=== PATIENT | male | born 1940 | race Caucasian/White ===

== ENCOUNTER 2017-05-18 23:17 | Emergency (ER) | payer MEDICARE ==
--- NOTE | 2017-05-19 02:05 | ED Physician Documentation ---
History of Present Illness - Stated complaint Stated Complaint: MALE - Chief complaint Chief Complaint: General - History obtained from History obtained from: Patient, Family - History of Present Illness Timing: Other (several months) Improved by: no ameliorating factors Worsened by: worse with BM - Additonal information Additional information: c/o months of gradually worsening painful hemorrhoids. He has been seen by PMD and surgery for this, was told he has internal hemorrhoids but not external ones. He is scheduled for colonoscopy next week as part of ongoing w/u for this problem. His chief complaint is rectal pain that started with BM this morning () and has continued throughout the day and evening. It has finally improved while awaiting ED evaluation. Review of Systems Constitutional: denies: Fever, Chills, Sweats Cardiac: reports: Reviewed and negative Respiratory: reports: Reviewed and negative GI: reports: Constipation, Other (rectal pain). denies: Abdominal Pain, Nausea , Vomiting, Diarrhea : denies: Dysuria, Frequency Skin: denies: Rash Musculoskeletal: denies: Back pain PD PAST MEDICAL HISTORY - Past Medical History Cardiovascular: Hypertension GI: Hemorrhoids, Diverticulitis, Other : Incontinence, Other Musculoskeletal: Osteoarthritis, Rheumatoid arthritis Other Past Medical History: Prostate CA, perferated colon - Past Surgical History Past Surgical History: Yes General: Bowel surgery - Present Medications Home Medications: Ambulatory Orders Medication Instructions Recorded Confirmed Amitriptyline [Elavil] 10 mg PO QPM 05/18/17 05/18/17 Aspirin 81 mg PO DAILY 05/18/17 05/18/17 Hydrochlorothiazide 25 mg PO DAILY 05/18/17 05/18/17 Lisinopril 20 mg PO DAILY 05/18/17 05/18/17 Hydrocodone/Acetaminophen 1 - 2 each PO Q6HR PRN #14 tablet 05/19/17 [Hydrocodon-Acetaminophen 5-325] Tolterodine [Detrol LA] 2 mg PO DAILY 05/19/17 05/19/17 - Allergies Allergies/Adverse Reactions: Allergies Allergy/AdvReac Type Severity Reaction Status Date / Time No Known Drug Allergies Allergy Verified 05/18/17 23:22 - Social History Does the pt smoke?: Yes Smoking Status: Former smoker Does the pt drink ETOH?: No Does the pt have substance abuse?: No - Immunizations Immunizations are current?: Yes PD ED PE NORMAL - Vitals Vital signs reviewed: Yes - General General: Alert and oriented X 3, No acute distress, Well developed/nourished - Abdomen Abdomen: Soft, Non tender, Non distended - Back Back: No CVA TTP - Derm Derm: Normal color, Warm and dry PD ED PE EXPANDED - Rectal Rectal: Other (no external abnormalities (no fissure or external hemorrhoid is visualized); unfortunately, I was unable to perform a digital rectal exam ( tried twice) because of extreme tenderness/pain with attempts). No: Hemorrhoid (no external hemorrhoid), Fissure Results - Vitals Vitals: Oxygen O2 Source Room air - Labs Labs: Laboratory Tests 05/19/17 05/19/17 03:20 03:20 WBC 8.3 RBC 3.78 L Hgb 12.2 L Hct 36.0 L MCV 95.4 H MCH 32.4 H MCHC 34.0 RDW 13.6 Plt Count 257 MPV 8.4 Neut # 5.2 Lymph # 1.9 [place]ilton # 0.9 Eos # 0.2 Baso # 0.1 Absolute Nucleated RBC 0.00 Nucleated RBCs 0.0 Sodium 138 Potassium 3.5 Chloride 103 Carbon Dioxide 27 Anion Gap 8.0 BUN 22 H Creatinine 1.4 H Estimated GFR (MDRD) 49 L Glucose 116 H Calcium 9.1 Total Bilirubin 0.5 AST 26 ALT 22 Alkaline Phosphatase 117 Total Protein 7.7 Albumin 4.3 Globulin 3.4 Albumin/Globulin Ratio 1.3 Lipase 78 H - Rads (name of study) CT A/P with IV contrast Radiology: Prelim report reviewed, See rad report PD MEDICAL DECISION MAKING - ED course Complexity details: reviewed old records, reviewed results, re-evaluated patient , considered differential, d/w patient, d/w family Departure - Departure Disposition: 01 Home, Self Care Clinical Impression: Rectal pain Condition: Good Instructions: ED Acute Pain [facility] Follow-Up: EYAD GARCIA MD [Provider Admit Priv/Credential] - Prescriptions: Hydrocodone/Acetaminophen [Hydrocodon-Acetaminophen 5-325] 1 - 2 each PO Q6HR PRN #14 tablet PRN Reason: Pain Discharge Date/Time: 05/19/17 05:51
[2017-05-19 03:52] LABS: BASOPHILS # (AUTO) 0.1 10^3/uL (0.0-0.1); EOSINOPHILS # (AUTO) 0.2 10^3/uL (0.0-0.7); EOSINOPHILS % (AUTO) 1.9 %; HGB - HEMOGLOBIN 12.2 g/dL (14.0-18.0); LYMPHOCYTES # (AUTO) 1.9 10^3/uL (1.5-3.5); MEAN CORPUSCULAR HEMOGLOBIN 32.4 pg (27.0-31.0); MEAN CORPUSCULAR VOLUME 95.4 fL (80.0-94.0); MEAN PLATELET VOLUME 8.4 fL (7.4-11.4); MONOCYTES # (AUTO) 0.9 10^3/uL (0.0-1.0); MONOCYTES % (AUTO) 11.2 %; NEUTROPHILS # (AUTO) 5.2 10^3/uL (1.5-6.6); NEUTROPHILS % (AUTO) 62.9 %; RED BLOOD COUNT 3.78 10^6/uL (4.70-6.10); RED CELL DISTRIBUTION WIDTH 13.6 % (12.0-15.0); UNCORRECTED WHITE BLOOD COUNT 8.3 x10^3/uL; WHITE BLOOD COUNT 8.3 x10^3/uL (4.8-10.8)
[2017-05-19 04:03] LABS: ALBUMIN/GLOBULIN RATIO 1.3 (1.0-2.2); BILIRUBIN,TOTAL 0.5 mg/dL (0.2-1.0); CALCIUM 9.1 mg/dL (8.5-10.3); CREATININE 1.4 mg/dL (0.6-1.2); POTASSIUM 3.5 mmol/L (3.5-5.0); TOTAL PROTEIN 7.7 g/dL (6.7-8.2)
[2017-05-19] MEDS ORDERED: IOPAMIDOL-300 100 ML VIAL IVP ONE (04:43)
--- NOTE | 2017-05-19 04:55 | CT Preliminary Report ---
Exam: CT Abdomen/Pelvis W/ IMPRESSION: 1. No acute inflammatory or obstructive process seen in the abdomen or pelvis. 2. Cholelithiasis. 3. Multiple lower abdominal/pelvic omkar-incisional hernias without apparent complication. 4. 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 5. Post-prostatectomy and partial colectomy. [facility] SITE ID: [id number]
--- NOTE | 2017-05-19 05:04 | CT Report ---
EXAM: CT ABDOMEN AND PELVIS EXAM DATE: 05/19/2017 04:43 AM. CLINICAL HISTORY: Rectal pain. COMPARISONS: None. TECHNIQUE: Routine helical CT imaging was performed through the abdomen and pelvis. IV contrast: 100 mL Isovue-300. Enteric contrast: No . Reconstructions: Coronal and sagittal. In accordance with CT protocol optimization, one or more of the following dose reduction techniques w ere utilized for this exam: automated exposure control, adjustment of mA and/or KV based on patient s ize, or use of iterative reconstructive technique. FINDINGS: Lung Bases: Unremarkable. Liver: Scattered probable tiny cysts. No suspicious masses. Gallbladder/Bile Ducts: Multiple gallstones without definite cholecystitis. Spleen: Unremarkable. Pancreas: Unremarkable. Adrenal Glands: Unremarkable. Kidneys: Unremarkable. No suspicious masses or hydronephrosis. Peritoneal Cavity/Bowel: Post partial colectomy. Colonic diverticulosis without definitive acute dive rticulitis. No bowel obstruction or inflammatory process seen. No free air or fluid. There are multiple lower abdominal/pelvic omkar-incisional hernia defects. Largest is left paramedian and contains a segment of nonobstructed large bowel without obstruction. Hernia defect measures 6 x 5 cm with a larger 13 cm hernia sac. Additional smaller right paramedian anterior abdominal wall herni a contains a knuckle of nonobstructed large bowel as well. Pelvic Organs: Bladder appears unremarkable. Post-prostatectomy. Vasculature: Moderate atherosclerotic disease of the aorta and branches. No aneurysm seen. Bones: No significant abnormality. Other: None. IMPRESSION: 1. No acute inflammatory or obstructive process seen in the abdomen or pelvis. 2. Cholelithiasis. 3. Multiple lower abdominal/pelvic omkar-incisional hernias without apparent complication. 4. 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 5. Post-prostatectomy and partial colectomy. [facility] Referring Provider Line: [phone] SITE ID: [id number]
[2017-05-19] MEDS ORDERED: HYDROcod/ACETAM 5/325 MG TABLET PO STA (05:38)
[2017-05-19] MEDS ORDERED: HYDROcod/ACETAM 5/325 MG TABLET ONE (05:39)
[2017-05-19 05:46] VITALS: BP 137/78
== END 2017-05-19 05:51 | disposition home or self-care (01) ==
LOC: ED 23:17
DX: K62.89 Other specified diseases of anus and rectum (principal); I10 Essential (primary) hypertension; Z87.891 Personal history of nicotine dependence
CPT/HCPCS: 36415; 74177; 80053; 83690; 85025; 99283; A9270; Q9967

== ENCOUNTER 2017-05-24 07:44 | Day surgery (SDC) | payer MEDICARE ==
[~2017-05-24 07:44] MED LIST: ceFAZolin 2 GM/50 ML 50 ML IV ONE
[2017-05-24] MEDS ORDERED: LACTATED RINGERS 1,000 ML IV ONE ×3 (08:41→10:50)
[2017-05-24] MEDS ORDERED: MIDAZOLAM 2 MG/2 ML VIAL IVP ONE (10:00)
[2017-05-24] MEDS ORDERED: PROPOFOL 200 MG/20 ML VIAL IVP ONE (10:00)
[2017-05-24] MEDS ORDERED: ONDANSETRON 4 MG/2 ML VIAL IVP ONE (10:00)
[2017-05-24] MEDS ORDERED: KETAMINE 500 MG/10 ML VIAL IVP ONE (10:00)
[2017-05-24] MEDS ORDERED: LIDOCAINE-MPF 2% 5 ML VIAL IM ONE (10:00)
[2017-05-24] MEDS ORDERED: PHENYLEPHRINE 50 MG/5 ML VIAL IV ONE (10:00)
[2017-05-24] MEDS ORDERED: fentaNYL 100 MCG/2 ML VIAL IVP ONE (10:00)
[2017-05-24] MEDS ORDERED: BUPIVACAINE 0.25%-EPI 1:200000 PF 30 ML VIAL SUBQ ONE ×3 (10:30→10:54)
[2017-05-24] MEDS ORDERED: LIDOCAINE 1% 50 ML MDV SUBQ ONE ×3 (10:30→10:54)
[2017-05-24] MEDS ORDERED: THROMBIN (BOVINE) 5,000 UNIT VIAL TOP ONE (10:47)
[2017-05-24 12:21] VITALS: BP 122/62
--- NOTE | 2017-05-25 05:28 | OPERATIVE REPORT ---
DATE OF SURGERY: 05/24/2017 00:00:00 SURGEON: Carlee Elmore MD. PREOPERATIVE DIAGNOSIS: External painful hemorrhoids. POSTOPERATIVE DIAGNOSIS: External painful hemorrhoids. INDICATION FOR PROCEDURE: This is a 76-year-old male who presented to my office multiple times with severe anal pain. In evaluation in the office, I was unable to fully examine him secondary to body habitus and pain. He was subsequently scheduled for colonoscopy, exam under anesthesia, and possible hemorrhoidectomy. FINDINGS: After obtaining informed consent from the patient, he was brought into the operating room and positioned on the operating table in the left lateral position. A colonoscopy was performed, which was dictated separately. He was then positioned in the prone position, taking note of pressure points. He received 2 grams of Ancef. He was prepped and draped in the usual sterile fashion. A timeout was taken according to protocol. Anoscopy was performed, which demonstrated large external hemorrhoids, one of which was indurated and located in the left lateral position. This is where he was appearing to have pain upon palpation in the office. Local anesthetic 20 mL was infiltrated and hemorrhoidectomy was then performed by clamping the base of the hemorrhoid, excising the skin with a knife, and then the hemorroidal base with electrocautery. The incision was closed with 3-0 Chromic, ensuring hemostasis. Further inspection of the anal canal demonstrated 2 additional hemorrhoids located in the 5 o'clock and 7 o'clock positions. These were also clamped and excised in a similar manner. They were both closed with 3-0 Chromic. Hemostasis was noted to be achieved. The anal canal was copiously irrigated, and 60 mL of local anesthetic in total was infiltrated. Thrombin and Gelfoam were then packed in the anal canal. The patient was then taken to recovery in stable condition. ESTIMATED BLOOD LOSS: Minimal. COMPLICATIONS: None. SPECIMENS: External hemorrhoid. JOB #: [id number] EXT JOB #:[id number]
== END 2017-05-24 07:45 | disposition home or self-care (01) ==
LOC: SDS 07:44
PROVIDERS: ATTEND Surgery
PROC: 06BY0ZC Excision of Hemorrhoidal Plexus, Open Approach (ICD-10-PCS; principal; 2017-05-24 09:00)
PROC: 0DBN8ZX Excision of Sigmoid Colon, Via Natural or Artificial Opening Endoscopic, Diagnostic (ICD-10-PCS; 2017-05-24 09:00)
DX: K64.4 Residual hemorrhoidal skin tags (principal); D12.5 Benign neoplasm of sigmoid colon; K57.30 Diverticulosis of large intestine without perforation or abscess without bleeding; K64.8 Other hemorrhoids; Z87.891 Personal history of nicotine dependence; I10 Essential (primary) hypertension; E78.5 Hyperlipidemia, unspecified
CPT/HCPCS: 45385; 46999; J0690; J7120; 88304; 88305

== ENCOUNTER 2017-10-26 08:00 | Outpatient (CLI) | payer MEDICARE | END 2017-10-26 08:01 | disposition home or self-care (01) | LOC: LAB.R 08:00 | PROVIDERS: ATTEND Surgery | DX: K61.1 Rectal abscess (principal) | CPT/HCPCS: 87070; 87205 ==

== ENCOUNTER 2021-03-31 08:00 | Outpatient (CLI) | payer MEDICARE ==
[2021-03-31 17:33] LABS: BASOPHILS # (AUTO) 0.1 10^3/uL (0.0-0.1); BASOPHILS % (AUTO) 0.6 %; EOSINOPHILS # (AUTO) 0.1 10^3/uL (0.0-0.7); EOSINOPHILS % (AUTO) 1.4 %; HCT - HEMATOCRIT 36.9 % (42.0-52.0); HGB - HEMOGLOBIN 11.7 g/dL (14.0-18.0); LYMPHOCYTES # (AUTO) 1.7 10^3/uL (1.5-3.5); LYMPHOCYTES % (AUTO) 19.6 %; MEAN CORPUSCULAR HEMOGLOBIN 31.5 pg (27.0-31.0); MEAN CORPUSCULAR HGB CONC 31.7 g/dL (32.0-36.0); MEAN CORPUSCULAR VOLUME 99.2 fL (80.0-94.0); MONOCYTES % (AUTO) 11.3 %; NEUTROPHILS # (AUTO) 5.7 10^3/uL (1.5-6.6); NEUTROPHILS % (AUTO) 66.6 %; PLT - PLATELET COUNT 272 10^3/uL (130-450); RED BLOOD COUNT 3.72 10^6/uL (4.70-6.10); RED CELL DISTRIBUTION WIDTH 13.4 % (12.0-15.0); WHITE BLOOD COUNT 8.6 x10^3/uL (4.8-10.8)
[2021-03-31 18:17] LABS: CALCIUM 9.3 mg/dL (8.5-10.3); CREATININE 1.6 mg/dL (0.6-1.2); POTASSIUM 4.3 mmol/L (3.5-5.0); URIC ACID 8.4 mg/dL (2.6-7.2)
== END 2021-03-31 23:59 | disposition home or self-care (01) ==
LOC: LAB.N 08:00
PROVIDERS: ATTEND Family Medicine
DX: L03.115 Cellulitis of right lower limb (principal)
CPT/HCPCS: 36415; 80048; 84550; 85025

== ENCOUNTER 2021-03-31 16:28 | Outpatient (CLI) | payer MEDICARE ==
--- NOTE | 2021-03-31 17:19 | XRAY Report ---
PROCEDURE: Foot 3 View RT INDICATIONS: CELLULITIS, R FOOT TECHNIQUE: 3 views of the foot were acquired. COMPARISON: None available. FINDINGS: Bones: No fractures or dislocations. No suspicious bony lesions. Mild first MTP and diffuse interp halangeal joint space narrowing with periarticular osteophyte formation. Prominent plantar and retroc alcaneal bone spurs. Soft tissues: No tibiotalar joint effusion. Achilles tendon appears normal. Mild dorsal soft tissu e swelling with mottled appearance of the soft tissues. IMPRESSION: First MTP and diffuse interphalangeal joint degeneration. Calcaneal enthesopathy. Diffuse soft tissue swelling with mottled appearance which may be related to edema; however sialitis cannot be excluded and direct visualization is recommended. Reviewed by: VALENTINO Waller on 03/31/2021 5:17 PM PDT Approved by: Mahin Gomes MD on 03/31/2021 5:17 PM PDT Station ID: [id number]
== END 2021-03-31 23:59 | disposition home or self-care (01) ==
LOC: DI.N 16:28
PROVIDERS: ATTEND Family Medicine
DX: M19.071 Primary osteoarthritis, right ankle and foot (principal); M77.31 Calcaneal spur, right foot; M77.51 Other enthesopathy of right foot and ankle; M79.89 Other specified soft tissue disorders

== ENCOUNTER 2021-07-20 13:17 | Outpatient (CLI) | payer MEDICARE ==
[2021-07-20 18:41] LABS: HCT - HEMATOCRIT 36.9 % (42.0-52.0); HGB - HEMOGLOBIN 11.8 g/dL (14.0-18.0); MEAN CORPUSCULAR HEMOGLOBIN 31.6 pg (27.0-31.0); MEAN CORPUSCULAR VOLUME 98.9 fL (80.0-94.0); MEAN PLATELET VOLUME 11.3 fL (7.4-11.4); RED BLOOD COUNT 3.73 10^6/uL (4.70-6.10); RED CELL DISTRIBUTION WIDTH 14.1 % (12.0-15.0); WHITE BLOOD COUNT 9.4 x10^3/uL (4.8-10.8)
[2021-07-20 18:45] LABS: ALBUMIN 3.9 g/dL (3.2-5.5); ALBUMIN/GLOBULIN RATIO 1.1 (1.0-2.2); ALKALINE PHOSPHATASE 97 IU/L (42-121); ALT ALANINE AMINOTRANSFERASE 18 IU/L (10-60); AST ASPARTATE AMINOTRANSFERASE 21 IU/L (10-42); BILIRUBIN,TOTAL 0.7 mg/dL (0.2-1.0); BUN - BLOOD UREA NITROGEN 19 mg/dL (6-20); CALCIUM 9.1 mg/dL (8.5-10.3); CARBON DIOXIDE - CO2 27 mmol/L (21-32); CHLORIDE 100 mmol/L (101-111); CHOL/HDL RATIO 4.6 (<5.0); CHOLESTEROL 217 mg/dL; CREATININE 1.3 mg/dL (0.6-1.2); GFR - MDRD 53 (>89); GLUCOSE 117 mg/dL (70-100); HDL CHOLESTEROL 47 mg/dL; LDL CHOLESTEROL,CALCULATED 140 mg/dL; POTASSIUM 4.1 mmol/L (3.5-5.0); SODIUM 138 mmol/L (135-145); TOTAL PROTEIN 7.3 g/dL (6.7-8.2); TRIGLYCERIDES 150 mg/dL; URIC ACID 7.4 mg/dL (2.6-7.2); VLDL CHOLESTEROL 30 mg/dL
== END 2021-07-20 13:18 | disposition home or self-care (01) ==
LOC: LAB.N 13:17
PROVIDERS: ATTEND Family Medicine
DX: N18.30 Chronic kidney disease, stage 3 unspecified (principal); R74.8 Abnormal levels of other serum enzymes; R97.20 Elevated prostate specific antigen [PSA]; E78.5 Hyperlipidemia, unspecified; M10.9 Gout, unspecified
CPT/HCPCS: 36415; 80053; 80061; 83721; 84550; 85027

== ENCOUNTER 2021-07-20 15:49 | Outpatient (CLI) | payer MEDICARE ==
--- NOTE | 2021-07-21 09:08 | XRAY Report ---
PROCEDURE: Lumbar Spine 2 View INDICATIONS: ELEVATED PSA TECHNIQUE: 2 views of the lumbar spine were acquired. COMPARISON: None. FINDINGS: Bones: 5 [id number]-[id number] vertebrae are present. There is normal bony alignment. No vertebral body compression fractures. No suspicious bony lesions. Scattered osteophytes are present with bridging osteophyte at T12-L1. Multilevel moderate disc space narrowing. In addition, moderate to severe jayda inal narrowing is present L4-5, L5-S1. Soft tissues: Overlying bowel gas pattern is normal. No suspicious soft tissue calcifications. IMPRESSION: Multilevel degenerative changes without suspicious osseous lesions. Reviewed by: Kenya Wilkins MD on 07/21/2021 9:06 AM PDT Approved by: Kenya Wilkins MD on 07/21/2021 9:06 AM PDT Station ID: [id number]
--- NOTE | 2021-07-21 09:32 | XRAY Report ---
PROCEDURE: Pelvis 1 View INDICATIONS: ELEVATED PSA TECHNIQUE: Single AP view of the pelvis was obtained. COMPARISON: None. FINDINGS: Degenerative changes are noted within the lower lumbar spine. Bones are well-mineralized. No suspicio us osseous lesions. No fractures or dislocations. Minimal to mild bilateral degenerative narrowing is present within the hips. IMPRESSION: No suspicious osseous lesions. Reviewed by: Kenya Wilkins MD on 07/21/2021 9:31 AM PDT Approved by: Kenya Wilkins MD on 07/21/2021 9:31 AM PDT Station ID: [id number]
== END 2021-07-20 15:50 | disposition home or self-care (01) ==
LOC: DI.N 15:49
PROVIDERS: ATTEND Family Medicine
DX: R97.20 Elevated prostate specific antigen [PSA] (principal); R74.8 Abnormal levels of other serum enzymes; M25.78 Osteophyte, vertebrae; M51.36 Other intervertebral disc degeneration, lumbar region; M48.061 Spinal stenosis, lumbar region without neurogenic claudication; N18.30 Chronic kidney disease, stage 3 unspecified; E78.5 Hyperlipidemia, unspecified; M10.9 Gout, unspecified
CPT/HCPCS: 36415; 80053; 80061; 83721; 84550; 85027

== ENCOUNTER 2023-03-02 12:26 | Outpatient (CLI) | payer MEDICARE | END 2023-03-02 12:27 | disposition home or self-care (01) | LOC: DI 12:26 | PROVIDERS: ATTEND Physician Assistant | DX: R06.09 Other forms of dyspnea (principal); I51.7 Cardiomegaly | CPT/HCPCS: 93306 ==

== ENCOUNTER 2023-05-16 13:14 | Outpatient (CLI) | payer MEDICARE | END 2023-05-16 13:15 | disposition home or self-care (01) | LOC: MAC.MOP 13:14 | PROVIDERS: ATTEND Family Medicine | DX: I51.7 Cardiomegaly (principal); R06.09 Other forms of dyspnea | CPT/HCPCS: 93242 ==

== ENCOUNTER 2023-05-30 10:30 | Outpatient (CLI) | payer MEDICARE | END 2023-05-30 10:31 | disposition home or self-care (01) | LOC: MAC.INF 10:30 | PROVIDERS: ATTEND Physician Assistant | DX: I44.1 Atrioventricular block, second degree (principal); I45.89 Other specified conduction disorders; I49.3 Ventricular premature depolarization | CPT/HCPCS: 93244 ==

== ENCOUNTER 2024-05-07 08:00 | Outpatient (CLI) | payer MEDICARE ==
[2024-05-07 18:06] LABS: CALCIUM 9.9 mg/dL (8.5-10.3); CREATININE 1.2 mg/dL (0.6-1.3); POTASSIUM 4.1 mmol/L (3.5-4.5); URIC ACID 7.2 mg/dL (4.4-7.6)
== END 2024-05-07 23:59 | disposition home or self-care (01) ==
LOC: LAB.N 08:00
PROVIDERS: ATTEND Family Medicine
DX: M25.561 Pain in right knee (principal); M25.562 Pain in left knee
CPT/HCPCS: 36415; 80048; 84550

== ENCOUNTER 2024-05-07 11:30 | Outpatient (CLI) | payer MEDICARE ==
--- NOTE | 2024-05-08 00:36 | XRAY Report ---
PROCEDURE: Knee 1-2V BL INDICATIONS: KNEE PAIN, BILATERAL TECHNIQUE: 2 views of the knee(s) were acquired. COMPARISON: None. FINDINGS: Bones: No fractures or dislocations. Bilateral tricompartmental osteophytosis. Mild joint space narr owing. No suspicious bony lesions. Soft tissues: No significant knee joint effusion. No suspicious soft tissue calcifications or masses . IMPRESSION: Moderate bilateral knee DJD. Reviewed by: Wei Bhardwaj MD on 05/08/2024 12:35 AM PDT Approved by: Wei Bhardwaj MD on 05/08/2024 12:35 AM PDT Station ID: [id number]
== END 2024-05-07 12:00 | disposition home or self-care (01) ==
LOC: DI.N 11:30
PROVIDERS: ATTEND Family Medicine
DX: M17.0 Bilateral primary osteoarthritis of knee (principal)
CPT/HCPCS: 36415; 80048; 84550

== ENCOUNTER 2024-06-23 07:05 | Outpatient (CLI) | payer MEDICARE | END 2024-06-23 23:59 | disposition EMS.NT | LOC: EMS 07:05 | DX: R53.1 Weakness (principal); Z91.81 History of falling ==

== ENCOUNTER 2024-06-23 13:40 | Outpatient (CLI) | payer MEDICARE | END 2024-06-23 23:59 | disposition critical access hospital (66) | LOC: EMS 13:40 | DX: M25.561 Pain in right knee (principal); M25.562 Pain in left knee; Z91.81 History of falling | CPT/HCPCS: A0425; A0429 ==

== ENCOUNTER 2024-06-23 14:12 | Emergency (ER) | payer MEDICARE ==
--- NOTE | 2024-06-23 14:41 | ED Physician Documentation ---
History of Present Illness - Stated complaint Stated Complaint: BILAT KNEE PX - Chief complaint Chief Complaint: Trauma Ext - History obtained from History obtained from: Patient, EMS - History of Present Illness Timing: Today Pain level max: 8 Pain level now: 7 - Additonal information Additional information: Patient is an 83-year-old male who complains of bilateral knee pain for at least the past year. He states that he has been seen at the walk-in clinic several times, has been referred to orthopedist but does not have an appointment until next month. He states he has also been referred to physical therapy and is supposed to start it in about 10 days. He states that he was put on duloxetine but that is not helping his pain. He states that today he was walking back to his chair with his walker when he tried to turn and fell. He states he could not get up off the ground, the fire department came and put him up in his chair. He states that he did not want to come to the hospital but after sitting in his chair for about an hour he decided that he should come and be evaluated. He has not tried to get up again since the initial fall. He states he occasionally takes ibuprofen and Tylenol for pain. Review of Systems Constitutional: denies: Fever, Chills Respiratory: denies: Cough GI: denies: Vomiting, Diarrhea Skin: denies: Rash PD PAST MEDICAL HISTORY - Past Medical History Past Medical History: Yes Cardiovascular: Hypertension GI: Hemorrhoids, Diverticulitis, Other : Incontinence, Other Musculoskeletal: Osteoarthritis, Rheumatoid arthritis - Past Surgical History Past Surgical History: Yes General: Bowel surgery - Present Medications Home Medications: Ambulatory Orders Medication Instructions Recorded Confirmed Amitriptyline [Elavil] 25 mg PO QPM 05/18/17 06/23/24 Aspirin 81 mg PO DAILY 05/18/17 06/23/24 hydroCHLOROthiazide 25 mg PO DAILY 05/18/17 06/23/24 [Hydrochlorothiazide] Capsaicin 1 applic TOP PRN PRN 06/23/24 06/23/24 DULoxetine [Cymbalta] 30 mg PO DAILY 06/23/24 06/23/24 Losartan [Cozaar] 1 cap PO BID 06/23/24 06/23/24 amLODIPine [Norvasc] 1 tab PO DAILY 06/23/24 06/23/24 oxyCODONE [Roxicodone] 5 - 10 mg PO Q6H PRN #14 tablet 06/23/24 MDD 6 - Allergies Allergies/Adverse Reactions: Allergies Allergy/AdvReac Type Severity Reaction Status Date / Time No Known Drug Allergies Allergy Verified 06/23/24 14:35 - Social History Does the pt smoke?: Yes Smoking Status: Current every day smoker Does the pt drink ETOH?: No Does the pt have substance abuse?: No - Immunizations Immunizations are current?: Yes - POLST Patient has POLST: No PD ED PE NORMAL - Vitals Vital signs reviewed: Yes - General General: Alert and oriented X 3, No acute distress - HEENT HEENT: Moist mucous membranes - Neck Neck: Supple, no meningeal sign - Cardiac Cardiac: RRR, Strong equal pulses - Respiratory Respiratory: No respiratory distress, Clear bilaterally - Abdomen Abdomen: Soft, Non tender, Non distended - Derm Derm: Warm and dry - Extremities Extremities: Other (Swelling to the bilateral lower extremities, neurovascularly intact. Mild tenderness to palpation over the bilateral knees, no significant effusion. Limited range of motion of both knees secondary to pain. ACL, MCL, PCL, LCL are intact bilaterally. NVI) - Neuro Neuro: Alert and oriented X 3 - Psych Psych: Normal mood, Normal affect Results - Vitals Vitals: Vital Signs - 24 hr 06/23/24 06/23/24 06/23/24 14:20 16:28 18:00 Temperature 37 C Heart Rate 80 78 88 Respiratory 18 18 18 Rate Blood Pressure 124/67 133/65 H 135/78 H O2 Saturation 96 94 96 Oxygen O2 Source Room air - Rads (name of study) Bilateral knee x-ray Relevant Findings:: Final report received, See rad report PD Medical Decision Making - ED course Complexity details: reviewed results, re-evaluated patient, considered differential, d/w patient, d/w family ED course: Patient with arthritis of the bilateral knees on x-ray. No acute fractures. Given oxycodone and Dilaudid. Pain improved. Has a walker at home. Recommend he use this. Will prescribe oxycodone for home. He is able to walk in the emergency department with a walker. He has an appointment with physical therapy and orthopedics in the next few weeks. Recommend he recontact his doctor tomorrow to discuss pain control medication and options for treating his pain. No indication for admission at this time. Patient counseled regarding signs and symptoms for which I believe and urgent re-evaluation would be necessary. Patient with good understanding of and agreement to plan and is comfortable going home at this time This document was made in part using voice recognition software. While efforts are made to proofread this document, sound alike and grammatical errors may occur. Departure - Departure Disposition: 01 Home, Self Care Clinical Impression: Arthritis of both knees Condition: Good Instructions: ED Degenerative Joint Disease Follow-Up: your,doctor within 1 week [Other] Prescriptions: oxyCODONE [Roxicodone] 5 - 10 mg PO Q6H PRN #14 tablet MDD 6 PRN Reason: pain Comments: Your prescription was sent to in [facility]. Please use the medication as needed for breakthrough pain. It is important to follow-up with your doctor for further care. You need to use your walker at all times at home. You may need to get a wheelchair to help you at home as well. I am prescribing a short course of narcotic pain medication for you. These are potentially dangerous and addictive medications that should be used carefully. These medications may constipate you. Take an rvro-kyj-vyngppt stool softener (docusate) twice daily with plenty of water while taking these medications. If you go 24 hours without a bowel movement, take isvj-hjv-ipwtrio miralax, per package instructions. Do not drink or drive while taking these medications. If you received narcotic or sedating medications while in the emergency department, do not drive for 24 hours. Store this medication in a safe, secure place and out of reach of children. It is a violation of federal law to give or sell this medication to another person or to use in a manner other than prescribed. The ED will not refill narcotic prescriptions, including prescriptions lost or stolen. To dispose of unwanted medications: 1. [facility] at [address] in [place] has a medication drop box. They accept prescription medications (in pill form) Monday through Monday 9:00 a.m. to 5:00 p.m. 2. [facility] [employer] accepts prescription medications (in pill form only) for disposal year round. Call for more information. 3. Contact the [facility] for the next [facility] sponsored prescription drug collection event. , [phone], or [phone]; Forms: PCP List
[2024-06-23] MEDS: oxyCODONE 5 MG TABLET PO STA (14:47)
--- NOTE | 2024-06-23 16:08 | XRAY Report ---
PROCEDURE: Knee 4+V BL INDICATIONS: B knee pain, fall TECHNIQUE: 2 views of the knee(s) were acquired. COMPARISON: None. FINDINGS: Bones: No fractures or dislocations. No suspicious bony lesions. Tricompartmental joint space lise rowing with associated osteophytosis. Soft tissues: Small knee joint effusion. No suspicious soft tissue calcifications or masses. IMPRESSION: No acute bony abnormality. Small knee joint effusions. Mild to moderate tricompartmental osteoarthritis. Kellgren-Gabino scale of osteoarthritis: 2. Reviewed by: Shiva Burgos MD on 06/23/2024 4:07 PM PDT Approved by: hSiva Burgos MD on 06/23/2024 4:07 PM PDT Station ID: [id number]
[2024-06-23] MEDS: HYDROmorphone 1 MG/ML CARPUJECT IM STA ×2 (17:17→18:31)
[2024-06-23 19:36] VITALS: BP 135/84; O2SAT 100
== END 2024-06-23 19:26 | disposition home or self-care (01) ==
LOC: EDUNIT# → ED 14:12
DX: M17.0 Bilateral primary osteoarthritis of knee (principal); F17.200 Nicotine dependence, unspecified, uncomplicated
CPT/HCPCS: 73564; 96372; 99284; A9270; J1170

== ENCOUNTER 2024-06-23 20:55 | Outpatient (CLI) | payer MEDICARE | END 2024-06-23 20:56 | disposition EMS.NT | LOC: EMS 20:55 | DX: M25.561 Pain in right knee (principal); M25.562 Pain in left knee ==

== ENCOUNTER 2024-07-01 00:51 | Outpatient (CLI) | payer MEDICARE | END 2024-07-01 23:59 | disposition critical access hospital (66) | LOC: EMS 00:51 | DX: R29.6 Repeated falls (principal); R60.0 Localized edema; R53.1 Weakness | CPT/HCPCS: A0425; A0429 ==

== ENCOUNTER 2024-07-01 01:21 | Emergency (ER) | payer MEDICARE ==
[2024-07-01] MEDS ORDERED: ONDANSETRON 4 MG/2 ML VIAL IVP PRN (01:35)
--- NOTE | 2024-07-01 01:39 | ED Physician Documentation ---
History of Present Illness - Stated complaint Stated Complaint: FALL - Chief complaint Chief Complaint: Trauma Ext - History obtained from History obtained from: Patient - Additonal information Additional information: 83-year-old man presents to the emergency department status post mechanical fall while using his walker to go to the bathroom and becoming weak, sliding to the floor. His called 911 because he has had multiple falls recently and she is unable to care for him at home. Patient denies any injuries aside from bilateral second toe abrasions. He does not think his tetanus is up-to-date. PD PAST MEDICAL HISTORY - Past Medical History Past Medical History: Yes Cardiovascular: Hypertension GI: Hemorrhoids, Diverticulitis, Other : Incontinence, Other Musculoskeletal: Osteoarthritis, Rheumatoid arthritis, Gout - Past Surgical History Past Surgical History: Yes General: Bowel surgery - Present Medications Home Medications: Ambulatory Orders Medication Instructions Recorded Confirmed Amitriptyline [Elavil] 25 mg PO QPM 05/18/17 07/01/24 Aspirin 81 mg PO DAILY 05/18/17 07/01/24 hydroCHLOROthiazide 25 mg PO DAILY 05/18/17 07/01/24 [Hydrochlorothiazide] Capsaicin 1 applic TOP PRN PRN 06/23/24 07/01/24 DULoxetine [Cymbalta] 30 mg PO DAILY 06/23/24 07/01/24 Losartan [Cozaar] 1 cap PO BID 06/23/24 07/01/24 amLODIPine [Norvasc] 1 tab PO DAILY 06/23/24 07/01/24 oxyCODONE [Roxicodone] 5 - 10 mg PO Q6H PRN #14 tablet 06/23/24 07/01/24 MDD 6 - Allergies Allergies/Adverse Reactions: Allergies Allergy/AdvReac Type Severity Reaction Status Date / Time [id number] Reductase AdvReac Cramps Verified 07/01/24 01:38 Inhibitor - Social History Does the pt smoke?: Yes Smoking Status: Current every day smoker Does the pt drink ETOH?: No Does the pt have substance abuse?: No - Immunizations Immunizations are current?: Yes - POLST Patient has POLST: No PD ED PE NORMAL - Vitals Vital signs reviewed: Yes - General General: Alert and oriented X 3, No acute distress, Well developed/nourished - HEENT HEENT: Atraumatic, PERRL, EOMI - Neck Neck: No bony TTP, C-Spine cleared by NEXUS criteria - Cardiac Cardiac: RRR - Respiratory Respiratory: No respiratory distress, Clear bilaterally - Abdomen Abdomen: Non tender, Non distended - Back Back: No spinal TTP - Derm Derm: Normal color, Warm and dry, Other (Abrasions to bilateral anterior aspect of second toes) - Extremities Extremities: No deformity, No tenderness to palpate, Normal ROM s pain - Neuro Neuro: Alert and oriented X 3 Eye Opening: Spontaneous Motor: Obeys Commands Verbal: Oriented GCS Score: 15 - Psych Psych: Normal mood, Normal affect Results - Vitals Vitals: Vital Signs - 24 hr 07/01/24 07/01/24 07/01/24 01:20 02:37 04:18 Temperature 36.6 C 36.5 C Heart Rate 88 83 81 Respiratory 18 18 18 Rate Blood Pressure 138/53 H 129/75 105/64 O2 Saturation 96 95 100 If not protocol 2 : Oxygen Flow, liters/minute 07/01/24 05:09 Temperature Heart Rate 72 Respiratory 18 Rate Blood Pressure 133/64 H O2 Saturation 99 If not protocol 2 : Oxygen Flow, liters/minute Oxygen O2 Source Nasal cannula Oxygen Flow Rate 2 - Labs Labs: Laboratory Tests 07/01/24 07/01/24 07/01/24 01:45 01:45 01:45 WBC 10.7 RBC 3.18 L Hgb 10.2 L Hct 31.1 L MCV 97.8 H MCH 32.1 H MCHC 32.8 RDW 14.3 Plt Count 261 MPV 10.3 Neut # (Auto) 8.7 H Lymph # (Auto) 0.8 L Rapides # (Auto) 1.1 H Eos # (Auto) 0.1 Baso # (Auto) 0.0 Absolute Nucleated RBC 0.00 Nucleated RBC % 0.0 PT 13.6 H INR 1.2 Sodium 137 Potassium 3.4 L Chloride 96 L Carbon Dioxide 34 H Anion Gap 7.0 BUN 27 H Creatinine 1.4 H Estimated GFR (MDRD) 48 L Glucose 117 H Calcium 9.4 Total Bilirubin 0.5 AST 21 ALT 14 Alkaline Phosphatase 101 Total Protein 6.5 Albumin 3.4 Globulin 3.1 Albumin/Globulin Ratio 1.1 Lipase 30 Urine Color Urine Clarity Urine pH Ur Specific [place] Urine Protein Urine Glucose (UA) Urine Ketones Urine Occult Blood Urine Nitrite Urine Bilirubin Urine Urobilinogen Ur Leukocyte Esterase Ur Microscopic Review Urine Culture Comments Urine Opiates Screen Ur Buprenorphine Scrn Ur Oxycodone Screen Urine Methadone Screen Ur Barbiturates Screen Ur Tricyclics Screen Ur Phencyclidine Scrn Ur Amphetamine Screen U Methamphetamines Scrn U Benzodiazepines Scrn Urine Cocaine Screen U Cannabinoids Screen Ur Drug Screen Comment Ethyl Alcohol < 10.0 07/01/24 03:58 WBC RBC Hgb Hct MCV MCH MCHC RDW Plt Count MPV Neut # (Auto) Lymph # (Auto) Rapides # (Auto) Eos # (Auto) Baso # (Auto) Absolute Nucleated RBC Nucleated RBC % PT INR Sodium Potassium Chloride Carbon Dioxide Anion Gap BUN Creatinine Estimated GFR (MDRD) Glucose Calcium Total Bilirubin AST ALT Alkaline Phosphatase Total Protein Albumin Globulin Albumin/Globulin Ratio Lipase Urine Color YELLOW Urine Clarity CLEAR Urine pH 5.5 Ur Specific [place] 1.020 Urine Protein NEGATIVE Urine Glucose (UA) NEGATIVE Urine Ketones NEGATIVE Urine Occult Blood NEGATIVE Urine Nitrite NEGATIVE Urine Bilirubin NEGATIVE Urine Urobilinogen 0.2 (NORMAL) Ur Leukocyte Esterase NEGATIVE Ur Microscopic Review NOT INDICATED Urine Culture Comments NOT INDICATED Urine Opiates Screen NEGATIVE Ur Buprenorphine Scrn NEGATIVE Ur Oxycodone Screen POSITIVE H Urine Methadone Screen NEGATIVE Ur Barbiturates Screen NEGATIVE Ur Tricyclics Screen POSITIVE H Ur Phencyclidine Scrn NEGATIVE Ur Amphetamine Screen NEGATIVE U Methamphetamines Scrn NEGATIVE U Benzodiazepines Scrn NEGATIVE Urine Cocaine Screen NEGATIVE U Cannabinoids Screen NEGATIVE Ur Drug Screen Comment CUTOFF CONC BELOW: Ethyl Alcohol PD Medical Decision Making - ED course ED course: 83-year-old man presents status post mechanical fall while using his walker going to the bathroom. Patient did not hit his head or injure anything except for abrasions to bilateral second toes. These were cleaned, bacitracin was applied and dressing was placed. Tetanus was updated. He just was seen here recently for fall and reportedly per EMS he is unable to be cared for at home any longer by his . Plan to obtain basic screening labs, monitor overnight and have social work see him in the morning. Note: at 5:30 AM I had an extensive conversation with the patient and his . He has an orthopedics appointment for July [address] Rausch and is supposed to get weightbearing bilateral 4 view knee x-rays today in anticipation of that appointment. The requested that I order these images. Patient is adamant that he cannot go home although she is willing to take him home. He is aware that if he does not go home that he will miss his orthopedics appointment to address the cause of his instability issues which have been chronic and ongoing for several months to years. However he states he is too unstable to go home and refuses to do so. Plan to have social work see him and coordinate possible nursing facility placement. Patient endorsed to incoming daytime ED MD at 7am shift change. Departure - Departure Forms: PCP List
[2024-07-01] MEDS: ACETAMINOPHEN 500 MG TABLET PO PRN (01:45)
[2024-07-01] MEDS: TETANUS/DIPHTHERIA/PERTUSSIS 0.5 ML SYRINGE IM ONE (01:47)
[2024-07-01 01:48] LABS: BASOPHILS % (AUTO) 0.3 %; EOSINOPHILS # (AUTO) 0.1 10^3/uL (0.0-0.7); HCT - HEMATOCRIT 31.1 % (42.0-52.0); HGB - HEMOGLOBIN 10.2 g/dL (14.0-18.0); LYMPHOCYTES # (AUTO) 0.8 10^3/uL (1.5-3.5); LYMPHOCYTES % (AUTO) 7.3 %; MEAN CORPUSCULAR HEMOGLOBIN 32.1 pg (27.0-31.0); MEAN CORPUSCULAR HGB CONC 32.8 g/dL (32.0-36.0); MEAN CORPUSCULAR VOLUME 97.8 fL (80.0-94.0); MEAN PLATELET VOLUME 10.3 fL (7.4-11.4); MONOCYTES # (AUTO) 1.1 10^3/uL (0.0-1.0); MONOCYTES % (AUTO) 10.3 %; NEUTROPHILS # (AUTO) 8.7 10^3/uL (1.5-6.6); NEUTROPHILS % (AUTO) 80.8 %; PLT - PLATELET COUNT 261 10^3/uL (130-450); RED BLOOD COUNT 3.18 10^6/uL (4.70-6.10); RED CELL DISTRIBUTION WIDTH 14.3 % (12.0-15.0); WHITE BLOOD COUNT 10.7 x10^3/uL (4.8-10.8)
[2024-07-01] MEDS: BACITRACIN ZINC OINT 1 PACKET TOP STA (01:51)
[2024-07-01 02:01] LABS: ALBUMIN 3.4 g/dL (3.2-5.5); ALBUMIN/GLOBULIN RATIO 1.1 (1.0-2.2); ALKALINE PHOSPHATASE 101 IU/L (42-121); ALT ALANINE AMINOTRANSFERASE 14 IU/L (10-60); AST ASPARTATE AMINOTRANSFERASE 21 IU/L (10-42); BILIRUBIN,TOTAL 0.5 mg/dL (0.2-1.0); BUN - BLOOD UREA NITROGEN 27 mg/dL (6-20); CALCIUM 9.4 mg/dL (8.5-10.3); CARBON DIOXIDE - CO2 34 mmol/L (21-32); CHLORIDE 96 mmol/L (101-111); CREATININE 1.4 mg/dL (0.6-1.3); ETOH - ETHANOL < 10.0 mg/dL; GFR - MDRD 48 (>89); GLUCOSE 117 mg/dL (74-104); INR 1.2 (0.8-1.2); LIPASE 30 U/L (11-82); POTASSIUM 3.4 mmol/L (3.5-4.5); PT - PROTHROMBIN TIME 13.6 secs (9.9-12.6); SODIUM 137 mmol/L (135-145); TOTAL PROTEIN 6.5 g/dL (6.4-8.9)
[2024-07-01 04:06] LABS: BILIRUBIN,URINE NEGATIVE (NEGATIVE); GLUCOSE, URINE (UA) NEGATIVE (NEGATIVE); KETONES,URINE (UA) NEGATIVE (NEGATIVE); LEUKOCYTE ESTERASE, URINE NEGATIVE (NEGATIVE); NITRITE,URINE NEGATIVE (NEGATIVE); OCCULT BLOOD,URINE NEGATIVE (NEGATIVE); PH,URINE 5.5 PH (5.0-7.5); PROTEIN,URINE NEGATIVE (NEGATIVE); UROBILINOGEN,URINE 0.2 (NORMAL) E.U./dL (NORMAL)
[2024-07-01 04:10] LABS: CLARITY,URINE CLEAR (CLEAR)
[2024-07-01 04:14] LABS: AMPHETAMINE SCREEN,URINE NEGATIVE (NEGATIVE); BENZODIAZEPINES SCREEN, URINE NEGATIVE (NEGATIVE); COCAINE SCREEN URINE NEGATIVE (NEGATIVE); METHADONE SCREEN, URINE NEGATIVE (NEGATIVE); METHAMPHETAMINES SCREEN, URINE NEGATIVE (NEGATIVE); OPIATE SCREEN, URINE NEGATIVE (NEGATIVE); THC CANNABINOID SCREEN, URINE NEGATIVE (NEGATIVE); TRICYCLIC ANTIDEPRESSANT,URINE POSITIVE (NEGATIVE)
[2024-07-01 04:15] LABS: BARBITURATE SCREEN,UR NEGATIVE (NEGATIVE); BUPRENORPHINE SCREEN, URINE NEGATIVE (NEGATIVE); OXYCODONE SCREEN, URINE POSITIVE (NEGATIVE)
[2024-07-01 06:22] LABS: BASOPHILS % (AUTO) 0.3 %; EOSINOPHILS # (AUTO) 0.1 10^3/uL (0.0-0.7); EOSINOPHILS % (AUTO) 0.8 %; HCT - HEMATOCRIT 29.2 % (42.0-52.0); HGB - HEMOGLOBIN 9.2 g/dL (14.0-18.0); LYMPHOCYTES # (AUTO) 1.1 10^3/uL (1.5-3.5); LYMPHOCYTES % (AUTO) 11.1 %; MEAN CORPUSCULAR HEMOGLOBIN 30.9 pg (27.0-31.0); MEAN CORPUSCULAR HGB CONC 31.5 g/dL (32.0-36.0); MONOCYTES # (AUTO) 1.3 10^3/uL (0.0-1.0); MONOCYTES % (AUTO) 12.8 %; NEUTROPHILS # (AUTO) 7.5 10^3/uL (1.5-6.6); NEUTROPHILS % (AUTO) 74.7 %; PLT - PLATELET COUNT 247 10^3/uL (130-450); RED BLOOD COUNT 2.98 10^6/uL (4.70-6.10); RED CELL DISTRIBUTION WIDTH 14.3 % (12.0-15.0)
[2024-07-01 06:38] LABS: CALCIUM 9.1 mg/dL (8.5-10.3); CREATININE 1.3 mg/dL (0.6-1.3); POTASSIUM 3.2 mmol/L (3.5-4.5)
[2024-07-01] MEDS: PANTOPRAZOLE 40 MG TABLET PO SCH (06:51)
--- NOTE | 2024-07-01 09:30 | ED Physician Documentation ---
ED Addendum - Addendum Addendum: 07/01/24 09:30 Social work will be meeting with the patient. He has orthopedic appointment tomorrow for evaluation of the knees and was to get x-rays before. They were ordered here. X-ray tech is on single coverage with multiple imaging ordered and asked if we could defer the knee x-rays still later. I felt that was reasonable.
[2024-07-01] MEDS: ACETAMINOPHEN 325 MG TABLET PO SCH (15:56)
[2024-07-02] MEDS: MIN OIL/DIMETHICON/COCONUT OIL 92 GM TUBE TOP PRN (09:25)
[2024-07-02] MEDS: MIN OIL/DIMETHICON/COCONUT OIL 92 GM TUBE TOP STA (09:38)
--- NOTE | 2024-07-02 09:54 | XRAY Report ---
PROCEDURE: Knee 3V BL INDICATIONS: fall/pain TECHNIQUE: 3 views of the bilateral knee(s) were acquired. COMPARISON: 06/23/2024. FINDINGS: Bones: No fractures or dislocations. Bilateral degenerative arthritis. Findings are greater on the l eft than the right. On the left, there is lateral compartment joint space loss and severe patellofemo ral joint space loss. No suspicious bony lesions. Soft tissues: Mild to moderate left knee joint effusion. No right knee joint effusion.. No suspiciou s soft tissue calcifications or masses. IMPRESSION: Bilateral degenerative arthritis, left greater than right. No acute bony abnormality. If clinically s uspect occult fracture, consider CT. Reviewed by: Arley Moreno MD on 07/02/2024 9:53 AM PDT Approved by: Arley Moreno MD on 07/02/2024 9:53 AM PDT Station ID: [id number]
--- NOTE | 2024-07-02 09:55 | XRAY Report ---
PROCEDURE: Pelvis 1-2V INDICATIONS: fall/bilat hip pain TECHNIQUE: 2 view(s) of the pelvis acquired. COMPARISON: 07/20/2021 FINDINGS: Bones: No fractures or dislocations. Bony structures are somewhat difficult to visualize secondary to patient body habitus and osteopenia. No suspicious bony lesions. Soft tissues: Visualized bowel gas pattern is normal. No suspicious soft tissue calcifications. IMPRESSION: Suboptimal films. No acute bony abnormality noted. If clinically suspect occult fracture, consider CT . Reviewed by: Arley Moreno MD on 07/02/2024 9:54 AM PDT Approved by: Arley Moreno MD on 07/02/2024 9:54 AM PDT Station ID: [id number]
[2024-07-02] MEDS: lidocaine 1% 20 ML MDV SUBQ ONE ×2 (13:15→13:16)
[2024-07-02] MEDS: TRIAMCINOLONE 40 MG/ML VIAL IM STA (13:15)
[2024-07-02] MEDS: BUPIVACAINE 0.25% PF 10 ML VIAL SUBQ STA (13:16)
[2024-07-02] MEDS: AMITRIPTYLINE 25 MG TABLET PO SCH (20:49)
--- NOTE | 2024-07-03 07:29 | CONSULTATION NOTE ---
Surgery Consult - Admit Date Hospital Admission Date: 07/01/24 - Consult Date Consult Date: 07/02/24 - Chief Complaint Chief Complaint: Bilateral Knee Pain - Home Meds/Allergies Home Medications: Patient History Medication Instructions Recorded Confirmed Amitriptyline [Elavil] 25 mg PO QPM 05/18/17 07/01/24 Aspirin 81 mg PO DAILY 05/18/17 07/01/24 hydroCHLOROthiazide 25 mg PO DAILY 05/18/17 07/01/24 [Hydrochlorothiazide] Capsaicin 1 applic TOP PRN PRN 06/23/24 07/01/24 DULoxetine [Cymbalta] 30 mg PO DAILY 06/23/24 07/01/24 Losartan [Cozaar] 1 cap PO BID 06/23/24 07/01/24 amLODIPine [Norvasc] 2.5 mg PO DAILY 06/23/24 07/01/24 Tolterodine Tartrate [Tolterodine 4 mg PO DAILY 07/01/24 07/01/24 Tartrate ER] allopurinoL [Zyloprim] 100 mg PO DAILY 07/01/24 07/01/24 Docusate Sodium 100Mg Capsule 100 mg PO DAILY 07/02/24 07/02/24 [Colace 100Mg Capsule] polyethylene glycoL 3350 [Miralax] 17 gm PO DAILY PRN 07/02/24 07/02/24 Allergies/Adverse Reactions: Allergies Allergy/AdvReac Type Severity Reaction Status Date / Time [id number] Reductase AdvReac Cramps Verified 07/01/24 01:38 Inhibitor - Vital Signs Vital Signs: Last Vital Signs Temp 36.4 C L 07/02/24 07:54 Pulse 59 L 07/03/24 06:00 Resp 18 07/03/24 06:00 BP 135/60 H 07/03/24 06:00 Pulse Ox 96 07/03/24 06:00 O2 Flow Rate 2 07/03/24 06:00 Intake & Output: Intake & Output 06/30/24 07/01/24 07/02/24 07/03/24 23:59 23:59 23:59 23:59 Output Total 100 Balance -100 - Lab Results Result Diagrams: 07/01/24 06:16 07/01/24 06:16 - Consultation Note Consultation Note: CC: Bilateral knee pain (L>R) HPI: 83yo M with a history of gout Presents to the emergency department after 2 recent ground-level falls for bilateral knee pain. He reports that his left knee is much worse than his right knee. It has been progressively getting worse over the last couple years. The majority of his pain is on the lateral aspect of his left knee. The pain is aggravated with weightbearing activities. when he describes his 2 recent falls they are related to general weakness and deconditioning. He just reports that as he attempts to stand his knees give out and he slowly falls to the ground. There was no significant increase in pain following his 2 falls. Treatments have been activity modification. He has not taken any long-term anti-inflammatories, participated in physical therapy or had any injections. PHYSICAL EXAM: GEN: The patient is a well-nourished, well-developed individual in no acute distress. Alert and oriented x 3; pleasant, interactive and professional. NEURO: Cranial nerves two through 12 grossly intact. HEENT: Benign. PULM: Respiratory rate and depth within normal range. Heart: RRR CV: Palpable extremity pulses with peripheral edema. LEFT Knee: Well appearing, No acute distress. Resting in hospital bed with pillows under his knees and flexed Inspection: No erythema, swelling, bruising, atrophy Palpation: TTP about lateral joint line, NTTP Medial joint line, - PF joint. NTTP LCL/MCL, tibial tubercle. Patella: Neg grind, 1/2 + translation w endpoint ROM: 20-90 , Firm endpoint to varus/valgus Special tests: Neg Chente, Neg Pivot shift, Neg Posterior drawer, - Miracle, Neg Dial Neurovascular exam: 5/5 q/h/ta/gc/ehl; SILT s/s/sp/dp/t, 2+ dp IMAGING: LEFT knee: Tricompartmental OA changes. RIGHT knee: Tricompartmental OA changes. ASSESSMENT: 83yo M with history, physical exam and imaging findings consistent with bilateral knee tricompartmental osteoarthritis. Given his history I was somewhat concerned for a gout flare so I decided to perform a joint tap and corticosteroid injection. During the procedure I had a dry tap so it is unlikely that he is having a gouty flare. No synovial fluid was sent to the lab. I also had a long conversation with the patient with regards to his loss of extension. I explained the importance of his ambulation and need for full extension of the knee. I am hoping that after the injection he has good pain r elief and reduction in his effusion and that he can work aggressively on range of motion. Whether he is discharged home or to a rehab facility he needs to be working with physical therapy. LEFT KNEE STEROID INJECTION PROCEDURE NOTE: Informed consent for a cortisone injection in the LEFT knee was obtained. We discussed the expectations of the injection as well as the risks, benefits and alternatives of steroid injection including, but not limited to, pain, bleeding, infection, skin discoloration, steroid flare reaction, chondral damage, vascular or ligamentous injury, swelling, alteration of glucose metabolism in diabetics, bruising, lightheadedness, dizziness and nausea. Prospective benefits include alleviation of pain and inflammation, as well as increased motion. The patient remained seated with the left knee flexed. An anterolateral injection portal was palpated and marked. The skin was prepped with alcohol and chloroprep. A solution of 4 mL of 1% plain lidocaine, 4 mL of 0.5% plain Marcaine and 2 mL of Kenalog-40 was then injected into the anterolateral portal. After the needle was withdrawn, the site was cleaned with alcohol and a sterile swab. A Band-Aid was applied. The patient tolerated the procedure well and there were no complications. EBL 0 ml Pain 2/10 following injection The patient was not sedated and fully conscious for the injection. Prior to the injection, verification followed the [place] Protocol in the following manner: [X] A "Time Out" was performed prior to the procedure to confirm patient identification, injection site, and preparation of equipment. [X] The patient was identified using two patient identifiers. [X] Patient allergies were reviewed and verified. [X] The consent was completed and verified for the planned procedure, site, and laterality. [X] The site was marked or the physician was continuously with the patient following discussion and consent. PLAN: Weightbearing as tolerated range of motion as tolerated left knee intra-articular corticosteroid injection given today work with physical therapy follow-up with orthopedics as needed the patient had the treatment plan explained, questions answered and seemed satisfied with the plan. There were no apparent barriers to communication. The documentation in this note may have been entered with the assistance of computer voice recognition and dictation software. Therefore, it may contain unintended errors in text, spelling, punctuation, or grammar. Tristian Rausch MD Orthopedic Surgeon
[2024-07-03] MEDS: DULoxetine 30 MG CAPSULE PO SCH (10:15)
[2024-07-03] MEDS: ASPIRIN 325 MG TABLET PO SCH (10:15)
[2024-07-03] MEDS: DOCUSATE SODIUM 100 MG CAPSULE PO SCH (10:15)
[2024-07-03] MEDS: LOSARTAN 50 MG TABLET PO SCH (10:15)
[2024-07-03] MEDS: hydroCHLOROthiazide 25 MG TABLET PO SCH (10:16)
[2024-07-03] MEDS: amLODIPine 5 MG TABLET PO SCH (10:16)
[2024-07-03] MEDS: allopurinoL 100 MG TABLET PO SCH (10:16)
--- NOTE | 2024-07-03 23:18 | ED Physician Documentation ---
ED Addendum - Addendum Addendum: 07/03/24 23:17 No changes during my shift. Patient signed out to the oncoming emergency department physician.
[2024-07-04 06:53] VITALS: BP 137/62; O2SAT 95
--- NOTE | 2024-07-04 09:52 | ED Physician Documentation ---
ED Addendum - Addendum Addendum: 07/04/24 09:47 Seun Vaughn is a 3-year-old male with a history of osteoarthritis of his knees who has collapsed in his home unable to support himself. He was evaluated in the emergency department he was not injured from the fall specifically the orthopedist was consulted and the case came to the emergency department evaluated the patient gave the patient an injection into the left knee of steroid. The patient is scheduled to leave today to go to senior care facility. I evaluated the patient today at the bedside he indicates to me he has not been up to try to walk as yet after this injection and he believes his medication list is up-to-date. Departure - Departure Disposition: DC/Xfer Clinical Impression: Anemia, Weakness, Knee instability Condition: Fair Instructions: ED Degenerative Joint Disease Follow-Up: Tristian Rausch MD [Provider Admit Priv/Credential] - Prescriptions: Losartan [Cozaar] 50 mg PO BID #40 tablet DULoxetine [Cymbalta] 30 mg PO DAILY #20 cap Amitriptyline [Elavil] 25 mg PO HS #20 tablet hydroCHLOROthiazide [Hydrodiuril] 25 mg PO DAILY #20 tablet amLODIPine [Norvasc] 2.5 mg PO DAILY #20 tablet oxyCODONE [Roxicodone] 5 - 10 mg PO Q6H PRN #30 tab PRN Reason: pain >6 Tolterodine Tartrate [Tolterodine Tartrate ER] 4 mg PO DAILY #20 cap allopurinoL [Zyloprim] 100 mg PO DAILY #20 tablet Comments: Geovany, today it looks like your arthritis in your knees is bad enough that you are not able to walk adequately and some additional physical therapy will be required. A follow-up with orthopedics is indicated. Forms: PCP List Discharge Date/Time: 07/04/24 11:24
== END 2024-07-04 11:24 ==
LOC: EDUNIT# → ED 01:21
DX: M17.0 Bilateral primary osteoarthritis of knee (principal); S90.415A Abrasion, left lesser toe(s), initial encounter; S90.414A Abrasion, right lesser toe(s), initial encounter; M25.362 Other instability, left knee; M25.361 Other instability, right knee; D64.9 Anemia, unspecified; R53.1 Weakness; M10.9 Gout, unspecified; I10 Essential (primary) hypertension; M06.9 Rheumatoid arthritis, unspecified; F17.200 Nicotine dependence, unspecified, uncomplicated; Z79.899 Other long term (current) drug therapy; E66.9 Obesity, unspecified; Z75.1 Person awaiting admission to adequate facility elsewhere; Z79.82 Long term (current) use of aspirin; W18.30XA Fall on same level, unspecified, initial encounter; Z91.81 History of falling; Y92.009 Unspecified place in unspecified non-institutional (private) residence as the place of occurrence of the external cause
CPT/HCPCS: 20552; 36415; 72170; 73562; 80048; 80053; 80306; 81003; 83690; 85025; 85610; 90471; 90715; 97162; 97166; 97530; 99284; 99285; A6250; A9270; G0480; 81001; 82077; 82945; 83615; 83986; 84157; 87086

== ENCOUNTER 2024-08-08 12:20 | Inpatient (IN) ==
[2024-08-08 13:06] LABS: BASOPHILS % (AUTO) 0.2 %; EOSINOPHILS % (AUTO) 0.1 %; HGB - HEMOGLOBIN 11.7 g/dL (14.0-18.0); LYMPHOCYTES # (AUTO) 1.2 10^3/uL (1.5-3.5); LYMPHOCYTES % (AUTO) 7.6 %; MEAN CORPUSCULAR HGB CONC 31.6 g/dL (32.0-36.0); MEAN CORPUSCULAR VOLUME 97.9 fL (80.0-94.0); MEAN PLATELET VOLUME 10.2 fL (7.4-11.4); MONOCYTES # (AUTO) 1.4 10^3/uL (0.0-1.0); MONOCYTES % (AUTO) 8.8 %; NEUTROPHILS # (AUTO) 13.5 10^3/uL (1.5-6.6); NEUTROPHILS % (AUTO) 82.9 %; PLT - PLATELET COUNT 411 10^3/uL (130-450); RED BLOOD COUNT 3.78 10^6/uL (4.70-6.10); RED CELL DISTRIBUTION WIDTH 14.9 % (12.0-15.0); WHITE BLOOD COUNT 16.3 x10^3/uL (4.8-10.8)
[2024-08-08 13:24] LABS: ALBUMIN 3.6 g/dL (3.2-5.5); ALBUMIN/GLOBULIN RATIO 1.3 (1.0-2.2); BILIRUBIN,TOTAL 0.4 mg/dL (0.2-1.0); CALCIUM 9.8 mg/dL (8.5-10.3); CREATININE 1.7 mg/dL (0.6-1.3); POTASSIUM 3.8 mmol/L (3.5-4.5); TOTAL PROTEIN 6.4 g/dL (6.4-8.9)
--- NOTE | 2024-08-08 16:56 | ED Physician Documentation ---
History of Present Illness Stated complaint Stated Complaint: CONSTIPATION/ABD PX Chief complaint Chief Complaint: Abd Pain Additonal information Additional information: 83-year-old male with history of perforated sigmoid colon status post surgery presents with minimal bowel movement for 6 to 7 days. History clarified from triage notes. Patient is on 3 times a week MiraLAX one half cap, daily Metamucil and docusate for chronic constipation. He denies taking Benadryl or opiate medications at home. In the last week, he had a small bowel movement roughly 5 days ago, but otherwise no bowel movements since. He is still intermittently passing gas. No urinary symptoms. No fevers or chills. He has had nausea without vomiting clarification, though almost vomiting yesterday. He has had mild generalized lower abdominal discomfort, not severe, not current. He has a left-sided hernia in the setting of a prior surgery for perforated sigmoid colon; the hernia is not painful, though seems slightly bigger. He is less mobile lately. He may not drink enough fluids. Spouse at bedside corroborates. No other new concerns. Review of Systems ROS Constitutional: no fever, no chills Eyes: no visual disturbance, no discharge Ears, Nose, Mouth, Throat: no rhinorrhea, no sore throat Cardiovascular: no chest pain, no palpitations Respiratory: no cough, no shortness of breath Gastrointestinal: +abdominal pain, no vomiting, no diarrhea Genitourinary: no dysuria, no hematuria Musculoskeletal: no back pain, no neck stiffness Skin: no rash, no wound Neurological: no focal weakness, no focal numbness Meds/Allgy Home Medications Ambulatory Orders Medication Instructions Recorded Confirmed amitriptyline 10 mg tablet 25 mg PO QPM 05/18/17 08/08/24 aspirin 81 mg chewable tablet 81 mg PO DAILY 05/18/17 08/08/24 hydrochlorothiazide 25 mg tablet 12.5 mg PO DAILY 05/18/17 08/08/24 amlodipine 5 mg tablet 2.5 mg PO DAILY 06/23/24 08/08/24 capsaicin 0.1 % topical cream 1 applic topical PRN PRN Analgesia 06/23/24 08/08/24 duloxetine 30 mg capsule,delayed 30 mg PO DAILY 06/23/24 08/08/24 release losartan 50 mg tablet 25 mg PO BID 06/23/24 08/08/24 allopurinol 100 mg tablet 100 mg PO DAILY 07/01/24 08/08/24 tolterodine 4 mg capsule,extended 4 mg PO DAILY 07/01/24 08/08/24 release 24 hr docusate sodium 100 mg capsule 100 mg PO DAILY 07/02/24 08/08/24 (Stool Softener) polyethylene glycol 3350 17 gram 17 g PO DAILY PRN Constipation 07/02/24 08/08/24 oral powder packet allopurinol 100 mg tablet 100 mg PO DAILY #20 tabs 07/04/24 08/08/24 amitriptyline 25 mg tablet 25 mg PO HS #20 tabs 07/04/24 08/08/24 amlodipine 5 mg tablet 2.5 mg (1/2 x 5 mg) PO DAILY #20 07/04/24 tabs duloxetine 30 mg capsule,delayed 30 mg PO DAILY #20 caps 07/04/24 08/08/24 release hydrochlorothiazide 25 mg tablet 25 mg PO DAILY #20 tabs 07/04/24 08/08/24 losartan 50 mg tablet 50 mg PO BID #40 tabs 07/04/24 08/08/24 tolterodine 4 mg capsule,extended 4 mg PO DAILY #20 caps 07/04/24 08/08/24 release 24 hr Allergies Allergies Allergy/AdvReac Type Severity Reaction Status Date / Time [id number]-DVE-[id number] Reductase AdvReac Cramps Verified 08/08/24 12:48 Inhibitor [facility] Medical History Medical History (Updated 08/08/24 @ 12:46 by Bell Calixto RN, BSN) Arthritis of knee Perforated sigmoid colon Surgical History Surgical History (Updated 08/08/24 @ 12:46 by Bell Calixto, PAULINO, BSN) History of intestinal surgery Social History Social History (Updated 08/08/24 @ 12:46 by Bell Calixto, PAULINO, BSN) Smoking Status: Former smoker If you are a former smoker, when did you quit? (Date/Year): 1996 Do you dip or chew tobacco?: No Relationship: Home Mobility Equipment: Walker Do you feel safe in your home environment?: Yes Suffered physical, verbal, emotional, or financial abuse?: No History of Abuse: No POLST Patient has POLST: No Exam Exam Const: no acute distress, non toxic appearing; calm, conversant, pleasant Eyes: PERRLA, EOMI ENT: mucous membranes moist Neck: supple, non-tender Resp: no respiratory distress, clear to auscultation bilaterally Card: regular rate and rhythm, no murmurs Abd: prior midline surgical scar; distended abdomen that is diffusely nontender, negative Elena sign; large though reducible left-sided hernia without overlying skin changes; no rigidity or rebound or guarding Back: no T or L spine tenderness, no CVA tenderness bilaterally Extrem: no deformities, no swelling bilateral lower extremities, 2+ distal pulses all extremities Neuro: ANOx4, debt counselor grossly intact, grossly intact sensation and strength all extremities Skin: no rash, warm and dry Results Vitals Vitals: Vital Signs - 24 hr 08/08/24 12:40 08/08/24 17:12 08/08/24 19:00 Temperature 36.3 C L Pulse Rate 82 86 83 Respiratory Rate 15 18 19 Blood Pressure 94/56 L 109/72 130/73 O2 Saturation 95 97 95 O2 Source Room air Room air Room air Pain Intensity 5 5 0 Oxygen O2 Source Room air Labs Labs: Laboratory Tests 08/08/24 08/08/24 13:00 19:07 WBC 16.3 H RBC 3.78 L Hgb 11.7 L Hct 37.0 L MCV 97.9 H MCH 31.0 MCHC 31.6 L RDW 14.9 Plt Count 411 MPV 10.2 Neut # (Auto) 13.5 H Lymph # (Auto) 1.2 L Newton # (Auto) 1.4 H Eos # (Auto) 0.0 Baso # (Auto) 0.0 Absolute Nucleated RBC 0.00 Nucleated RBC % 0.0 Sodium 136 Potassium 3.8 Chloride 95 L Carbon Dioxide 34 H Anion Gap 7.0 BUN 34 H Creatinine 1.7 H Estimated GFR (MDRD) 39 L Glucose 130 H Lactic Acid 1.0 Calcium 9.8 Total Bilirubin 0.4 AST 14 ALT 9 L Alkaline Phosphatase 95 Total Protein 6.4 Albumin 3.6 Globulin 2.8 Albumin/Globulin Ratio 1.3 Lipase 25 PD Medical Decision Making ED course ED course: This patients presentation is most suggestive of chronic constipation, ileus, though bowel obstruction possible, with diverticulitis, appendicitis, malignancy less likely and a broad differential I considered including not limited to these and volvulus, intussusception, strangulated or incarcerated hernia. Exam is not consistent with strangulated or incarcerated hernia. We are obtaining CBC, CMP, lipase, urinalysis, CT abdomen pelvis with contrast and will closely reassess. Labs: CBC shows neutrophilic leukocytosis, anemia improved from prior, no thrombocytopenia. CMP shows elevated bicarb similar to prior, no anion gap elevation, creatinine elevated to 1.7 with possible NILSON, BUN elevated to 34, suggestive of potential intravascular volume depletion, no LFT elevation. Lipase reassuring. Fluids ordered. CT: radiology read below "FINDINGS: Image quality: Diagnostic. Lower chest: Stable dense pleural nodularity in the lung bases. Partially visualized cardiac leads. Liver: Subcentimeter hypoattenuating liver lesions, too small to characterize by CT. Gallbladder: Cholelithiasis without wall thickening. Biliary tree: No intrahepatic or extrahepatic dilation, accounting for age. Spleen: No splenomegaly. Pancreas: No pancreatic ductal dilation. Adrenals: No adrenal nodule. Kidneys and ureters: No hydronephrosis. No renal cystic lesion which requires follow up. No solid mass. Stomach, bowel and peritoneum: Small bowel obstruction, with transition point as the colon passes through a left lower quadrant ventral hernia (series 2, image 113). Small volume ascites is present within the hernia. Normal enhancement of the bowel. No pneumatosis. Mild mesenteric edema. Prior partial colectomy. Lymph nodes: No central or retroperitoneal adenopathy. Vessels: No infrarenal aortic aneurysm. Patent portal vein. PELVIS Reproductive organs: Unremarkable. Bladder: No abnormal wall thickening, accounting for underdistention. Pelvic lymph nodes: No pelvic adenopathy by size criteria. Bones: No aggressive osseous abnormality. Other: Widemouth left lower quadrant hernia, described above. The neck measures 5.6 cm and the sac measures 6.9 x 14 cm. Additional ventral hernias containing nonobstructed small bowel and large bowel are seen. IMPRESSION: Small bowel obstruction caused by a left lower quadrant ventral hernia. No evidence of bowel ischemia, although mesenteric edema and small volume ascites may indicate early ischemia. Correlate with lactate. No pneumatosis. Reviewed by: Shiva Burgos MD on 08/08/2024 6:27 PM PDT" UA pending at this time. I am adding bcx x2, lactate, Zosyn. I spoke with Dr. France at 1901, reviewing case. We are holding NGT given no vomiting and our discussion. On my reassessment of hernia, it is not as reducible as I initially suspected. This is potentially incarcerated, though with no pain, with patient well appearing, I think strangulation unlikely. Patient has history of prostate cancer, HTN, pacemaker, no anticoagulation. I spoke with Dr. France again who will assess patient in person. I am giving dilaudid and ice in anticipation of this. I am also consulting hospitalist, sending request to telemedicine at 191. Lactate reassuring. Signing out to Dr. Garcia at 1920 to follow up above consults, anticipating admit. Hospitalist call back and in person surgery assessment pending at this time, along with UA. Patient stable, comfortable. Discharge Plan Discharge Prescriptions: No Action amitriptyline 10 MG tablet 25 mg PO QPM aspirin 81 MG tablet,chewable 81 mg PO DAILY hydrochlorothiazide 25 MG tablet 12.5 mg PO DAILY losartan 50 MG tablet 25 mg PO BID amlodipine 5 MG tablet 2.5 mg PO DAILY duloxetine 30 MG capsule,delayed release(DR/EC) 30 mg PO DAILY capsaicin 42.5 GM cream 1 applic topical PRN PRN (Reason: Analgesia) tolterodine 4 MG capsule,extended release 24hr 4 mg PO DAILY allopurinol 100 MG tablet 100 mg PO DAILY Patient Comments: Take 1 tablet (100 mg) by mouth daily for gout prevention polyethylene glycol 3350 17 GM powder in packet 17 g PO DAILY PRN (Reason: Constipation) docusate sodium [Stool Softener] 100 MG capsule 100 mg PO DAILY allopurinol 100 MG tablet 100 mg PO DAILY Qty: 20 0RF tolterodine 4 MG capsule,extended release 24hr 4 mg PO DAILY Qty: 20 0RF amlodipine 5 MG tablet 2.5 mg PO DAILY Qty: 20 0RF amitriptyline 25 MG tablet 25 mg PO HS Qty: 20 0RF hydrochlorothiazide 25 MG tablet 25 mg PO DAILY Qty: 20 0RF losartan 50 MG tablet 50 mg PO BID Qty: 40 0RF duloxetine 30 MG capsule,delayed release(DR/EC) 30 mg PO DAILY Qty: 20 0RF Print Language: Sierra Leonean Stand Alone Forms: PCP List
[2024-08-08] MEDS: SODIUM CHLORIDE 0.9% 1,000 ML IV STA (17:50)
[2024-08-08] MEDS ORDERED: iohexoL-300 100 ML VIAL ONE (17:51)
[2024-08-08] MEDS: iohexoL-300 100 ML VIAL IVP ONE (18:19)
--- NOTE | 2024-08-08 18:28 | CT Report ---
PROCEDURE: CT Abdomen/Pelvis W INDICATIONS: constipation, assess for bowel obstruction CONTRAST: 100 TECHNIQUE: After the administration of intravenous contrast, a CT scan of the abdomen and pelvis was performed. Images were recorded and evaluated at appropriate window settings. Reformats: coronal and sagittal. F or radiation dose reduction, the following was used: automated exposure control, adjustment of mA and /or kV according to patient size. COMPARISON: 05/19/2017 FINDINGS: Image quality: Diagnostic. Lower chest: Stable dense pleural nodularity in the lung bases. Partially visualized cardiac leads. Liver: Subcentimeter hypoattenuating liver lesions, too small to characterize by CT. Gallbladder: Cholelithiasis without wall thickening. Biliary tree: No intrahepatic or extrahepatic dilation, accounting for age. Spleen: No splenomegaly. Pancreas: No pancreatic ductal dilation. Adrenals: No adrenal nodule. Kidneys and ureters: No hydronephrosis. No renal cystic lesion which requires follow up. No solid mas s. Stomach, bowel and peritoneum: Small bowel obstruction, with transition point as the colon passes thr ough a left lower quadrant ventral hernia (series 2, image 113). Small volume ascites is present with in the hernia. Normal enhancement of the bowel. No pneumatosis. Mild mesenteric edema. Prior partial colectomy. Lymph nodes: No central or retroperitoneal adenopathy. Vessels: No infrarenal aortic aneurysm. Patent portal vein. PELVIS Reproductive organs: Unremarkable. Bladder: No abnormal wall thickening, accounting for underdistention. Pelvic lymph nodes: No pelvic adenopathy by size criteria. Bones: No aggressive osseous abnormality. Other: Widemouth left lower quadrant hernia, described above. The neck measures 5.6 cm and the sac me asures 6.9 x 14 cm. Additional ventral hernias containing nonobstructed small bowel and large bowel a re seen. IMPRESSION: Small bowel obstruction caused by a left lower quadrant ventral hernia. No evidence of bowel ischemia , although mesenteric edema and small volume ascites may indicate early ischemia. Correlate with lact ate. No pneumatosis. Reviewed by: Shiva Burgos MD on 08/08/2024 6:27 PM PDT Approved by: Shiva Burgos MD on 08/08/2024 6:27 PM PDT Station ID: [id number]
[2024-08-08] MEDS: HYDROmorphone 1 MG/ML CARPUJECT IVP STA (19:54)
[2024-08-08] MEDS: PIPERACILLIN/TAZOBACTAM 4.5 GM in SODIUM CHLORIDE 0.9% MINIBAG 100 ML IV STA (19:54)
--- NOTE | 2024-08-08 19:58 | CONSULTATION NOTE ---
Referring Provider Name of Referring Provider:: ED (Maricel) Consult Date: 08/08/24 Chief Complaint Chief Complaint Chief Complaint: abdominal pain, nausea History of Present Illness Admitted From Admitted From:: ED History Obtained From Records Reviewed: yes History obtained from: patient, , ED provider Exam Limitations: patient is very hard of hearing History of Present Illness HPI Comment/Other: Patient states he began having abdominal pain yesterday morning and has had nausea without vomiting since yesterday evening. His last BM was 5 days ago and he struggles with chronic constipation. He had a sigmoid colon resection in the past and has a hernia at his prior colostomy site. The hernia is always there, per the patient and is sometimes softer than others. It is not painful to him now and he states it feels "about medium" as far as how hard or soft it is at this time. He denies fevers or chills. On further discussion with the patient and his , they report he was recently discharged from rehab where he was staying for strengthening after having trouble ambulating due to arthritis in his knee. He had some loose stools for several days about 10 days ago and got a total of three doses of immodium over a couple of days. He has been constipated since that time. He also reports prior workup for possible hernia repair at . [facility] Medical History Medical History (Updated 08/08/24 @ 20:10 by Ada Garcia MD) History of open sigmoidectomy Adenomatous colon polyp (07/09/08) Perirectal abscess (10/26/17) Incontinence (04/14/17) Hemorrhoids (04/14/17) Elevated PSA (07/20/21) Elevated liver enzymes (11/19/15) Abscess, perianal (10/26/17) Arthritis of knee Perforated sigmoid colon Surgical History Surgical History (Updated 08/08/24 @ 20:10 by Markus France MD) H/O radical prostatectomy S/P colostomy takedown 1997 History of intestinal surgery open sigmoidectomy for ruptured diverticulitis in 1996 Family History Family History Mother CVA (cerebral vascular accident) Brother Colon cancer Social History Social History (Updated 08/08/24 @ 12:46 by Bell Calixto, RN, BSN) Smoking Status: Former smoker If you are a former smoker, when did you quit? (Date/Year): 1996 Do you dip or chew tobacco?: No Relationship: Home Mobility Equipment: Walker Do you feel safe in your home environment?: Yes Suffered physical, verbal, emotional, or financial abuse?: No History of Abuse: No POLST Patient has POLST: No Meds/Allgy Home Medications Ambulatory Orders Medication Instructions Recorded Confirmed amitriptyline 10 mg tablet 25 mg PO QPM 05/18/17 08/08/24 aspirin 81 mg chewable tablet 81 mg PO DAILY 05/18/17 08/08/24 hydrochlorothiazide 25 mg tablet 12.5 mg PO DAILY 05/18/17 08/08/24 amlodipine 5 mg tablet 2.5 mg PO DAILY 06/23/24 08/08/24 capsaicin 0.1 % topical cream 1 applic topical PRN PRN Analgesia 06/23/24 08/08/24 duloxetine 30 mg capsule,delayed 30 mg PO DAILY 06/23/24 08/08/24 release losartan 50 mg tablet 25 mg PO BID 06/23/24 08/08/24 allopurinol 100 mg tablet 100 mg PO DAILY 07/01/24 08/08/24 tolterodine 4 mg capsule,extended 4 mg PO DAILY 07/01/24 08/08/24 release 24 hr docusate sodium 100 mg capsule 100 mg PO DAILY 07/02/24 08/08/24 (Stool Softener) polyethylene glycol 3350 17 gram 17 g PO DAILY PRN Constipation 07/02/24 08/08/24 oral powder packet allopurinol 100 mg tablet 100 mg PO DAILY #20 tabs 07/04/24 08/08/24 amitriptyline 25 mg tablet 25 mg PO HS #20 tabs 07/04/24 08/08/24 amlodipine 5 mg tablet 2.5 mg (1/2 x 5 mg) PO DAILY #20 07/04/24 tabs duloxetine 30 mg capsule,delayed 30 mg PO DAILY #20 caps 07/04/24 08/08/24 release hydrochlorothiazide 25 mg tablet 25 mg PO DAILY #20 tabs 07/04/24 08/08/24 losartan 50 mg tablet 50 mg PO BID #40 tabs 07/04/24 08/08/24 tolterodine 4 mg capsule,extended 4 mg PO DAILY #20 caps 07/04/24 08/08/24 release 24 hr Allergies Allergies Allergy/AdvReac Type Severity Reaction Status Date / Time Ilafkgl-HLJ-WoJ Reductase AdvReac Cramps Verified 08/08/24 12:48 Inhibitor Results Lab Results Lab results reviewed: Yes 08/08/24 13:00 08/08/24 13:00 Other Lab Results: Lab Results x24hrs 08/08/24 08/08/24 Range/Units 19:07 13:00 WBC 16.3 H (4.8-10.8) x10^3/uL RBC 3.78 L (4.70-6.10) 10^6/uL Hgb 11.7 L (14.0-18.0) g/dL Hct 37.0 L (42.0-52.0) % MCV 97.9 H (80.0-94.0) fL MCH 31.0 (27.0-31.0) pg MCHC 31.6 L (32.0-36.0) g/dL RDW 14.9 (12.0-15.0) % Plt Count 411 (130-450) 10^3/uL MPV 10.2 (7.4-11.4) fL Neut # (Auto) 13.5 H (1.5-6.6) 10^3/uL Lymph # (Auto) 1.2 L (1.5-3.5) 10^3/uL Barber # (Auto) 1.4 H (0.0-1.0) 10^3/uL Eos # (Auto) 0.0 (0.0-0.7) 10^3/uL Baso # (Auto) 0.0 (0.0-0.1) 10^3/uL Absolute Nucleated RBC 0.00 x10^3/uL Nucleated RBC % 0.0 /100WBC Sodium 136 (135-145) mmol/L Potassium 3.8 (3.5-4.5) mmol/L Chloride 95 L (101-111) mmol/L Carbon Dioxide 34 H (21-32) mmol/L Anion Gap 7.0 (6-13) BUN 34 H (6-20) mg/dL Creatinine 1.7 H (0.6-1.3) mg/dL Estimated GFR (MDRD) 39 L (>89) Glucose 130 H (74-104) mg/dL Lactic Acid 1.0 (0.5-2.2) mmol/L Calcium 9.8 (8.5-10.3) mg/dL Total Bilirubin 0.4 (0.2-1.0) mg/dL AST 14 (10-42) IU/L ALT 9 L (10-60) IU/L Alkaline Phosphatase 95 (42-121) IU/L Total Protein 6.4 (6.4-8.9) g/dL Albumin 3.6 (3.2-5.5) g/dL Globulin 2.8 (2.1-4.2) g/dL Albumin/Globulin Ratio 1.3 (1.0-2.2) Lipase 25 (11-82) U/L Diagnostic Imaging Results Diagnostic Imaging Results: positive Final report reviewed and Read independently Diagnostic Imaging Results Comments: CT demonstrates two hernias about the lower abdomen, one near the umbilicus, and a second in the LLQ which contains some small bowel and ascites. No free air, minimal intraabdominal ascites Conclusion and Plan Consultation Note Consultation Note: 83 y/o M with: 1. small bowel obstruction - this appears to be from incarceration of the LLQ hernia. Patient reports he was worked up for possible hernia repair at and ultimately did not have the repair though he and his cannot tell me why exactly. - I attempted to reduce the hernia in the ED which the patient tolerated well but I was not successful - plan for NG placement, pain meds and muscle relaxer in ED - I will attempt to reduce the hernia again. If successful, NG can be clamped and clears started with plan for aggressive bowel regimen and abdominal binder - If unsuccessful, given the patient is not in extremis and his lactate is wnl, I will plan for NG decompression overnight and attempted reduction again in the morning. If this is the case, he will need to remain NPO. - ultimately, an elective repair of his hernia is more likely to succeed group home and would be less risky for the patient. - given his multiple medical comorbidities, if his hernia remains incarcerate, we will get an anesthesia consult prior to any definitive plan for surgery. 2. 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 2200 addendum On recheck the patient has had 900mL out from his NG. I am still unable to reduce the hernia. Given his reassuring labs and vitals, I will allow him to decompress with the NG overnight and plan to reassess in the AM. Repeat lactate level ordered for AM. Review of Systems Status of ROS: 10 or more systems reviewed and unremarkable except as noted in history and below Exam Exam GEN: No acute distress, appears stated age, alert and oriented HEENT: NCAT, mucous membranes dry, EOMI, very hard of hearing NEURO: CN II-XII grossly intact, no obvious focal deficits CV: RRR PULM: non laboread, on RA ABD: soft, obese, with reducible umbilical hernia and incarcerated LLQ hernia which is non tender, no rebound or guarding SKIN: no lesions appreciated LYMPH: no obvious lymphadenopathy MSK: 4/4 strength in all extremities PSYCH: Affect is appropriate
--- NOTE | 2024-08-08 20:12 | ED Physician Documentation ---
ED Addendum Addendum Addendum: Patient endorsed to me by Dr. Farrell awaiting admission to medicine service. Dr. France, our surgeon will be consulting in. We will attempt ng tube placement. ativan ordered for anxiolysis and ease of reduction of inguinal hernia. Disposition admit Impression 1. SBO 2. inguinal hernia condition stable Discharge Plan Discharge Patient Disposition: [facility] DC/Xfer Condition: Fair Clinical Impression: SBO (small bowel obstruction), Hernia Prescriptions: No Action amitriptyline 10 MG tablet 25 mg PO QPM aspirin 81 MG tablet,chewable 81 mg PO DAILY hydrochlorothiazide 25 MG tablet 12.5 mg PO DAILY losartan 50 MG tablet 25 mg PO BID amlodipine 5 MG tablet 2.5 mg PO DAILY duloxetine 30 MG capsule,delayed release(DR/EC) 30 mg PO DAILY capsaicin 42.5 GM cream 1 applic topical PRN PRN (Reason: Analgesia) tolterodine 4 MG capsule,extended release 24hr 4 mg PO DAILY allopurinol 100 MG tablet 100 mg PO DAILY Patient Comments: Take 1 tablet (100 mg) by mouth daily for gout prevention polyethylene glycol 3350 17 GM powder in packet 17 g PO DAILY PRN (Reason: Constipation) docusate sodium [Stool Softener] 100 MG capsule 100 mg PO DAILY allopurinol 100 MG tablet 100 mg PO DAILY Qty: 20 0RF tolterodine 4 MG capsule,extended release 24hr 4 mg PO DAILY Qty: 20 0RF amlodipine 5 MG tablet 2.5 mg PO DAILY Qty: 20 0RF amitriptyline 25 MG tablet 25 mg PO HS Qty: 20 0RF hydrochlorothiazide 25 MG tablet 25 mg PO DAILY Qty: 20 0RF losartan 50 MG tablet 50 mg PO BID Qty: 40 0RF duloxetine 30 MG capsule,delayed release(DR/EC) 30 mg PO DAILY Qty: 20 0RF Print Language: Yoruba
--- NOTE | 2024-08-08 20:25 | HISTORY & PHYSICAL EXAMINATION ---
Chief Complaint Chief Complaint Chief Complaint: abd pain, nausea, vomiting History of Present Illness History of Present Illness HPI Comment/Other: pt with h/o constipation presents with nausea and vomiting along with decreased PO intake over the past week or so. states he has been having trouble over the last month with bm with last bm about a week ago, which was just liquid. denies h/o sbo but notes having a hernia which he feels may be contributing to this. no fevers, chills, chest pain, sob. no abd trauma. no falls. no dysuria or hematuria. 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) Perirectal abscess (10/26/17) Incontinence (04/14/17) Hemorrhoids (04/14/17) Elevated PSA (07/20/21) Elevated liver enzymes (11/19/15) Abscess, perianal (10/26/17) Arthritis of knee Perforated sigmoid colon Surgical History Surgical History (Updated 08/08/24 @ 20:10 by Markus France MD) H/O radical prostatectomy S/P colostomy takedown 1997 History of intestinal surgery open sigmoidectomy for ruptured diverticulitis in 1996 Family History Family History Mother CVA (cerebral vascular accident) Brother Colon cancer Social History Social History (Updated 08/08/24 @ 12:46 by Bell Calixto, RN, BSN) Smoking Status: Former smoker If you are a former smoker, when did you quit? (Date/Year): 1996 Do you dip or chew tobacco?: No Relationship: Home Mobility Equipment: Walker Do you feel safe in your home environment?: Yes Suffered physical, verbal, emotional, or financial abuse?: No History of Abuse: No POLST Patient has POLST: No Meds/Allgy Home Medications Ambulatory Orders Medication Instructions Recorded Confirmed amitriptyline 10 mg tablet 25 mg PO QPM 05/18/17 08/08/24 aspirin 81 mg chewable tablet 81 mg PO DAILY 05/18/17 08/08/24 hydrochlorothiazide 25 mg tablet 12.5 mg PO DAILY 05/18/17 08/08/24 amlodipine 5 mg tablet 2.5 mg PO DAILY 06/23/24 08/08/24 capsaicin 0.1 % topical cream 1 applic topical PRN PRN Analgesia 06/23/24 08/08/24 duloxetine 30 mg capsule,delayed 30 mg PO DAILY 06/23/24 08/08/24 release losartan 50 mg tablet 25 mg PO BID 06/23/24 08/08/24 allopurinol 100 mg tablet 100 mg PO DAILY 07/01/24 08/08/24 tolterodine 4 mg capsule,extended 4 mg PO DAILY 07/01/24 08/08/24 release 24 hr docusate sodium 100 mg capsule 100 mg PO DAILY 07/02/24 08/08/24 (Stool Softener) polyethylene glycol 3350 17 gram 17 g PO DAILY PRN Constipation 07/02/24 08/08/24 oral powder packet allopurinol 100 mg tablet 100 mg PO DAILY #20 tabs 07/04/24 08/08/24 amitriptyline 25 mg tablet 25 mg PO HS #20 tabs 07/04/24 08/08/24 amlodipine 5 mg tablet 2.5 mg (1/2 x 5 mg) PO DAILY #20 07/04/24 tabs duloxetine 30 mg capsule,delayed 30 mg PO DAILY #20 caps 07/04/24 08/08/24 release hydrochlorothiazide 25 mg tablet 25 mg PO DAILY #20 tabs 07/04/24 08/08/24 losartan 50 mg tablet 50 mg PO BID #40 tabs 07/04/24 08/08/24 tolterodine 4 mg capsule,extended 4 mg PO DAILY #20 caps 07/04/24 08/08/24 release 24 hr Allergies Allergies Allergy/AdvReac Type Severity Reaction Status Date / Time [id number] Reductase AdvReac Cramps Verified 08/08/24 12:48 Inhibitor Exam Exam gen - aaox3, nad, cooperative with questions heent - eomi, nc/at heart - per ed charting lungs- per ed charting abd - rotund, surgical scar, hernia (non reducible) noted, significant pannus msk - no acute abnl or trauma noted Conclusion/Plan Problem List (1) SBO (small bowel obstruction): (2) Hernia: Plan pt with - - sbo abd pain + nausea and constipation for nearly a month h/o hernia, likely contributory gen surg on case, NGT placement ordered for decompressive relief - hernia unable to be reduced in the ER no ischemia noted on imaging, lactic acid wnl likely contributory to above - nereyda exacerbated d/t above --> decreased po intake, pre-renal azotemia ivf started, check renal sono f/u labs, cultures, replete electrolytes further orders per clinical course and surgical recommendations Lab Results 08/08/24 13:00 08/08/24 13:00
[2024-08-08] MEDS: LIDOCAINE VISCOUS 2% 15 ML UDC MM STA (20:32)
[2024-08-08] MEDS: LORazepam 2 MG/ML VIAL IVP STA (20:32)
[2024-08-08] MEDS ORDERED: BENZONATATE 100 MG CAPSULE PO PRN (21:10)
[2024-08-08] MEDS ORDERED: ACETAMINOPHEN 325 MG TABLET PO PRN (21:11)
[2024-08-08] MEDS: LOSARTAN 50 MG TABLET PO SCH (21:18)
[2024-08-08] MEDS ORDERED: oxyCODONE 5 MG TABLET PO PRN (21:22)
[2024-08-08] MEDS ORDERED: HYDROmorphone 0.5 MG/0.5 ML SYRINGE IVP PRN (21:22)
[2024-08-08 21:51] LABS: CHOLESTEROL 180 mg/dL; HDL CHOLESTEROL 61 mg/dL; LDL CHOLESTEROL,CALCULATED 95 mg/dL; LDL/HDL RATIO 1.6 (<3.6); TRIGLYCERIDES 121 mg/dL; VLDL CHOLESTEROL 24 mg/dL
[2024-08-08] MEDS: LACTATED RINGERS 1,000 ML IV SCH (21:52)
[2024-08-08 23:09] LABS: ESTIMATED AVERAGE GLUCOSE 128 mg/dL (70-100); HEMOGLOBIN A1c% 6.1 % (4.27-6.07); THYROID STIMULATING HORMONE 2.26 uIU/mL (0.34-5.60)
[2024-08-08] MEDS: SODIUM CHLORIDE FLUSH 0.9% 10 ML SYRINGE IVP SCH (23:45)
--- NOTE | 2024-08-09 00:51 | Ultrasound Report ---
PROCEDURE: US Renal (Retroperitoneal) INDICATIONS: nereyda TECHNIQUE: Real-time scanning was performed of the retroperitoneal organs, with image documentation. COMPARISON: Same day CT abdomen and pelvis. FINDINGS: Kidneys: Kidneys are normal in size. Kidneys are mildly echogenic. Right kidney measures 12.3 cm davie g; left kidney measures 11.2 cm long. Right renal cortical thickness is 1.4 cm; left renal cortical thickness is 1.3 cm. No solid masses, hydronephrosis, or nephrolithiasis. Right renal cyst measured 1.3 cm, likely simple appearance but evaluation is limited secondary to body habitus. Bladder: Not well seen. Miscellaneous: No free abdominal fluid. IMPRESSION: 1.Kidneys are mildly echogenic, consistent with medical renal disease. No hydronephrosis. 2.Urinary bladder is not well seen. Reviewed by: Rodolfo Agustin MD on 08/09/2024 12:50 AM PDT Approved by: Rodolfo gAustin MD on 08/09/2024 12:50 AM PDT Station ID: [id number]
[2024-08-09] MEDS: PIPERACILLIN/TAZOBACTAM 3.375 GM in SODIUM CHLORIDE 0.9% MINIBAG 100 ML IV SCH (03:24)
[2024-08-09] MEDS: SODIUM CHLORIDE FLUSH 0.9% 10 ML SYRINGE IVP PRN (03:25)
[2024-08-09 06:13] LABS: BASOPHILS % (AUTO) 0.3 %; EOSINOPHILS # (AUTO) 0.1 10^3/uL (0.0-0.7); EOSINOPHILS % (AUTO) 0.4 %; HCT - HEMATOCRIT 31.5 % (42.0-52.0); HGB - HEMOGLOBIN 10.3 g/dL (14.0-18.0); LYMPHOCYTES # (AUTO) 1.4 10^3/uL (1.5-3.5); LYMPHOCYTES % (AUTO) 10.3 %; MEAN CORPUSCULAR HGB CONC 32.7 g/dL (32.0-36.0); MEAN CORPUSCULAR VOLUME 97.8 fL (80.0-94.0); MEAN PLATELET VOLUME 10.1 fL (7.4-11.4); MONOCYTES # (AUTO) 1.4 10^3/uL (0.0-1.0); MONOCYTES % (AUTO) 9.9 %; NEUTROPHILS # (AUTO) 10.8 10^3/uL (1.5-6.6); NEUTROPHILS % (AUTO) 78.7 %; PLT - PLATELET COUNT 325 10^3/uL (130-450); RED BLOOD COUNT 3.22 10^6/uL (4.70-6.10); RED CELL DISTRIBUTION WIDTH 14.8 % (12.0-15.0); WHITE BLOOD COUNT 13.7 x10^3/uL (4.8-10.8)
[2024-08-09 06:25] LABS: ALBUMIN 3.2 g/dL (3.2-5.5); ALBUMIN/GLOBULIN RATIO 1.2 (1.0-2.2); BILIRUBIN,TOTAL 0.4 mg/dL (0.2-1.0); CALCIUM 9.1 mg/dL (8.5-10.3); CREATININE 1.8 mg/dL (0.6-1.3); MAGNESIUM 2.1 mg/dL (1.7-2.3); POTASSIUM 3.7 mmol/L (3.5-4.5); TOTAL PROTEIN 5.9 g/dL (6.4-8.9)
[2024-08-09] MEDS: PANTOPRAZOLE 40 MG VIAL IVP SCH (08:30)
[2024-08-09] MEDS: amLODIPine 5 MG TABLET PO SCH (08:34)
[2024-08-09] MEDS: DOCUSATE SODIUM 100 MG CAPSULE PO SCH (08:34)
[2024-08-09] MEDS: LACTOBACILLUS RHAMNOSUS GG CAPSULE PO SCH (08:34)
[2024-08-09] MEDS: hydroCHLOROthiazide 25 MG TABLET PO SCH (08:35)
[2024-08-09 10:44] LABS: BILIRUBIN,URINE NEGATIVE (NEGATIVE); GLUCOSE, URINE (UA) NEGATIVE (NEGATIVE); KETONES,URINE (UA) NEGATIVE (NEGATIVE); LEUKOCYTE ESTERASE, URINE NEGATIVE (NEGATIVE); NITRITE,URINE NEGATIVE (NEGATIVE); OCCULT BLOOD,URINE NEGATIVE (NEGATIVE); PH,URINE 5.5 PH (5.0-7.5); PROTEIN,URINE TRACE mg/dL (NEGATIVE); UROBILINOGEN,URINE 0.2 (NORMAL) E.U./dL (NORMAL)
[2024-08-09 10:45] LABS: CLARITY,URINE CLEAR (CLEAR)
[2024-08-09] MEDS: TOLTERODINE LA 2 MG CAPSULE PO SCH (10:45)
--- NOTE | 2024-08-09 11:13 | PROVIDER PROGRESS NOTE ---
Subjective Prog Note Date Prog Note Date: 08/09/24 Prog Note Time: 11:10 Subjective Pt reports feeling: Improved Current Medications Current Medications Current Medications: Current Medications Generic Name Dose Route Start Last Admin Trade Name Freq PRN Reason Stop Dose Admin Acetaminophen 650 mg 08/08/24 21:11 Acetaminophen 325 Mg Tablet PO Q6H PRN Pain 1 to 4, or Fever Amlodipine Besylate 2.5 mg 08/09/24 09:00 08/09/24 08:34 Amlodipine 5 Mg Tablet PO 2.5 mg DAILY INDU Administration Benzonatate 100 mg 08/08/24 21:10 Benzonatate 100 Mg Capsule PO TID PRN Cough Docusate Sodium 100 mg 08/09/24 09:00 08/09/24 08:34 Docusate Sodium 100 Mg Capsule PO 100 mg DAILY INDU Administration Hydrochlorothiazide 12.5 mg 08/09/24 09:00 08/09/24 08:35 Hydrochlorothiazide 25 Mg Tablet PO 12.5 mg DAILY INDU Administration Hydromorphone HCl 0.5 mg 08/08/24 21:22 Hydromorphone 0.5 Mg/0.5 Ml Syringe IVP Q4H PRN Pain 8 to 10 Lactated Ringer's 1,000 mls @ 125 mls/hr 08/08/24 22:00 08/09/24 08:32 Lr IV 125 mls/hr .Q8H INDU Administration Piperacillin Sod/Tazobactam 100 mls @ 200 mls/hr 08/09/24 03:00 08/09/24 03:54 Sod 3.375 gm/ Sodium Chloride IV Infused Q8H INDU Infusion Lactobacillus Rhamnosus 1 cap 08/09/24 09:00 08/09/24 08:34 Lactobacillus Rhamnosus Gg Capsule PO 1 cap DAILY INDU Administration Losartan Potassium 25 mg 08/08/24 21:00 08/09/24 08:34 Losartan 50 Mg Tablet PO 25 mg BID INDU Administration Oxycodone HCl 5 mg 08/08/24 21:22 Oxycodone 5 Mg Tablet PO Q4HR PRN Pain 5 to 7 Pantoprazole Sodium 40 mg 08/09/24 09:00 08/09/24 08:30 Pantoprazole 40 Mg Vial IVP 40 mg DAILY INDU Administration Polyethylene Glycol 17 gm 08/08/24 20:11 Polyethylene Glycol 3350 17 Gm Packet PO DAILY PRN Constipation Sodium Chloride 10 ml 08/08/24 21:11 08/09/24 03:25 Sodium Chloride Flush 0.9% 10 Ml Syringe IVP 10 ml PRN PRN Administration NEEDED PER PROVIDER ORDERS Sodium Chloride 10 ml 08/09/24 01:00 08/09/24 08:35 Sodium Chloride Flush 0.9% 10 Ml Syringe IVP 10 ml 0100,0900,1700 INDU Administration Objective Vital Signs/Intake & Output Reviewed Vital Signs: Yes Vital Signs: Vital Signs x48h Temp Pulse Resp BP Pulse Ox 08/09/24 07:26 36.6 C 73 18 127/57 L 92 08/09/24 05:00 36.7 C 71 20 108/53 L 92 Intake & Output: Intake & Output 08/07/24 08/08/24 08/09/24 08/10/24 05:59 05:59 05:59 05:59 Intake Total 792 / 792 1408 / 1408 Output Total 1000 / 1000 1050 / 1050 Balance -208 / -208 358 / 358 Weight (kg) 135 kg Objective General Appearance: positive No acute distress and Alert Eyes Bilateral: positive No lid inflammation, Conjunctivae nml and No scleral icterus ENT: positive Dry mucous membranes Neck: positive Trachea midline Respiratory: positive Chest non-tender, No respiratory distress and Breath sounds nml Cardiovascular: positive Regular rate & rhythm and No murmur Abdomen: positive Non-tender and Other (Numerous hernias but his entire abdomen is soft without peritoneal findings. There is no evidence of an incarcerated incisional hernia. Multiple incisions on his abdomen. No overlying erythema. No pain despite rather aggressive examination.Upon completion of the examination the patient stated th) Rectal: positive Non-tender Skin: positive Color nml and Dry Neurologic/Psychiatric: positive Oriented x3, Motor nml, Sensation nml and Mood/affect nml Lab Results 08/09/24 06:04 08/09/24 06:04 Other Labs: Lab Results x24hrs 08/09/24 08/09/24 08/08/24 Range/Units 10:30 06:04 19:07 WBC 13.7 H (4.8-10.8) x10^3/uL RBC 3.22 L (4.70-6.10) 10^6/uL Hgb 10.3 L (14.0-18.0) g/dL Hct 31.5 L (42.0-52.0) % MCV 97.8 H (80.0-94.0) fL MCH 32.0 H (27.0-31.0) pg MCHC 32.7 (32.0-36.0) g/dL RDW 14.8 (12.0-15.0) % Plt Count 325 (130-450) 10^3/uL MPV 10.1 (7.4-11.4) fL Neut # (Auto) 10.8 H (1.5-6.6) 10^3/uL Lymph # (Auto) 1.4 L (1.5-3.5) 10^3/uL [place] # (Auto) 1.4 H (0.0-1.0) 10^3/uL Eos # (Auto) 0.1 (0.0-0.7) 10^3/uL Baso # (Auto) 0.0 (0.0-0.1) 10^3/uL Absolute Nucleated RBC 0.00 x10^3/uL Nucleated RBC % 0.0 /100WBC Sodium 139 (135-145) mmol/L Potassium 3.7 (3.5-4.5) mmol/L Chloride 96 L (101-111) mmol/L Carbon Dioxide 36 H (21-32) mmol/L Anion Gap 7.0 (6-13) BUN 39 H (6-20) mg/dL Creatinine 1.8 H (0.6-1.3) mg/dL Estimated GFR (MDRD) 36 L (>89) Glucose 108 H (74-104) mg/dL Estimat Average Glucose (70-100) mg/dL Hemoglobin A1c % (4.27-6.07) % Lactic Acid 0.7 1.0 (0.5-2.2) mmol/L Calcium 9.1 (8.5-10.3) mg/dL Magnesium 2.1 (1.7-2.3) mg/dL Total Bilirubin 0.4 (0.2-1.0) mg/dL AST 12 (10-42) IU/L ALT 8 L (10-60) IU/L Alkaline Phosphatase 86 (42-121) IU/L Total Protein 5.9 L (6.4-8.9) g/dL Albumin 3.2 (3.2-5.5) g/dL Globulin 2.7 (2.1-4.2) g/dL Albumin/Globulin Ratio 1.2 (1.0-2.2) Triglycerides mg/dL Cholesterol ( - 200) mg/dL LDL Cholesterol, Calc ( - 129) mg/dL VLDL Cholesterol mg/dL HDL Cholesterol (60 - ) mg/dL LDL/HDL Ratio (<3.6) Cholesterol/HDL Ratio (<5.0) Lipase (11-82) U/L TSH (0.34-5.60) uIU/mL Urine Color DARK YELLOW Urine Clarity CLEAR (CLEAR) Urine pH 5.5 (5.0-7.5) PH Ur Specific [place] 1.025 (1.002-1.030) Urine Protein TRACE (NEGATIVE) mg/dL Urine Glucose (UA) NEGATIVE (NEGATIVE) mg/dL Urine Ketones NEGATIVE (NEGATIVE) mg/dL Urine Occult Blood NEGATIVE (NEGATIVE) Urine Nitrite NEGATIVE (NEGATIVE) Urine Bilirubin NEGATIVE (NEGATIVE) Urine Urobilinogen 0.2 (NORMAL) (NORMAL) E.U./dL Ur Leukocyte Esterase NEGATIVE (NEGATIVE) Ur Microscopic Review NOT INDICATED Urine Culture Comments NOT INDICATED 08/08/24 08/08/24 Range/Units 13:03 13:00 WBC 16.3 H (4.8-10.8) x10^3/uL RBC 3.78 L (4.70-6.10) 10^6/uL Hgb 11.7 L (14.0-18.0) g/dL Hct 37.0 L (42.0-52.0) % MCV 97.9 H (80.0-94.0) fL MCH 31.0 (27.0-31.0) pg MCHC 31.6 L (32.0-36.0) g/dL RDW 14.9 (12.0-15.0) % Plt Count 411 (130-450) 10^3/uL MPV 10.2 (7.4-11.4) fL Neut # (Auto) 13.5 H (1.5-6.6) 10^3/uL Lymph # (Auto) 1.2 L (1.5-3.5) 10^3/uL [place] # (Auto) 1.4 H (0.0-1.0) 10^3/uL Eos # (Auto) 0.0 (0.0-0.7) 10^3/uL Baso # (Auto) 0.0 (0.0-0.1) 10^3/uL Absolute Nucleated RBC 0.00 x10^3/uL Nucleated RBC % 0.0 /100WBC Sodium 136 (135-145) mmol/L Potassium 3.8 (3.5-4.5) mmol/L Chloride 95 L (101-111) mmol/L Carbon Dioxide 34 H (21-32) mmol/L Anion Gap 7.0 (6-13) BUN 34 H (6-20) mg/dL Creatinine 1.7 H (0.6-1.3) mg/dL Estimated GFR (MDRD) 39 L (>89) Glucose 130 H (74-104) mg/dL Estimat Average Glucose 128 H (70-100) mg/dL Hemoglobin A1c % 6.1 H (4.27-6.07) % Lactic Acid (0.5-2.2) mmol/L Calcium 9.8 (8.5-10.3) mg/dL Magnesium (1.7-2.3) mg/dL Total Bilirubin 0.4 (0.2-1.0) mg/dL AST 14 (10-42) IU/L ALT 9 L (10-60) IU/L Alkaline Phosphatase 95 (42-121) IU/L Total Protein 6.4 (6.4-8.9) g/dL Albumin 3.6 (3.2-5.5) g/dL Globulin 2.8 (2.1-4.2) g/dL Albumin/Globulin Ratio 1.3 (1.0-2.2) Triglycerides 121 mg/dL Cholesterol 180 ( - 200) mg/dL LDL Cholesterol, Calc 95 ( - 129) mg/dL VLDL Cholesterol 24 mg/dL HDL Cholesterol 61 (60 - ) mg/dL LDL/HDL Ratio 1.6 (<3.6) Cholesterol/HDL Ratio 3.0 (<5.0) Lipase 25 (11-82) U/L TSH 2.26 (0.34-5.60) uIU/mL Urine Color Urine Clarity (CLEAR) Urine pH (5.0-7.5) PH Ur Specific [place] (1.002-1.030) Urine Protein (NEGATIVE) mg/dL Urine Glucose (UA) (NEGATIVE) mg/dL Urine Ketones (NEGATIVE) mg/dL Urine Occult Blood (NEGATIVE) Urine Nitrite (NEGATIVE) Urine Bilirubin (NEGATIVE) Urine Urobilinogen (NORMAL) E.U./dL Ur Leukocyte Esterase (NEGATIVE) Ur Microscopic Review Urine Culture Comments Diagnostic Imaging Diagnostic Imaging Results: positive Final report reviewed Assessment/Plan Problem List (1) SBO (small bowel obstruction): Impression: The small bowel obstruction does not appear to be clinically present. I will confirm this via a CT scan with oral contrast through the nasogastric tube. This has already been ordered. (2) Hernia: Impression: Clearly present but does not appear to be incarcerated or contributing to a small bowel obstruction at this point in time. I will reevaluate this with a CT scan with oral contrast. This has been ordered.
[2024-08-09] MEDS ORDERED: DIATRIZOATE MEGLU/DIATRIZO SOD 30 ML BOTTLE PO ONE (11:23)
--- NOTE | 2024-08-09 13:10 | PROVIDER PROGRESS NOTE ---
Subjective Prog Note Date Prog Note Date: 08/09/24 Prog Note Time: 07:30 Subjective Pt reports feeling: Improved Subjective: He is having intermittent feelings like maybe he needs to move his bowels. Last BM was small and was 6 days ago. he was just in [facility] for about a month due to problems with his left knee. During the time that he was at [facility], he struggled with his bowels. he seems to have good and bad days with his knee. he is able to walk 70 feet through his house with a walker. He had a sigmoid resection many years ago with colostomy for diverticulitis with perforation, then subsequently had colostomy takedown. developed a hernia at the site of colostomy. He has not had an obstruction previously. He came into the ED yesterday with complaints of nausea and not vomitng, and lack of a BM Current Medications Current Medications Current Medications: Current Medications Generic Name Dose Route Start Last Admin Trade Name Freq PRN Reason Stop Dose Admin Acetaminophen 650 mg 08/08/24 21:11 Acetaminophen 325 Mg Tablet PO Q6H PRN Pain 1 to 4, or Fever Amlodipine Besylate 2.5 mg 08/09/24 09:00 08/09/24 08:34 Amlodipine 5 Mg Tablet PO 2.5 mg DAILY INDU Administration Benzonatate 100 mg 08/08/24 21:10 Benzonatate 100 Mg Capsule PO TID PRN Cough Docusate Sodium 100 mg 08/09/24 09:00 08/09/24 08:34 Docusate Sodium 100 Mg Capsule PO 100 mg DAILY INDU Administration Hydrochlorothiazide 12.5 mg 08/09/24 09:00 08/09/24 08:35 Hydrochlorothiazide 25 Mg Tablet PO 12.5 mg DAILY INDU Administration Hydromorphone HCl 0.5 mg 08/08/24 21:22 Hydromorphone 0.5 Mg/0.5 Ml Syringe IVP Q4H PRN Pain 8 to 10 Lactated Ringer's 1,000 mls @ 125 mls/hr 08/08/24 22:00 08/09/24 11:47 Lr IV 0 mls/hr .Q8H INDU Infusion Piperacillin Sod/Tazobactam 100 mls @ 200 mls/hr 08/09/24 03:00 08/09/24 12:35 Sod 3.375 gm/ Sodium Chloride IV Infused Q8H INDU Infusion Lactobacillus Rhamnosus 1 cap 08/09/24 09:00 08/09/24 08:34 Lactobacillus Rhamnosus Gg Capsule PO 1 cap DAILY INDU Administration Losartan Potassium 25 mg 08/08/24 21:00 08/09/24 08:34 Losartan 50 Mg Tablet PO 25 mg BID INDU Administration Oxycodone HCl 5 mg 08/08/24 21:22 Oxycodone 5 Mg Tablet PO Q4HR PRN Pain 5 to 7 Pantoprazole Sodium 40 mg 08/09/24 09:00 08/09/24 08:30 Pantoprazole 40 Mg Vial IVP 40 mg DAILY INDU Administration Polyethylene Glycol 17 gm 08/08/24 20:11 Polyethylene Glycol 3350 17 Gm Packet PO DAILY PRN Constipation Sodium Chloride 10 ml 08/08/24 21:11 08/09/24 03:25 Sodium Chloride Flush 0.9% 10 Ml Syringe IVP 10 ml PRN PRN Administration NEEDED PER PROVIDER ORDERS Sodium Chloride 10 ml 08/09/24 01:00 08/09/24 08:35 Sodium Chloride Flush 0.9% 10 Ml Syringe IVP 10 ml 0100,0900,1700 INDU Administration Objective Vital Signs/Intake & Output Vital Signs: Vital Signs x48h Temp Pulse Resp BP Pulse Ox 08/09/24 07:26 36.6 C 73 18 127/57 L 92 Intake & Output: Intake & Output 08/07/24 08/08/24 08/09/24 08/10/24 05:59 05:59 05:59 05:59 Intake Total 792 / 792 1914 / 1914 Output Total 1000 / 1000 1050 / 1050 Balance -208 / -208 864 / 864 Weight (kg) 135 kg Objective General Appearance: positive No acute distress and Alert Eyes Bilateral: positive Normal inspection ENT: positive ENT inspection nml Neck: positive Nml inspection (fully bearded) Respiratory: positive Chest non-tender, No respiratory distress and Breath sounds nml Cardiovascular: positive Systolic murmur (Gr 2. Patient is not aware that he has hx of murmur. ) Skin: positive Color nml Extremities: positive Pedal edema (1+. mild stasis skin changes) Neurologic/Psychiatric: positive Oriented x3 Lab Results 08/09/24 06:04 08/09/24 06:04 Other Labs: Lab Results x24hrs 08/09/24 08/09/24 08/08/24 Range/Units 10:30 06:04 19:07 WBC 13.7 H (4.8-10.8) x10^3/uL RBC 3.22 L (4.70-6.10) 10^6/uL Hgb 10.3 L (14.0-18.0) g/dL Hct 31.5 L (42.0-52.0) % MCV 97.8 H (80.0-94.0) fL MCH 32.0 H (27.0-31.0) pg MCHC 32.7 (32.0-36.0) g/dL RDW 14.8 (12.0-15.0) % Plt Count 325 (130-450) 10^3/uL MPV 10.1 (7.4-11.4) fL Neut # (Auto) 10.8 H (1.5-6.6) 10^3/uL Lymph # (Auto) 1.4 L (1.5-3.5) 10^3/uL [place] # (Auto) 1.4 H (0.0-1.0) 10^3/uL Eos # (Auto) 0.1 (0.0-0.7) 10^3/uL Baso # (Auto) 0.0 (0.0-0.1) 10^3/uL Absolute Nucleated RBC 0.00 x10^3/uL Nucleated RBC % 0.0 /100WBC Sodium 139 (135-145) mmol/L Potassium 3.7 (3.5-4.5) mmol/L Chloride 96 L (101-111) mmol/L Carbon Dioxide 36 H (21-32) mmol/L Anion Gap 7.0 (6-13) BUN 39 H (6-20) mg/dL Creatinine 1.8 H (0.6-1.3) mg/dL Estimated GFR (MDRD) 36 L (>89) Glucose 108 H (74-104) mg/dL Estimat Average Glucose (70-100) mg/dL Hemoglobin A1c % (4.27-6.07) % Lactic Acid 0.7 1.0 (0.5-2.2) mmol/L Calcium 9.1 (8.5-10.3) mg/dL Magnesium 2.1 (1.7-2.3) mg/dL Total Bilirubin 0.4 (0.2-1.0) mg/dL AST 12 (10-42) IU/L ALT 8 L (10-60) IU/L Alkaline Phosphatase 86 (42-121) IU/L Total Protein 5.9 L (6.4-8.9) g/dL Albumin 3.2 (3.2-5.5) g/dL Globulin 2.7 (2.1-4.2) g/dL Albumin/Globulin Ratio 1.2 (1.0-2.2) Triglycerides mg/dL Cholesterol ( - 200) mg/dL LDL Cholesterol, Calc ( - 129) mg/dL VLDL Cholesterol mg/dL HDL Cholesterol (60 - ) mg/dL LDL/HDL Ratio (<3.6) Cholesterol/HDL Ratio (<5.0) Lipase (11-82) U/L TSH (0.34-5.60) uIU/mL Urine Color DARK YELLOW Urine Clarity CLEAR (CLEAR) Urine pH 5.5 (5.0-7.5) PH Ur Specific [place] 1.025 (1.002-1.030) Urine Protein TRACE (NEGATIVE) mg/dL Urine Glucose (UA) NEGATIVE (NEGATIVE) mg/dL Urine Ketones NEGATIVE (NEGATIVE) mg/dL Urine Occult Blood NEGATIVE (NEGATIVE) Urine Nitrite NEGATIVE (NEGATIVE) Urine Bilirubin NEGATIVE (NEGATIVE) Urine Urobilinogen 0.2 (NORMAL) (NORMAL) E.U./dL Ur Leukocyte Esterase NEGATIVE (NEGATIVE) Ur Microscopic Review NOT INDICATED Urine Culture Comments NOT INDICATED 08/08/24 08/08/24 Range/Units 13:03 13:00 WBC 16.3 H (4.8-10.8) x10^3/uL RBC 3.78 L (4.70-6.10) 10^6/uL Hgb 11.7 L (14.0-18.0) g/dL Hct 37.0 L (42.0-52.0) % MCV 97.9 H (80.0-94.0) fL MCH 31.0 (27.0-31.0) pg MCHC 31.6 L (32.0-36.0) g/dL RDW 14.9 (12.0-15.0) % Plt Count 411 (130-450) 10^3/uL MPV 10.2 (7.4-11.4) fL Neut # (Auto) 13.5 H (1.5-6.6) 10^3/uL Lymph # (Auto) 1.2 L (1.5-3.5) 10^3/uL [place] # (Auto) 1.4 H (0.0-1.0) 10^3/uL Eos # (Auto) 0.0 (0.0-0.7) 10^3/uL Baso # (Auto) 0.0 (0.0-0.1) 10^3/uL Absolute Nucleated RBC 0.00 x10^3/uL Nucleated RBC % 0.0 /100WBC Sodium 136 (135-145) mmol/L Potassium 3.8 (3.5-4.5) mmol/L Chloride 95 L (101-111) mmol/L Carbon Dioxide 34 H (21-32) mmol/L Anion Gap 7.0 (6-13) BUN 34 H (6-20) mg/dL Creatinine 1.7 H (0.6-1.3) mg/dL Estimated GFR (MDRD) 39 L (>89) Glucose 130 H (74-104) mg/dL Estimat Average Glucose 128 H (70-100) mg/dL Hemoglobin A1c % 6.1 H (4.27-6.07) % Lactic Acid (0.5-2.2) mmol/L Calcium 9.8 (8.5-10.3) mg/dL Magnesium (1.7-2.3) mg/dL Total Bilirubin 0.4 (0.2-1.0) mg/dL AST 14 (10-42) IU/L ALT 9 L (10-60) IU/L Alkaline Phosphatase 95 (42-121) IU/L Total Protein 6.4 (6.4-8.9) g/dL Albumin 3.6 (3.2-5.5) g/dL Globulin 2.8 (2.1-4.2) g/dL Albumin/Globulin Ratio 1.3 (1.0-2.2) Triglycerides 121 mg/dL Cholesterol 180 ( - 200) mg/dL LDL Cholesterol, Calc 95 ( - 129) mg/dL VLDL Cholesterol 24 mg/dL HDL Cholesterol 61 (60 - ) mg/dL LDL/HDL Ratio 1.6 (<3.6) Cholesterol/HDL Ratio 3.0 (<5.0) Lipase 25 (11-82) U/L TSH 2.26 (0.34-5.60) uIU/mL Urine Color Urine Clarity (CLEAR) Urine pH (5.0-7.5) PH Ur Specific [place] (1.002-1.030) Urine Protein (NEGATIVE) mg/dL Urine Glucose (UA) (NEGATIVE) mg/dL Urine Ketones (NEGATIVE) mg/dL Urine Occult Blood (NEGATIVE) Urine Nitrite (NEGATIVE) Urine Bilirubin (NEGATIVE) Urine Urobilinogen (NORMAL) E.U./dL Ur Leukocyte Esterase (NEGATIVE) Ur Microscopic Review Urine Culture Comments Assessment/Plan Problem List (1) SBO (small bowel obstruction): Impression: This AM he passed a very small amount of stool. He has not had any BMs after oral contrast was given through the NG this afternoon. Awaiting CT read. I do not see contrast in the bowel within the hernia sac. I will await radiology opinion of the CT. I will leave the NG tube in place, as he has had relatively high output from that, of bilious fluid. I have discussed this patient with General surgery ,and I will continue with NG and NPO diet (2) Hernia: Impression: as stated above. I have discussed this patient with Dr Fofana this AM. This hernia is likely not contributory to the SBO- the hernia is not reducible on exam, but it is also non tender. he has an easily reducible bowel containing umbilical hernia on exam. his abdominal exam does not reveal any peritonitis. (3) Acute kidney injury: Impression: 2 Laboratory Tests 08/08/24 08/09/24 13:00 06:04 Creatinine 1.7 H 1.8 H Baseline Cr 1.3. I have ordered LR at 125cc per hour. I will continue to monitor with BMP in the AM. His NG is high output. I am hopeful that he can begin to take oral fluids in the near future, and his NILSON will resolve. I am avoiding nephrotoxic medications currently. (4) Leukocytosis: Impression: he is afebrile. He is not hypotensive. he is not tachycardic. His abdominal exam is benign. His leukocytosis is decreasing. He has had 2 lactates since admission neither of these have been positive I have ordered repeat CBC for the AM. Laboratory Tests 08/08/24 08/08/24 08/09/24 13:00 19:07 06:04 WBC 16.3 H 13.7 H Lactic Acid 1.0 0.7 (5) Cardiac pacemaker: Impression: This has been in place for about one year. he sees Dr Osborne. no problems with this. (6) Osteoarthritis of left knee: Impression: exacerbating and remitting, but very lifestyle limiting. Qualifiers: Osteoarthritis type: primary Qualified Code(s): M17.12 - Unilateral primary osteoarthritis, left knee (7) Hyperglycemia: Impression: Of little clinical significance in this 83-year-old male. There is no indication to treat his hyperglycemia at this time.Laboratory Tests 08/08/24 08/08/24 08/09/24 13:00 13:03 06:04 Glucose 130 H 108 H Hemoglobin A1c % 6.1 H
[2024-08-09] MEDS ORDERED: PIPERACILLIN/TAZOBACTAM 3.375 GM in SODIUM CHLORIDE 0.9% MINIBAG 100 ML IV SCH (15:00)
--- NOTE | 2024-08-09 15:02 | PHARMACY PROGRESS NOTE ---
Best Possible Medication History Admit Date and Time: 08/08/24 [id number] Processed by: Pharmacy (Medication Reconciliation completed by Specialist ManagersLucia) Medications reviewed in ED?: No Medication History completed: Yes Patient Interview: Completed Secondary Source(s): Written medication list and Insurance records [facility] Statement: As the person ultimately responsible for medication therapy, providers are able to order a medication from an existing home medication list in [facility] via the "Reconcile Routine" prior to Confirmation of that medication by donor support technician. Such practice is discouraged except when the physician, in their clinical judgment, deems that a medical need exists for a medication without regard to previous use.
[2024-08-09] MEDS: BENZOCAINE/MENTHOL LOZENGE MM PRN (18:20)
--- NOTE | 2024-08-10 02:35 | CT Report ---
PROCEDURE: CT Abdomen/Pelvis WO INDICATIONS: Evaluate bowel obstruction - the desired study is TECHNIQUE: A CT scan of the abdomen and pelvis was performed without the use of intravenous contrast. Images we re recorded and evaluated at appropriate window settings. Reformats: coronal and sagittal. For radiat ion dose reduction, the following was used: automated exposure control, adjustment of mA and/or kV ac cording to patient size. COMPARISON: CT abdomen pelvis 08/08/2024. FINDINGS: Image quality: Diagnostic. Lower chest: Unremarkable. Liver: Subcentimeter hypoattenuating liver lesions, too small to characterize by CT. Gallbladder: Cholelithiasis without wall thickening. Biliary tree: No intrahepatic or extrahepatic dilation, accounting for age. Spleen: No splenomegaly. Pancreas: No pancreatic ductal dilation. Adrenals: No adrenal nodule. Kidneys and ureters: No hydronephrosis. No contour-deforming mass. Stomach, bowel and peritoneum: Partially visualized enteric tube terminates in the gastric body. Ther e is redemonstration of small bowel obstruction with transition point at the left lower quadrant vent ral hernia (). Degree of small bowel dilation is not significantly changed since prior CT 024. Small volume ascites within the hernia. No pneumoperitoneum. Status post partial colectomy. Lymph nodes: No central or retroperitoneal adenopathy. Vessels: No infrarenal aortic aneurysm. Reproductive organs: Unremarkable. Bladder: Bladder wall thickness is normal, accounting for underdistention. No calcified bladder stone s. Pelvic lymph nodes: No adenopathy by size criteria. Bones: No aggressive osseous abnormality. Other: Wide neck left lower quadrant ventral hernia. Additional smaller ventral hernias containing fa t and nonobstructed bowel. IMPRESSION: Compared to prior CT 08/08/2024, no significant change in small bowel obstruction caused by left lowe r quadrant ventral hernia. No pneumatosis or zackery evidence of ischemia. Small volume ascites and mes enteric edema persists. Reviewed by: Mana Le MD, PhD on 08/10/2024 2:34 AM PDT Approved by: Mana Le MD, PhD on 08/10/2024 2:34 AM PDT Station ID: [id number]
[2024-08-10 06:44] LABS: BASOPHILS % (AUTO) 0.2 %; EOSINOPHILS # (AUTO) 0.2 10^3/uL (0.0-0.7); EOSINOPHILS % (AUTO) 1.3 %; HCT - HEMATOCRIT 31.9 % (42.0-52.0); LYMPHOCYTES # (AUTO) 1.7 10^3/uL (1.5-3.5); LYMPHOCYTES % (AUTO) 14.5 %; MEAN CORPUSCULAR HEMOGLOBIN 31.1 pg (27.0-31.0); MEAN CORPUSCULAR HGB CONC 31.3 g/dL (32.0-36.0); MEAN CORPUSCULAR VOLUME 99.1 fL (80.0-94.0); MEAN PLATELET VOLUME 10.4 fL (7.4-11.4); MONOCYTES # (AUTO) 1.2 10^3/uL (0.0-1.0); NEUTROPHILS # (AUTO) 8.6 10^3/uL (1.5-6.6); NEUTROPHILS % (AUTO) 73.7 %; PLT - PLATELET COUNT 324 10^3/uL (130-450); RED BLOOD COUNT 3.22 10^6/uL (4.70-6.10); RED CELL DISTRIBUTION WIDTH 14.6 % (12.0-15.0); WHITE BLOOD COUNT 11.6 x10^3/uL (4.8-10.8)
[2024-08-10 07:02] LABS: CREATININE 1.4 mg/dL (0.6-1.3); POTASSIUM 3.4 mmol/L (3.5-4.5)
[2024-08-10] MEDS: polyethylene glycoL 3350 17 GM PACKET PO PRN (08:45)
[2024-08-10] MEDS: DIATR MEGLU/DIATRIZOATE SODIUM 120 ML BOTTLE PO ONE (10:47)
--- NOTE | 2024-08-10 12:11 | PROVIDER PROGRESS NOTE ---
Subjective Prog Note Date Prog Note Date: 08/10/24 Prog Note Time: 12:00 Subjective Pt reports feeling: No change Current Medications Current Medications Current Medications: Current Medications Generic Name Dose Route Start Last Admin Trade Name Freq PRN Reason Stop Dose Admin Acetaminophen 650 mg 08/08/24 21:11 Acetaminophen 325 Mg Tablet PO Q6H PRN Pain 1 to 4, or Fever Amlodipine Besylate 2.5 mg 08/09/24 09:00 08/10/24 08:34 Amlodipine 5 Mg Tablet PO 2.5 mg DAILY INDU Administration Benzonatate 100 mg 08/08/24 21:10 Benzonatate 100 Mg Capsule PO TID PRN Cough Docusate Sodium 100 mg 08/09/24 09:00 08/10/24 08:35 Docusate Sodium 100 Mg Capsule PO 100 mg DAILY INDU Administration Hydrochlorothiazide 12.5 mg 08/09/24 09:00 08/10/24 08:33 Hydrochlorothiazide 25 Mg Tablet PO 12.5 mg DAILY INDU Administration Hydromorphone HCl 0.5 mg 08/08/24 21:22 Hydromorphone 0.5 Mg/0.5 Ml Syringe IVP Q4H PRN Pain 8 to 10 Lactated Ringer's 1,000 mls @ 125 mls/hr 08/08/24 22:00 08/10/24 10:47 Lr IV 125 mls/hr .Q8H INDU Administration Lactobacillus Rhamnosus 1 cap 08/09/24 09:00 08/10/24 08:31 Lactobacillus Rhamnosus Gg Capsule PO 1 cap DAILY INDU Administration Losartan Potassium 25 mg 08/08/24 21:00 08/10/24 08:31 Losartan 50 Mg Tablet PO 25 mg BID INDU Administration Oxycodone HCl 5 mg 08/08/24 21:22 Oxycodone 5 Mg Tablet PO Q4HR PRN Pain 5 to 7 Pantoprazole Sodium 40 mg 08/09/24 09:00 08/10/24 08:30 Pantoprazole 40 Mg Vial IVP 40 mg DAILY INDU Administration Polyethylene Glycol 17 gm 08/08/24 20:11 08/10/24 08:45 Polyethylene Glycol 3350 17 Gm Packet PO 17 gm DAILY PRN Administration Constipation Sodium Chloride 10 ml 08/08/24 21:11 08/09/24 03:25 Sodium Chloride Flush 0.9% 10 Ml Syringe IVP 10 ml PRN PRN Administration NEEDED PER PROVIDER ORDERS Sodium Chloride 10 ml 08/09/24 01:00 08/10/24 08:31 Sodium Chloride Flush 0.9% 10 Ml Syringe IVP 10 ml 0100,0900,1700 INDU Administration Throat Lozenges 1 lozenge 08/09/24 18:09 08/09/24 20:49 Benzocaine/Menthol Lozenge MM 1 lozenge Q2HR PRN Administration Throat pain Objective Vital Signs/Intake & Output Vital Signs: Vital Signs x48h Temp Pulse Resp BP Pulse Ox 08/10/24 07:49 36.5 C 78 20 112/46 L 93 08/10/24 05:26 36.6 C 73 20 124/59 L 93 Intake & Output: Intake & Output 08/08/24 08/09/24 08/10/24 08/11/24 05:59 05:59 05:59 05:59 Intake Total 792 / 792 3555 / 3555 1082 / 1082 Output Total 1000 / 1000 2570 / 2570 200 / 200 Balance -208 / -208 985 / 985 882 / 882 Weight (kg) 135 kg Objective General Appearance: positive No acute distress and Alert Eyes Bilateral: positive No lid inflammation, Conjunctivae nml and No scleral icterus ENT: positive No signs of dehydration Neck: positive Trachea midline Respiratory: positive Chest non-tender, No respiratory distress and Breath sounds nml Cardiovascular: positive Regular rate & rhythm, No gallop and Systolic murmur (III/); negative Tachycardia Peripheral Pulses: 2+: Radial (R) and 2+: Radial (L) Abdomen: positive Non-tender, Abnml bowel sounds (decreased) and Other (Irregulat midline incision with old ostomy site in LLQ with hernias under each incision - larger than yesterday - still soft. No overlying erythema or ecchymosis. No peritoneal signs.) Back: positive Nml inspection Skin: positive Color nml, No rash, Warm and Dry Extremities: negative Calf tenderness Neurologic/Psychiatric: positive Oriented x3, Motor nml, Sensation nml and Mood/affect nml Lab Results 08/10/24 06:19 08/10/24 06:19 Other Labs: Lab Results x24hrs 08/10/24 Range/Units 06:19 WBC 11.6 H (4.8-10.8) x10^3/uL RBC 3.22 L (4.70-6.10) 10^6/uL Hgb 10.0 L (14.0-18.0) g/dL Hct 31.9 L (42.0-52.0) % MCV 99.1 H (80.0-94.0) fL MCH 31.1 H (27.0-31.0) pg MCHC 31.3 L (32.0-36.0) g/dL RDW 14.6 (12.0-15.0) % Plt Count 324 (130-450) 10^3/uL MPV 10.4 (7.4-11.4) fL Neut # (Auto) 8.6 H (1.5-6.6) 10^3/uL Lymph # (Auto) 1.7 (1.5-3.5) 10^3/uL [place] # (Auto) 1.2 H (0.0-1.0) 10^3/uL Eos # (Auto) 0.2 (0.0-0.7) 10^3/uL Baso # (Auto) 0.0 (0.0-0.1) 10^3/uL Absolute Nucleated RBC 0.00 x10^3/uL Nucleated RBC % 0.0 /100WBC Sodium 137 (135-145) mmol/L Potassium 3.4 L (3.5-4.5) mmol/L Chloride 96 L (101-111) mmol/L Carbon Dioxide 34 H (21-32) mmol/L Anion Gap 7.0 (6-13) BUN 30 H (6-20) mg/dL Creatinine 1.4 H (0.6-1.3) mg/dL Estimated GFR (MDRD) 48 L (>89) Glucose 77 (74-104) mg/dL Calcium 9.0 (8.5-10.3) mg/dL Diagnostic Imaging Diagnostic Imaging Results: positive Final report reviewed (Repeat CT scan with oral contrast showed no progress of contrast past hernia. Still obstructed.) ABX Reporting Has patient been on IV antibiotics over the past 48 hours?: No Assessment/Plan Problem List (1) SBO (small bowel obstruction): Impression: Not improved and oral contrast shows no progress. Indication, procedure and possible complications including but not limited to infection, bleeding and were fully explained to the patient and all questions answered. I explained that due to patient habitus and the condition of his tissue that he is at increased chance of recurrence of his hernia. He vocalized an understanding. Verbal and written consent was obtained. Patient will receive IV antibiotics for surgical prophylaxis. TEDs and venadynes for prophylaxis against DVT. NPO. He has been asked to let me know if we can make his stay at [facility] more comfortable and he stated that he would. I explained that following surgery I want him to be able to ambulate, have bowel function, no infection, eat and drink, and no evidence of infection prior to discharge. (2) Hernia: Impression: Multiple hernias - incisional see above.
--- NOTE | 2024-08-10 12:27 | ANESTHESIA PROCEDURE NOTE ---
Pre-Anesthesia VS, & Labs Diagnosis Surgical Diagnosis:: incarcerated incisional hernia Procedure Procedure: exploratory laparotomy, possible bowel resection, repair of hernias Vitals Vital Signs: Temp Pulse Resp BP Pulse Ox 36.7 C 79 18 130/62 92 08/10/24 12:44 08/10/24 12:44 08/10/24 12:44 08/10/24 12:44 08/10/24 12:44 NPO NPO: >8 hours Lab Results Current Lab Results: Laboratory Tests 08/10/24 06:19: WBC 11.6 H, RBC 3.22 L, Hgb 10.0 L, Hct 31.9 L, MCV 99.1 H, MCH 31.1 H, MCHC 31.3 L, RDW 14.6, Plt Count 324, MPV 10.4, Neut # (Auto) 8.6 H, Lymph # (Auto) 1.7, [place] # (Auto) 1.2 H, Eos # (Auto) 0.2, Baso # (Auto) 0.0, Absolute Nucleated RBC 0.00, Nucleated RBC % 0.0, Sodium 137, Potassium 3.4 L, C hloride 96 L, Carbon Dioxide 34 H, Anion Gap 7.0, BUN 30 H, Creatinine 1.4 H, E stimated GFR (MDRD) 48 L, Glucose 77, Calcium 9.0 08/09/24 06:04: WBC 13.7 H, RBC 3.22 L, Hgb 10.3 L, Hct 31.5 L, MCV 97.8 H, MCH 32.0 H, MCHC 32.7, RDW 14.8, Plt Count 325, MPV 10.1, Neut # (Auto) 10.8 H, L ymph # (Auto) 1.4 L, [place] # (Auto) 1.4 H, Eos # (Auto) 0.1, Baso # (Auto) 0.0, Absolute Nucleated RBC 0.00, Nucleated RBC % 0.0, Sodium 139, Potassium 3.7, C hloride 96 L, Carbon Dioxide 36 H, Anion Gap 7.0, BUN 39 H, Creatinine 1.8 H, E stimated GFR (MDRD) 36 L, Glucose 108 H, Lactic Acid 0.7, Calcium 9.1, Magnesium 2.1, Total Bilirubin 0.4, AST 12, ALT 8 L, Alkaline Phosphatase 86, Total Protein 5.9 L, Albumin 3.2, Globulin 2.7, Albumin/Globulin Ratio 1.2 08/08/24 19:07: Lactic Acid 1.0 08/08/24 13:03: Estimat Average Glucose 128 H, Hemoglobin A1c % 6.1 H, Triglycerides 121, Cholesterol 180, LDL Cholesterol, Calc 95, VLDL Cholesterol 24, HDL Cholesterol 61, LDL/HDL Ratio 1.6, Cholesterol/HDL Ratio 3.0, TSH 2.26 08/08/24 13:00: WBC 16.3 H, RBC 3.78 L, Hgb 11.7 L, Hct 37.0 L, MCV 97.9 H, MCH 31.0, MCHC 31.6 L, RDW 14.9, Plt Count 411, MPV 10.2, Neut # (Auto) 13.5 H, L ymph # (Auto) 1.2 L, [place] # (Auto) 1.4 H, Eos # (Auto) 0.0, Baso # (Auto) 0.0, Absolute Nucleated RBC 0.00, Nucleated RBC % 0.0, Sodium 136, Potassium 3.8, C hloride 95 L, Carbon Dioxide 34 H, Anion Gap 7.0, BUN 34 H, Creatinine 1.7 H, E stimated GFR (MDRD) 39 L, Glucose 130 H, Calcium 9.8, Total Bilirubin 0.4, AST 14, ALT 9 L, Alkaline Phosphatase 95, Total Protein 6.4, Albumin 3.6, Globulin 2.8, Albumin/Globulin Ratio 1.3, Lipase 25 08/10/24 06:19 08/10/24 06:19 Meds/Allgy Home Medications Ambulatory Orders Medication Instructions Recorded Confirmed hydrochlorothiazide 25 mg tablet 12.5 mg PO DAILY 05/18/17 08/08/24 capsaicin 0.1 % topical cream 1 applic topical PRN PRN Analgesia 06/23/24 08/08/24 duloxetine 30 mg capsule,delayed 30 mg PO DAILY 06/23/24 08/08/24 release losartan 50 mg tablet 25 mg PO BID 06/23/24 08/08/24 allopurinol 100 mg tablet 100 mg PO DAILY 07/01/24 08/08/24 tolterodine 4 mg capsule,extended 4 mg PO DAILY 09/02/24 10/10/24 release 24 hr polyethylene glycol 3350 17 gram 17 g PO DAILY PRN Constipation 07/02/24 08/08/24 oral powder packet amitriptyline 25 mg tablet 25 mg PO HS #20 tabs 07/04/24 08/08/24 amlodipine 2.5 mg tablet 2.5 mg PO DAILY 08/09/24 08/09/24 ascorbic acid (vitamin C) 1,000 mg 1 g PO DAILY 08/09/24 08/09/24 tablet aspirin 81 mg tablet,delayed 81 mg PO DAILY 08/09/24 08/09/24 release (Ecotrin Low Strength) cholecalciferol (vitamin D3) 50 50 mcg PO DAILY 08/09/24 08/09/24 mcg (2,000 unit) capsule docusate sodium 250 mg capsule 250 mg PO BID 08/09/24 08/09/24 omega-3 fatty acids 1,000 mg 1,000 mg PO DAILY 08/09/24 08/09/24 capsule psyllium 1 packet PO DAILY 08/09/24 08/09/24 therapeutic multivitamin 1 tab PO DAILY 08/09/24 08/09/24 Allergies Allergies Allergy/AdvReac Type Severity Reaction Status Date / Time Kcpogmo-LUM-CnS Reductase AdvReac Cramps Verified 08/08/24 12:48 Inhibitor [facility] Medical History Medical History (Updated 08/09/24 @ 15:31 by EMILIA Bejarano) History of open sigmoidectomy Adenomatous colon polyp (07/09/08) Perirectal abscess (10/26/17) Incontinence (04/14/17) Hemorrhoids (04/14/17) Elevated PSA (07/20/21) Elevated liver enzymes (11/19/15) Abscess, perianal (10/26/17) Arthritis of knee Perforated sigmoid colon Surgical History Surgical History H/O radical prostatectomy S/P colostomy takedown 1997 History of intestinal surgery open sigmoidectomy for ruptured diverticulitis in 1996 Family History Family History (Updated 08/09/24 @ 02:48 by Geri Grady, PAULINO) Mother CVA (cerebral vascular accident) Brother Colon cancer Father Cardiac arrest Social History Social History (Updated 08/09/24 @ 02:49 by Geri Grady RN) Smoking Status: Former smoker If you are a former smoker, when did you quit? (Date/Year): 08/15/1997 Number of Years Smoked: 45 How many cigarettes a day do you smoke? (20 cigarettes=1 Pk): 40 Second hand tobacco smoke exposure: Yes Do you dip or chew tobacco?: No Do you vape?: No Living arrangement: At home Marital Status: Living Condition: With spouse/s.o. Relationship: Level: Independent Home Mobility Equipment: Wheeled walker Do you feel safe in your home environment?: Yes Suffered physical, verbal, emotional, or financial abuse?: No History of Abuse: No POLST Patient has POLST: No Anesthesia Exam (Expanded) Exam General: Alert and Oriented x3 Dental: WNL Mouth Opening: Greater than 4 Fingerbreadths Neck Mobility: Normal Mallampati classification: III Thyromental Distance: greater than 6 cm Respiratory: Decreased breath sounds Cardiovascular: Regular rate Plan Plan Anesthesia Type: General and Transverse Abdominis Plane (TAP) Block Consent for Procedure(s) Verified and Reviewed: Yes Code Status: Attempt Resuscitation ASA Classification ASA classification: 3-Severe systemic disease Is this case an emergency?: Yes
[2024-08-10] MEDS ORDERED: BUPIVACAINE 0.5% PF 10 ML VIAL ONE (12:34)
[2024-08-10] MEDS: SODIUM CHLORIDE 0.9% 1,000 ML IV SCH (12:42)
[2024-08-10] MEDS ORDERED: ROCURONIUM 50 MG/5 ML VIAL ONE ×2 (12:50→13:48)
[2024-08-10] MEDS ORDERED: PROPOFOL 200 MG/20 ML VIAL IVP ONE (12:50)
[2024-08-10] MEDS ORDERED: fentaNYL 100 MCG/2 ML VIAL ONE ×2 (12:50→18:33)
[2024-08-10] MEDS ORDERED: LIDOCAINE-PF 2% 10 ML AMP SUBQ ONE (12:50)
[2024-08-10] MEDS ORDERED: ATROPINE ABBOJECT 1 MG/10 ML SYRINGE IVP PRN (12:59)
[2024-08-10] MEDS ORDERED: NALOXONE 0.4 MG/ML VIAL IVP PRN (12:59)
[2024-08-10] MEDS ORDERED: fentaNYL 100 MCG/2 ML VIAL IVP PRN (12:59)
[2024-08-10] MEDS ORDERED: ePHEDrine 50 MG/ML VIAL IVP PRN (12:59)
[2024-08-10] MEDS ORDERED: HYDROmorphone 0.5 MG/0.5 ML SYRINGE IVP PRN (12:59)
[2024-08-10] MEDS ORDERED: PHENYLEPHRINE 10 MG/ML VIAL ONE (13:35)
[2024-08-10] MEDS ORDERED: BUPIVACAINE 0.5%-EPI 1:200000 PF 10 ML VIAL ONE (13:47)
[2024-08-10] MEDS ORDERED: ePHEDrine 50 MG/ML VIAL IVP ONE (14:19)
[2024-08-10] MEDS ORDERED: LIDOCAINE 2% URO-JET 5 ML SYRINGE UR ONE (14:20)
[2024-08-10] MEDS: LACTATED RINGERS 1,000 ML IV SCH (15:45)
[2024-08-10] MEDS ORDERED: ONDANSETRON 4 MG/2 ML VIAL ONE ×2 (17:37→18:50)
[2024-08-10] MEDS ORDERED: DEXAMETHASONE 4 MG/ML VIAL ONE (17:52)
[2024-08-10] MEDS ORDERED: SUGAMMADEX 200 MG/2 ML VIAL IVP ONE (18:24)
[2024-08-10] MEDS ORDERED: ACETAMINOPHEN 1,000 MG/100 ML 1,000 MG/100 ML BAG IV ONE (18:34)
[2024-08-10] MEDS: ONDANSETRON 4 MG/2 ML VIAL IVP ONE (18:53)
--- NOTE | 2024-08-10 18:57 | PROVIDER PROGRESS NOTE ---
Subjective Prog Note Date Prog Note Date: 08/10/24 Prog Note Time: 12:00 Subjective Pt reports feeling: No change Current Medications Current Medications Current Medications: Current Medications Generic Name Dose Route Start Last Admin Trade Name Freq PRN Reason Stop Dose Admin Acetaminophen 650 mg 08/08/24 21:11 Acetaminophen 325 Mg Tablet PO Q6H PRN Pain 1 to 4, or Fever Amlodipine Besylate 2.5 mg 08/09/24 09:00 08/09/24 08:34 Amlodipine 5 Mg Tablet PO 2.5 mg DAILY INDU Administration Benzonatate 100 mg 08/08/24 21:10 Benzonatate 100 Mg Capsule PO TID PRN Cough Docusate Sodium 100 mg 08/09/24 09:00 08/09/24 08:34 Docusate Sodium 100 Mg Capsule PO 100 mg DAILY INDU Administration Hydrochlorothiazide 12.5 mg 08/09/24 09:00 08/09/24 08:35 Hydrochlorothiazide 25 Mg Tablet PO 12.5 mg DAILY INDU Administration Hydromorphone HCl 0.5 mg 08/08/24 21:22 Hydromorphone 0.5 Mg/0.5 Ml Syringe IVP Q4H PRN Pain 8 to 10 Lactated Ringer's 1,000 mls @ 125 mls/hr 08/08/24 22:00 08/09/24 08:32 Lr IV 125 mls/hr .Q8H INDU Administration Piperacillin Sod/Tazobactam 100 mls @ 200 mls/hr 08/09/24 03:00 08/09/24 03:54 Sod 3.375 gm/ Sodium Chloride IV Infused Q8H INDU Infusion Lactobacillus Rhamnosus 1 cap 08/09/24 09:00 08/09/24 08:34 Lactobacillus Rhamnosus Gg Capsule PO 1 cap DAILY INDU Administration Losartan Potassium 25 mg 08/08/24 21:00 08/09/24 08:34 Losartan 50 Mg Tablet PO 25 mg BID INDU Administration Oxycodone HCl 5 mg 08/08/24 21:22 Oxycodone 5 Mg Tablet PO Q4HR PRN Pain 5 to 7 Pantoprazole Sodium 40 mg 08/09/24 09:00 08/09/24 08:30 Pantoprazole 40 Mg Vial IVP 40 mg DAILY INDU Administration Polyethylene Glycol 17 gm 08/08/24 20:11 Polyethylene Glycol 3350 17 Gm Packet PO DAILY PRN Constipation Sodium Chloride 10 ml 08/08/24 21:11 08/09/24 03:25 Sodium Chloride Flush 0.9% 10 Ml Syringe IVP 10 ml PRN PRN Administration NEEDED PER PROVIDER ORDERS Sodium Chloride 10 ml 08/09/24 01:00 08/09/24 08:35 Sodium Chloride Flush 0.9% 10 Ml Syringe IVP 10 ml 0100,0900,1700 INDU Administration Objective Vital Signs/Intake & Output Vital Signs: Vital Signs x48h Temp Pulse Resp BP Pulse Ox 08/09/24 07:26 36.6 C 73 18 127/57 L 92 08/09/24 05:00 36.7 C 71 20 108/53 L 92 Intake & Output: Intake & Output 08/07/24 08/08/24 08/09/24 08/10/24 05:59 05:59 05:59 05:59 Intake Total 792 / 792 1408 / 1408 Output Total 1000 / 1000 1050 / 1050 Balance -208 / -208 358 / 358 Weight (kg) 135 kg Objective General Appearance: positive No acute distress and Alert Eyes Bilateral: positive No lid inflammation, Conjunctivae nml and No scleral icterus ENT: positive No signs of dehydration Neck: positive Trachea midline Respiratory: positive Chest non-tender, No respiratory distress and Breath sounds nml Cardiovascular: positive Regular rate & rhythm, No gallop and Systolic murmur (III/); negative Tachycardia Peripheral Pulses: 2+: Radial (R) and 2+: Radial (L) Abdomen: positive Non-tender, Abnml bowel sounds (decreased) and Other (Irregulat midline incision with old ostomy site in LLQ with hernias under each incision - larger than yesterday - still soft. No overlying erythema or ecchymosis. No peritoneal signs.) Back: positive Nml inspection Skin: positive Color nml, No rash, Warm and Dry Extremities: negative Calf tenderness Neurologic/Psychiatric: positive Oriented x3, Motor nml, Sensation nml and Mood/affect nml Lab Results 08/10/24 06:19 08/10/24 06:19 Other Labs: Lab Results x24hrs 08/09/24 08/09/24 08/08/24 Range/Units 10:30 06:04 19:07 WBC 13.7 H (4.8-10.8) x10^3/uL RBC 3.22 L (4.70-6.10) 10^6/uL Hgb 10.3 L (14.0-18.0) g/dL Hct 31.5 L (42.0-52.0) % MCV 97.8 H (80.0-94.0) fL MCH 32.0 H (27.0-31.0) pg MCHC 32.7 (32.0-36.0) g/dL RDW 14.8 (12.0-15.0) % Plt Count 325 (130-450) 10^3/uL MPV 10.1 (7.4-11.4) fL Neut # (Auto) 10.8 H (1.5-6.6) 10^3/uL Lymph # (Auto) 1.4 L (1.5-3.5) 10^3/uL [place] # (Auto) 1.4 H (0.0-1.0) 10^3/uL Eos # (Auto) 0.1 (0.0-0.7) 10^3/uL Baso # (Auto) 0.0 (0.0-0.1) 10^3/uL Absolute Nucleated RBC 0.00 x10^3/uL Nucleated RBC % 0.0 /100WBC Sodium 139 (135-145) mmol/L Potassium 3.7 (3.5-4.5) mmol/L Chloride 96 L (101-111) mmol/L Carbon Dioxide 36 H (21-32) mmol/L Anion Gap 7.0 (6-13) BUN 39 H (6-20) mg/dL Creatinine 1.8 H (0.6-1.3) mg/dL Estimated GFR (MDRD) 36 L (>89) Glucose 108 H (74-104) mg/dL Estimat Average Glucose (70-100) mg/dL Hemoglobin A1c % (4.27-6.07) % Lactic Acid 0.7 1.0 (0.5-2.2) mmol/L Calcium 9.1 (8.5-10.3) mg/dL Magnesium 2.1 (1.7-2.3) mg/dL Total Bilirubin 0.4 (0.2-1.0) mg/dL AST 12 (10-42) IU/L ALT 8 L (10-60) IU/L Alkaline Phosphatase 86 (42-121) IU/L Total Protein 5.9 L (6.4-8.9) g/dL Albumin 3.2 (3.2-5.5) g/dL Globulin 2.7 (2.1-4.2) g/dL Albumin/Globulin Ratio 1.2 (1.0-2.2) Triglycerides mg/dL Cholesterol ( - 200) mg/dL LDL Cholesterol, Calc ( - 129) mg/dL VLDL Cholesterol mg/dL HDL Cholesterol (60 - ) mg/dL LDL/HDL Ratio (<3.6) Cholesterol/HDL Ratio (<5.0) Lipase (11-82) U/L TSH (0.34-5.60) uIU/mL Urine Color DARK YELLOW Urine Clarity CLEAR (CLEAR) Urine pH 5.5 (5.0-7.5) PH Ur Specific [place] 1.025 (1.002-1.030) Urine Protein TRACE (NEGATIVE) mg/dL Urine Glucose (UA) NEGATIVE (NEGATIVE) mg/dL Urine Ketones NEGATIVE (NEGATIVE) mg/dL Urine Occult Blood NEGATIVE (NEGATIVE) Urine Nitrite NEGATIVE (NEGATIVE) Urine Bilirubin NEGATIVE (NEGATIVE) Urine Urobilinogen 0.2 (NORMAL) (NORMAL) E.U./dL Ur Leukocyte Esterase NEGATIVE (NEGATIVE) Ur Microscopic Review NOT INDICATED Urine Culture Comments NOT INDICATED 08/08/24 08/08/24 Range/Units 13:03 13:00 WBC 16.3 H (4.8-10.8) x10^3/uL RBC 3.78 L (4.70-6.10) 10^6/uL Hgb 11.7 L (14.0-18.0) g/dL Hct 37.0 L (42.0-52.0) % MCV 97.9 H (80.0-94.0) fL MCH 31.0 (27.0-31.0) pg MCHC 31.6 L (32.0-36.0) g/dL RDW 14.9 (12.0-15.0) % Plt Count 411 (130-450) 10^3/uL MPV 10.2 (7.4-11.4) fL Neut # (Auto) 13.5 H (1.5-6.6) 10^3/uL Lymph # (Auto) 1.2 L (1.5-3.5) 10^3/uL [place] # (Auto) 1.4 H (0.0-1.0) 10^3/uL Eos # (Auto) 0.0 (0.0-0.7) 10^3/uL Baso # (Auto) 0.0 (0.0-0.1) 10^3/uL Absolute Nucleated RBC 0.00 x10^3/uL Nucleated RBC % 0.0 /100WBC Sodium 136 (135-145) mmol/L Potassium 3.8 (3.5-4.5) mmol/L Chloride 95 L (101-111) mmol/L Carbon Dioxide 34 H (21-32) mmol/L Anion Gap 7.0 (6-13) BUN 34 H (6-20) mg/dL Creatinine 1.7 H (0.6-1.3) mg/dL Estimated GFR (MDRD) 39 L (>89) Glucose 130 H (74-104) mg/dL Estimat Average Glucose 128 H (70-100) mg/dL Hemoglobin A1c % 6.1 H (4.27-6.07) % Lactic Acid (0.5-2.2) mmol/L Calcium 9.8 (8.5-10.3) mg/dL Magnesium (1.7-2.3) mg/dL Total Bilirubin 0.4 (0.2-1.0) mg/dL AST 14 (10-42) IU/L ALT 9 L (10-60) IU/L Alkaline Phosphatase 95 (42-121) IU/L Total Protein 6.4 (6.4-8.9) g/dL Albumin 3.6 (3.2-5.5) g/dL Globulin 2.8 (2.1-4.2) g/dL Albumin/Globulin Ratio 1.3 (1.0-2.2) Triglycerides 121 mg/dL Cholesterol 180 ( - 200) mg/dL LDL Cholesterol, Calc 95 ( - 129) mg/dL VLDL Cholesterol 24 mg/dL HDL Cholesterol 61 (60 - ) mg/dL LDL/HDL Ratio 1.6 (<3.6) Cholesterol/HDL Ratio 3.0 (<5.0) Lipase 25 (11-82) U/L TSH 2.26 (0.34-5.60) uIU/mL Urine Color Urine Clarity (CLEAR) Urine pH (5.0-7.5) PH Ur Specific [place] (1.002-1.030) Urine Protein (NEGATIVE) mg/dL Urine Glucose (UA) (NEGATIVE) mg/dL Urine Ketones (NEGATIVE) mg/dL Urine Occult Blood (NEGATIVE) Urine Nitrite (NEGATIVE) Urine Bilirubin (NEGATIVE) Urine Urobilinogen (NORMAL) E.U./dL Ur Leukocyte Esterase (NEGATIVE) Ur Microscopic Review Urine Culture Comments Diagnostic Imaging Diagnostic Imaging Results: positive Final report reviewed (Repeat CT scan with oral contrast showed no progress of contrast past hernia. Still obstructed.) ABX Reporting Has patient been on IV antibiotics over the past 48 hours?: No Assessment/Plan Problem List (1) SBO (small bowel obstruction): Impression: Not improved and oral contrast shows no progress. Indication, procedure and possible complications including but not limited to infection, bleeding and were fully explained to the patient and all questions answered. I explained that due to patient habitus and the condition of his tissue that he is at increased chance of recurrence of his hernia. He vocalized an understanding. Verbal and written consent was obtained. Patient will receive IV antibiotics for surgical prophylaxis. TEDs and venadynes for prophylaxis against DVT. NPO. He has been asked to let me know if we can make his stay at [facility] more comfortable and he stated that he would. I explained that following surgery I want him to be able to ambulate, have bowel function, no infection, eat and drink, and no evidence of infection prior to discharge. (2) Hernia: Impression: Multiple hernias - incisional see above.
[2024-08-10] MEDS ORDERED: ONDANSETRON 4 MG/2 ML VIAL IVP PRN ×2 (18:59→20:07)
--- NOTE | 2024-08-10 19:01 | OPERATIVE REPORT ---
Operative Report General Admit Date: 08/08/24 Procedure Data: Operation Date: 08/10/24 13:00 Proposed Procedures p Exploratory Laparotomy(Not Applicable) - Agus Fofana MD Actual Procedures p Exploratory Laparotomy with extensive lysis of adhesions, small bowel resection, omentectomy, and placement of mesh and drains(Not Applicable) - Agus Fofana MD s Circumcision(Not Applicable) - Agus Fofana MD Pre-Op Diagnosis: Incarcerated incisional hernias Anesthesia Type General Case Staff Anesthesia Provider: Edna Beckford Assisting Provider: Agnes Jacinto Times Into Recovery: 08/10/24 18:36 Procedure Start: 08/10/24 13:35 Procedure End: 08/10/24 18:09 Time out: 08/10/24 13:[address] MESH 8X10 Tourniquet Tourniquet #: Tourniquet Site Padding: Pressure: Applied by: Time up #1: Time Down #1: Time Up #2: Time Down #2: Pre-Op Diagnosis: Incarcerated incisional hernias, phimosis Post Op Diagnosis: Incarcerated incisional hernias with compromised bowel Procedure Note Intake, IV Amount (ml): 3,500 Estimated Blood Loss (ml): 50 Drain/Tube Type: Olvin drain (2 19 Fr Olvin drains lateral one is anterior to the mesh and medial one is posterior to the mesh) Indications: Incarcerated incisional hernias Findings: 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 Other Other Information/Narrative: [address] [address] Patient Name: Geovany Vaughn Patient birthdate: 1940 Patent MR number: [id number] Date of procedure: 08/11/2024 Preoperative Diagnosis/Indications: Incarcerated incisional hernia, multiple incisional hernias ("Czech cheese") Postoperative Diagnosis: Same with compromised small bowel, phimosis Procedure: Exploratory laparotomy with extensive lysis of adhesions (CPT 93987), circumcision (due to phomosis preventing placement of Brady catheter) (CPT 07429-44), small bowel resection (CPT 11307-19), partial omentectomy (CPT 20820- 59), placement of Ventralex ST mesh (85187-98 and 36625-49), placement of Olvin drains anterior and posterior to mesh - extensive case requiring over 5-1/2 hours CPT modifier 22 Fluids: 3500 mL crystalloid EBL: 50 mL Urine output: 30 mL Drains: Two 19 Vietnamese Olvin drains, lateral one placed anterior to the mesh, medial one posterior to the mesh in the abdomen Findings: Multiple anterior abdominal wall hernias, phimosis preventing placement of Brady catheter Complications: Nectrotic small bowel with spillage of succus entericus, unavailability of biologic mesh Surgeon/Dictated by: Agus Fofana MD [employer]: EMILIA Bejarnao Torch Cutter: Edna Beckford CRNA Anesthesia type: General, 7 mL of 1/2% marcaine with epinephrine for penile block, TAP block Procedure: After verbal and written informed consent was obtained detailing the operation, the alternatives the operation including no operation, risks of infection, bleeding requiring transfusion with its risks, nerve injury, and and after I met with the patient confirming the surgery and the site of surgery, the patient was brought to the operative suite and placed supine on the operating table. Great care was taken to avoid pressure points to prevent pressure necrosis or nerve injury. Monitoring devices were applied along with TEDs and pneumatic compression stockings (to prevent DVT). An intravenous line was started and anesthesia was maintained throughout the case. The patient was monitored for cardiac, blood pressure, and oxygen saturation continuously. The patient received preoperative antibiotics for surgical prophylaxis. Edna Beckford CRNA sedated and anesthetized the patient for the entire procedure. With the patient asleep an attempt was made to place a Brady by nursing however the patient had significant phimosis and the Brady could not be placed. I was then asked to see whether or not I could place the Brady and similarly the phimosis was such that the foreskin could not be retracted and I could not see the head of the penis. At this point in order to progress with the operation the patient had to have a Brady placed for fluid management. A dorsal slit or circumcision was not discussed as part of this operation so I consequently called the payroll benefits administrator on duty, Zainab Rodriguez, who subsequently called Rudolph Crenshaw and we had a conversation about the medical necessity of this procedure and that it should be performed in order to proceed with the operation while it was not discussed as a portion of the consent. It was the consensus opinion of myself, Rudolph Lamb, and all of the personnel in the operating room that we should proceed with a circumcision or dorsal slit even though it had not been mentioned as part of the consent. The first of 2 "time ins" was then completed. As a result of the conversation and in order to proceed with the operation the patient was prepped in the usual sterile manner and I performed a penile block with half percent Marcaine with epinephrine. I started with a dorsal slit proceeding until I could just see the tip of the head of his penis but it was clear that the head of the penis would not be able to be grasped in order to place the Brady with simply a dorsal slit. The penis was small enough that the dorsal slit went to the pubic tubercle. At this point I decided to stop the dorsal slit and circumferentially resect the foreskin. This was done in a stepwise manner closing the excision as I proceeded around the penis in a circumferential manner with 3-0 Vicryl interru pted sutures. Hemostasis was obtained using Bovie electrocautery as well as the aforementioned sutures. Once this was completed, the area was prepped and draped again in a sterile manner and I placed the Brady catheter after lubricating the urethra with sterile water-soluble lubricant. After the Brady catheter was placed all the way in without any significant difficulty there was a return of clear yellow urine and the balloon was inflated. The bag was then placed to gravity drainage. We could then proceed with the proposed operation. The patient was prepped and draped in the usual sterile manner. A "time in" then confirmed that the patient was identified with 3 identifiers (name, date, and medical record number), the history and physical was in the chart, the signed consent confirming the procedure was in the chart, the patient was in the correct position, the aforementioned prophylactic measures were in place or given, we had the correct personnel and equipment to complete the procedure and that anesthesia and the surgical team were given an opportunity to express any concerns. With the agreement of everyone in the room we proceeded with the operation. I traced the previous, what had been a midline incision, with a 10 blade scalpel starting 7 cm below the start of the original incision and taking it down to just 7 cm above the pubic tubercle. I incised through scar to get down to what appeared to be a very thin band of fascia just at the midline. This was incised using a scalpel gaining entry into the abdomen without incident. This fascial incision was then lengthened to the length of his skin incision using Bovie electrocautery while using my finger to protect the intra-abdominal contents. With the fascia incised dissection for started on the patient's right hand side where he had a clear incisional hernia that involve the umbilicus. Adhesions were taken down sharply using Metzenbaum scissors as well as Bovie electrocautery and bluntly with finger fracture to help define the fascial defect. The fascial defect was approximately the size of a baseball. This was not the hernia that was the cause of his bowel obstruction. I then directed my attention to the patient's left-hand side. This hernia was much larger and contained the incarcerated bowel. It was tight enough that the fascia itself needed to be incised for approximately 2 cm to allow for the hernia contents to be removed. The fascia itself was incised using Bovie electrocautery again using my finger to protect the hernia contents. I then employed a technique of gentle traction on the bowel (small bowel) as well as some soft eversion on the hernia to remove the majority of the bowel and omentum that was present in the hernia. It was clear that the bowel itself was com promised by its dusky appearance as well and is a clear band like stenosis where it had been kinked. I wrapped this compromised bowel and warm wet surgical lap sponges and waited for 5 minutes to see whether the bowel itself would either return to viability or look worse. After 5 minutes this bowel looked considerably better although is still somewhat erythematous but it was noted to be peristalsing. I then continued to try and remove the bowel from this hernia sac which measured 25 cm in diameter when seen on CT. The bowel that was in this hernia included small bowel as well as colon as well as a large amount of omentum. Traction on the bowel as well as some gentle eversion of the hernia allowed for much of the hernia contents to be removed however there was 2 areas of deserosalization of the small bowel that finally progressed despite multiple 3-0 Vicryl sutures to a perforation. I oversewed this to minimize the spillage. I decided to resect this area of clearly compromised small bowel. Significant adhesiolysis allowed this length of small bowel to be freed and a ESTEPHANIE 75 stapler was fired proximally and distally to this the serosa lysed and after taking the mesentery using serial application of the LigaSure the compromised small bowel was resected. This was sent for pathologic evaluation. 3-0 Vicryl sutures were placed to line up the proximal and distal small bowel to allow for anastomosis on the antimesenteric border. Great care was taken to ensure that the small bowel was not twisted. The stapled corner of the antimesenteric borders of the proximal and distal small bowel were cut off using Hanson scissors and and these openings were placed the 75 ESTEPHANIE stapler which was approximated and fired this creating the enteroenterostomy. Prior to removal of the stapler a 3-0 Vicryl suture was placed at the "crotch" to minimize any sort of tension. The opening that was used for the anastomosis was then closed using another application of the ESTEPHANIE stapler in a transverse fashion thus completing the colocolostomy. Visual examination of the colocolostomy showed it to be in good order without bleed or leak. Digital examination revealed the anastomosis to be widely patent. Several hours were then spent taking down adhesions that were present within these hernias as well as intraloop adhesions. Examination of the omentum showed that it had a multiple defects that would allow for herniation of bowel through these defect and I opted to resect this using serial application of the harmonic scalpel. With the anterior abdominal wall cleared of adhesions examination revealed the large left sided hernia that freely admitted my fist (10 cm in diameter) with a further hernia lateral to this at his old colostomy site measuring 5 cm in diameter. On the right-hand side there was the aforementioned baseball sized hernia just at the midline with a further hernia lateral to this measuring approximately 3 cm in size. Additionally, there was a pelvic hernia that was not completely freed of all of its adhesions due to the fact that this was not the cause of the patient's symptoms. The abdomen was then copiously irrigated using warm sterile saline with some Betadine to help prevent or avoid intra-abdominal infection. With spillage of succus entericus it is indicated that a large piece of biologic mesh should be used to allow for abdominal closure. Unfortunately, this hospital does not carry large mesh nor biologic mesh. As such I asked for and received the largest piece of mesh that we carry which is Ventralex ST mesh (reference #[id number], lot number [id number], expiration date 2025-10-26) measuring 8" x 10". Let me be clear that this was a suboptimal situation in the sense that this mesh would not cover all the defects and it was not biologic in nature. However, there was no other option. I then placed this mesh transversely to cover the 2 largest hernias using interrupted 2-0 PDS suture in a U-stitch configuration going back to the fascial defect on either lateral side and then transitioning to the fascia anteriorly through the midline. Interrupted sutures were used every centimeter. Prior to completion of this repair a 19 Vietnamese Olvin drain was placed through a separate stab incision somewhat medially on the patient's left-hand side and directed into the abdomen just below the mesh. This was secured to the skin using a 3-0 nylon which was Josh sandaled about the drain. An additional stab incision was made slightly superior and lateral to this and through this was placed another 19 Vietnamese Olvin drain which was placed into the hernia defect on the left-hand side and across the entire mesh closure anterior to the mesh. This was also secured to the skin using a 3-0 nylon suture which was Josh sandaled about the drain. Every effort was made to mitigate any tension on the closure however the patient's body habitus and the location of these hernias necessitated this type of closure so that there was not significant redundancy in the mesh. The edge of the mesh was checked with my fingers to ensure that there was no opening large enough to admit the tip of my index finger. With 2 of the hernias repaired (in particular the symptomatic one) I raised skin flaps laterally with Bovie electrocautery to allow closure of the skin with as little tension as possible. The skin was then approximated using interrupted 2- 0 nylon sutures in a mattress fashion to help approximate the skin and in between these sutures the skin was approximated using skin montez. A silver impregnated dressing was applied. Both drains were placed to grenade suction. An abdominal binder was placed on the patient. At this point a "timeout" was performed that confirmed that all counts were correct, the procedure that was performed, the blood loss, the IV fluids administered, the patient's condition and any concerns of the operating team had. Having tolerated the procedure well, the patient was extubated and taken to PACU and then the ICU in good and stable condition. Disposition: The patient was taken to ICU extubated and in satisfactory condition. Today's documentation has been created with the assistance of voice recognition software. Therefore, it may contain anomalous punctuation, anomalous independent mis-recognitions, word substitutions, insertions or omissions. Occasional wrong-word or phonetically similar substitutions may also occur all due to the inherent limitations of voice recognition software. I have attempted to correct the above but I recommend that the chart be read carefully to recognize, using context, where the substitutions, insertions or omissions may have occurred.
--- NOTE | 2024-08-10 19:02 | PROVIDER PROGRESS NOTE ---
Subjective Prog Note Date Prog Note Date: 08/10/24 Prog Note Time: 09:00 Subjective Pt reports feeling: No change Subjective: has not had a BM, although he felt like maybe he was going to yesterday afternoon. Current Medications Current Medications Current Medications: Current Medications Generic Name Dose Route Start Last Admin Trade Name Freq PRN Reason Stop Dose Admin Acetaminophen 650 mg 08/08/24 21:11 Acetaminophen 325 Mg Tablet PO Q6H PRN Pain 1 to 4, or Fever Amlodipine Besylate 2.5 mg 08/09/24 09:00 08/10/24 08:34 Amlodipine 5 Mg Tablet PO 2.5 mg DAILY INDU Administration Atropine Sulfate 0.5 mg 08/10/24 12:59 Atropine Abboject 1 Mg/10 Ml Syringe IVP 08/11/24 12:59 Q5M PRN Bradycardia Benzonatate 100 mg 08/08/24 21:10 Benzonatate 100 Mg Capsule PO TID PRN Cough Docusate Sodium 100 mg 08/09/24 09:00 08/10/24 08:35 Docusate Sodium 100 Mg Capsule PO 100 mg DAILY INDU Administration Ephedrine Sulfate 10 mg 08/10/24 12:59 Ephedrine 50 Mg/Ml Vial IVP 08/11/24 12:59 Q5M PRN HYPOTENSION Fentanyl 25 - 50 mcg 08/10/24 12:59 Fentanyl 100 Mcg/2 Ml Vial IVP 08/11/24 12:59 Q5M PRN BREAKTHROUGH PAIN (2nd Choice) Hydrochlorothiazide 12.5 mg 08/09/24 09:00 08/10/24 08:33 Hydrochlorothiazide 25 Mg Tablet PO 12.5 mg DAILY INDU Administration Hydromorphone HCl 0.5 mg 08/08/24 21:22 Hydromorphone 0.5 Mg/0.5 Ml Syringe IVP Q4H PRN Pain 8 to 10 Hydromorphone HCl 0.2 - 0.6 mg 08/10/24 12:59 Hydromorphone 0.5 Mg/0.5 Ml Syringe IVP 08/11/24 12:59 Q5M PRN PAIN (First Choice) Lactated Ringer's 1,000 mls @ 125 mls/hr 08/08/24 22:00 08/10/24 15:45 Lr IV Not Given .Q8H INDU Sodium Chloride 1,000 mls @ 100 mls/hr 08/10/24 13:00 08/10/24 12:42 Normal Saline 0.9% IV 100 mls/hr .Q10H INDU Administration Lactated Ringer's 1,000 mls @ 100 mls/hr 08/10/24 13:00 08/10/24 15:45 Lr IV 08/10/24 22:59 Not Given .Q10H INDU Lactobacillus Rhamnosus 1 cap 08/09/24 09:00 08/10/24 08:31 Lactobacillus Rhamnosus Gg Capsule PO 1 cap DAILY INDU Administration Losartan Potassium 25 mg 08/08/24 21:00 08/10/24 08:31 Losartan 50 Mg Tablet PO 25 mg BID INDU Administration Naloxone HCl 0.1 mg 08/10/24 12:59 Naloxone 0.4 Mg/Ml Vial IVP 08/11/24 12:59 Q2M PRN RESP RATE <8 Oxycodone HCl 5 mg 08/08/24 21:22 Oxycodone 5 Mg Tablet PO Q4HR PRN Pain 5 to 7 Pantoprazole Sodium 40 mg 08/09/24 09:00 08/10/24 08:30 Pantoprazole 40 Mg Vial IVP 40 mg DAILY INDU Administration Polyethylene Glycol 17 gm 08/08/24 20:11 08/10/24 08:45 Polyethylene Glycol 3350 17 Gm Packet PO 17 gm DAILY PRN Administration Constipation Sodium Chloride 10 ml 08/08/24 21:11 08/09/24 03:25 Sodium Chloride Flush 0.9% 10 Ml Syringe IVP 10 ml PRN PRN Administration NEEDED PER PROVIDER ORDERS Sodium Chloride 10 ml 08/09/24 01:00 08/10/24 15:45 Sodium Chloride Flush 0.9% 10 Ml Syringe IVP Not Given 0100,0900,1700 INDU Throat Lozenges 1 lozenge 08/09/24 18:09 08/09/24 20:49 Benzocaine/Menthol Lozenge MM 1 lozenge Q2HR PRN Administration Throat pain Objective Vital Signs/Intake & Output Reviewed Vital Signs: Yes Vital Signs: Vital Signs x48h Temp Pulse Resp BP Pulse Ox 08/10/24 12:44 36.7 C 79 18 130/62 92 Intake & Output: Intake & Output 08/08/24 08/09/24 08/10/24 08/11/24 05:59 05:59 05:59 05:59 Intake Total 792 / 792 3555 / 3555 1802 / 1802 Output Total 1000 / 1000 2570 / 2570 650 / 650 Balance -208 / -208 985 / 985 1152 / 1152 Weight (kg) 135 kg Objective General Appearance: positive No acute distress and Alert Eyes Bilateral: positive Normal inspection ENT: positive ENT inspection nml Neck: positive Nml inspection (fully bearded) Respiratory: positive Chest non-tender, No respiratory distress and Breath sounds nml Cardiovascular: positive Systolic murmur (Gr 2. Patient is not aware that he has hx of murmur. ) Abdomen: positive Other (hernia remains mildly tender, less firm than yesterday, but not reducible. ) Skin: positive Color nml Extremities: positive Pedal edema (1+. mild stasis skin changes) Neurologic/Psychiatric: positive Oriented x3 Lab Results 08/10/24 06:19 08/10/24 06:19 Other Labs: Lab Results x24hrs 08/10/24 Range/Units 06:19 WBC 11.6 H (4.8-10.8) x10^3/uL RBC 3.22 L (4.70-6.10) 10^6/uL Hgb 10.0 L (14.0-18.0) g/dL Hct 31.9 L (42.0-52.0) % MCV 99.1 H (80.0-94.0) fL MCH 31.1 H (27.0-31.0) pg MCHC 31.3 L (32.0-36.0) g/dL RDW 14.6 (12.0-15.0) % Plt Count 324 (130-450) 10^3/uL MPV 10.4 (7.4-11.4) fL Neut # (Auto) 8.6 H (1.5-6.6) 10^3/uL Lymph # (Auto) 1.7 (1.5-3.5) 10^3/uL Barren # (Auto) 1.2 H (0.0-1.0) 10^3/uL Eos # (Auto) 0.2 (0.0-0.7) 10^3/uL Baso # (Auto) 0.0 (0.0-0.1) 10^3/uL Absolute Nucleated RBC 0.00 x10^3/uL Nucleated RBC % 0.0 /100WBC Sodium 137 (135-145) mmol/L Potassium 3.4 L (3.5-4.5) mmol/L Chloride 96 L (101-111) mmol/L Carbon Dioxide 34 H (21-32) mmol/L Anion Gap 7.0 (6-13) BUN 30 H (6-20) mg/dL Creatinine 1.4 H (0.6-1.3) mg/dL Estimated GFR (MDRD) 48 L (>89) Glucose 77 (74-104) mg/dL Calcium 9.0 (8.5-10.3) mg/dL Assessment/Plan Problem List (1) SBO (small bowel obstruction): Impression: He has not had a stool or passed flatus. This is despite CT oral contrast. I have discussed this patient with Dr Fofana, general surgery, and discussed the persistent bowel obstruction. he does not appear septic. he does not have tachycardia or hypotension. He does not feel well, but does not appear toxic. (2) Hernia: Impression: as stated above. I have discussed this patient with Dr Fofana this AM. his abdominal exam does not reveal any peritonitis. (3) Acute kidney injury: Impression: 2 Laboratory Tests 08/08/24 08/09/24 13:00 06:04 Creatinine 1.7 H 1.8 H Cr is 1.4 today, showing some improvement. He remains NPO on supportive fluids. I will repeat BMP in the AM (4) Leukocytosis: Impression: he is afebrile. He is not hypotensive. he is not tachycardic. His abdominal exam is benign. . He has had 2 lactates since admission neither of these have been positive I have ordered repeat CBC for the AM. His WBC count is 11.6 today Laboratory Tests 08/08/24 08/08/24 08/09/24 13:00 19:07 06:04 WBC 16.3 H 13.7 H Lactic Acid 1.0 0.7 Qualifiers: Leukocytosis type: unspecified Qualified Code(s): D72.829 - Elevated white blood cell count, unspecified (5) Cardiac pacemaker: Impression: This has been in place for about one year. he sees Dr Osborne. no problems with this. (6) Osteoarthritis of left knee: Impression: exacerbating and remitting, but very lifestyle limiting. Qualifiers: Osteoarthritis type: primary Qualified Code(s): M17.12 - Unilateral primary osteoarthritis, left knee (7) Hyperglycemia: Impression: Of little clinical significance in this 83-year-old male. There is no indication to treat his hyperglycemia at this time.Laboratory Tests 08/08/24 08/08/24 08/09/24 13:00 13:03 06:04 Glucose 130 H 108 H Hemoglobin A1c % 6.1 H
[2024-08-10] MEDS: HYDROmorphone 0.5 MG/0.5 ML SYRINGE IVP PRN (20:43)
[2024-08-10] MEDS: DEXTROSE 5%-0.45% NACL 1,000 ML IV SCH (20:43)
--- NOTE | 2024-08-10 21:08 | ANESTHESIA POST OP EVALUATION ---
Anesthesia Post Eval Post Anesthesia Eval Vitals: Last Vital Signs Temp 36.5 C 08/10/24 20:00 Pulse 73 08/10/24 20:00 Resp 30 H 08/10/24 20:00 BP 110/57 L 08/10/24 20:00 Pulse Ox 98 08/10/24 20:00 O2 Flow Rate 4 08/10/24 20:13 CV Function Including HR & BP: Stable Pain Control: Satisfactory Nausea & Vomiting: Negative Mental Status: Baseline Respiratory Status: Airway Patent Hydration Status: Satisfactory Anesthesia Complications: None
[2024-08-10] MEDS: PIPERACILLIN/TAZOBACTAM 3.375 GM in SODIUM CHLORIDE 0.9% MINIBAG 100 ML IV SCH (21:47)
[2024-08-10] MEDS: SODIUM CHLORIDE 0.9% 500 ML IV ONE (22:17)
[2024-08-10] MEDS: ACETAMINOPHEN 1,000 MG/100 ML 1,000 MG/100 ML BAG IV SCH (23:43)
[2024-08-11] MEDS: SODIUM CHLORIDE FLUSH 0.9% 10 ML SYRINGE IVP SCH (01:16)
[2024-08-11 05:19] LABS: BASOPHILS % (AUTO) 0.2 %; EOSINOPHILS # (AUTO) 0.2 10^3/uL (0.0-0.7); EOSINOPHILS % (AUTO) 0.8 %; HCT - HEMATOCRIT 33.3 % (42.0-52.0); HGB - HEMOGLOBIN 10.7 g/dL (14.0-18.0); LYMPHOCYTES # (AUTO) 0.5 10^3/uL (1.5-3.5); LYMPHOCYTES % (AUTO) 2.7 %; MEAN CORPUSCULAR HEMOGLOBIN 32.5 pg (27.0-31.0); MEAN CORPUSCULAR HGB CONC 32.1 g/dL (32.0-36.0); MEAN CORPUSCULAR VOLUME 101.2 fL (80.0-94.0); MEAN PLATELET VOLUME 10.7 fL (7.4-11.4); MONOCYTES # (AUTO) 1.1 10^3/uL (0.0-1.0); MONOCYTES % (AUTO) 6.2 %; NEUTROPHILS # (AUTO) 16.4 10^3/uL (1.5-6.6); NEUTROPHILS % (AUTO) 89.8 %; PLT - PLATELET COUNT 316 10^3/uL (130-450); RED BLOOD COUNT 3.29 10^6/uL (4.70-6.10); RED CELL DISTRIBUTION WIDTH 14.7 % (12.0-15.0); WHITE BLOOD COUNT 18.2 x10^3/uL (4.8-10.8)
[2024-08-11 05:22] LABS: VBG PH 7.374 (7.31-7.41)
[2024-08-11 05:23] LABS: CALCIUM, IONIZED 0.99 mmol/L (1.15-1.33)
[2024-08-11 05:37] LABS: MAGNESIUM 1.8 mg/dL (1.7-2.3); PHOSPHORUS 6.9 mg/dL (2.5-5.0)
[2024-08-11 05:38] LABS: CALCIUM 8.1 mg/dL (8.5-10.3); CREATININE 1.8 mg/dL (0.6-1.3); POTASSIUM 3.9 mmol/L (3.5-4.5)
[2024-08-11] MEDS: DOPamine 400 MG/250 ML 400 MG/250 ML BAG IV SCH (10:48)
--- NOTE | 2024-08-11 13:00 | XRAY Report ---
PROCEDURE: XR Chest for Line Placement INDICATIONS: right IJ placed TECHNIQUE: One view of the chest was acquired. COMPARISON: None. FINDINGS: Surgical changes and devices: A right-sided central line has been placed, with the tip overlying the mid to inferior superior cava, seen 3 cm above the brady. A gastric tube is seen, with the tip not visible within the [id number] of this image, although clearly below the diaphragm. A left-sided pa cer device is seen. Lungs and pleura: No pleural effusions or pneumothorax. No focal infiltrates are seen. Mild genera lized interstitial prominence can be seen. Mediastinum: The aorta is prominent and tortuous. The cardiac contours are within normal limits. Bones and chest wall: No suspicious bony lesions. Age-appropriate degenerative changes are seen. Overlying soft tissues appear unremarkable. IMPRESSION: The tip of the right-sided central line can be seen overlying the mid to inferior aspect of the super ior vena cava. A gastric tube has been placed, with the tip not seen, yet traversing below the level of the diaphrag m on these images. Mild generalized pulmonary interstitial prominence can be seen. Differential diagnosis includes artif act versus mild pulmonary edema. Reviewed by: Jim Saba MD on 08/11/2024 11:58 AM [facility] Approved by: Jim Saba MD on 08/11/2024 11:58 AM [facility] Station ID: [id number]
--- NOTE | 2024-08-11 13:07 | ANESTHESIA PROCEDURE NOTE ---
Anesth Central Line Template Central Line Central Line Preparation: Consent Obtained, Time out completed, Ultrasound used and Sterile prep and drape Central line location: Right IJ Central line type: Triple lumen Central line catheter tip site resides: Superior vena cava (SVC) Central line aftercare: Chlorhexidine disc placed, Secured (sutured x2), Placement confirmed (by chest xray), No pneumothorax, No complications and Bund le checklist complete Other Info/Details: 9 albanian triple lumen placed under US with seldinger technique, 15cm in, 5 exposed, tegaderm dressing. ok to use
--- NOTE | 2024-08-11 13:48 | PROVIDER PROGRESS NOTE ---
Subjective Prog Note Date Prog Note Date: 08/11/24 Prog Note Time: 13:46 Subjective Pt reports feeling: Improved Subjective: He is comfortable, and I tell him I am surprised about that considering how extensive the surgery was. He said as long as the nurses do not move him or he is not required to roll over or sit up he has minimal pain in the supine position. But when he has to roll over for bed care or set up for my exam his abdominal wall is increasingly tender. No flatus. Denies chest pain, cough, congestion. Overnight urine output was initially quite scant. Then it climbed up to 20 cc an hour, and by this morning he is 30 cc an hour. No flatus. He laments his hair is so long and munoz unkempt. He denies chest pain, cough, and the circumcision done in the OR doesn't bother him Before surgery blood pressure was 124/59, 112/46. After surgery, by midnight blood pressure was 99/59. This morning starting at 6 AM he is consistently in the 90s systolic. And then he dropped to the 80s systolic. Current Medications Current Medications Current Medications: Current Medications Generic Name Dose Route Start Last Admin Trade Name Freq PRN Reason Stop Dose Admin Hydromorphone HCl 0.5 mg 08/10/24 20:07 08/11/24 00:14 Hydromorphone 0.5 Mg/0.5 Ml Syringe IVP 0.5 mg Q2H PRN Administration Severe Pain (Level 7-10) Acetaminophen 1,000 mg in 100 mls @ 400 mls/hr 08/11/24 00:00 08/11/24 13:56 Acetaminophen IV 08/12/24 20:07 400 mls/hr Q6HR INDU Administration Dextrose/Sodium Chloride 1,000 mls @ 100 mls/hr 08/10/24 21:00 08/11/24 05:57 D5.45ns IV 100 mls/hr .Q10H INDU Administration Piperacillin Sod/Tazobactam 100 mls @ 25 mls/hr 08/10/24 22:00 08/11/24 13:57 Sod 3.375 gm/ Sodium Chloride IV 25 mls/hr Q8HR INDU Administration Dopamine HCl/Dextrose 400 mg in 250 mls @ 10.125 mls/hr 08/11/24 11:00 08/11/24 14:01 Dopamine IV 6 mcg/kg/min .[id number] INDU 30.38 mls/hr Titration Protocol 2 MCG/KG/MIN Lactated Ringer's 500 mls @ 999 mls/hr 08/11/24 14:28 Lr IV 08/11/24 14:58 ONCE ONE Insulin Human Regular 2 - 10 unit 08/11/24 12:00 08/11/24 13:59 Insulin Regular, Human 300 Unit/3 Ml Pen SUBQ 2 unit Q6HR INDU Administration Protocol Ondansetron HCl 4 mg 08/10/24 18:59 Ondansetron 4 Mg/2 Ml Vial IVP Q6HR PRN Nausea / Vomiting Ondansetron HCl 4 mg 08/10/24 20:07 Ondansetron 4 Mg/2 Ml Vial IVP Q6H PRN Nausea / Vomiting Sodium Chloride 10 ml 08/11/24 01:00 08/11/24 14:01 Sodium Chloride Flush 0.9% 10 Ml Syringe IVP 10 ml 0100,0900,1700 INDU Administration Sodium Chloride 10 ml 08/10/24 20:07 Sodium Chloride Flush 0.9% 10 Ml Syringe IVP PRN PRN NEEDED PER PROVIDER ORDERS Objective Vital Signs/Intake & Output Reviewed Vital Signs: Yes Vital Signs: Vital Signs Pulse Resp BP Pulse Ox O2 Flow Rate 08/11/24 13:00 87 21 87/48 L 91 L 3 08/11/24 12:30 85 20 94/51 L 93 3 08/11/24 12:00 92 H 22 95/54 L 92 3 08/11/24 11:45 96 H 24 94/44 L 91 L 3 08/11/24 11:30 93 H 26 H 92/41 L 92 2 08/11/24 11:21 87 25 H 86/42 L 91 L 2 08/11/24 11:12 78 25 H 75/41 L 92 2 08/11/24 11:02 71 24 90/37 L 95 08/11/24 10:55 66 24 103/43 L 94 2 08/11/24 10:50 70 22 96/46 L 93 Intake & Output: Intake & Output 08/09/24 08/10/24 08/11/24 08/12/24 05:59 05:59 05:59 05:59 Intake Total 792 / 792 3555 / 3555 35985 / 43982 231 / 231 Output Total 1000 / 1000 2570 / 2570 1136 / 1136 200 / 200 Balance -208 / -208 985 / 985 31907 / 90891 Weight (kg) 135 kg Objective General Appearance: positive No acute distress, Alert (oriented to person, place, time and situation) and Other (Portly, obese elderly gentleman with scads of hair, unkempt munoz) Eyes Bilateral: positive PERRL and EOMI ENT: positive No signs of dehydration Neck: positive Nml inspection and No JVD; negative Stiff neck Respiratory: positive Chest non-tender, No respiratory distress and Breath sounds nml (no distress and unlabored respiration, diminished at bases) Cardiovascular: positive Regular rate & rhythm, No gallop and Systolic murmur (loudest at RUSB, ?); negative Tachycardia Abdomen: positive Tenderness and Other (wrapped in 2 binders, RN heard one in LLQ, I heard none. ); negative Guarding or Rebound Skin: positive Color nml, Warm and Other (Nursing he was taking care of him yesterday said that he was starting to get tracey, pale. Today he is [place] skin. Alert and cheerful.) Extremities: positive Joint swelling (Left knee has an effusion. It is warm. Not hot. No pinkness. Kneecap is ballotable) and Other (Even though he is positive for his fluid balance, skin is shrunken, no edema of limbs.) Neurologic/Psychiatric: positive Oriented x3, CN's nml (2-12) and Motor nml Lab Results 08/11/24 04:25 08/11/24 04:25 Other Labs: Lab Results x24hrs 08/11/24 08/11/24 08/10/24 Range/Units 12:39 04:25 20:26 WBC 18.2 H (4.8-10.8) x10^3/uL RBC 3.29 L (4.70-6.10) 10^6/uL Hgb 10.7 L (14.0-18.0) g/dL Hct 33.3 L (42.0-52.0) % MCV 101.2 H (80.0-94.0) fL MCH 32.5 H (27.0-31.0) pg MCHC 32.1 (32.0-36.0) g/dL RDW 14.7 (12.0-15.0) % Plt Count 316 (130-450) 10^3/uL MPV 10.7 (7.4-11.4) fL Neut # (Auto) 16.4 H (1.5-6.6) 10^3/uL Lymph # (Auto) 0.5 L (1.5-3.5) 10^3/uL [place] # (Auto) 1.1 H (0.0-1.0) 10^3/uL Eos # (Auto) 0.2 (0.0-0.7) 10^3/uL Baso # (Auto) 0.0 (0.0-0.1) 10^3/uL Absolute Nucleated RBC 0.00 x10^3/uL Nucleated RBC % 0.0 /100WBC VBG pH 7.374 (7.31-7.41) Ionized Calcium 0.99 L (1.15-1.33) mmol/L Sodium 136 (135-145) mmol/L Potassium 3.9 (3.5-4.5) mmol/L Chloride 98 L (101-111) mmol/L Carbon Dioxide 28 (21-32) mmol/L Anion Gap 10.0 (6-13) BUN 34 H (6-20) mg/dL Creatinine 1.8 H (0.6-1.3) mg/dL Estimated GFR (MDRD) 36 L (>89) Glucose 191 H (74-104) mg/dL POC Whole Bld Glucose 166 (70-100) mg/dL Calcium 8.1 L (8.5-10.3) mg/dL Phosphorus 6.9 H (2.5-5.0) mg/dL Magnesium 1.8 (1.7-2.3) mg/dL Nasal Screen MRSA (PCR) NEGATIVE (NEGATIVE) ABX Reporting Has patient been on IV antibiotics over the past 48 hours?: Yes Assessment/Plan Problem List (1) SBO (small bowel obstruction): Impression: Postoperative day #1. In spite of expectant observation, waiting to see if he could pass stool or flatus, seeing if there was a response to Gastrografin, he was unable to pass flatus. White cell count was going up. And he was getting distinctly more uncomfortable with his incarcerated hernia. General surgery felt that the patient was now sliding into territory that required surgery. Long conversation about whether the surgery should be done here or transfer to the [facility]. In the end, surgery was done yesterday afternoon, and it was quite complicated. Multiple enterotomies. He had an exploratory laparotomy with extensive lysis of adhesions, small bowel resection, omentectomy, placement of mesh and drains. The mesh we had here was not nearly big enough. A circumcision. He now has to abdominal binders and general surgery is emphatic that we need to be careful about his movement, motility, coughing and sneezing so it is not bruised his incisions. He is a morbidly obese man that will be at risk for that. He is proceeding slowly postoperatively. Blood pressure has not rebounded to normal yet. Urine output has. White cell count was 16.3 on admission. Was 11.6 yesterday. It is 18.2 today. But I think it is nonspecific leukocytosis. There is no peritonitis or ruptured bowel. He does not have pneumonia nor does he have a UTI. He is on Zosyn. Will keep on monitoring. Has DVT prophylaxis. I am asking physical therapy to see him, with permission that needs to be granted by general surgery, to at least get him out of bed. (2) Hypotension: Impression: Because he has hypotension, I started dopamine. I then also asked anesthesia to put in a central line. With the central line his CVP is 4 or 5 which shows me he is intravascularly depleted. Even though he is many liters ahead (he is about 11 L ahead after yesterday surgery and resuscitation), CVP tells me he is intravascularly depleted. Thought about giving him blood but his hemoglobin is 10. He has been chronically anemic since 2017 and this hemoglobin is not new for him. So I do think blood will be the answer. General surgery is voting for continued IV fluids. I will continue with dopamine and maintain a MAP of 65. I Will also give a 500 cc bolus of lactated Ringer's. And running through the causes of hypotension, I do think about coronary ischemia. I will check EKG, troponins. I have a low suspicion of cardiac ischemia since this patient is actually quite comfortable and in no distress. You think about infection but his white cell count is relatively stable, no fever, no symptoms of pneumonia. I will check a UA.That is unlikely because he has been on Zosyn. In the outpatient setting he has hypertension. Medications are losartan 25 mg p.o. twice daily, hydrochlorothiazide 25 mg p.o. daily. Amlodipine 2.5 daily. We will slowly resume those medications once he is taking p.o., and his blood pressure is high. (3) Hernia: Impression: as stated above. Patient went to the operating room August 10 (4) Acute kidney injury: Impression: 2 Laboratory Tests Baseline creatinine is 1.2. With admission he was 1.7. He is 1.8 today. Hypotension may make his creatinine worsen by tomorrow. Plan: I will be treating the hypotension with dopamine and IV fluids Monitor creatinine daily Avoid nephrotoxic agents (5) Leukocytosis: Impression: he is afebrile. He is not hypotensive. he is not tachycardic. Lactic acid x 2 was normal. Yesterday he appeared to worsen with his abdominal exam. He was not passing flatus. And the hernia was getting harder. General surgery felt the patient should go to the operating room. His white cell count may be from nonspecific demargination in the face of impending infection. But he is on antibiotics and he is currently stable. Laboratory Tests 08/08/24 08/08/24 08/09/24 13:00 19:07 06:04 WBC 16.3 H 13.7 H Lactic Acid 1.0 0.7 Qualifiers: Leukocytosis type: unspecified Qualified Code(s): D72.829 - Elevated white blood cell count, unspecified (6) Cardiac pacemaker: Impression: This has been in place for about one year. he sees Dr Osborne. no problems with this. (7) Osteoarthritis of left knee: Impression: exacerbating and remitting, but very lifestyle limiting. Today's exam shows a knee effusion. He is due to get a arthrocentesis and injection next Monday the . I do not know if he will be able to make that appointment. I will verify if his orthopedic surgeon is the local 1 and maybe he can come to a consult to the hospital. Qualifiers: Osteoarthritis type: primary Qualified Code(s): M17.12 - Unilateral primary osteoarthritis, left knee (8) Hyperglycemia: Impression: Of little clinical significance in this 83-year-old male. A1c is acceptable. However, a goal of glucose less than 130 on a regular basis is what we look for in a patient who has been operated on. I will start him on sliding scale insulin to make sure I maintain good control. Laboratory Tests 08/08/24 08/08/24 08/09/24 13:00 13:03 06:04 Glucose 130 H 108 H Hemoglobin A1c % 6.1 H
[2024-08-11] MEDS: INSULIN REGULAR, HUMAN 300 UNIT/3 ML PEN SUBQ SCH (13:59)
[2024-08-11] MEDS: LACTATED RINGERS 500 ML IV ONE (14:38)
[2024-08-11 15:02] LABS: BILIRUBIN,URINE NEGATIVE (NEGATIVE); GLUCOSE, URINE (UA) NEGATIVE (NEGATIVE); KETONES,URINE (UA) NEGATIVE (NEGATIVE); LEUKOCYTE ESTERASE, URINE NEGATIVE (NEGATIVE); NITRITE,URINE NEGATIVE (NEGATIVE); OCCULT BLOOD,URINE NEGATIVE (NEGATIVE); PH,URINE 5.5 PH (5.0-7.5); PROTEIN,URINE TRACE mg/dL (NEGATIVE); UROBILINOGEN,URINE 0.2 (NORMAL) E.U./dL (NORMAL)
[2024-08-11 15:04] LABS: CLARITY,URINE CLEAR (CLEAR)
[2024-08-11 15:10] LABS: BACTERIA,URINE Few /HPF (None Seen); RBC,URINE 0-5 /HPF (0-5); SQUAMOUS EPITHELIAL CELL,UR FEW Squamous (<= Few); WBC,URINE 0-3 /HPF (0-3)
--- NOTE | 2024-08-11 17:04 | PROVIDER PROGRESS NOTE ---
Subjective Prog Note Date Prog Note Date: 08/11/24 Prog Note Time: 16:43 Subjective Pt reports feeling: Improved Current Medications Current Medications Current Medications: Current Medications Generic Name Dose Route Start Last Admin Trade Name Freq PRN Reason Stop Dose Admin Hydromorphone HCl 0.5 mg 08/10/24 20:07 08/11/24 00:14 Hydromorphone 0.5 Mg/0.5 Ml Syringe IVP 0.5 mg Q2H PRN Administration Severe Pain (Level 7-10) Acetaminophen 1,000 mg in 100 mls @ 400 mls/hr 08/11/24 00:00 08/11/24 14:15 Acetaminophen IV 08/12/24 20:07 Infused Q6HR INDU Infusion Dextrose/Sodium Chloride 1,000 mls @ 100 mls/hr 08/10/24 21:00 08/11/24 14:39 D5.45ns IV 100 mls/hr .Q10H INDU Administration Piperacillin Sod/Tazobactam 100 mls @ 25 mls/hr 08/10/24 22:00 08/11/24 13:57 Sod 3.375 gm/ Sodium Chloride IV 25 mls/hr Q8HR INDU Administration Dopamine HCl/Dextrose 400 mg in 250 mls @ 10.125 mls/hr 08/11/24 11:00 08/11/24 14:01 Dopamine IV 6 mcg/kg/min .[id number] INDU 30.38 mls/hr Titration Protocol 2 MCG/KG/MIN Insulin Human Regular 2 - 10 unit 08/11/24 12:00 08/11/24 13:59 Insulin Regular, Human 300 Unit/3 Ml Pen SUBQ 2 unit Q6HR INDU Administration Protocol Ondansetron HCl 4 mg 08/10/24 18:59 Ondansetron 4 Mg/2 Ml Vial IVP Q6HR PRN Nausea / Vomiting Ondansetron HCl 4 mg 08/10/24 20:07 Ondansetron 4 Mg/2 Ml Vial IVP Q6H PRN Nausea / Vomiting Sodium Chloride 10 ml 08/11/24 01:00 08/11/24 14:01 Sodium Chloride Flush 0.9% 10 Ml Syringe IVP 10 ml 0100,0900,1700 INDU Administration Sodium Chloride 10 ml 08/10/24 20:07 Sodium Chloride Flush 0.9% 10 Ml Syringe IVP PRN PRN NEEDED PER PROVIDER ORDERS Objective Vital Signs/Intake & Output Reviewed Vital Signs: Yes Vital Signs: Vital Signs Pulse Resp BP Pulse Ox O2 Flow Rate 08/11/24 16:00 91 H 21 89/52 L 92 3 08/11/24 15:00 89 24 113/59 L 92 3 08/11/24 15:00 93 H 22 113/59 L 93 3 08/11/24 14:30 91 H 24 111/55 L 92 3 08/11/24 14:00 93 H 26 H 103/62 91 L 3 08/11/24 13:30 92 H 22 92/51 L 93 3 08/11/24 13:00 87 21 87/48 L 91 L 3 Intake & Output: Intake & Output 08/09/24 08/10/24 08/11/24 08/12/24 05:59 05:59 05:59 05:59 Intake Total 792 / 792 3555 / 3555 42551 / 38952 1701 / 1701 Output Total 1000 / 1000 2570 / 2570 1136 / 1136 385 / 385 Balance -208 / -208 985 / 985 07023 / 51401 1316 / 1316 Weight (kg) 135 kg Objective General Appearance: positive No acute distress and Alert Eyes Bilateral: positive No lid inflammation, Conjunctivae nml and No scleral icterus Neck: positive Trachea midline and Other (Had his munoz trimmed by Edna so I can actually see his neck.) Respiratory: positive Chest non-tender, No respiratory distress and Breath sounds nml Cardiovascular: positive Regular rate & rhythm Abdomen: positive Tenderness (Mild incisional.), Abnml bowel sounds (Decreased.) and Other (Abdominal binder in place. Drains putting out serosanguinous fluid. Binder and silver impregnated dressing not removed.) Rectal: positive Other (There is no other place to document examination - so circumcision wound well approximated without bleeding or infection.) Skin: positive Color nml and Dry Extremities: positive Non-tender; negative Bret's sign/cords Neurologic/Psychiatric: positive Oriented x3, Motor nml, Sensation nml and Mood/affect nml Lab Results 08/11/24 04:25 08/11/24 04:25 Other Labs: Lab Results x24hrs 10/13/24 10/13/24 10/13/24 Range/Units 14:28 14:25 12:39 WBC (4.8-10.8) x10^3/uL RBC (4.70-6.10) 10^6/uL Hgb (14.0-18.0) g/dL Hct (42.0-52.0) % MCV (80.0-94.0) fL MCH (27.0-31.0) pg MCHC (32.0-36.0) g/dL RDW (12.0-15.0) % Plt Count (130-450) 10^3/uL MPV (7.4-11.4) fL Neut # (Auto) (1.5-6.6) 10^3/uL Lymph # (Auto) (1.5-3.5) 10^3/uL [place] # (Auto) (0.0-1.0) 10^3/uL Eos # (Auto) (0.0-0.7) 10^3/uL Baso # (Auto) (0.0-0.1) 10^3/uL Absolute Nucleated RBC x10^3/uL Nucleated RBC % /100WBC VBG pH (7.31-7.41) Ionized Calcium (1.15-1.33) mmol/L Sodium (135-145) mmol/L Potassium (3.5-4.5) mmol/L Chloride (101-111) mmol/L Carbon Dioxide (21-32) mmol/L Anion Gap (6-13) BUN (6-20) mg/dL Creatinine (0.6-1.3) mg/dL Estimated GFR (MDRD) (>89) Glucose (74-104) mg/dL POC Whole Bld Glucose 166 (70-100) mg/dL Calcium (8.5-10.3) mg/dL Phosphorus (2.5-5.0) mg/dL Magnesium (1.7-2.3) mg/dL Troponin I High Sens 16.0 (2.3-19.7) ng/L Urine Color YELLOW Urine Clarity CLEAR (CLEAR) Urine pH 5.5 (5.0-7.5) PH Ur Specific [place] >=1.030 H (1.002-1.030) Urine Protein TRACE (NEGATIVE) mg/dL Urine Glucose (UA) NEGATIVE (NEGATIVE) mg/dL Urine Ketones NEGATIVE (NEGATIVE) mg/dL Urine Occult Blood NEGATIVE (NEGATIVE) Urine Nitrite NEGATIVE (NEGATIVE) Urine Bilirubin NEGATIVE (NEGATIVE) Urine Urobilinogen 0.2 (NORMAL) (NORMAL) E.U./dL Ur Leukocyte Esterase NEGATIVE (NEGATIVE) Urine RBC 0-5 (0-5) /HPF Urine WBC 0-3 (0-3) /HPF Ur Squamous Epith Cells FEW Squamous (<= Few) Urine Bacteria Few (None Seen) /HPF Urine Culture Comments NOT INDICATED Nasal Screen MRSA (PCR) (NEGATIVE) 08/11/24 08/10/24 Range/Units 04:25 20:26 WBC 18.2 H (4.8-10.8) x10^3/uL RBC 3.29 L (4.70-6.10) 10^6/uL Hgb 10.7 L (14.0-18.0) g/dL Hct 33.3 L (42.0-52.0) % MCV 101.2 H (80.0-94.0) fL MCH 32.5 H (27.0-31.0) pg MCHC 32.1 (32.0-36.0) g/dL RDW 14.7 (12.0-15.0) % Plt Count 316 (130-450) 10^3/uL MPV 10.7 (7.4-11.4) fL Neut # (Auto) 16.4 H (1.5-6.6) 10^3/uL Lymph # (Auto) 0.5 L (1.5-3.5) 10^3/uL [place] # (Auto) 1.1 H (0.0-1.0) 10^3/uL Eos # (Auto) 0.2 (0.0-0.7) 10^3/uL Baso # (Auto) 0.0 (0.0-0.1) 10^3/uL Absolute Nucleated RBC 0.00 x10^3/uL Nucleated RBC % 0.0 /100WBC VBG pH 7.374 (7.31-7.41) Ionized Calcium 0.99 L (1.15-1.33) mmol/L Sodium 136 (135-145) mmol/L Potassium 3.9 (3.5-4.5) mmol/L Chloride 98 L (101-111) mmol/L Carbon Dioxide 28 (21-32) mmol/L Anion Gap 10.0 (6-13) BUN 34 H (6-20) mg/dL Creatinine 1.8 H (0.6-1.3) mg/dL Estimated GFR (MDRD) 36 L (>89) Glucose 191 H (74-104) mg/dL POC Whole Bld Glucose (70-100) mg/dL Calcium 8.1 L (8.5-10.3) mg/dL Phosphorus 6.9 H (2.5-5.0) mg/dL Magnesium 1.8 (1.7-2.3) mg/dL Troponin I High Sens (2.3-19.7) ng/L Urine Color Urine Clarity (CLEAR) Urine pH (5.0-7.5) PH Ur Specific [place] (1.002-1.030) Urine Protein (NEGATIVE) mg/dL Urine Glucose (UA) (NEGATIVE) mg/dL Urine Ketones (NEGATIVE) mg/dL Urine Occult Blood (NEGATIVE) Urine Nitrite (NEGATIVE) Urine Bilirubin (NEGATIVE) Urine Urobilinogen (NORMAL) E.U./dL Ur Leukocyte Esterase (NEGATIVE) Urine RBC (0-5) /HPF Urine WBC (0-3) /HPF Ur Squamous Epith Cells (<= Few) Urine Bacteria (None Seen) /HPF Urine Culture Comments Nasal Screen MRSA (PCR) NEGATIVE (NEGATIVE) ABX Reporting Has patient been on IV antibiotics over the past 48 hours?: Yes Assessment/Plan Problem List (1) SBO (small bowel obstruction): Impression: D1 s/p exploratory laparotomy with extensive lysis of adhesions, omentectomy, small bowel resection, circumcision, mesh closure of 2 of the largest hernias, drain placement posterior and anterior to the mesh 1) FEN Patient had central line placed which allows us to measure his central venous pressures and he continues to make appropriate urine. He is currently receiving IV fluids at 100 mL/h. Blood pressure is little bit soft but this is being treated with IV fluids and as his central venous pressure is a bit low. Await for bowel function return prior to feeding. 2) ID Patient is at risk for infection as he had a small bowel resection with spillage of succus entericus and placement of non-biologic mesh. Patient is to be maintained on Zosyn 3.375 g every 6 hours x [address] Drainage output is serosanguineous. Elevated white blood cell count is likely reactionary to the surgery. This will be checked again tomorrow. No sepsis. 3) Hernia 2 of the largest abdominal hernias Including the one causing his symptoms) were closed using non-biologic mesh which again is suboptimal in the situation with spillage of bowel contents. There was not a big enough piece of mesh to close every hernia. There was also not biologic mesh. Again as stated above he is at risk for infection. Should infection manifest then the patient should be transferred to a tertiary care center who has the resources to deal with this situation. This has been discussed with the patient and his and they vocalized an understanding. Additionally, I explained that all the hernias were not fixed and could not be fixed. The likelihood of recurrence is high. Again this was vocalized and understood by the patient and his . I explained to the patient that he should wear his abdominal binder faithfully every single day for the rest of his life. 4) Circumcision I explained again to the patient the need for circumcision as he had phimosis which did not allow for placement of a Brady catheter. No current wound issues. 5) Activity Due to concerns of dehiscence or evisceration he should be on complete bedrest for at least another 24 hours prior to starting his physical activity. I will involve PT and OT at that time. (2) Hernia: Impression: See above. (3) Leukocytosis: Impression: See above. Qualifiers: Leukocytosis type: unspecified Qualified Code(s): D72.829 - Elevated white blood cell count, unspecified
--- NOTE | 2024-08-11 17:05 | PROVIDER PROGRESS NOTE ---
Current Medications Current Medications Current Medications: Current Medications Generic Name Dose Route Start Last Admin Trade Name Freq PRN Reason Stop Dose Admin Hydromorphone HCl 0.5 mg 08/10/24 20:07 08/11/24 00:14 Hydromorphone 0.5 Mg/0.5 Ml Syringe IVP 0.5 mg Q2H PRN Administration Severe Pain (Level 7-10) Acetaminophen 1,000 mg in 100 mls @ 400 mls/hr 08/11/24 00:00 08/11/24 14:15 Acetaminophen IV 08/12/24 20:07 Infused Q6HR INDU Infusion Dextrose/Sodium Chloride 1,000 mls @ 100 mls/hr 08/10/24 21:00 08/11/24 14:39 D5.45ns IV 100 mls/hr .Q10H INDU Administration Piperacillin Sod/Tazobactam 100 mls @ 25 mls/hr 08/10/24 22:00 08/11/24 13:57 Sod 3.375 gm/ Sodium Chloride IV 25 mls/hr Q8HR INDU Administration Dopamine HCl/Dextrose 400 mg in 250 mls @ 10.125 mls/hr 08/11/24 11:00 08/11/24 14:01 Dopamine IV 6 mcg/kg/min .[id number] INDU 30.38 mls/hr Titration Protocol 2 MCG/KG/MIN Insulin Human Regular 2 - 10 unit 08/11/24 12:00 08/11/24 13:59 Insulin Regular, Human 300 Unit/3 Ml Pen SUBQ 2 unit Q6HR INDU Administration Protocol Ondansetron HCl 4 mg 08/10/24 18:59 Ondansetron 4 Mg/2 Ml Vial IVP Q6HR PRN Nausea / Vomiting Ondansetron HCl 4 mg 08/10/24 20:07 Ondansetron 4 Mg/2 Ml Vial IVP Q6H PRN Nausea / Vomiting Sodium Chloride 10 ml 08/11/24 01:00 08/11/24 14:01 Sodium Chloride Flush 0.9% 10 Ml Syringe IVP 10 ml 0100,0900,1700 INDU Administration Sodium Chloride 10 ml 08/10/24 20:07 Sodium Chloride Flush 0.9% 10 Ml Syringe IVP PRN PRN NEEDED PER PROVIDER ORDERS Objective Lab Results 08/11/24 04:25 08/11/24 04:25 Assessment/Plan Problem List (1) SBO (small bowel obstruction): (2) Hernia: (3) Leukocytosis: Qualifiers: Leukocytosis type: unspecified Qualified Code(s): D72.829 - Elevated white blood cell count, unspecified
[2024-08-11] MEDS: SODIUM CHLORIDE FLUSH 0.9% 10 ML SYRINGE IVP PRN (22:15)
[2024-08-12] MEDS: BENZOCAINE/MENTHOL LOZENGE MM PRN (02:17)
[2024-08-12 04:25] LABS: BASOPHILS % (AUTO) 0.3 %; EOSINOPHILS # (AUTO) 0.1 10^3/uL (0.0-0.7); EOSINOPHILS % (AUTO) 0.7 %; HCT - HEMATOCRIT 31.5 % (42.0-52.0); HGB - HEMOGLOBIN 10.2 g/dL (14.0-18.0); LYMPHOCYTES # (AUTO) 1.1 10^3/uL (1.5-3.5); LYMPHOCYTES % (AUTO) 7.1 %; MEAN CORPUSCULAR HGB CONC 32.4 g/dL (32.0-36.0); MEAN CORPUSCULAR VOLUME 98.7 fL (80.0-94.0); MEAN PLATELET VOLUME 10.4 fL (7.4-11.4); MONOCYTES # (AUTO) 1.4 10^3/uL (0.0-1.0); MONOCYTES % (AUTO) 9.2 %; NEUTROPHILS # (AUTO) 12.4 10^3/uL (1.5-6.6); NEUTROPHILS % (AUTO) 82.1 %; PLT - PLATELET COUNT 339 10^3/uL (130-450); RED BLOOD COUNT 3.19 10^6/uL (4.70-6.10); RED CELL DISTRIBUTION WIDTH 14.6 % (12.0-15.0); WHITE BLOOD COUNT 15.1 x10^3/uL (4.8-10.8)
[2024-08-12 04:43] LABS: ALBUMIN 2.8 g/dL (3.2-5.5); ALBUMIN/GLOBULIN RATIO 1.1 (1.0-2.2); BILIRUBIN,TOTAL 0.4 mg/dL (0.2-1.0); CALCIUM 8.1 mg/dL (8.5-10.3); CREATININE 1.6 mg/dL (0.6-1.3); POTASSIUM 3.2 mmol/L (3.5-4.5); TOTAL PROTEIN 5.4 g/dL (6.4-8.9)
[2024-08-12] MEDS: POTASSIUM CHLOR 20 MEQ/100 ML 20 MEQ/100 ML BAG IV SCH (10:35)
[2024-08-12] MEDS: MAGNESIUM SULFATE 2 GRAM 2 GM/50 ML BAG IV ONE (10:35)
[2024-08-12 10:48] LABS: CALCIUM, IONIZED 1.01 mmol/L (1.15-1.33); VBG PH 7.369 (7.31-7.41)
[2024-08-12] MEDS: CALCIUM GLUC 1,000MG/50ML-NACL 1,000 MG/50 ML BAG IV ONE ×3 (12:25→22:49)
[2024-08-12 14:06] LABS: CALCIUM, IONIZED 1.03 mmol/L (1.15-1.33); VBG PH 7.418 (7.31-7.41)
[2024-08-12 14:20] LABS: MAGNESIUM 2.2 mg/dL (1.7-2.3); POTASSIUM 3.8 mmol/L (3.5-4.5)
[2024-08-12] MEDS ORDERED: CALCIUM CHLORIDE 1,000 MG in SODIUM CHLORIDE 0.9% 50 ML IV ONE (15:12)
[2024-08-12] MEDS: POTASSIUM CHLOR 20 MEQ/100 ML 20 MEQ/100 ML BAG IV ONE ×2 (16:27→22:49)
--- NOTE | 2024-08-12 17:19 | PROVIDER PROGRESS NOTE ---
Subjective Prog Note Date Prog Note Date: 08/12/24 Prog Note Time: 17:08 Subjective Pt reports feeling: Improved (Patient is without abdominal pain.) Current Medications Current Medications Current Medications: Current Medications Generic Name Dose Route Start Last Admin Trade Name Freq PRN Reason Stop Dose Admin Hydromorphone HCl 0.5 mg 08/10/24 20:07 08/12/24 16:27 Hydromorphone 0.5 Mg/0.5 Ml Syringe IVP 0.5 mg Q2H PRN Administration Severe Pain (Level 7-10) Acetaminophen 1,000 mg in 100 mls @ 400 mls/hr 08/11/24 00:00 08/12/24 12:04 Acetaminophen IV 08/12/24 20:07 Infused Q6HR INDU Infusion Dextrose/Sodium Chloride 1,000 mls @ 100 mls/hr 08/10/24 21:00 08/12/24 11:38 D5.45ns IV 100 mls/hr .Q10H INDU Administration Piperacillin Sod/Tazobactam 100 mls @ 25 mls/hr 08/10/24 22:00 08/12/24 14:05 Sod 3.375 gm/ Sodium Chloride IV 25 mls/hr Q8HR INDU Administration Dopamine HCl/Dextrose 400 mg in 250 mls @ 10.125 mls/hr 08/11/24 11:00 08/12/24 14:05 Dopamine IV 8 mcg/kg/min .[id number] INDU 40.5 mls/hr Administration Protocol 2 MCG/KG/MIN Multivitamins 10 ml/ Zinc/ 2,011 mls @ 83 mls/hr 08/12/24 19:00 Copper/Manganese/Selenium 1 ml IV / Amino Ac/Electrol/Dextrose/ 1900 [facility] Calcium Protocol Fat Emulsion Intravenous 250 mls @ 21 mls/hr 08/12/24 19:00 Intralipid 20% IV 1900 [facility] Insulin Human Regular 2 - 10 unit 08/11/24 12:00 08/12/24 12:03 Insulin Regular, Human 300 Unit/3 Ml Pen SUBQ 2 unit Q6HR INDU Administration Protocol Ondansetron HCl 4 mg 08/10/24 18:59 Ondansetron 4 Mg/2 Ml Vial IVP Q6HR PRN Nausea / Vomiting Ondansetron HCl 4 mg 08/10/24 20:07 Ondansetron 4 Mg/2 Ml Vial IVP Q6H PRN Nausea / Vomiting Sodium Chloride 10 ml 08/11/24 01:00 08/12/24 16:28 Sodium Chloride Flush 0.9% 10 Ml Syringe IVP 10 ml 0100,0900,1700 INDU Administration Sodium Chloride 10 ml 08/10/24 20:07 08/12/24 04:22 Sodium Chloride Flush 0.9% 10 Ml Syringe IVP 10 ml PRN PRN Administration NEEDED PER PROVIDER ORDERS Throat Lozenges 1 lozenge 08/12/24 00:38 08/12/24 02:17 Benzocaine/Menthol Lozenge MM 1 lozenge Q2HR PRN Administration Throat pain Objective Vital Signs/Intake & Output Vital Signs: Vital Signs Temp Pulse Resp BP Pulse Ox O2 Flow Rate 08/12/24 16:00 36.7 C 74 25 H 108/55 L 95 2 08/12/24 15:00 74 29 H 111/53 L 94 08/12/24 14:00 72 27 H 91/46 L 94 2 Intake & Output: Intake & Output 08/10/24 08/11/24 08/12/24 08/13/24 05:59 05:59 05:59 05:59 Intake Total 3555 / 3555 38304 / 67277 3495 / 3495 1950 / 1950 Output Total 2570 / 2570 1136 / 1136 1600 / 1600 1630 / 1630 Balance 985 / 985 16094 / 75035 1895 / 1895 320 / 320 Objective General Appearance: positive No acute distress and Alert Eyes Bilateral: positive No lid inflammation, Conjunctivae nml and No scleral icterus ENT: positive No signs of dehydration Neck: positive Trachea midline Respiratory: positive Chest non-tender, No respiratory distress and Breath sounds nml Cardiovascular: positive Regular rate & rhythm, No murmur and No gallop Abdomen: positive Non-tender, Abnml bowel sounds (Decreased.) and Other (Midline incision with some slight separation at one staple. Dressing changed. Drains draining serosanguinous fluid. No erythema, exudate or purulence.) Skin: positive Color nml, Warm and Dry Extremities: positive Non-tender and Pedal edema; negative Bret's sign/cords Neurologic/Psychiatric: positive Oriented x3, Motor nml, Sensation nml and Mood/affect nml Lab Results 08/12/24 04:15 08/12/24 14:01 Other Labs: Lab Results x24hrs 08/12/24 08/12/24 08/12/24 Range/Units 14:01 11:57 10:30 WBC (4.8-10.8) x10^3/uL RBC (4.70-6.10) 10^6/uL Hgb (14.0-18.0) g/dL Hct (42.0-52.0) % MCV (80.0-94.0) fL MCH (27.0-31.0) pg MCHC (32.0-36.0) g/dL RDW (12.0-15.0) % Plt Count (130-450) 10^3/uL MPV (7.4-11.4) fL Neut # (Auto) (1.5-6.6) 10^3/uL Lymph # (Auto) (1.5-3.5) 10^3/uL Carlisle # (Auto) (0.0-1.0) 10^3/uL Eos # (Auto) (0.0-0.7) 10^3/uL Baso # (Auto) (0.0-0.1) 10^3/uL Absolute Nucleated RBC x10^3/uL Nucleated RBC % /100WBC VBG pH 7.418 H 7.369 (7.31-7.41) Ionized Calcium 1.03 L 1.01 L (1.15-1.33) mmol/L Sodium (135-145) mmol/L Potassium 3.8 (3.5-4.5) mmol/L Chloride (101-111) mmol/L Carbon Dioxide (21-32) mmol/L Anion Gap (6-13) BUN (6-20) mg/dL Creatinine (0.6-1.3) mg/dL Estimated GFR (MDRD) (>89) Glucose (74-104) mg/dL POC Whole Bld Glucose 155 (70-100) mg/dL Calcium (8.5-10.3) mg/dL Phosphorus 2.9 (2.5-5.0) mg/dL Magnesium 2.2 (1.7-2.3) mg/dL Total Bilirubin (0.2-1.0) mg/dL AST (10-42) IU/L ALT (10-60) IU/L Alkaline Phosphatase (42-121) IU/L Troponin I High Sens (2.3-19.7) ng/L Total Protein (6.4-8.9) g/dL Albumin (3.2-5.5) g/dL Globulin (2.1-4.2) g/dL Albumin/Globulin Ratio (1.0-2.2) 08/12/24 08/12/24 08/12/24 Range/Units 06:25 06:00 04:15 WBC 15.1 H (4.8-10.8) x10^3/uL RBC 3.19 L (4.70-6.10) 10^6/uL Hgb 10.2 L (14.0-18.0) g/dL Hct 31.5 L (42.0-52.0) % MCV 98.7 H (80.0-94.0) fL MCH 32.0 H (27.0-31.0) pg MCHC 32.4 (32.0-36.0) g/dL RDW 14.6 (12.0-15.0) % Plt Count 339 (130-450) 10^3/uL MPV 10.4 (7.4-11.4) fL Neut # (Auto) 12.4 H (1.5-6.6) 10^3/uL Lymph # (Auto) 1.1 L (1.5-3.5) 10^3/uL Carlisle # (Auto) 1.4 H (0.0-1.0) 10^3/uL Eos # (Auto) 0.1 (0.0-0.7) 10^3/uL Baso # (Auto) 0.0 (0.0-0.1) 10^3/uL Absolute Nucleated RBC 0.00 x10^3/uL Nucleated RBC % 0.0 /100WBC VBG pH (7.31-7.41) Ionized Calcium (1.15-1.33) mmol/L Sodium 135 (135-145) mmol/L Potassium 3.2 L (3.5-4.5) mmol/L Chloride 97 L (101-111) mmol/L Carbon Dioxide 31 (21-32) mmol/L Anion Gap 7.0 (6-13) BUN 28 H (6-20) mg/dL Creatinine 1.6 H (0.6-1.3) mg/dL Estimated GFR (MDRD) 41 L (>89) Glucose 168 H (74-104) mg/dL POC Whole Bld Glucose 159 (70-100) mg/dL Calcium 8.1 L (8.5-10.3) mg/dL Phosphorus (2.5-5.0) mg/dL Magnesium (1.7-2.3) mg/dL Total Bilirubin 0.4 (0.2-1.0) mg/dL AST 14 (10-42) IU/L ALT 6 L (10-60) IU/L Alkaline Phosphatase 70 (42-121) IU/L Troponin I High Sens 16.9 (2.3-19.7) ng/L Total Protein 5.4 L (6.4-8.9) g/dL Albumin 2.8 L (3.2-5.5) g/dL Globulin 2.6 (2.1-4.2) g/dL Albumin/Globulin Ratio 1.1 (1.0-2.2) 08/12/24 08/11/24 08/11/24 Range/Units 00:06 22:15 17:47 WBC (4.8-10.8) x10^3/uL RBC (4.70-6.10) 10^6/uL Hgb (14.0-18.0) g/dL Hct (42.0-52.0) % MCV (80.0-94.0) fL MCH (27.0-31.0) pg MCHC (32.0-36.0) g/dL RDW (12.0-15.0) % Plt Count (130-450) 10^3/uL MPV (7.4-11.4) fL Neut # (Auto) (1.5-6.6) 10^3/uL Lymph # (Auto) (1.5-3.5) 10^3/uL Carlisle # (Auto) (0.0-1.0) 10^3/uL Eos # (Auto) (0.0-0.7) 10^3/uL Baso # (Auto) (0.0-0.1) 10^3/uL Absolute Nucleated RBC x10^3/uL Nucleated RBC % /100WBC VBG pH (7.31-7.41) Ionized Calcium (1.15-1.33) mmol/L Sodium (135-145) mmol/L Potassium (3.5-4.5) mmol/L Chloride (101-111) mmol/L Carbon Dioxide (21-32) mmol/L Anion Gap (6-13) BUN (6-20) mg/dL Creatinine (0.6-1.3) mg/dL Estimated GFR (MDRD) (>89) Glucose (74-104) mg/dL POC Whole Bld Glucose 167 170 (70-100) mg/dL Calcium (8.5-10.3) mg/dL Phosphorus (2.5-5.0) mg/dL Magnesium (1.7-2.3) mg/dL Total Bilirubin (0.2-1.0) mg/dL AST (10-42) IU/L ALT (10-60) IU/L Alkaline Phosphatase (42-121) IU/L Troponin I High Sens 16.8 (2.3-19.7) ng/L Total Protein (6.4-8.9) g/dL Albumin (3.2-5.5) g/dL Globulin (2.1-4.2) g/dL Albumin/Globulin Ratio (1.0-2.2) Other Results/Comments Other Results/Comments: Potassium, calcium and magnesium are being replaced. ABX Reporting Has patient been on IV antibiotics over the past 48 hours?: Yes Assessment/Plan Problem List (1) SBO (small bowel obstruction): Impression: D2 s/p exploratory laparotomy with extensive lysis of adhesions, omentectomy, small bowel resection, circumcision, mesh closure of 2 of the largest hernias, drain placement posterior and anterior to the mesh 1) FEN Patient is currently receiving IV fluids at 100 mL/h. Will decrease when hyperalimentation is started. Patient continues on dopamine at 8 mcg/kg/min and this is being decreased. Supplementing K+, Mag, Ca. Await for bowel function return prior to feeding. 2) ID Patient is at risk for infection as he had a small bowel resection with spillage of succus entericus and placement of non-biologic mesh. Patient is to be maintained on Zosyn 3.375 g every 6 hours x [address] Drainage output is serosanguineous. Elevated white blood cell count is likely reactionary to the surgery and this has decreased from yesterday. This will be checked again tomorrow. No sepsis. 3) Hernia D2/10 of Zosyn. 2 of the largest abdominal hernias (including the one causing his symptoms) were closed using non-biologic mesh which again is suboptimal in the situation with spillage of bowel contents. There was not a big enough piece of mesh to close every hernia. There was also no biologic mesh. Again as stated above he is at risk for infection. Should infection manifest then the patient should be transferred to a tertiary care center who has the resources to deal with this situation. This has been discussed with the patient and his and they vocalized an understanding. Additionally, I explained that all the hernias were not fixed and could not be fixed. The likelihood of recurrence is high. Again this was vocalized and understood by the patient and his . I explained to the patient that he should wear his abdominal binder faithfully every single day for the rest of his life. 4) Circumcision Brady catheter in place. No current wound issues. 5) Activity Due to concerns of dehiscence or evisceration he should be on complete bedrest for at least another 24 hours prior to starting his physical activity. I will involve PT and OT at that time. (2) Hernia: (3) Leukocytosis: Qualifiers: Leukocytosis type: unspecified Qualified Code(s): D72.829 - Elevated white blood cell count, unspecified
[2024-08-12] MEDS: TPN (CLINIMIX E 5/15) 2,000 ML with MULTIVITAMIN 10 ML, TRACE ELEMENTS 1 ML IV SCH (19:37)
[2024-08-12] MEDS: FAT EMULSION 20% 250 ML IV SCH (19:39)
--- NOTE | 2024-08-12 19:47 | PROVIDER PROGRESS NOTE ---
Subjective Prog Note Date Prog Note Date: 08/12/24 Prog Note Time: 19:38 Subjective Pt reports feeling: No change Subjective: Keeps on telling me that his pain is controlled. He is amazed that he is not in more pain. The only time it hurts is when he tries to move. But he denies cough, congestion, chest pain. He is delighted with the munoz trim that he got by anesthesia and is wondering if she can come back and cut his hair. No flatus. He can feel gurgling but he is not farting. So far he has been in bed and has not gotten up due to restrictions for physical therapy until released by surgery. Current Medications Current Medications Current Medications: Current Medications Generic Name Dose Route Start Last Admin Trade Name Freq PRN Reason Stop Dose Admin Hydromorphone HCl 0.5 mg 08/10/24 20:07 08/12/24 16:27 Hydromorphone 0.5 Mg/0.5 Ml Syringe IVP 0.5 mg Q2H PRN Administration Severe Pain (Level 7-10) Acetaminophen 1,000 mg in 100 mls @ 400 mls/hr 08/11/24 00:00 08/12/24 18:45 Acetaminophen IV 08/12/24 20:07 400 mls/hr Q6HR INDU Administration Dextrose/Sodium Chloride 1,000 mls @ 50 mls/hr 08/10/24 21:00 08/12/24 11:38 D5.45ns IV 100 mls/hr .Q20H INDU Administration Piperacillin Sod/Tazobactam 100 mls @ 25 mls/hr 08/10/24 22:00 08/12/24 18:27 Sod 3.375 gm/ Sodium Chloride IV Infused Q8HR INDU Infusion Dopamine HCl/Dextrose 400 mg in 250 mls @ 10.125 mls/hr 08/11/24 11:00 08/12/24 14:05 Dopamine IV 8 mcg/kg/min .[id number] INDU 40.5 mls/hr Administration Protocol 2 MCG/KG/MIN Multivitamins 10 ml/ Zinc/ 2,011 mls @ 83 mls/hr 08/12/24 19:00 Copper/Manganese/Selenium 1 ml IV / Amino Ac/Electrol/Dextrose/ 1900 [facility] Calcium Protocol Fat Emulsion Intravenous 250 mls @ 21 mls/hr 08/12/24 19:00 Intralipid 20% IV 1900 [facility] Insulin Human Regular 2 - 10 unit 08/11/24 12:00 08/12/24 18:45 Insulin Regular, Human 300 Unit/3 Ml Pen SUBQ Not Given Q6HR [facility] Protocol Ondansetron HCl 4 mg 08/10/24 18:59 Ondansetron 4 Mg/2 Ml Vial IVP Q6HR PRN Nausea / Vomiting Ondansetron HCl 4 mg 08/10/24 20:07 Ondansetron 4 Mg/2 Ml Vial IVP Q6H PRN Nausea / Vomiting Sodium Chloride 10 ml 08/11/24 01:00 08/12/24 16:28 Sodium Chloride Flush 0.9% 10 Ml Syringe IVP 10 ml 0100,0900,1700 [facility] Administration Sodium Chloride 10 ml 08/10/24 20:07 08/12/24 04:22 Sodium Chloride Flush 0.9% 10 Ml Syringe IVP 10 ml PRN PRN Administration NEEDED PER PROVIDER ORDERS Throat Lozenges 1 lozenge 08/12/24 00:38 08/12/24 02:17 Benzocaine/Menthol Lozenge MM 1 lozenge Q2HR PRN Administration Throat pain Objective Vital Signs/Intake & Output Reviewed Vital Signs: Yes Vital Signs: Vital Signs Temp Pulse Resp BP Pulse Ox O2 Flow Rate 08/12/24 19:00 73 23 106/56 L 95 2 08/12/24 18:00 73 24 107/61 95 2 08/12/24 17:00 74 23 109/59 L 94 2 08/12/24 16:00 36.7 C 74 25 H 108/55 L 95 2 Intake & Output: Intake & Output 08/10/24 08/11/24 08/12/24 08/13/24 05:59 05:59 05:59 05:59 Intake Total 3555 / 3555 25800 / 28122 3495 / 3495 2350 / 2350 Output Total 2570 / 2570 1136 / 1136 1600 / 1600 2450 / 2450 Balance 985 / 985 34086 / 77346 1895 / 1895 -100 / -100 Objective General Appearance: positive No acute distress, Alert and Other (Elderly gentleman, well-nourished well-developed no acute distress) Eyes Bilateral: positive No scleral icterus ENT: positive No signs of dehydration Neck: positive Thyroid nml and No JVD; negative Stiff neck or Carotid bruit Respiratory: positive Chest non-tender, Rhonchi (Midlung that clears when he clears his throat) and Other (Diminished breath sounds at the bases) Cardiovascular: positive Regular rate & rhythm, No gallop and Systolic murmur Abdomen: positive Non-tender and Other (Bowel sounds. 2 large abdominal binder is in place) Skin: positive Color nml, Warm and Dry Extremities: positive Non-tender, Full ROM and Pedal edema (Yesterday his skin was shrunken, retracted around his ankles and shins. Today he has trace edema.); negative Nml appearance (Left knee with warmth, effusion, but no redness) Neurologic/Psychiatric: positive Oriented x3, CN's nml (2-12) (Except mildly deaf) and Motor nml Lab Results 08/12/24 04:15 08/12/24 14:01 Other Labs: Lab Results x24hrs 08/12/24 08/12/24 08/12/24 Range/Units 17:56 14:01 11:57 WBC (4.8-10.8) x10^3/uL RBC (4.70-6.10) 10^6/uL Hgb (14.0-18.0) g/dL Hct (42.0-52.0) % MCV (80.0-94.0) fL MCH (27.0-31.0) pg MCHC (32.0-36.0) g/dL RDW (12.0-15.0) % Plt Count (130-450) 10^3/uL MPV (7.4-11.4) fL Neut # (Auto) (1.5-6.6) 10^3/uL Lymph # (Auto) (1.5-3.5) 10^3/uL Amelia # (Auto) (0.0-1.0) 10^3/uL Eos # (Auto) (0.0-0.7) 10^3/uL Baso # (Auto) (0.0-0.1) 10^3/uL Absolute Nucleated RBC x10^3/uL Nucleated RBC % /100WBC VBG pH 7.418 H (7.31-7.41) Ionized Calcium 1.03 L (1.15-1.33) mmol/L Sodium (135-145) mmol/L Potassium 3.8 (3.5-4.5) mmol/L Chloride (101-111) mmol/L Carbon Dioxide (21-32) mmol/L Anion Gap (6-13) BUN (6-20) mg/dL Creatinine (0.6-1.3) mg/dL Estimated GFR (MDRD) (>89) Glucose (74-104) mg/dL POC Whole Bld Glucose 122 155 (70-100) mg/dL Calcium (8.5-10.3) mg/dL Phosphorus (2.5-5.0) mg/dL Magnesium 2.2 (1.7-2.3) mg/dL Total Bilirubin (0.2-1.0) mg/dL AST (10-42) IU/L ALT (10-60) IU/L Alkaline Phosphatase (42-121) IU/L Troponin I High Sens (2.3-19.7) ng/L Total Protein (6.4-8.9) g/dL Albumin (3.2-5.5) g/dL Globulin (2.1-4.2) g/dL Albumin/Globulin Ratio (1.0-2.2) 08/12/24 08/12/24 08/12/24 Range/Units 10:30 06:25 06:00 WBC (4.8-10.8) x10^3/uL RBC (4.70-6.10) 10^6/uL Hgb (14.0-18.0) g/dL Hct (42.0-52.0) % MCV (80.0-94.0) fL MCH (27.0-31.0) pg MCHC (32.0-36.0) g/dL RDW (12.0-15.0) % Plt Count (130-450) 10^3/uL MPV (7.4-11.4) fL Neut # (Auto) (1.5-6.6) 10^3/uL Lymph # (Auto) (1.5-3.5) 10^3/uL Amelia # (Auto) (0.0-1.0) 10^3/uL Eos # (Auto) (0.0-0.7) 10^3/uL Baso # (Auto) (0.0-0.1) 10^3/uL Absolute Nucleated RBC x10^3/uL Nucleated RBC % /100WBC VBG pH 7.369 (7.31-7.41) Ionized Calcium 1.01 L (1.15-1.33) mmol/L Sodium (135-145) mmol/L Potassium (3.5-4.5) mmol/L Chloride (101-111) mmol/L Carbon Dioxide (21-32) mmol/L Anion Gap (6-13) BUN (6-20) mg/dL Creatinine (0.6-1.3) mg/dL Estimated GFR (MDRD) (>89) Glucose (74-104) mg/dL POC Whole Bld Glucose 159 (70-100) mg/dL Calcium (8.5-10.3) mg/dL Phosphorus 2.9 (2.5-5.0) mg/dL Magnesium (1.7-2.3) mg/dL Total Bilirubin (0.2-1.0) mg/dL AST (10-42) IU/L ALT (10-60) IU/L Alkaline Phosphatase (42-121) IU/L Troponin I High Sens 16.9 (2.3-19.7) ng/L Total Protein (6.4-8.9) g/dL Albumin (3.2-5.5) g/dL Globulin (2.1-4.2) g/dL Albumin/Globulin Ratio (1.0-2.2) 08/12/24 08/12/24 08/11/24 Range/Units 04:15 00:06 22:15 WBC 15.1 H (4.8-10.8) x10^3/uL RBC 3.19 L (4.70-6.10) 10^6/uL Hgb 10.2 L (14.0-18.0) g/dL Hct 31.5 L (42.0-52.0) % MCV 98.7 H (80.0-94.0) fL MCH 32.0 H (27.0-31.0) pg MCHC 32.4 (32.0-36.0) g/dL RDW 14.6 (12.0-15.0) % Plt Count 339 (130-450) 10^3/uL MPV 10.4 (7.4-11.4) fL Neut # (Auto) 12.4 H (1.5-6.6) 10^3/uL Lymph # (Auto) 1.1 L (1.5-3.5) 10^3/uL Amelia # (Auto) 1.4 H (0.0-1.0) 10^3/uL Eos # (Auto) 0.1 (0.0-0.7) 10^3/uL Baso # (Auto) 0.0 (0.0-0.1) 10^3/uL Absolute Nucleated RBC 0.00 x10^3/uL Nucleated RBC % 0.0 /100WBC VBG pH (7.31-7.41) Ionized Calcium (1.15-1.33) mmol/L Sodium 135 (135-145) mmol/L Potassium 3.2 L (3.5-4.5) mmol/L Chloride 97 L (101-111) mmol/L Carbon Dioxide 31 (21-32) mmol/L Anion Gap 7.0 (6-13) BUN 28 H (6-20) mg/dL Creatinine 1.6 H (0.6-1.3) mg/dL Estimated GFR (MDRD) 41 L (>89) Glucose 168 H (74-104) mg/dL POC Whole Bld Glucose 167 (70-100) mg/dL Calcium 8.1 L (8.5-10.3) mg/dL Phosphorus (2.5-5.0) mg/dL Magnesium (1.7-2.3) mg/dL Total Bilirubin 0.4 (0.2-1.0) mg/dL AST 14 (10-42) IU/L ALT 6 L (10-60) IU/L Alkaline Phosphatase 70 (42-121) IU/L Troponin I High Sens 16.8 (2.3-19.7) ng/L Total Protein 5.4 L (6.4-8.9) g/dL Albumin 2.8 L (3.2-5.5) g/dL Globulin 2.6 (2.1-4.2) g/dL Albumin/Globulin Ratio 1.1 (1.0-2.2) ABX Reporting Has patient been on IV antibiotics over the past 48 hours?: Yes Assessment/Plan Problem List (1) SBO (small bowel obstruction): Impression: Postoperative day #2. In spite of expectant observation, waiting to see if he could pass stool or flatus, seeing if there was a response to Gastrografin, he was unable to pass flatus. White cell count was going up. And he was getting distinctly more uncomfortable with his incarcerated hernia. General surgery felt that the patient was now sliding into territory that required surgery. Long conversation about whether the surgery should be done here or transfer to the [facility]. In the end, surgery was done. Multiple enterotomies. He had an exploratory laparotomy with extensive lysis of adhesions, small bowel resection, omentectomy, placement of mesh and drains. The mesh we had here was not nearly big enough. A circumcision. He now has to abdominal binders and general surgery is emphatic that we need to be careful about his movement, motility, coughing and sneezing so it is not bruised his incisions. He is a morbidly obese man that will be at risk for that. Today he is only needed 2 doses of Dilaudid 0.5 mg. Pain is controlled. He is proceeding slowly postoperatively. Blood pressure has not rebounded to normal yet. Because his blood pressure was low I started him on dopamine on August 11. I gave him 1 500 cc fluid bolus of lactated Ringer's. CVP is between 3 and 5. Blood pressure continues to be low today. Currently 106/56. But urine output is quite brisk at up to 100 cc an hour. White cell count was 16.3 >>11.6>> 18.2>>15.1 today. Nonspecific leukocytosis. There is no peritonitis or ruptured bowel. He does not have pneumonia nor does he have a UTI. He is on Zosyn. Will keep on monitoring. Has DVT prophylaxis. I am asking physical therapy to see him, with permission that needs to be granted by general surgery, to at least get him out of bed. As he has not eaten in several days I am ordering TPN. TPN is a 83 cc an hour for 24 hours. Lipids are 500 cc in 24 hours. He is also on D5.45 @ 50 cc/hr and dopamine is currently 40 cc/hr. That would be ~4600 in 24 hours. His CVP is 3. I will stop the D5.45 for now. (2) Leukocytosis: Impression: he is afebrile. He is not hypotensive. he is not tachycardic. Lactic acid x 2 was normal. Yesterday he appeared to worsen with his abdominal exam. He was not passing flatus. And the hernia was getting harder. General surgery felt the patient should go to the operating room. His white cell count may be from nonspecific demargination in the face of impending infection. But he is on antibiotics and he is currently stable. Laboratory Tests 08/08/24 08/08/24 08/09/24 13:00 19:07 06:04 WBC 16.3 H 13.7 H Lactic Acid 1.0 0.7 Qualifiers: Leukocytosis type: unspecified Qualified Code(s): D72.829 - Elevated white blood cell count, unspecified (3) Hypotension: Impression: Because he has hypotension, I started dopamine. I then also asked anesthesia to put in a central line. With the central line his CVP was 4 or 5 which shows me he is intravascularly depleted. I feel that he is intravascularly depleted as the cause of his hypotension. I do not think he is having an CO because troponin and EKG were negative. He does not have a UTI because he is on Zosyn And a UA yesterday had some squamous cells and was leukocyte Estrace negative, nitrite negative. There is no cough, congestion. I repeated his chest x-ray yesterday and the right side a central line is in place. The G-tube is in place. Mild generalized pulmonary interstitial prominence indicating possible pulmonary edema but no pneumonia. Current CVP is 3. In the outpatient setting he has hypertension. Medications are losartan 25 mg p.o. twice daily, hydrochlorothiazide 25 mg p.o. daily. Amlodipine 2.5 daily. We will slowly resume those medications once he is taking p.o., and his blood pressure is high. Right now he will be getting IV fluids through TPN, lipids. And maintenance dopamine. I will be stopping the D5.45 but watching the CVP. (4) Acute kidney injury: Impression: 2 Laboratory Tests Baseline creatinine is 1.2. With admission he was 1.7>> 1.8>>1.6 today. I had anticipated the his hypotension would make his creatinine worsen by today but it is stable. Plan: I will be treating the hypotension with dopamine and IV fluids Monitor creatinine daily Avoid nephrotoxic agents (5) Hyperglycemia: Impression: Of little clinical significance in this 83-year-old male. A1c is acceptable. However, a goal of glucose less than 130 on a regular basis is what we look for in a patient who has been operated on. I will start him on sliding scale insulin to make sure I maintain good control. Laboratory Tests 08/08/24 Hemoglobin A1c % 6.1 H Today's glucose was 168, 159, 155, 122.Received 2 units for the 159, and 2 units for the 155. No insulin for the 122. Plan: No change in sliding scale dosing at this time (6) Osteoarthritis of left knee: Impression: exacerbating and remitting, but very lifestyle limiting. exam for 2 days shows a knee effusion. He is due to get a arthrocentesis and injection next Monday the . I do not know if he will be able to make that appointment. I will verify if his orthopedic surgeon is the local 1 and maybe he can come to a consult to the hospital. Qualifiers: Osteoarthritis type: primary Qualified Code(s): M17.12 - Unilateral primary osteoarthritis, left knee (7) Cardiac pacemaker: Impression: This has been in place for about one year. he sees Dr Osborne. no problems with this. (8) Hernia: Impression: as stated above. Patient went to the operating room August 10
[2024-08-12 20:35] LABS: CALCIUM, IONIZED 1.06 mmol/L (1.15-1.33); VBG PH 7.372 (7.31-7.41)
[2024-08-13 01:18] LABS: CALCIUM, IONIZED 1.08 mmol/L (1.15-1.33); VBG PH 7.398 (7.31-7.41)
[2024-08-13] MEDS: POTASSIUM CHLOR 20 MEQ/100 ML 20 MEQ/100 ML BAG IV ONE ×4 (01:41→17:28)
[2024-08-13] MEDS: CALCIUM GLUC 1,000MG/50ML-NACL 1,000 MG/50 ML BAG IV ONE ×4 (01:42→21:39)
[2024-08-13 05:05] LABS: BASOPHILS % (AUTO) 0.3 %; EOSINOPHILS # (AUTO) 0.2 10^3/uL (0.0-0.7); HCT - HEMATOCRIT 28.8 % (42.0-52.0); HGB - HEMOGLOBIN 9.2 g/dL (14.0-18.0); LYMPHOCYTES # (AUTO) 0.8 10^3/uL (1.5-3.5); LYMPHOCYTES % (AUTO) 6.9 %; MEAN CORPUSCULAR HEMOGLOBIN 31.7 pg (27.0-31.0); MEAN CORPUSCULAR HGB CONC 31.9 g/dL (32.0-36.0); MEAN CORPUSCULAR VOLUME 99.3 fL (80.0-94.0); MEAN PLATELET VOLUME 10.4 fL (7.4-11.4); MONOCYTES # (AUTO) 0.9 10^3/uL (0.0-1.0); MONOCYTES % (AUTO) 7.2 %; NEUTROPHILS # (AUTO) 10.1 10^3/uL (1.5-6.6); NEUTROPHILS % (AUTO) 83.2 %; PLT - PLATELET COUNT 304 10^3/uL (130-450); RED CELL DISTRIBUTION WIDTH 14.5 % (12.0-15.0); WHITE BLOOD COUNT 12.2 x10^3/uL (4.8-10.8)
[2024-08-13 05:13] LABS: MAGNESIUM 1.9 mg/dL (1.7-2.3)
[2024-08-13 05:19] LABS: ALBUMIN 2.4 g/dL (3.2-5.5); BILIRUBIN,TOTAL 0.3 mg/dL (0.2-1.0); CALCIUM 8.5 mg/dL (8.5-10.3); CREATININE 1.2 mg/dL (0.6-1.3); PHOSPHORUS 2.3 mg/dL (2.5-5.0); POTASSIUM 3.6 mmol/L (3.5-4.5); TOTAL PROTEIN 4.9 g/dL (6.4-8.9)
[2024-08-13 05:49] LABS: CALCIUM, IONIZED 1.1 mmol/L (1.15-1.33); VBG PH 7.395 (7.31-7.41)
[2024-08-13] MEDS: POTASSIUM PHOSPHATE 15 MMOL in SODIUM CHLORIDE 0.9% 250 ML IV ONE (09:06)
--- NOTE | 2024-08-13 11:04 | PROVIDER PROGRESS NOTE ---
Subjective Prog Note Date Prog Note Date: 08/13/24 Prog Note Time: 10:54 Subjective Subjective: 08/13/2024: no overnight events, denies bowel movement or passing gas. No respiratory complaints. Feels that he could sit on edge of bed. Current Medications Current Medications Current Medications: Current Medications Generic Name Dose Route Start Last Admin Trade Name Freq PRN Reason Stop Dose Admin Hydromorphone HCl 0.5 mg 08/10/24 20:07 08/12/24 16:27 Hydromorphone 0.5 Mg/0.5 Ml Syringe IVP 0.5 mg Q2H PRN Administration Severe Pain (Level 7-10) Piperacillin Sod/Tazobactam 100 mls @ 25 mls/hr 08/10/24 22:00 08/13/24 06:25 Sod 3.375 gm/ Sodium Chloride IV 25 mls/hr Q8HR INDU Administration Dopamine HCl/Dextrose 400 mg in 250 mls @ 10.125 mls/hr 08/11/24 11:00 08/13/24 04:55 Dopamine IV 5 mcg/kg/min .[id number] INDU 25.31 mls/hr Administration Protocol 2 MCG/KG/MIN Multivitamins 10 ml/ Zinc/ 2,011 mls @ 83 mls/hr 08/12/24 19:00 08/13/24 01:37 Copper/Manganese/Selenium 1 ml IV 83 mls/hr / Amino Ac/Electrol/Dextrose/ 1900 INDU Infusion Calcium Protocol Fat Emulsion Intravenous 250 mls @ 21 mls/hr 08/12/24 19:00 08/12/24 19:39 Intralipid 20% IV 21 mls/hr 1900 INDU Administration Potassium Phosphate 15 mmol/ 255 mls @ 63 mls/hr 08/13/24 09:00 08/13/24 09:06 Sodium Chloride IV 08/13/24 13:02 63 mls/hr ONCE ONE Administration Protocol Insulin Human Regular 2 - 10 unit 08/11/24 12:00 08/13/24 06:30 Insulin Regular, Human 300 Unit/3 Ml Pen SUBQ 2 unit Q6HR INDU Administration Protocol Ondansetron HCl 4 mg 08/10/24 18:59 Ondansetron 4 Mg/2 Ml Vial IVP Q6HR PRN Nausea / Vomiting Ondansetron HCl 4 mg 08/10/24 20:07 Ondansetron 4 Mg/2 Ml Vial IVP Q6H PRN Nausea / Vomiting Pantoprazole Sodium 40 mg 08/14/24 07:00 Pantoprazole 40 Mg Tablet PO QDAC INDU Sodium Chloride 10 ml 08/11/24 01:00 08/13/24 09:07 Sodium Chloride Flush 0.9% 10 Ml Syringe IVP 10 ml 0100,0900,1700 INDU Administration Sodium Chloride 10 ml 08/10/24 20:07 08/13/24 04:55 Sodium Chloride Flush 0.9% 10 Ml Syringe IVP 10 ml PRN PRN Administration NEEDED PER PROVIDER ORDERS Throat Lozenges 1 lozenge 08/12/24 00:38 08/12/24 21:46 Benzocaine/Menthol Lozenge MM 1 lozenge Q2HR PRN Administration Throat pain Objective Vital Signs/Intake & Output Reviewed Vital Signs: Yes Vital Signs: Vital Signs x48h Temp Pulse Resp BP Pulse Ox O2 Flow Rate 08/13/24 10:00 81 22 91/54 L 95 2 08/13/24 09:00 76 25 H 144/72 H 94 08/13/24 08:00 36.9 C 77 28 H 100/49 L 91 L 2 08/13/24 07:00 74 24 98/54 L 94 2 08/13/24 06:00 73 23 112/54 L 94 2 08/13/24 05:00 72 29 H 115/60 93 2 08/13/24 04:00 36.9 C 73 23 108/63 92 2 08/13/24 03:00 73 24 121/60 95 2 Intake & Output: Intake & Output 08/11/24 08/12/24 08/13/24 08/14/24 05:59 05:59 05:59 05:59 Intake Total 11569 / 29554 3495 / 3495 4650 / 4650 Output Total 1136 / 1136 1600 / 1600 4200 / 4200 1250 / 1250 Balance 90937 / 40396 1895 / 1895 450 / 450 -1250 / -1250 Objective General Appearance: positive No acute distress and Alert Eyes Bilateral: positive Normal inspection Neck: positive No JVD and Trachea midline Respiratory: positive No respiratory distress Cardiovascular: positive Regular rate & rhythm, No murmur and No gallop Abdomen: positive Other (s/p abd hernia surgery, day 3, abdominal binder) Extremities: positive Non-tender and Nml appearance (R knee pain) Neurologic/Psychiatric: positive Oriented x3 Lab Results 08/13/24 04:49 08/13/24 04:49 Other Labs: Lab Results x24hrs 08/13/24 08/13/24 08/13/24 Range/Units 05:50 04:49 01:00 WBC 12.2 H (4.8-10.8) x10^3/uL RBC 2.90 L (4.70-6.10) 10^6/uL Hgb 9.2 L (14.0-18.0) g/dL Hct 28.8 L (42.0-52.0) % MCV 99.3 H (80.0-94.0) fL MCH 31.7 H (27.0-31.0) pg MCHC 31.9 L (32.0-36.0) g/dL RDW 14.5 (12.0-15.0) % Plt Count 304 (130-450) 10^3/uL MPV 10.4 (7.4-11.4) fL Neut # (Auto) 10.1 H (1.5-6.6) 10^3/uL Lymph # (Auto) 0.8 L (1.5-3.5) 10^3/uL [place] # (Auto) 0.9 (0.0-1.0) 10^3/uL Eos # (Auto) 0.2 (0.0-0.7) 10^3/uL Baso # (Auto) 0.0 (0.0-0.1) 10^3/uL Absolute Nucleated RBC 0.00 x10^3/uL Nucleated RBC % 0.0 /100WBC VBG pH 7.395 7.398 (7.31-7.41) Ionized Calcium 1.10 L 1.08 L (1.15-1.33) mmol/L Sodium 135 (135-145) mmol/L Potassium 3.6 3.7 (3.5-4.5) mmol/L Chloride 97 L (101-111) mmol/L Carbon Dioxide 35 H (21-32) mmol/L Anion Gap 3.0 L (6-13) BUN 22 H (6-20) mg/dL Creatinine 1.2 (0.6-1.3) mg/dL Estimated GFR (MDRD) 58 L (>89) Glucose 157 H (74-104) mg/dL POC Whole Bld Glucose 151 (70-100) mg/dL Calcium 8.5 (8.5-10.3) mg/dL Phosphorus 2.3 L (2.5-5.0) mg/dL Magnesium 1.9 (1.7-2.3) mg/dL Total Bilirubin 0.3 (0.2-1.0) mg/dL AST 10 (10-42) IU/L ALT 5 L (10-60) IU/L Alkaline Phosphatase 73 (42-121) IU/L Total Protein 4.9 L (6.4-8.9) g/dL Albumin 2.4 L (3.2-5.5) g/dL Globulin 2.5 (2.1-4.2) g/dL Albumin/Globulin Ratio 1.0 (1.0-2.2) Prealbumin 6 L (17-34) mg/dL Triglycerides 121 mg/dL 08/12/24 08/12/24 08/12/24 Range/Units 23:33 19:55 17:56 WBC (4.8-10.8) x10^3/uL RBC (4.70-6.10) 10^6/uL Hgb (14.0-18.0) g/dL Hct (42.0-52.0) % MCV (80.0-94.0) fL MCH (27.0-31.0) pg MCHC (32.0-36.0) g/dL RDW (12.0-15.0) % Plt Count (130-450) 10^3/uL MPV (7.4-11.4) fL Neut # (Auto) (1.5-6.6) 10^3/uL Lymph # (Auto) (1.5-3.5) 10^3/uL [place] # (Auto) (0.0-1.0) 10^3/uL Eos # (Auto) (0.0-0.7) 10^3/uL Baso # (Auto) (0.0-0.1) 10^3/uL Absolute Nucleated RBC x10^3/uL Nucleated RBC % /100WBC VBG pH 7.372 (7.31-7.41) Ionized Calcium 1.06 L (1.15-1.33) mmol/L Sodium (135-145) mmol/L Potassium 3.7 (3.5-4.5) mmol/L Chloride (101-111) mmol/L Carbon Dioxide (21-32) mmol/L Anion Gap (6-13) BUN (6-20) mg/dL Creatinine (0.6-1.3) mg/dL Estimated GFR (MDRD) (>89) Glucose (74-104) mg/dL POC Whole Bld Glucose 167 122 (70-100) mg/dL Calcium (8.5-10.3) mg/dL Phosphorus (2.5-5.0) mg/dL Magnesium (1.7-2.3) mg/dL Total Bilirubin (0.2-1.0) mg/dL AST (10-42) IU/L ALT (10-60) IU/L Alkaline Phosphatase (42-121) IU/L Total Protein (6.4-8.9) g/dL Albumin (3.2-5.5) g/dL Globulin (2.1-4.2) g/dL Albumin/Globulin Ratio (1.0-2.2) Prealbumin (17-34) mg/dL Triglycerides mg/dL 08/12/24 08/12/24 08/12/24 Range/Units 14:01 11:57 10:30 WBC (4.8-10.8) x10^3/uL RBC (4.70-6.10) 10^6/uL Hgb (14.0-18.0) g/dL Hct (42.0-52.0) % MCV (80.0-94.0) fL MCH (27.0-31.0) pg MCHC (32.0-36.0) g/dL RDW (12.0-15.0) % Plt Count (130-450) 10^3/uL MPV (7.4-11.4) fL Neut # (Auto) (1.5-6.6) 10^3/uL Lymph # (Auto) (1.5-3.5) 10^3/uL [place] # (Auto) (0.0-1.0) 10^3/uL Eos # (Auto) (0.0-0.7) 10^3/uL Baso # (Auto) (0.0-0.1) 10^3/uL Absolute Nucleated RBC x10^3/uL Nucleated RBC % /100WBC VBG pH 7.418 H (7.31-7.41) Ionized Calcium 1.03 L (1.15-1.33) mmol/L Sodium (135-145) mmol/L Potassium 3.8 (3.5-4.5) mmol/L Chloride (101-111) mmol/L Carbon Dioxide (21-32) mmol/L Anion Gap (6-13) BUN (6-20) mg/dL Creatinine (0.6-1.3) mg/dL Estimated GFR (MDRD) (>89) Glucose (74-104) mg/dL POC Whole Bld Glucose 155 (70-100) mg/dL Calcium (8.5-10.3) mg/dL Phosphorus 2.9 (2.5-5.0) mg/dL Magnesium 2.2 (1.7-2.3) mg/dL Total Bilirubin (0.2-1.0) mg/dL AST (10-42) IU/L ALT (10-60) IU/L Alkaline Phosphatase (42-121) IU/L Total Protein (6.4-8.9) g/dL Albumin (3.2-5.5) g/dL Globulin (2.1-4.2) g/dL Albumin/Globulin Ratio (1.0-2.2) Prealbumin (17-34) mg/dL Triglycerides mg/dL Assessment/Plan Problem List (1) SBO (small bowel obstruction): Impression: Postoperative day #3. Patient is no. 32. Doing well. Patient denies bowel movement or flatulence. Pain is well-controlled. He now has to abdominal binders and general surgery is emphatic that we need to be careful about his movement, motility, coughing and sneezing so it is not bruised his incisions. Plan for PT today. Limiting movement to sitting on side of bed. Hemodynamics are well-controlled. Urine output adequate less than 0.5 mL/kg/h. Patient was started on dopamine on 08/11/2024, Continue to wean as tolerated. Leukocytosis has improved from 18.2-15 0.2-12.2 today. Patient remained afebrile. There is no sign of pneumonia or UTI. Continue on zosyn, day 4, for total of 5 to 7 days. Has DVT prophylaxis. Patient continues to be on TPN. DC D5 due to risk of Volume overload and pulmonary edema. Diet orders are controlled by surgery. (2) Leukocytosis: Impression: Resolved. Patient has been afebrile normal sinus rhythm lactic acid within normal range. Continue Zosyn, day 4. Laboratory Tests 08/08/24 08/08/24 08/09/24 13:00 19:07 06:04 WBC 16.3 H 13.7 H Lactic Acid 1.0 0.7 Qualifiers: Leukocytosis type: unspecified Qualified Code(s): D72.829 - Elevated white blood cell count, unspecified (3) Hypotension: Impression: Continue on dopamine. Hold antihypertensive medication, losartan, hdrochlorothiazide, and amlodipine. Wean off dopamine as tolerated. (4) Acute kidney injury: Impression: 2 Laboratory Tests Patient's creatinine is back back at baseline, good urine output. Continue IV fluids as needed, avoid nephrotoxic drugs.B (5) Hyperglycemia: Impression: Of little clinical significance in this 83-year-old male. A1c is acceptable. However, a goal of glucose less than 130 on a regular basis is what we look for in a patient who has been operated on. I will start him on sliding scale insulin to make sure I maintain good control. Laboratory Tests 08/08/24 Hemoglobin A1c % 6.1 H Today's glucose was 168, 159, 155, 122.Received 2 units for the 159, and 2 units for the 155. No insulin for the 122. Plan: No change in sliding scale dosing at this time (6) Osteoarthritis of left knee: Impression: exacerbating and remitting, but very lifestyle limiting. exam for 2 days shows a knee effusion. He is due to get a arthrocentesis and injection next Monday the . I do not know if he will be able to make that appointment. I will verify if his orthopedic surgeon is the local 1 and maybe he can come to a consult to the hospital. Qualifiers: Osteoarthritis type: primary Qualified Code(s): M17.12 - Unilateral primary osteoarthritis, left knee (7) Cardiac pacemaker: Impression: This has been in place for about one year. he sees Dr Osborne. no problems with this. (8) Hernia: Impression: See above, patient s/p surgery day 3.
--- NOTE | 2024-08-13 12:52 | PROVIDER PROGRESS NOTE ---
Subjective Prog Note Date Prog Note Date: 08/13/24 Prog Note Time: 12:38 Subjective Pt reports feeling: Improved (Small amount of bowel function - fart today.) Current Medications Current Medications Current Medications: Current Medications Generic Name Dose Route Start Last Admin Trade Name Freq PRN Reason Stop Dose Admin Hydromorphone HCl 0.5 mg 08/10/24 20:07 08/12/24 16:27 Hydromorphone 0.5 Mg/0.5 Ml Syringe IVP 0.5 mg Q2H PRN Administration Severe Pain (Level 7-10) Piperacillin Sod/Tazobactam 100 mls @ 25 mls/hr 08/10/24 22:00 08/13/24 10:25 Sod 3.375 gm/ Sodium Chloride IV Infused Q8HR INDU Infusion Dopamine HCl/Dextrose 400 mg in 250 mls @ 10.125 mls/hr 08/11/24 11:00 08/13/24 12:35 Dopamine IV 3 mcg/kg/min .[id number] INDU 15.19 mls/hr Titration Protocol 2 MCG/KG/MIN Multivitamins 10 ml/ Zinc/ 2,011 mls @ 83 mls/hr 08/12/24 19:00 08/13/24 01:37 Copper/Manganese/Selenium 1 ml IV 83 mls/hr / Amino Ac/Electrol/Dextrose/ 1900 INDU Infusion Calcium Protocol Fat Emulsion Intravenous 250 mls @ 21 mls/hr 08/12/24 19:00 08/13/24 07:35 Intralipid 20% IV Infused 1900 INDU Infusion Potassium Phosphate 15 mmol/ 255 mls @ 63 mls/hr 08/13/24 09:00 08/13/24 09:06 Sodium Chloride IV 08/13/24 13:02 63 mls/hr ONCE ONE Administration Protocol Insulin Human Regular 2 - 10 unit 08/11/24 12:00 08/13/24 06:30 Insulin Regular, Human 300 Unit/3 Ml Pen SUBQ 2 unit Q6HR INDU Administration Protocol Ondansetron HCl 4 mg 08/10/24 18:59 Ondansetron 4 Mg/2 Ml Vial IVP Q6HR PRN Nausea / Vomiting Ondansetron HCl 4 mg 08/10/24 20:07 Ondansetron 4 Mg/2 Ml Vial IVP Q6H PRN Nausea / Vomiting Pantoprazole Sodium 40 mg 08/13/24 12:00 Pantoprazole 40 Mg Tablet PO QDAC INDU Sodium Chloride 10 ml 08/11/24 01:00 08/13/24 09:07 Sodium Chloride Flush 0.9% 10 Ml Syringe IVP 10 ml 0100,0900,1700 INDU Administration Sodium Chloride 10 ml 08/10/24 20:07 08/13/24 04:55 Sodium Chloride Flush 0.9% 10 Ml Syringe IVP 10 ml PRN PRN Administration NEEDED PER PROVIDER ORDERS Throat Lozenges 1 lozenge 08/12/24 00:38 08/12/24 21:46 Benzocaine/Menthol Lozenge MM 1 lozenge Q2HR PRN Administration Throat pain Objective Vital Signs/Intake & Output Reviewed Vital Signs: Yes Vital Signs: Vital Signs Temp Pulse Resp BP Pulse Ox O2 Flow Rate 08/13/24 12:00 37.3 C 71 30 H 125/75 95 2 08/13/24 11:00 77 25 H 129/52 L 95 2 08/13/24 10:00 81 22 91/54 L 95 2 08/13/24 09:00 76 25 H 144/72 H 94 Intake & Output: Intake & Output 08/11/24 08/12/24 08/13/24 08/14/24 05:59 05:59 05:59 05:59 Intake Total 74298 / 60171 3495 / 3495 4650 / 4650 690 / 690 Output Total 1136 / 1136 1600 / 1600 4200 / 4200 2014 Balance 91353 / 67638 1895 / 1895 450 / 450 -1325 / -1325 Objective General Appearance: positive No acute distress and Alert Eyes Bilateral: positive No lid inflammation, Conjunctivae nml and No scleral icterus ENT: positive No signs of dehydration Neck: positive Trachea midline Respiratory: positive Chest non-tender, No respiratory distress and Wheezes (Slight on right.) Cardiovascular: positive Regular rate & rhythm Abdomen: positive Non-tender, No distention and Other (Wound dressed. Both drains serosanguinous.) Skin: positive Color nml, Warm and Dry Extremities: positive Non-tender and Pedal edema Neurologic/Psychiatric: positive Oriented x3, Motor nml and Sensation nml; negative Mood/affect nml Lab Results 08/13/24 04:49 08/13/24 04:49 Other Labs: Lab Results x24hrs 08/13/24 08/13/24 08/13/24 Range/Units 05:50 04:49 01:00 WBC 12.2 H (4.8-10.8) x10^3/uL RBC 2.90 L (4.70-6.10) 10^6/uL Hgb 9.2 L (14.0-18.0) g/dL Hct 28.8 L (42.0-52.0) % MCV 99.3 H (80.0-94.0) fL MCH 31.7 H (27.0-31.0) pg MCHC 31.9 L (32.0-36.0) g/dL RDW 14.5 (12.0-15.0) % Plt Count 304 (130-450) 10^3/uL MPV 10.4 (7.4-11.4) fL Neut # (Auto) 10.1 H (1.5-6.6) 10^3/uL Lymph # (Auto) 0.8 L (1.5-3.5) 10^3/uL [place] # (Auto) 0.9 (0.0-1.0) 10^3/uL Eos # (Auto) 0.2 (0.0-0.7) 10^3/uL Baso # (Auto) 0.0 (0.0-0.1) 10^3/uL Absolute Nucleated RBC 0.00 x10^3/uL Nucleated RBC % 0.0 /100WBC VBG pH 7.395 7.398 (7.31-7.41) Ionized Calcium 1.10 L 1.08 L (1.15-1.33) mmol/L Sodium 135 (135-145) mmol/L Potassium 3.6 3.7 (3.5-4.5) mmol/L Chloride 97 L (101-111) mmol/L Carbon Dioxide 35 H (21-32) mmol/L Anion Gap 3.0 L (6-13) BUN 22 H (6-20) mg/dL Creatinine 1.2 (0.6-1.3) mg/dL Estimated GFR (MDRD) 58 L (>89) Glucose 157 H (74-104) mg/dL POC Whole Bld Glucose 151 (70-100) mg/dL Calcium 8.5 (8.5-10.3) mg/dL Phosphorus 2.3 L (2.5-5.0) mg/dL Magnesium 1.9 (1.7-2.3) mg/dL Total Bilirubin 0.3 (0.2-1.0) mg/dL AST 10 (10-42) IU/L ALT 5 L (10-60) IU/L Alkaline Phosphatase 73 (42-121) IU/L Total Protein 4.9 L (6.4-8.9) g/dL Albumin 2.4 L (3.2-5.5) g/dL Globulin 2.5 (2.1-4.2) g/dL Albumin/Globulin Ratio 1.0 (1.0-2.2) Prealbumin 6 L (17-34) mg/dL Triglycerides 121 mg/dL 08/12/24 08/12/24 08/12/24 Range/Units 23:33 19:55 17:56 WBC (4.8-10.8) x10^3/uL RBC (4.70-6.10) 10^6/uL Hgb (14.0-18.0) g/dL Hct (42.0-52.0) % MCV (80.0-94.0) fL MCH (27.0-31.0) pg MCHC (32.0-36.0) g/dL RDW (12.0-15.0) % Plt Count (130-450) 10^3/uL MPV (7.4-11.4) fL Neut # (Auto) (1.5-6.6) 10^3/uL Lymph # (Auto) (1.5-3.5) 10^3/uL [place] # (Auto) (0.0-1.0) 10^3/uL Eos # (Auto) (0.0-0.7) 10^3/uL Baso # (Auto) (0.0-0.1) 10^3/uL Absolute Nucleated RBC x10^3/uL Nucleated RBC % /100WBC VBG pH 7.372 (7.31-7.41) Ionized Calcium 1.06 L (1.15-1.33) mmol/L Sodium (135-145) mmol/L Potassium 3.7 (3.5-4.5) mmol/L Chloride (101-111) mmol/L Carbon Dioxide (21-32) mmol/L Anion Gap (6-13) BUN (6-20) mg/dL Creatinine (0.6-1.3) mg/dL Estimated GFR (MDRD) (>89) Glucose (74-104) mg/dL POC Whole Bld Glucose 167 122 (70-100) mg/dL Calcium (8.5-10.3) mg/dL Phosphorus (2.5-5.0) mg/dL Magnesium (1.7-2.3) mg/dL Total Bilirubin (0.2-1.0) mg/dL AST (10-42) IU/L ALT (10-60) IU/L Alkaline Phosphatase (42-121) IU/L Total Protein (6.4-8.9) g/dL Albumin (3.2-5.5) g/dL Globulin (2.1-4.2) g/dL Albumin/Globulin Ratio (1.0-2.2) Prealbumin (17-34) mg/dL Triglycerides mg/dL 08/12/24 Range/Units 14:01 WBC (4.8-10.8) x10^3/uL RBC (4.70-6.10) 10^6/uL Hgb (14.0-18.0) g/dL Hct (42.0-52.0) % MCV (80.0-94.0) fL MCH (27.0-31.0) pg MCHC (32.0-36.0) g/dL RDW (12.0-15.0) % Plt Count (130-450) 10^3/uL MPV (7.4-11.4) fL Neut # (Auto) (1.5-6.6) 10^3/uL Lymph # (Auto) (1.5-3.5) 10^3/uL [place] # (Auto) (0.0-1.0) 10^3/uL Eos # (Auto) (0.0-0.7) 10^3/uL Baso # (Auto) (0.0-0.1) 10^3/uL Absolute Nucleated RBC x10^3/uL Nucleated RBC % /100WBC VBG pH 7.418 H (7.31-7.41) Ionized Calcium 1.03 L (1.15-1.33) mmol/L Sodium (135-145) mmol/L Potassium 3.8 (3.5-4.5) mmol/L Chloride (101-111) mmol/L Carbon Dioxide (21-32) mmol/L Anion Gap (6-13) BUN (6-20) mg/dL Creatinine (0.6-1.3) mg/dL Estimated GFR (MDRD) (>89) Glucose (74-104) mg/dL POC Whole Bld Glucose (70-100) mg/dL Calcium (8.5-10.3) mg/dL Phosphorus (2.5-5.0) mg/dL Magnesium 2.2 (1.7-2.3) mg/dL Total Bilirubin (0.2-1.0) mg/dL AST (10-42) IU/L ALT (10-60) IU/L Alkaline Phosphatase (42-121) IU/L Total Protein (6.4-8.9) g/dL Albumin (3.2-5.5) g/dL Globulin (2.1-4.2) g/dL Albumin/Globulin Ratio (1.0-2.2) Prealbumin (17-34) mg/dL Triglycerides mg/dL ABX Reporting Has patient been on IV antibiotics over the past 48 hours?: Yes Assessment/Plan Problem List (1) SBO (small bowel obstruction): Impression: D3 s/p exploratory laparotomy with extensive lysis of adhesions, omentectomy, small bowel resection, circumcision, mesh closure of 2 of the largest hernias, drain placement posterior and anterior to the mesh 1) FEN Patient is currently receiving IV fluids at 100 mL/h. Hyperalimentation is started. Patient continues on dopamine at 4 mcg/kg/min and this is being decreased. Supplementing K+, Mag, Ca. Await for bowel function return prior to feeding. 2) ID Patient is at risk for infection as he had a small bowel resection with spillage of succus entericus and placement of non-biologic mesh. Patient is to be maintained on Zosyn 3.375 g every 6 hours x [address] Drainage output is serosanguineous. Elevated white blood cell count is likely reactionary to the surgery and this has decreased from yesterday. This will be checked again tomorrow. No sepsis. 3) Hernia D3/10 of Zosyn. 2 of the largest abdominal hernias (including the one causing his symptoms) were closed using non-biologic mesh which again is suboptimal in the situation with spillage of bowel contents. There was not a big enough piece of mesh to close every hernia. There was also no biologic mesh. Again as stated above he is at risk for infection. Should infection manifest then the patient should be transferred to a tertiary care center who has the resources to deal with this situation. This has been discussed with the patient and his and they vocalized an understanding. Additionally, I explained that all the hernias were not fixed and could not be fixed. The likelihood of recurrence is high. Again this was vocalized and understood by the patient and his . I explained to the patient that he should wear his abdominal binder faithfully every single day for the rest of his life. 4) Circumcision Brady catheter in place. Still dealing with fluid and mobility issues. No current wound issues. 5) Activity Order PT and OT today.
[2024-08-13] MEDS: PANTOPRAZOLE 40 MG TABLET PO SCH (13:39)
[2024-08-13 15:14] LABS: CALCIUM, IONIZED 1.07 mmol/L (1.15-1.33); VBG PH 7.48 (7.31-7.41)
[2024-08-13 15:29] LABS: PHOSPHORUS 2.6 mg/dL (2.5-5.0); POTASSIUM 3.4 mmol/L (3.5-4.5)
[2024-08-13] MEDS ORDERED: POTASSIUM CHLOR 10 MEQ/100 ML 10 MEQ/100 ML BAG IV SCH (20:00)
[2024-08-13] MEDS ORDERED: POTASSIUM CHLOR 20 MEQ/100 ML 20 MEQ/100 ML BAG IV SCH (20:00)
[2024-08-13] MEDS: POTASSIUM CHLOR 20 MEQ/100 ML 20 MEQ/100 ML BAG IV SCH (20:08)
[2024-08-13 21:00] LABS: CALCIUM, IONIZED 1.07 mmol/L (1.15-1.33); VBG PH 7.49 (7.31-7.41)
[2024-08-14 01:03] LABS: CALCIUM, IONIZED 1.08 mmol/L (1.15-1.33); VBG PH 7.491 (7.31-7.41)
[2024-08-14] MEDS: CALCIUM GLUC 1,000MG/50ML-NACL 1,000 MG/50 ML BAG IV ONE ×2 (03:00→11:40)
[2024-08-14] MEDS: POTASSIUM CHLOR 20 MEQ/100 ML 20 MEQ/100 ML BAG IV ONE ×2 (03:00→06:52)
[2024-08-14 05:21] LABS: BASOPHILS % (AUTO) 0.3 %; EOSINOPHILS # (AUTO) 0.1 10^3/uL (0.0-0.7); EOSINOPHILS % (AUTO) 1.3 %; HCT - HEMATOCRIT 27.7 % (42.0-52.0); HGB - HEMOGLOBIN 8.5 g/dL (14.0-18.0); LYMPHOCYTES % (AUTO) 10.4 %; MEAN CORPUSCULAR HEMOGLOBIN 31.1 pg (27.0-31.0); MEAN CORPUSCULAR HGB CONC 30.7 g/dL (32.0-36.0); MEAN CORPUSCULAR VOLUME 101.5 fL (80.0-94.0); MEAN PLATELET VOLUME 10.7 fL (7.4-11.4); MONOCYTES # (AUTO) 0.9 10^3/uL (0.0-1.0); MONOCYTES % (AUTO) 9.5 %; NEUTROPHILS # (AUTO) 7.6 10^3/uL (1.5-6.6); NEUTROPHILS % (AUTO) 77.6 %; PLT - PLATELET COUNT 283 10^3/uL (130-450); RED BLOOD COUNT 2.73 10^6/uL (4.70-6.10); RED CELL DISTRIBUTION WIDTH 14.6 % (12.0-15.0); WHITE BLOOD COUNT 9.7 x10^3/uL (4.8-10.8)
[2024-08-14 05:55] LABS: ALBUMIN 2.3 g/dL (3.2-5.5); ALBUMIN/GLOBULIN RATIO 0.9 (1.0-2.2); BILIRUBIN,TOTAL 0.3 mg/dL (0.2-1.0); CALCIUM 8.9 mg/dL (8.5-10.3); CREATININE 1.1 mg/dL (0.6-1.3); POTASSIUM 3.6 mmol/L (3.5-4.5); TOTAL PROTEIN 4.8 g/dL (6.4-8.9)
[2024-08-14] MEDS: MAGNESIUM SULFATE 2 GRAM 2 GM/50 ML BAG IV ONE (06:52)
[2024-08-14 08:46] LABS: CALCIUM, IONIZED 1.05 mmol/L (1.15-1.33); VBG PH 7.544 (7.31-7.41)
--- NOTE | 2024-08-14 09:23 | PROVIDER PROGRESS NOTE ---
Subjective Prog Note Date Prog Note Date: 08/14/24 Prog Note Time: 09:21 Subjective Pt reports feeling: Improved Subjective: 08/13/2024: no overnight events, denies bowel movement or passing gas. No respiratory complaints. Feels that he could sit on edge of bed. 08/14/2024: Patient reports several bowel movements overnight, he is now off dopamine. Feels that he is progressing quite well. No respiratory complaints. Current Medications Current Medications Current Medications: Current Medications Generic Name Dose Route Start Last Admin Trade Name Freq PRN Reason Stop Dose Admin Hydromorphone HCl 0.5 mg 08/10/24 20:07 08/12/24 16:27 Hydromorphone 0.5 Mg/0.5 Ml Syringe IVP 0.5 mg Q2H PRN Administration Severe Pain (Level 7-10) Piperacillin Sod/Tazobactam 100 mls @ 25 mls/hr 08/10/24 22:00 08/14/24 06:14 Sod 3.375 gm/ Sodium Chloride IV 25 mls/hr Q8HR INDU Administration Dopamine HCl/Dextrose 400 mg in 250 mls @ 10.125 mls/hr 08/11/24 11:00 08/13/24 14:39 Dopamine IV 0 mcg/kg/min .[id number] INDU 0 mls/hr Titration Protocol 2 MCG/KG/MIN Multivitamins 10 ml/ Zinc/ 2,011 mls @ 83 mls/hr 08/12/24 19:00 08/13/24 18:45 Copper/Manganese/Selenium 1 ml IV 83 mls/hr / Amino Ac/Electrol/Dextrose/ 1900 INDU Administration Calcium Protocol Fat Emulsion Intravenous 250 mls @ 21 mls/hr 08/12/24 19:00 08/13/24 18:46 Intralipid 20% IV 21 mls/hr 1900 INDU Administration Insulin Human Regular 2 - 10 unit 08/11/24 12:00 08/14/24 06:13 Insulin Regular, Human 300 Unit/3 Ml Pen SUBQ 2 unit Q6HR INDU Administration Protocol Ondansetron HCl 4 mg 08/10/24 20:07 Ondansetron 4 Mg/2 Ml Vial IVP Q6H PRN Nausea / Vomiting Pantoprazole Sodium 40 mg 08/13/24 12:00 08/14/24 06:14 Pantoprazole 40 Mg Tablet PO 40 mg QDAC INDU Administration Sodium Chloride 10 ml 08/11/24 01:00 08/14/24 08:36 Sodium Chloride Flush 0.9% 10 Ml Syringe IVP 10 ml 0100,0900,1700 INDU Administration Sodium Chloride 10 ml 08/10/24 20:07 08/13/24 04:55 Sodium Chloride Flush 0.9% 10 Ml Syringe IVP 10 ml PRN PRN Administration NEEDED PER PROVIDER ORDERS Throat Lozenges 1 lozenge 08/12/24 00:38 08/12/24 21:46 Benzocaine/Menthol Lozenge MM 1 lozenge Q2HR PRN Administration Throat pain Objective Vital Signs/Intake & Output Reviewed Vital Signs: Yes Vital Signs: Vital Signs x48h Temp Pulse Resp BP Pulse Ox O2 Flow Rate 08/14/24 08:00 37.5 C 71 20 117/58 L 95 2 08/14/24 07:43 2 08/14/24 07:00 68 24 121/64 95 2 08/14/24 06:00 67 30 H 119/57 L 94 2 08/14/24 05:00 72 23 107/55 L 96 2 08/14/24 04:00 68 24 103/49 L 96 2 08/14/24 03:00 70 26 H 128/62 96 2 08/14/24 02:00 37.4 C 74 28 H 127/62 94 2 Intake & Output: Intake & Output 08/12/24 08/13/24 08/14/24 08/15/24 05:59 05:59 05:59 05:59 Intake Total 3495 / 3495 4650 / 4650 2737 / 2737 1000 / 1000 Output Total 1600 / 1600 4200 / 4200 5315 / 5315 1675 / 1675 Balance 1895 / 1895 450 / 450 -2578 / -2578 -675 / -675 Objective General Appearance: positive No acute distress and Alert Eyes Bilateral: positive Normal inspection Neck: positive No JVD and Trachea midline Respiratory: positive No respiratory distress Cardiovascular: positive Regular rate & rhythm, No murmur and No gallop Abdomen: positive Other (s/p abd hernia surgery, day 4, abdominal binder) Extremities: positive Non-tender and Nml appearance (R knee pain) Neurologic/Psychiatric: positive Oriented x3 Lab Results 08/14/24 05:00 08/14/24 05:00 Other Labs: Lab Results x24hrs 08/14/24 08/14/24 08/14/24 Range/Units 08:35 05:55 05:15 WBC (4.8-10.8) x10^3/uL RBC (4.70-6.10) 10^6/uL Hgb (14.0-18.0) g/dL Hct (42.0-52.0) % MCV (80.0-94.0) fL MCH (27.0-31.0) pg MCHC (32.0-36.0) g/dL RDW (12.0-15.0) % Plt Count (130-450) 10^3/uL MPV (7.4-11.4) fL Neut # (Auto) (1.5-6.6) 10^3/uL Lymph # (Auto) (1.5-3.5) 10^3/uL [place] # (Auto) (0.0-1.0) 10^3/uL Eos # (Auto) (0.0-0.7) 10^3/uL Baso # (Auto) (0.0-0.1) 10^3/uL Absolute Nucleated RBC x10^3/uL Nucleated RBC % /100WBC VBG pH 7.544 H (7.31-7.41) Ionized Calcium 1.05 L (1.15-1.33) mmol/L Sodium (135-145) mmol/L Potassium (3.5-4.5) mmol/L Chloride (101-111) mmol/L Carbon Dioxide (21-32) mmol/L Anion Gap (6-13) BUN (6-20) mg/dL Creatinine (0.6-1.3) mg/dL Estimated GFR (MDRD) (>89) Glucose (74-104) mg/dL POC Whole Bld Glucose 144 (70-100) mg/dL Calcium (8.5-10.3) mg/dL Phosphorus 2.3 L (2.5-5.0) mg/dL Magnesium (1.7-2.3) mg/dL Total Bilirubin (0.2-1.0) mg/dL AST (10-42) IU/L ALT (10-60) IU/L Alkaline Phosphatase (42-121) IU/L Total Protein (6.4-8.9) g/dL Albumin (3.2-5.5) g/dL Globulin (2.1-4.2) g/dL Albumin/Globulin Ratio (1.0-2.2) 08/14/24 08/14/24 08/14/24 Range/Units 05:00 00:50 00:00 WBC 9.7 (4.8-10.8) x10^3/uL RBC 2.73 L (4.70-6.10) 10^6/uL Hgb 8.5 L (14.0-18.0) g/dL Hct 27.7 L (42.0-52.0) % MCV 101.5 H (80.0-94.0) fL MCH 31.1 H (27.0-31.0) pg MCHC 30.7 L (32.0-36.0) g/dL RDW 14.6 (12.0-15.0) % Plt Count 283 (130-450) 10^3/uL MPV 10.7 (7.4-11.4) fL Neut # (Auto) 7.6 H (1.5-6.6) 10^3/uL Lymph # (Auto) 1.0 L (1.5-3.5) 10^3/uL [place] # (Auto) 0.9 (0.0-1.0) 10^3/uL Eos # (Auto) 0.1 (0.0-0.7) 10^3/uL Baso # (Auto) 0.0 (0.0-0.1) 10^3/uL Absolute Nucleated RBC 0.00 x10^3/uL Nucleated RBC % 0.0 /100WBC VBG pH 7.491 H (7.31-7.41) Ionized Calcium 1.08 L (1.15-1.33) mmol/L Sodium 142 (135-145) mmol/L Potassium 3.6 3.6 (3.5-4.5) mmol/L Chloride 93 L (101-111) mmol/L Carbon Dioxide 45 H* (21-32) mmol/L Anion Gap 4.0 L (6-13) BUN 24 H (6-20) mg/dL Creatinine 1.1 (0.6-1.3) mg/dL Estimated GFR (MDRD) 64 L (>89) Glucose 192 H (74-104) mg/dL POC Whole Bld Glucose 145 (70-100) mg/dL Calcium 8.9 (8.5-10.3) mg/dL Phosphorus (2.5-5.0) mg/dL Magnesium 1.8 (1.7-2.3) mg/dL Total Bilirubin 0.3 (0.2-1.0) mg/dL AST 10 (10-42) IU/L ALT 5 L (10-60) IU/L Alkaline Phosphatase 68 (42-121) IU/L Total Protein 4.8 L (6.4-8.9) g/dL Albumin 2.3 L (3.2-5.5) g/dL Globulin 2.5 (2.1-4.2) g/dL Albumin/Globulin Ratio 0.9 L (1.0-2.2) 08/13/24 08/13/24 08/13/24 Range/Units 20:30 18:11 14:45 WBC (4.8-10.8) x10^3/uL RBC (4.70-6.10) 10^6/uL Hgb (14.0-18.0) g/dL Hct (42.0-52.0) % MCV (80.0-94.0) fL MCH (27.0-31.0) pg MCHC (32.0-36.0) g/dL RDW (12.0-15.0) % Plt Count (130-450) 10^3/uL MPV (7.4-11.4) fL Neut # (Auto) (1.5-6.6) 10^3/uL Lymph # (Auto) (1.5-3.5) 10^3/uL [place] # (Auto) (0.0-1.0) 10^3/uL Eos # (Auto) (0.0-0.7) 10^3/uL Baso # (Auto) (0.0-0.1) 10^3/uL Absolute Nucleated RBC x10^3/uL Nucleated RBC % /100WBC VBG pH 7.490 H 7.480 H (7.31-7.41) Ionized Calcium 1.07 L 1.07 L (1.15-1.33) mmol/L Sodium (135-145) mmol/L Potassium 3.5 3.4 L (3.5-4.5) mmol/L Chloride (101-111) mmol/L Carbon Dioxide (21-32) mmol/L Anion Gap (6-13) BUN (6-20) mg/dL Creatinine (0.6-1.3) mg/dL Estimated GFR (MDRD) (>89) Glucose (74-104) mg/dL POC Whole Bld Glucose 137 (70-100) mg/dL Calcium (8.5-10.3) mg/dL Phosphorus 2.6 (2.5-5.0) mg/dL Magnesium (1.7-2.3) mg/dL Total Bilirubin (0.2-1.0) mg/dL AST (10-42) IU/L ALT (10-60) IU/L Alkaline Phosphatase (42-121) IU/L Total Protein (6.4-8.9) g/dL Albumin (3.2-5.5) g/dL Globulin (2.1-4.2) g/dL Albumin/Globulin Ratio (1.0-2.2) 08/13/24 08/13/24 Range/Units 13:36 12:07 WBC (4.8-10.8) x10^3/uL RBC (4.70-6.10) 10^6/uL Hgb (14.0-18.0) g/dL Hct (42.0-52.0) % MCV (80.0-94.0) fL MCH (27.0-31.0) pg MCHC (32.0-36.0) g/dL RDW (12.0-15.0) % Plt Count (130-450) 10^3/uL MPV (7.4-11.4) fL Neut # (Auto) (1.5-6.6) 10^3/uL Lymph # (Auto) (1.5-3.5) 10^3/uL [place] # (Auto) (0.0-1.0) 10^3/uL Eos # (Auto) (0.0-0.7) 10^3/uL Baso # (Auto) (0.0-0.1) 10^3/uL Absolute Nucleated RBC x10^3/uL Nucleated RBC % /100WBC VBG pH (7.31-7.41) Ionized Calcium (1.15-1.33) mmol/L Sodium (135-145) mmol/L Potassium (3.5-4.5) mmol/L Chloride (101-111) mmol/L Carbon Dioxide (21-32) mmol/L Anion Gap (6-13) BUN (6-20) mg/dL Creatinine (0.6-1.3) mg/dL Estimated GFR (MDRD) (>89) Glucose (74-104) mg/dL POC Whole Bld Glucose 153 151 (70-100) mg/dL Calcium (8.5-10.3) mg/dL Phosphorus (2.5-5.0) mg/dL Magnesium (1.7-2.3) mg/dL Total Bilirubin (0.2-1.0) mg/dL AST (10-42) IU/L ALT (10-60) IU/L Alkaline Phosphatase (42-121) IU/L Total Protein (6.4-8.9) g/dL Albumin (3.2-5.5) g/dL Globulin (2.1-4.2) g/dL Albumin/Globulin Ratio (1.0-2.2) Assessment/Plan Problem List (1) SBO (small bowel obstruction): Impression: Postoperative day #4. Patient reports several bowel movements during the nighttime. NG tube was removed. Surgery continues to follow and will manage diet. Per surgery patient will be started on clear liquid diet. Patient has been off dopamine since yesterday afternoon. Continue Zosyn day 02/03. On DVT prophylaxis. (2) Leukocytosis: Impression: Resolved. Patient has been afebrile normal sinus rhythm lactic acid within normal range. Continue Zosyn, day 4. Laboratory Tests 08/08/24 08/08/24 08/09/24 13:00 19:07 06:04 WBC 16.3 H 13.7 H Lactic Acid 1.0 0.7 Qualifiers: Leukocytosis type: unspecified Qualified Code(s): D72.829 - Elevated white blood cell count, unspecified (3) Hypotension: Impression: Resolved Patient has been on dopamine now off since yesterday., Continue monitor For hypotension (4) Acute kidney injury: Impression: 2 Laboratory Tests Resolved, Creatinine back to baseline Continue IV fluids as needed, avoid nephrotoxic drugs.B (5) Hyperglycemia: Impression: Of little clinical significance in this 83-year-old male. A1c is acceptable. However, a goal of glucose less than 130 on a regular basis is what we look for in a patient who has been operated on. I will start him on sliding scale insulin to make sure I maintain good control. Laboratory Tests 08/08/24 Hemoglobin A1c % 6.1 H Today's glucose was 168, 159, 155, 122.Received 2 units for the 159, and 2 units for the 155. No insulin for the 122. Plan: No change in sliding scale dosing at this time (6) Osteoarthritis of left knee: Impression: exacerbating and remitting, but very lifestyle limiting. exam for 2 days shows a knee effusion. He is due to get a arthrocentesis and injection next Monday the . I do not know if he will be able to make that appointment. I will verify if his orthopedic surgeon is the local 1 and maybe he can come to a consult to the hospital. PT/OT has been ordered. Qualifiers: Osteoarthritis type: primary Qualified Code(s): M17.12 - Unilateral primary osteoarthritis, left knee (7) Cardiac pacemaker: Impression: This has been in place for about one year. he sees Dr Osbrone. no problems with this. (8) Hernia: Impression: See above, patient s/p surgery day 3.
--- NOTE | 2024-08-14 09:55 | PROVIDER PROGRESS NOTE ---
Subjective Prog Note Date Prog Note Date: 08/14/24 Prog Note Time: 09:55 Subjective Pt reports feeling: Improved (Patient has had multiple bowel movements.) Subjective: Patient states that he is having bowel movements that are liquid in nature. Decreased pressure in his abdomen. Current Medications Current Medications Current Medications: Current Medications Generic Name Dose Route Start Last Admin Trade Name Freq PRN Reason Stop Dose Admin Hydromorphone HCl 0.5 mg 08/10/24 20:07 08/12/24 16:27 Hydromorphone 0.5 Mg/0.5 Ml Syringe IVP 0.5 mg Q2H PRN Administration Severe Pain (Level 7-10) Piperacillin Sod/Tazobactam 100 mls @ 25 mls/hr 08/10/24 22:00 08/14/24 15:20 Sod 3.375 gm/ Sodium Chloride IV 25 mls/hr Q8HR INDU Administration Dopamine HCl/Dextrose 400 mg in 250 mls @ 10.125 mls/hr 08/11/24 11:00 08/13/24 14:39 Dopamine IV 0 mcg/kg/min .[id number] INDU 0 mls/hr Titration Protocol 2 MCG/KG/MIN Multivitamins 10 ml/ Zinc/ 2,011 mls @ 83 mls/hr 08/12/24 19:00 08/14/24 18:35 Copper/Manganese/Selenium 1 ml IV 83 mls/hr / Amino Ac/Electrol/Dextrose/ 1900 INDU Administration Calcium Protocol Fat Emulsion Intravenous 250 mls @ 21 mls/hr 08/12/24 19:00 08/14/24 18:35 Intralipid 20% IV 21 mls/hr 1900 INDU Administration Insulin Human Regular 2 - 10 unit 08/11/24 12:00 08/14/24 18:35 Insulin Regular, Human 300 Unit/3 Ml Pen SUBQ Not Given Q6HR INDU Protocol Ondansetron HCl 4 mg 08/10/24 20:07 Ondansetron 4 Mg/2 Ml Vial IVP Q6H PRN Nausea / Vomiting Pantoprazole Sodium 40 mg 08/13/24 12:00 08/14/24 06:14 Pantoprazole 40 Mg Tablet PO 40 mg QDAC INDU Administration Sodium Chloride 10 ml 08/11/24 01:00 08/14/24 18:34 Sodium Chloride Flush 0.9% 10 Ml Syringe IVP 10 ml 0100,0900,1700 INDU Administration Sodium Chloride 10 ml 08/10/24 20:07 08/13/24 04:55 Sodium Chloride Flush 0.9% 10 Ml Syringe IVP 10 ml PRN PRN Administration NEEDED PER PROVIDER ORDERS Throat Lozenges 1 lozenge 08/12/24 00:38 08/12/24 21:46 Benzocaine/Menthol Lozenge MM 1 lozenge Q2HR PRN Administration Throat pain Objective Vital Signs/Intake & Output Vital Signs: Vital Signs Temp Pulse Resp BP Pulse Ox O2 Flow Rate 08/14/24 17:00 37.6 C 78 30 H 138/71 H 96 4 08/14/24 16:00 37.6 C 78 30 H 138/71 H 96 4 08/14/24 15:00 77 20 138/71 H 97 Intake & Output: Intake & Output 08/12/24 08/13/24 08/14/24 08/15/24 05:59 05:59 05:59 05:59 Intake Total 3495 / 3495 4650 / 4650 2987 / 2987 4008 / 4008 Output Total 1600 / 1600 4200 / 4200 5315 / 5315 2220 / 2220 Balance 1895 / 1895 450 / 450 -2328 / -2328 1788 / 1788 Weight (kg) 147 kg Objective General Appearance: positive No acute distress and Alert ENT: positive No signs of dehydration Neck: positive Trachea midline; negative Carotid bruit or Tracheal deviation Respiratory: positive Chest non-tender, No respiratory distress and Breath sounds nml (Slightly decreased) Cardiovascular: positive Regular rate & rhythm Abdomen: positive Non-tender, No organomegaly, Nml bowel sounds and No distention; negative Guarding Skin: positive Color nml, Warm and Dry; negative Cyanosis or Diaphoresis Extremities: positive Non-tender; negative Bret's sign/cords Neurologic/Psychiatric: positive Oriented x3, Motor nml, Sensation nml and Mood/affect nml Lab Results 08/14/24 05:00 08/14/24 11:25 Other Labs: Lab Results x24hrs 08/14/24 08/14/24 08/14/24 Range/Units 18:26 11:39 11:25 WBC (4.8-10.8) x10^3/uL RBC (4.70-6.10) 10^6/uL Hgb (14.0-18.0) g/dL Hct (42.0-52.0) % MCV (80.0-94.0) fL MCH (27.0-31.0) pg MCHC (32.0-36.0) g/dL RDW (12.0-15.0) % Plt Count (130-450) 10^3/uL MPV (7.4-11.4) fL Neut # (Auto) (1.5-6.6) 10^3/uL Lymph # (Auto) (1.5-3.5) 10^3/uL [place] # (Auto) (0.0-1.0) 10^3/uL Eos # (Auto) (0.0-0.7) 10^3/uL Baso # (Auto) (0.0-0.1) 10^3/uL Absolute Nucleated RBC x10^3/uL Nucleated RBC % /100WBC VBG pH (7.31-7.41) Ionized Calcium (1.15-1.33) mmol/L Sodium (135-145) mmol/L Potassium 3.7 (3.5-4.5) mmol/L Chloride (101-111) mmol/L Carbon Dioxide (21-32) mmol/L Anion Gap (6-13) BUN (6-20) mg/dL Creatinine (0.6-1.3) mg/dL Estimated GFR (MDRD) (>89) Glucose (74-104) mg/dL POC Whole Bld Glucose 130 145 (70-100) mg/dL Calcium (8.5-10.3) mg/dL Phosphorus 2.7 (2.5-5.0) mg/dL Magnesium 1.9 (1.7-2.3) mg/dL Total Bilirubin (0.2-1.0) mg/dL AST (10-42) IU/L ALT (10-60) IU/L Alkaline Phosphatase (42-121) IU/L Total Protein (6.4-8.9) g/dL Albumin (3.2-5.5) g/dL Globulin (2.1-4.2) g/dL Albumin/Globulin Ratio (1.0-2.2) 08/14/24 08/14/24 08/14/24 Range/Units 08:35 05:55 05:15 WBC (4.8-10.8) x10^3/uL RBC (4.70-6.10) 10^6/uL Hgb (14.0-18.0) g/dL Hct (42.0-52.0) % MCV (80.0-94.0) fL MCH (27.0-31.0) pg MCHC (32.0-36.0) g/dL RDW (12.0-15.0) % Plt Count (130-450) 10^3/uL MPV (7.4-11.4) fL Neut # (Auto) (1.5-6.6) 10^3/uL Lymph # (Auto) (1.5-3.5) 10^3/uL [place] # (Auto) (0.0-1.0) 10^3/uL Eos # (Auto) (0.0-0.7) 10^3/uL Baso # (Auto) (0.0-0.1) 10^3/uL Absolute Nucleated RBC x10^3/uL Nucleated RBC % /100WBC VBG pH 7.544 H (7.31-7.41) Ionized Calcium 1.05 L (1.15-1.33) mmol/L Sodium (135-145) mmol/L Potassium (3.5-4.5) mmol/L Chloride (101-111) mmol/L Carbon Dioxide (21-32) mmol/L Anion Gap (6-13) BUN (6-20) mg/dL Creatinine (0.6-1.3) mg/dL Estimated GFR (MDRD) (>89) Glucose (74-104) mg/dL POC Whole Bld Glucose 144 (70-100) mg/dL Calcium (8.5-10.3) mg/dL Phosphorus 2.3 L (2.5-5.0) mg/dL Magnesium (1.7-2.3) mg/dL Total Bilirubin (0.2-1.0) mg/dL AST (10-42) IU/L ALT (10-60) IU/L Alkaline Phosphatase (42-121) IU/L Total Protein (6.4-8.9) g/dL Albumin (3.2-5.5) g/dL Globulin (2.1-4.2) g/dL Albumin/Globulin Ratio (1.0-2.2) 08/14/24 08/14/24 08/14/24 Range/Units 05:00 00:50 00:00 WBC 9.7 (4.8-10.8) x10^3/uL RBC 2.73 L (4.70-6.10) 10^6/uL Hgb 8.5 L (14.0-18.0) g/dL Hct 27.7 L (42.0-52.0) % MCV 101.5 H (80.0-94.0) fL MCH 31.1 H (27.0-31.0) pg MCHC 30.7 L (32.0-36.0) g/dL RDW 14.6 (12.0-15.0) % Plt Count 283 (130-450) 10^3/uL MPV 10.7 (7.4-11.4) fL Neut # (Auto) 7.6 H (1.5-6.6) 10^3/uL Lymph # (Auto) 1.0 L (1.5-3.5) 10^3/uL [place] # (Auto) 0.9 (0.0-1.0) 10^3/uL Eos # (Auto) 0.1 (0.0-0.7) 10^3/uL Baso # (Auto) 0.0 (0.0-0.1) 10^3/uL Absolute Nucleated RBC 0.00 x10^3/uL Nucleated RBC % 0.0 /100WBC VBG pH 7.491 H (7.31-7.41) Ionized Calcium 1.08 L (1.15-1.33) mmol/L Sodium 142 (135-145) mmol/L Potassium 3.6 3.6 (3.5-4.5) mmol/L Chloride 93 L (101-111) mmol/L Carbon Dioxide 45 H* (21-32) mmol/L Anion Gap 4.0 L (6-13) BUN 24 H (6-20) mg/dL Creatinine 1.1 (0.6-1.3) mg/dL Estimated GFR (MDRD) 64 L (>89) Glucose 192 H (74-104) mg/dL POC Whole Bld Glucose 145 (70-100) mg/dL Calcium 8.9 (8.5-10.3) mg/dL Phosphorus (2.5-5.0) mg/dL Magnesium 1.8 (1.7-2.3) mg/dL Total Bilirubin 0.3 (0.2-1.0) mg/dL AST 10 (10-42) IU/L ALT 5 L (10-60) IU/L Alkaline Phosphatase 68 (42-121) IU/L Total Protein 4.8 L (6.4-8.9) g/dL Albumin 2.3 L (3.2-5.5) g/dL Globulin 2.5 (2.1-4.2) g/dL Albumin/Globulin Ratio 0.9 L (1.0-2.2) 08/13/24 08/13/24 Range/Units 20:30 12:07 WBC (4.8-10.8) x10^3/uL RBC (4.70-6.10) 10^6/uL Hgb (14.0-18.0) g/dL Hct (42.0-52.0) % MCV (80.0-94.0) fL MCH (27.0-31.0) pg MCHC (32.0-36.0) g/dL RDW (12.0-15.0) % Plt Count (130-450) 10^3/uL MPV (7.4-11.4) fL Neut # (Auto) (1.5-6.6) 10^3/uL Lymph # (Auto) (1.5-3.5) 10^3/uL [place] # (Auto) (0.0-1.0) 10^3/uL Eos # (Auto) (0.0-0.7) 10^3/uL Baso # (Auto) (0.0-0.1) 10^3/uL Absolute Nucleated RBC x10^3/uL Nucleated RBC % /100WBC VBG pH 7.490 H (7.31-7.41) Ionized Calcium 1.07 L (1.15-1.33) mmol/L Sodium (135-145) mmol/L Potassium 3.5 (3.5-4.5) mmol/L Chloride (101-111) mmol/L Carbon Dioxide (21-32) mmol/L Anion Gap (6-13) BUN (6-20) mg/dL Creatinine (0.6-1.3) mg/dL Estimated GFR (MDRD) (>89) Glucose (74-104) mg/dL POC Whole Bld Glucose 151 (70-100) mg/dL Calcium (8.5-10.3) mg/dL Phosphorus (2.5-5.0) mg/dL Magnesium (1.7-2.3) mg/dL Total Bilirubin (0.2-1.0) mg/dL AST (10-42) IU/L ALT (10-60) IU/L Alkaline Phosphatase (42-121) IU/L Total Protein (6.4-8.9) g/dL Albumin (3.2-5.5) g/dL Globulin (2.1-4.2) g/dL Albumin/Globulin Ratio (1.0-2.2) ABX Reporting Has patient been on IV antibiotics over the past 48 hours?: Yes Assessment/Plan Problem List (1) SBO (small bowel obstruction): Impression: D4 s/p exploratory laparotomy with extensive lysis of adhesions, omentectomy, small bowel resection, circumcision, mesh closure of 2 of the largest hernias, drain placement posterior and anterior to the mesh 1) FEN Patient is currently receiving hyperalimentation. The patient has started having bowel function return and as such I removed his NG tube and start a clear liquid diet. We will see how the patient tolerates this and if he tolerates this well we will stop the hyperalimentation and start him on a general diet. 2) ID Patient is at risk for infection as he had a small bowel resection with spillage of succus entericus and placement of non-biologic mesh. Patient is to be maintained on Zosyn 3.375 g every 6 hours x [address] Drainage output is serosanguineous. This is the first day that his white blood cell count is normal. This is a good turn of events. No sepsis. D4/10 of Zosyn. 3) Hernia No sense in repeating what has already been stated in previous notes. However I again explained to the patient that he should wear his abdominal binder faithfully every single day for the rest of his life. 4) Circumcision Brady catheter in place. Still dealing with fluid and mobility issues. No current wound issues. 5) Activity I need more activity from PT and OT than what the patient currently has. His GI function should return relatively quickly and hopefully his infection/ID issues should resolve relatively quickly as well. His strength will take considerably longer to return and as such this patient requires aggressive PT and OT intervention. His strength and mobility will dictate where he can go following this hospitalization 6) Disposition Start the conversation with discharge planning although the patient is nowhere near ready for discharge the conversation should be started as to where he can go following this hospitalization. (2) Leukocytosis: Qualifiers: Leukocytosis type: unspecified Qualified Code(s): D72.829 - Elevated white blood cell count, unspecified (3) Hypotension: (4) Acute kidney injury: (5) Hyperglycemia: (6) Osteoarthritis of left knee: Qualifiers: Osteoarthritis type: primary Qualified Code(s): M17.12 - Unilateral primary osteoarthritis, left knee (7) Cardiac pacemaker: (8) Hernia:
[2024-08-14 12:03] LABS: MAGNESIUM 1.9 mg/dL (1.7-2.3); PHOSPHORUS 2.7 mg/dL (2.5-5.0); POTASSIUM 3.7 mmol/L (3.5-4.5)
[2024-08-14] MEDS: POTASSIUM CHLORIDE 20 MEQ TABLET PO ONE (15:20)
[2024-08-14] MEDS: POTASSIUM CHLOR 20 MEQ/100 ML 20 MEQ/100 ML BAG IV SCH (22:02)
[2024-08-15 04:50] LABS: CALCIUM, IONIZED 1.03 mmol/L (1.15-1.33); VBG PH 7.579 (7.31-7.41)
[2024-08-15 05:01] LABS: MAGNESIUM 1.8 mg/dL (1.7-2.3); PHOSPHORUS 2.6 mg/dL (2.5-5.0)
[2024-08-15 05:05] LABS: ALBUMIN 2.5 g/dL (3.2-5.5); BILIRUBIN,TOTAL 0.3 mg/dL (0.2-1.0); CALCIUM 8.6 mg/dL (8.5-10.3); POTASSIUM 3.9 mmol/L (3.5-4.5); TOTAL PROTEIN 5.1 g/dL (6.4-8.9)
--- NOTE | 2024-08-15 09:14 | PROVIDER PROGRESS NOTE ---
Subjective Prog Note Date Prog Note Date: 08/15/24 Prog Note Time: 09:12 Subjective Pt reports feeling: Improved Subjective: 08/13/2024: no overnight events, denies bowel movement or passing gas. No respiratory complaints. Feels that he could sit on edge of bed. 08/14/2024: Patient reports several bowel movements overnight, he is now off dopamine. Feels that he is progressing quite well. No respiratory complaints. 08/15/2024: Patient feels well, had a bowel movement this morning at 7 AM. Patient tolerating clear liquid diet. No respiratory complaints. Current Medications Current Medications Current Medications: Current Medications Generic Name Dose Route Start Last Admin Trade Name Freq PRN Reason Stop Dose Admin Hydromorphone HCl 0.5 mg 08/10/24 20:07 08/12/24 16:27 Hydromorphone 0.5 Mg/0.5 Ml Syringe IVP 0.5 mg Q2H PRN Administration Severe Pain (Level 7-10) Piperacillin Sod/Tazobactam 100 mls @ 25 mls/hr 08/10/24 22:00 08/15/24 06:36 Sod 3.375 gm/ Sodium Chloride IV 25 mls/hr Q8HR INDU Administration Multivitamins 10 ml/ Zinc/ 2,011 mls @ 83 mls/hr 08/12/24 19:00 08/14/24 18:35 Copper/Manganese/Selenium 1 ml IV 83 mls/hr / Amino Ac/Electrol/Dextrose/ 1900 INDU Administration Calcium Protocol Insulin Human Regular 2 - 10 unit 08/11/24 12:00 08/15/24 05:39 Insulin Regular, Human 300 Unit/3 Ml Pen SUBQ Not Given Q6HR INDU Protocol Ondansetron HCl 4 mg 08/10/24 20:07 Ondansetron 4 Mg/2 Ml Vial IVP Q6H PRN Nausea / Vomiting Pantoprazole Sodium 40 mg 08/13/24 12:00 08/15/24 06:11 Pantoprazole 40 Mg Tablet PO 40 mg QDAC INDU Administration Sodium Chloride 10 ml 08/11/24 01:00 08/15/24 02:25 Sodium Chloride Flush 0.9% 10 Ml Syringe IVP 10 ml 0100,0900,1700 INDU Administration Sodium Chloride 10 ml 08/10/24 20:07 08/13/24 04:55 Sodium Chloride Flush 0.9% 10 Ml Syringe IVP 10 ml PRN PRN Administration NEEDED PER PROVIDER ORDERS Throat Lozenges 1 lozenge 08/12/24 00:38 08/12/24 21:46 Benzocaine/Menthol Lozenge MM 1 lozenge Q2HR PRN Administration Throat pain Objective Vital Signs/Intake & Output Reviewed Vital Signs: Yes Vital Signs: Vital Signs x48h Temp Pulse Resp BP Pulse Ox O2 Flow Rate 08/15/24 08:00 36.9 C 69 33 H 106/47 L 96 2 08/15/24 07:25 2 08/15/24 07:00 63 25 H 125/67 96 2 08/15/24 06:00 69 20 115/71 98 2 08/15/24 05:00 66 27 H 108/54 L 96 2 08/15/24 04:00 64 28 H 119/84 96 2 08/15/24 03:00 68 19 111/59 L 93 2 08/15/24 02:59 2 08/15/24 02:00 67 20 100/72 96 2 Intake & Output: Intake & Output 08/13/24 08/14/24 08/15/24 08/16/24 05:59 05:59 05:59 05:59 Intake Total 4650 / 4650 2987 / 2987 4408 / 4408 250 / 250 Output Total 4200 / 4200 5315 / 5315 2830 / 2830 200 / 200 Balance 450 / 450 -2328 / -2328 1578 / 1578 50 / 50 Weight (kg) 147 kg Objective General Appearance: positive No acute distress and Alert Eyes Bilateral: positive Normal inspection Neck: positive No JVD and Trachea midline Respiratory: positive No respiratory distress Cardiovascular: positive Regular rate & rhythm, No murmur and No gallop Abdomen: positive Other (s/p abd hernia surgery, day 4, abdominal binder) Extremities: positive Non-tender and Nml appearance (R knee pain) Neurologic/Psychiatric: positive Oriented x3 Lab Results 08/14/24 05:00 08/15/24 04:21 Other Labs: Lab Results x24hrs 08/15/24 08/14/24 08/14/24 Range/Units 04:21 23:20 18:26 VBG pH 7.579 H (7.31-7.41) Ionized Calcium 1.03 L (1.15-1.33) mmol/L Sodium 138 (135-145) mmol/L Potassium 3.9 (3.5-4.5) mmol/L Chloride 96 L (101-111) mmol/L Carbon Dioxide 39 H* (21-32) mmol/L Anion Gap 3.0 L (6-13) BUN 25 H (6-20) mg/dL Creatinine 1.0 (0.6-1.3) mg/dL Estimated GFR (MDRD) 71 L (>89) Glucose 127 H (74-104) mg/dL POC Whole Bld Glucose 86 130 (70-100) mg/dL Calcium 8.6 (8.5-10.3) mg/dL Phosphorus 2.6 (2.5-5.0) mg/dL Magnesium 1.8 (1.7-2.3) mg/dL Total Bilirubin 0.3 (0.2-1.0) mg/dL AST 17 (10-42) IU/L ALT 8 L (10-60) IU/L Alkaline Phosphatase 70 (42-121) IU/L Total Protein 5.1 L (6.4-8.9) g/dL Albumin 2.5 L (3.2-5.5) g/dL Globulin 2.6 (2.1-4.2) g/dL Albumin/Globulin Ratio 1.0 (1.0-2.2) Prealbumin 12 L (17-34) mg/dL Triglycerides 148 mg/dL 08/14/24 08/14/24 08/14/24 Range/Units 18:12 11:39 11:25 VBG pH (7.31-7.41) Ionized Calcium (1.15-1.33) mmol/L Sodium (135-145) mmol/L Potassium 3.1 L 3.7 (3.5-4.5) mmol/L Chloride (101-111) mmol/L Carbon Dioxide (21-32) mmol/L Anion Gap (6-13) BUN (6-20) mg/dL Creatinine (0.6-1.3) mg/dL Estimated GFR (MDRD) (>89) Glucose (74-104) mg/dL POC Whole Bld Glucose 145 (70-100) mg/dL Calcium (8.5-10.3) mg/dL Phosphorus 2.7 (2.5-5.0) mg/dL Magnesium 1.9 (1.7-2.3) mg/dL Total Bilirubin (0.2-1.0) mg/dL AST (10-42) IU/L ALT (10-60) IU/L Alkaline Phosphatase (42-121) IU/L Total Protein (6.4-8.9) g/dL Albumin (3.2-5.5) g/dL Globulin (2.1-4.2) g/dL Albumin/Globulin Ratio (1.0-2.2) Prealbumin (17-34) mg/dL Triglycerides mg/dL Assessment/Plan Problem List (1) SBO (small bowel obstruction): Impression: Postoperative day #5 Continue Zosyn today 03/08 Patient reports several bowel movements during the nighttime. NG tube was removed By surgery. Surgery continues to follow and will manage diet. Currently patient is on clear liquid diet which he tolerated nicely. Stop TPN. Patient has been off dopamine since yesterday afternoon. On DVT prophylaxis. (2) Leukocytosis: Impression: Resolved. Patient has been afebrile normal sinus rhythm lactic acid within normal range. Continue Zosyn, day 4. Laboratory Tests 08/08/24 08/08/24 08/09/24 13:00 19:07 06:04 WBC 16.3 H 13.7 H Lactic Acid 1.0 0.7 Qualifiers: Leukocytosis type: unspecified Qualified Code(s): D72.829 - Elevated white blood cell count, unspecified (3) Hypotension: Impression: Resolved Patient has been on dopamine now off since yesterday., Continue monitor For hypotension (4) Acute kidney injury: Impression: 2 Laboratory Tests Resolved, Creatinine back to baseline Continue IV fluids as needed, avoid nephrotoxic drugs.B (5) Hyperglycemia: Impression: Of little clinical significance in this 83-year-old male. A1c is acceptable. However, a goal of glucose less than 130 on a regular basis is what we look for in a patient who has been operated on. I will start him on sliding scale insulin to make sure I maintain good control. Laboratory Tests 08/08/24 Hemoglobin A1c % 6.1 H Today's glucose was 168, 159, 155, 122.Received 2 units for the 159, and 2 units for the 155. No insulin for the 122. Plan: No change in sliding scale dosing at this time (6) Osteoarthritis of left knee: Impression: exacerbating and remitting, but very lifestyle limiting. exam for 2 days shows a knee effusion. He is due to get a arthrocentesis and injection next Monday the . I do not know if he will be able to make that appointment. I will verify if his orthopedic surgeon is the local 1 and maybe he can come to a consult to the hospital. PT/OT has been ordered. Qualifiers: Osteoarthritis type: primary Qualified Code(s): M17.12 - Unilateral primary osteoarthritis, left knee (7) Cardiac pacemaker: Impression: This has been in place for about one year. he sees Dr Osborne. no problems with this. (8) Hernia: Impression: See above, patient s/p surgery day 3.
--- NOTE | 2024-08-15 13:34 | PROVIDER PROGRESS NOTE ---
Subjective General Admit Date: 08/08/24 Procedure Date: 08/10/24 Post Op Days: 5 Procedure Performed: Exploratory laparotomy with extensive lysis of adhesions (CPT 81745), circu Wound Assessment Wound/Incisions: positive Dressing dry and intact Drain Type: Two 19 Fr Olvin drains one anterior to the mesh and one posterior to the me Drain Output Description: Serosanguinous Review of Systems Constitutional Reports: Fatigue and Weakness; Denies: Fever, Chills or Malaise Eyes Denies: Pain or Irritation Ears, nose, mouth, and throat Denies: Ear pain, Ear discharge or Throat swelling Cardiovascular Reports: shortness of breath with exertion; Denies: chest pain or palpitations Respiratory Reports: Shortness of breath; Denies: Wheezing Gastrointestinal Denies: Abdominal pain, Nausea or Vomiting Musculoskeletal Reports: Joint pain and Muscle weakness Neurological Reports: General weakness; Denies: Headache Endocrine Reports: Fatigue Allergic/Immunologic Denies: Hives, Throat swelling, Tongue swelling, Facial swelling, Wheezing, Itchy eyes or Food intolerance Exam Exam Vital Signs Temperature 36.9 C 08/15/24 08:00 Pulse Rate 60 08/15/24 11:00 Respiratory Rate 26 H 08/15/24 11:00 Blood Pressure 109/48 L 08/15/24 11:00 O2 Saturation 94 08/15/24 11:00 If not protocol: Oxygen Flow, liters/minute 2 08/15/24 11:00 Constitutional normal general appearance and no apparent distress HENMT normocephalic and hearing grossly normal bilaterally Eyes conjunctivae normal and no scleral icterus Neck/C-Spine trachea midline Respiratory breath sounds equal bilaterally, normal respiratory effort (slightly decreased), clear to auscultation bilaterally and no wheezes Cardiovascular normal heart rate noted Gastrointestinal normoactive bowel sounds Abdominal binder in place. Silver impregnated dressing in place. Drain output is serosanguinous. Extremities no tenderness Neurology no focal motor deficit noted, no sensory deficits noted, gait normal (Not evaluated.) and speech normal Psychiatry mental status grossly normal, oriented x3, thought process normal, cooperative, affect normal and memory normal Skin skin color normal and no rash ABX Reporting Has patient been on IV antibiotics over the past 48 hours?: Yes Impression/Plan Problem List (1) SBO (small bowel obstruction): Plan: D5 s/p exploratory laparotomy with extensive lysis of adhesions, omentectomy, small bowel resection, circumcision, mesh closure of 2 of the largest hernias, drain placement posterior and anterior to the mesh 1) FEN Stop hyperalimentation and start regular diet with protein supplementation. I have discussed this with our hog feeder and we are in agreement. 2) ID Patient is at risk for infection as he had a small bowel resection with spillage of succus entericus and placement of non-biologic mesh. Patient is to be maintained on Zosyn 3.375 g every 6 hours x [address] Drainage output is serosanguineous. I did not repeat his CBC today but there is no evidence of infection currently. Again this patient is at significant risk for intra-abdominal infection as well as infection of the mesh. Let me be clear that should the mesh become infected the patient would need to be transferred to a higher level of care to have the mesh removed and a biologic mesh implanted. We should not compromise his antibiotic coverage. No sepsis. D5/10 of Zosyn. I will remove his dressing tomorrow and redress it. 3) Hernia No sense in repeating what has already been stated in previous notes. However I again explained to the patient that he should wear his abdominal binder faithfully every single day for the rest of his life. I reiterated this today again with the patient. 4) Circumcision Brady catheter in place. Still dealing with fluid and mobility issues. No current wound issues. 5) Activity Now with the patient transferred to the floor I want at least twice daily intensive PT and OT intervention. I would appreciate even more than twice daily since getting his strength back he is going to be chang. He had mobility issues even prior to coming into the hospital. This should start today with having the patient's stand and see what his stamina is. 6) Disposition Start the conversation with discharge planning although the patient is nowhere near ready for discharge the conversation should be started as to where he can go following this hospitalization. (2) Leukocytosis: Qualifiers: Leukocytosis type: unspecified Qualified Code(s): D72.829 - Elevated white blood cell count, unspecified (3) Hypotension: (4) Acute kidney injury: (5) Hyperglycemia: (6) Osteoarthritis of left knee: Qualifiers: Osteoarthritis type: primary Qualified Code(s): M17.12 - Unilateral primary osteoarthritis, left knee (7) Cardiac pacemaker: (8) Hernia: Plan pt with - - sbo abd pain + nausea and constipation for nearly a month h/o hernia, likely contributory gen surg on case, NGT placement ordered for decompressive relief - hernia unable to be reduced in the ER no ischemia noted on imaging, lactic acid wnl likely contributory to above - nereyda exacerbated d/t above --> decreased po intake, pre-renal azotemia ivf started, check renal sono f/u labs, cultures, replete electrolytes further orders per clinical course and surgical recommendations
--- NOTE | 2024-08-15 14:11 | OPERATIVE REPORT ---
Operative Report General Admit Date: 08/08/24 Procedure Data: Operation Date: 08/10/24 13:00 Proposed Procedures p Exploratory Laparotomy(Not Applicable) - Agus Fofana MD Actual Procedures p Exploratory Laparotomy with extensive lysis of adhesions, small bowel resection, omentectomy, and placement of mesh and drains(Not Applicable) - Agus Fofana MD s Circumcision(Not Applicable) - Agus Fofana MD Pre-Op Diagnosis: Incarcerated incisional hernias Anesthesia Type General Case Staff Anesthesia Provider: Edna Beckford Assisting Provider: Agnes Jacinto Times Into Recovery: 08/10/24 18:36 Procedure Start: 08/10/24 13:35 Procedure End: 08/10/24 18:09 Time out: 08/10/24 13:[address]TRAL [employer]IGHT ST MESH 8X10 Tourniquet Tourniquet #: Tourniquet Site Padding: Pressure: Applied by: Time up #1: Time Down #1: Time Up #2: Time Down #2: Other Other Information/Narrative: Patient Name: Agus Horta Patient birthdate: [] Patent MR number: [] Date of procedure: [] Preoperative Diagnosis/Indications: [] Postoperative Diagnosis: [] Procedure: [] CPT [] Fluids: [] EBL: [] Urine output: [] Drains: [] Findings: [] Complications: [] Surgeon/Dictated by: Agus Fofana MD Boots And Shoes Supervisor: N/A Ductfixing Plumber: [] Anesthesia type: [] Procedure: After verbal and written informed consent was obtained detailing the operation, the alternatives the operation including no operation, risks of infection, bleeding requiring transfusion with its risks, nerve injury, and and after I met with the patient confirming the surgery and the site of surgery, the patient was brought to the operative suite and placed supine on the operating table. Great care was taken to avoid pressure points to prevent pressure necrosis or nerve injury. Monitoring devices were applied along with TEDs and pneumatic compression stockings (to prevent DVT). An intravenous line was started and anesthesia was maintained throughout the case. The patient was monitored for cardiac, blood pressure, and oxygen saturation continuously. The patient received preoperative antibiotics for surgical prophylaxis. [Ductfixing Plumber] sedated and anesthetized the patient for the entire procedure. The patient was prepped and draped in the usual sterile manner. With the patient draped my initials were clearly visible. A "time in" then confirmed that the patient was identified with 3 identifiers (name, date, and medical record number), the history and physical was updated and in the chart, the signed consent confirming the procedure was in the chart, the patient was in the correct position, the aforementioned prophylactic measures were in place or given, we had the correct personnel and equipment to complete the procedure and that anesthesia and the surgical team were given an opportunity to express any concerns. With the agreement of everyone in the room we proceeded with the operation. [] At this point a "timeout" was performed that confirmed that all counts were correct, the procedure that was performed, the blood loss, the IV fluids administered, the patient's condition and any concerns of the operating team had. Having tolerated the procedure well, the patient was extubated and taken to PACU in good and stable condition. The plan is for outpatient discharge when the patient is adequately recovered. A follow-up appointment was scheduled, routine post-op medications prescribed, and post-op instructions given to the responsible libertarian. Disposition: The patient was released to return home in satisfactory condition. Today's documentation has been created with the assistance of voice recognition software. Therefore, it may contain anomalous punctuation, anomalous independent mis-recognitions, word substitutions, insertions or omissions. Occasional wrong-word or phonetically similar substitutions may also occur all due to the inherent limitations of voice recognition software. I have attempted to correct the above but I recommend that the chart be read carefully to recognize, using context, where the substitutions, insertions or omissions may have occurred.
[2024-08-16 06:38] LABS: BASOPHILS % (AUTO) 0.2 %; EOSINOPHILS # (AUTO) 0.3 10^3/uL (0.0-0.7); EOSINOPHILS % (AUTO) 2.6 %; HGB - HEMOGLOBIN 8.1 g/dL (14.0-18.0); LYMPHOCYTES # (AUTO) 1.3 10^3/uL (1.5-3.5); LYMPHOCYTES % (AUTO) 12.8 %; MEAN CORPUSCULAR HEMOGLOBIN 30.8 pg (27.0-31.0); MEAN CORPUSCULAR VOLUME 102.7 fL (80.0-94.0); MEAN PLATELET VOLUME 10.3 fL (7.4-11.4); MONOCYTES % (AUTO) 10.3 %; NEUTROPHILS # (AUTO) 7.1 10^3/uL (1.5-6.6); NEUTROPHILS % (AUTO) 72.5 %; PLT - PLATELET COUNT 285 10^3/uL (130-450); RED BLOOD COUNT 2.63 10^6/uL (4.70-6.10); RED CELL DISTRIBUTION WIDTH 14.3 % (12.0-15.0); WHITE BLOOD COUNT 9.8 x10^3/uL (4.8-10.8)
[2024-08-16 07:13] LABS: ALBUMIN 2.6 g/dL (3.2-5.5); BILIRUBIN,TOTAL 0.3 mg/dL (0.2-1.0); CALCIUM 8.5 mg/dL (8.5-10.3); POTASSIUM 3.9 mmol/L (3.5-4.5); TOTAL PROTEIN 5.1 g/dL (6.4-8.9)
--- NOTE | 2024-08-16 08:55 | PROVIDER PROGRESS NOTE ---
Subjective Prog Note Date Prog Note Date: 08/16/24 Prog Note Time: 08:51 Subjective Pt reports feeling: Improved Subjective: 08/13/2024: no overnight events, denies bowel movement or passing gas. No respiratory complaints. Feels that he could sit on edge of bed. 08/14/2024: Patient reports several bowel movements overnight, he is now off dopamine. Feels that he is progressing quite well. No respiratory complaints. 08/15/2024: Patient feels well, had a bowel movement this morning at 7 AM. Patient tolerating clear liquid diet. No respiratory complaints. 08/16/2024: Patient doing well. Participating in physical therapy. Patient has no complaints. Current Medications Current Medications Current Medications: Current Medications Generic Name Dose Route Start Last Admin Trade Name Freq PRN Reason Stop Dose Admin Hydromorphone HCl 0.5 mg 08/10/24 20:07 08/12/24 16:27 Hydromorphone 0.5 Mg/0.5 Ml Syringe IVP 0.5 mg Q2H PRN Administration Severe Pain (Level 7-10) Piperacillin Sod/Tazobactam 100 mls @ 25 mls/hr 08/10/24 22:00 08/16/24 06:16 Sod 3.375 gm/ Sodium Chloride IV 25 mls/hr Q8HR INDU Administration Ondansetron HCl 4 mg 08/10/24 20:07 Ondansetron 4 Mg/2 Ml Vial IVP Q6H PRN Nausea / Vomiting Pantoprazole Sodium 40 mg 08/13/24 12:00 08/16/24 06:08 Pantoprazole 40 Mg Tablet PO 40 mg QDAC INDU Administration Sodium Chloride 10 ml 08/11/24 01:00 08/16/24 07:35 Sodium Chloride Flush 0.9% 10 Ml Syringe IVP 10 ml 0100,0900,1700 INDU Administration Sodium Chloride 10 ml 08/10/24 20:07 08/13/24 04:55 Sodium Chloride Flush 0.9% 10 Ml Syringe IVP 10 ml PRN PRN Administration NEEDED PER PROVIDER ORDERS Throat Lozenges 1 lozenge 08/12/24 00:38 08/12/24 21:46 Benzocaine/Menthol Lozenge MM 1 lozenge Q2HR PRN Administration Throat pain Objective Vital Signs/Intake & Output Reviewed Vital Signs: Yes Vital Signs: Vital Signs x48h Temp Pulse Pulse Resp BP Pulse Ox O2 Flow Rate 08/16/24 08:18 36.9 C 72 20 139/72 H 95 2 08/16/24 06:05 36.8 C 69 22 127/57 L 95 2 Intake & Output: Intake & Output 08/14/24 08/15/24 08/16/24 08/17/24 05:59 05:59 05:59 05:59 Intake Total 2987 / 2987 4408 / 4408 2758 / 2758 120 / 120 Output Total 5315 / 5315 2830 / 2830 1164 / 1164 575 / 575 Balance -2328 / -2328 1578 / 1578 1594 / 1594 -455 / -455 Weight (kg) 147 kg 146 kg Objective General Appearance: positive No acute distress and Alert Eyes Bilateral: positive Normal inspection Neck: positive No JVD and Trachea midline Respiratory: positive No respiratory distress Cardiovascular: positive Regular rate & rhythm, No murmur and No gallop Abdomen: positive Other (s/p abd hernia surgery, day 4, abdominal binder) Extremities: positive Non-tender and Nml appearance (R knee pain) Neurologic/Psychiatric: positive Oriented x3 Lab Results 08/16/24 06:25 08/16/24 06:25 Other Labs: Lab Results x24hrs 08/16/24 08/15/24 Range/Units 06:25 11:58 WBC 9.8 (4.8-10.8) x10^3/uL RBC 2.63 L (4.70-6.10) 10^6/uL Hgb 8.1 L (14.0-18.0) g/dL Hct 27.0 L (42.0-52.0) % MCV 102.7 H (80.0-94.0) fL MCH 30.8 (27.0-31.0) pg MCHC 30.0 L (32.0-36.0) g/dL RDW 14.3 (12.0-15.0) % Plt Count 285 (130-450) 10^3/uL MPV 10.3 (7.4-11.4) fL Neut # (Auto) 7.1 H (1.5-6.6) 10^3/uL Lymph # (Auto) 1.3 L (1.5-3.5) 10^3/uL [place] # (Auto) 1.0 (0.0-1.0) 10^3/uL Eos # (Auto) 0.3 (0.0-0.7) 10^3/uL Baso # (Auto) 0.0 (0.0-0.1) 10^3/uL Absolute Nucleated RBC 0.00 x10^3/uL Nucleated RBC % 0.0 /100WBC Sodium 138 (135-145) mmol/L Potassium 3.9 (3.5-4.5) mmol/L Chloride 97 L (101-111) mmol/L Carbon Dioxide 38 H (21-32) mmol/L Anion Gap 3.0 L (6-13) BUN 25 H (6-20) mg/dL Creatinine 1.0 (0.6-1.3) mg/dL Estimated GFR (MDRD) 71 L (>89) Glucose 95 (74-104) mg/dL POC Whole Bld Glucose 115 (70-100) mg/dL Calcium 8.5 (8.5-10.3) mg/dL Total Bilirubin 0.3 (0.2-1.0) mg/dL AST 23 (10-42) IU/L ALT 13 (10-60) IU/L Alkaline Phosphatase 91 (42-121) IU/L Total Protein 5.1 L (6.4-8.9) g/dL Albumin 2.6 L (3.2-5.5) g/dL Globulin 2.5 (2.1-4.2) g/dL Albumin/Globulin Ratio 1.0 (1.0-2.2) Assessment/Plan Problem List (1) SBO (small bowel obstruction): Impression: Postoperative day #6 Continue Zosyn today 05/08 Per surgery Patient tolerating oral diet managed by surgery. Patient still has abdominal binder which is dry and clean. This is managed by surgery. On DVT prophylaxis. (2) Leukocytosis: Impression: Resolved. Patient has been afebrile normal sinus rhythm lactic acid within normal range. Continue Zosyn, day 4. Laboratory Tests 08/08/24 08/08/24 08/09/24 13:00 19:07 06:04 WBC 16.3 H 13.7 H Lactic Acid 1.0 0.7 Qualifiers: Leukocytosis type: unspecified Qualified Code(s): D72.829 - Elevated white blood cell count, unspecified (3) Hypotension: Impression: Resolved Patient has been on dopamine now off since 08/13/2024., Continue monitor For hypotension (4) Acute kidney injury: Impression: 2 Laboratory Tests Resolved, Creatinine back to baseline Continue IV fluids as needed, avoid nephrotoxic drugs.B (5) Hyperglycemia: Impression: Of little clinical significance in this 83-year-old male. A1c is acceptable. However, a goal of glucose less than 130 on a regular basis is what we look for in a patient who has been operated on. I will start him on sliding scale insulin to make sure I maintain good control. Laboratory Tests 08/08/24 Hemoglobin A1c % 6.1 H Today's glucose was 168, 159, 155, 122.Received 2 units for the 159, and 2 units for the 155. No insulin for the 122. Plan: No change in sliding scale dosing at this time (6) Osteoarthritis of left knee: Impression: Patient continues to participate in PT as tolerated. He is quite motivated. Patient will go to his previous PT rehab facility upon discharge. Will continue PT. PT/OT has been ordered. Qualifiers: Osteoarthritis type: primary Qualified Code(s): M17.12 - Unilateral primary osteoarthritis, left knee (7) Cardiac pacemaker: Impression: This has been in place for about one year. he sees Dr Osborne. no problems with this. (8) Hernia: Impression: See above, patient s/p surgery day 3.
[2024-08-16] MEDS: MULTIVITAMIN W/MINERALS TABLET PO SCH (12:46)
[2024-08-16] MEDS ORDERED: CAPSAICIN TOP PRN (14:12)
[2024-08-16] MEDS: MELATONIN 3 MG TABLET PO SCH (21:05)
[2024-08-16] MEDS: AMITRIPTYLINE 25 MG TABLET PO SCH (21:05)
[2024-08-17 06:25] LABS: BASOPHILS % (AUTO) 0.5 %; EOSINOPHILS # (AUTO) 0.2 10^3/uL (0.0-0.7); EOSINOPHILS % (AUTO) 2.6 %; HCT - HEMATOCRIT 26.5 % (42.0-52.0); HGB - HEMOGLOBIN 8.2 g/dL (14.0-18.0); LYMPHOCYTES # (AUTO) 1.1 10^3/uL (1.5-3.5); LYMPHOCYTES % (AUTO) 12.4 %; MEAN CORPUSCULAR HEMOGLOBIN 31.5 pg (27.0-31.0); MEAN CORPUSCULAR HGB CONC 30.9 g/dL (32.0-36.0); MEAN CORPUSCULAR VOLUME 101.9 fL (80.0-94.0); MEAN PLATELET VOLUME 10.2 fL (7.4-11.4); MONOCYTES # (AUTO) 1.2 10^3/uL (0.0-1.0); MONOCYTES % (AUTO) 13.9 %; NEUTROPHILS # (AUTO) 5.9 10^3/uL (1.5-6.6); NEUTROPHILS % (AUTO) 68.6 %; PLT - PLATELET COUNT 289 10^3/uL (130-450); RED CELL DISTRIBUTION WIDTH 14.2 % (12.0-15.0); WHITE BLOOD COUNT 8.6 x10^3/uL (4.8-10.8)
[2024-08-17 06:41] LABS: ALBUMIN 2.5 g/dL (3.2-5.5); ALKALINE PHOSPHATASE 101 IU/L (42-121); ALT ALANINE AMINOTRANSFERASE 22 IU/L (10-60); AST ASPARTATE AMINOTRANSFERASE 29 IU/L (10-42); BILIRUBIN,TOTAL 0.3 mg/dL (0.2-1.0); BUN - BLOOD UREA NITROGEN 23 mg/dL (6-20); CALCIUM 8.5 mg/dL (8.5-10.3); CARBON DIOXIDE - CO2 38 mmol/L (21-32); CHLORIDE 99 mmol/L (101-111); GFR - MDRD 71 (>89); GLUCOSE 119 mg/dL (74-104); IONIZED CALCIUM IF INDICATED NO; MAGNESIUM 1.7 mg/dL (1.7-2.3); PHOSPHORUS 2.6 mg/dL (2.5-5.0); PREALBUMIN 13 mg/dL (17-34); SODIUM 139 mmol/L (135-145); TOTAL PROTEIN 5.1 g/dL (6.4-8.9); TRIGLYCERIDES 99 mg/dL
[2024-08-17] MEDS ORDERED: [UNRECOGNIZED DRUG - OTHER] PO SCH (09:00)
[2024-08-17] MEDS ORDERED: CHOLECALCIFEROL PO SCH (09:00)
[2024-08-17] MEDS ORDERED: FATTY ACIDS PO SCH (09:00)
[2024-08-17] MEDS ORDERED: OMEGA PO SCH (09:00)
[2024-08-17] MEDS: ASCORBIC ACID 500 MG TABLET PO SCH (09:33)
[2024-08-17] MEDS: OMEGA-3 ACID ETHYL ESTERS 1 GM CAPSULE PO SCH (09:33)
[2024-08-17] MEDS: CHOLECALCIFEROL 25 MCG TABLET PO SCH (09:33)
[2024-08-17] MEDS: allopurinoL 100 MG TABLET PO SCH (09:33)
[2024-08-17] MEDS: amLODIPine 5 MG TABLET PO SCH (09:34)
[2024-08-17] MEDS: ASPIRIN EC 81 MG TABLET PO SCH (09:34)
--- NOTE | 2024-08-17 11:34 | PROVIDER PROGRESS NOTE ---
Subjective Prog Note Date Prog Note Date: 08/17/24 Prog Note Time: 11:30 Subjective Pt reports feeling: Improved Subjective: 08/13/2024: no overnight events, denies bowel movement or passing gas. No respiratory complaints. Feels that he could sit on edge of bed. 08/14/2024: Patient reports several bowel movements overnight, he is now off dopamine. Feels that he is progressing quite well. No respiratory complaints. 08/15/2024: Patient feels well, had a bowel movement this morning at 7 AM. Patient tolerating clear liquid diet. No respiratory complaints. 08/16/2024: Patient doing well. Participating in physical therapy. Patient has no complaints. 08/17/2024: Current Medications Current Medications Current Medications: Current Medications Generic Name Dose Route Start Last Admin Trade Name Freq PRN Reason Stop Dose Admin Allopurinol 100 mg 08/17/24 09:00 08/17/24 09:33 Allopurinol 100 Mg Tablet PO 100 mg DAILY INDU Administration Amitriptyline HCl 25 mg 08/16/24 21:00 08/16/24 21:05 Amitriptyline 25 Mg Tablet PO 25 mg HS INDU Administration Amlodipine Besylate 2.5 mg 08/17/24 09:00 08/17/24 09:34 Amlodipine 5 Mg Tablet PO 2.5 mg DAILY INDU Administration Ascorbic Acid 1,000 mg 08/17/24 09:00 08/17/24 09:33 Ascorbic Acid 500 Mg Tablet PO 1,000 mg DAILY INDU Administration Aspirin 81 mg 08/17/24 09:00 08/17/24 09:34 Aspirin Ec 81 Mg Tablet PO 81 mg DAILY INDU Administration Cholecalciferol 50 mcg 08/17/24 09:00 08/17/24 09:33 Cholecalciferol 25 Mcg Tablet PO 50 mcg DAILY INDU Administration Hydromorphone HCl 0.5 mg 08/10/24 20:07 08/16/24 13:45 Hydromorphone 0.5 Mg/0.5 Ml Syringe IVP 0.5 mg Q2H PRN Administration Severe Pain (Level 7-10) Piperacillin Sod/Tazobactam 100 mls @ 25 mls/hr 08/10/24 22:00 08/17/24 10:10 Sod 3.375 gm/ Sodium Chloride IV Infused Q8HR INDU Infusion Melatonin 3 mg 08/16/24 21:00 08/16/24 21:05 Melatonin 3 Mg Tablet PO 3 mg QPM INDU Administration Multivitamins/Minerals 1 tab 08/16/24 09:00 08/17/24 09:33 Multivitamin W/Minerals Tablet PO 1 tab DAILYWM INDU Administration [id number] Ethyl Esters 1 gm 08/17/24 09:00 08/17/24 09:33 [place]-3 Acid Ethyl Esters 1 Gm Capsule PO 1 gm DAILY INDU Administration Ondansetron HCl 4 mg 08/10/24 20:07 Ondansetron 4 Mg/2 Ml Vial IVP Q6H PRN Nausea / Vomiting Pantoprazole Sodium 40 mg 08/13/24 12:00 08/17/24 06:03 Pantoprazole 40 Mg Tablet PO 40 mg QDAC INDU Administration Capsaicin 42.5 Gm 1 each 08/16/24 14:12 Cream TOP PRN PRN Analgesia Sodium Chloride 10 ml 08/11/24 01:00 08/17/24 11:15 Sodium Chloride Flush 0.9% 10 Ml Syringe IVP 10 ml 0100,0900,1700 INDU Administration Sodium Chloride 10 ml 08/10/24 20:07 08/17/24 00:35 Sodium Chloride Flush 0.9% 10 Ml Syringe IVP 10 ml PRN PRN Administration NEEDED PER PROVIDER ORDERS Throat Lozenges 1 lozenge 08/12/24 00:38 08/12/24 21:46 Benzocaine/Menthol Lozenge MM 1 lozenge Q2HR PRN Administration Throat pain Objective Vital Signs/Intake & Output Reviewed Vital Signs: Yes Vital Signs: Vital Signs x48h Temp Pulse Resp BP Pulse Ox O2 Flow Rate 08/17/24 09:00 36.7 C 68 20 132/56 H 95 2.5 08/17/24 05:08 36.7 C 68 28 H 133/56 H 97 2.5 Intake & Output: Intake & Output 08/15/24 08/16/24 08/17/24 08/18/24 05:59 05:59 05:59 05:59 Intake Total 4408 / 4408 2758 / 2758 1080 / 1080 340 / 340 Output Total 2830 / 2830 1164 / 1164 1790 / 1790 Balance 1578 / 1578 1594 / 1594 -710 / -710 340 / 340 Weight (kg) 147 kg 146 kg 149 kg 152 kg Objective General Appearance: positive No acute distress and Alert Eyes Bilateral: positive Normal inspection Neck: positive No JVD and Trachea midline Respiratory: positive No respiratory distress Cardiovascular: positive Regular rate & rhythm, No murmur and No gallop Abdomen: positive Other (s/p abd hernia surgery, day 4, abdominal binder) Extremities: positive Non-tender and Nml appearance (R knee pain) Neurologic/Psychiatric: positive Oriented x3 Lab Results 08/17/24 06:12 08/17/24 06:12 Other Labs: Lab Results x24hrs 08/17/24 Range/Units 06:12 WBC 8.6 (4.8-10.8) x10^3/uL RBC 2.60 L (4.70-6.10) 10^6/uL Hgb 8.2 L (14.0-18.0) g/dL Hct 26.5 L (42.0-52.0) % MCV 101.9 H (80.0-94.0) fL MCH 31.5 H (27.0-31.0) pg MCHC 30.9 L (32.0-36.0) g/dL RDW 14.2 (12.0-15.0) % Plt Count 289 (130-450) 10^3/uL MPV 10.2 (7.4-11.4) fL Neut # (Auto) 5.9 (1.5-6.6) 10^3/uL Lymph # (Auto) 1.1 L (1.5-3.5) 10^3/uL [place] # (Auto) 1.2 H (0.0-1.0) 10^3/uL Eos # (Auto) 0.2 (0.0-0.7) 10^3/uL Baso # (Auto) 0.0 (0.0-0.1) 10^3/uL Absolute Nucleated RBC 0.00 x10^3/uL Nucleated RBC % 0.0 /100WBC Sodium 139 (135-145) mmol/L Potassium 4.0 (3.5-4.5) mmol/L Chloride 99 L (101-111) mmol/L Carbon Dioxide 38 H (21-32) mmol/L Anion Gap 2.0 L (6-13) BUN 23 H (6-20) mg/dL Creatinine 1.0 (0.6-1.3) mg/dL Estimated GFR (MDRD) 71 L (>89) Glucose 119 H (74-104) mg/dL Calcium 8.5 (8.5-10.3) mg/dL Ionized Calcium NO Phosphorus 2.6 (2.5-5.0) mg/dL Magnesium 1.7 (1.7-2.3) mg/dL Total Bilirubin 0.3 (0.2-1.0) mg/dL AST 29 (10-42) IU/L ALT 22 (10-60) IU/L Alkaline Phosphatase 101 (42-121) IU/L Total Protein 5.1 L (6.4-8.9) g/dL Albumin 2.5 L (3.2-5.5) g/dL Globulin 2.6 (2.1-4.2) g/dL Albumin/Globulin Ratio 1.0 (1.0-2.2) Prealbumin 13 L (17-34) mg/dL Triglycerides 99 mg/dL Assessment/Plan Problem List (1) SBO (small bowel obstruction): Impression: Postoperative day #7 Continue Zosyn today 8/10 Per surgery Patient tolerating oral diet managed by surgery. Patient still has abdominal binder which is dry and clean. This is managed by surgery. On DVT prophylaxis. (2) Leukocytosis: Impression: Resolved. Patient has been afebrile normal sinus rhythm lactic acid within normal range. Continue Zosyn, day 8. Laboratory Tests 08/08/24 08/08/24 08/09/24 13:00 19:07 06:04 WBC 16.3 H 13.7 H Lactic Acid 1.0 0.7 Qualifiers: Leukocytosis type: unspecified Qualified Code(s): D72.829 - Elevated white blood cell count, unspecified (3) Hypotension: Impression: Resolved Patient has been on dopamine now off since 08/13/2024., Continue monitor For hypotension (4) Acute kidney injury: Impression: 2 Laboratory Tests Resolved, Creatinine back to baseline Continue IV fluids as needed, avoid nephrotoxic drugs.B (5) Hyperglycemia: Impression: Of little clinical significance in this 83-year-old male. A1c is acceptable. However, a goal of glucose less than 130 on a regular basis is what we look for in a patient who has been operated on. I will start him on sliding scale insulin to make sure I maintain good control. Laboratory Tests 08/08/24 Hemoglobin A1c % 6.1 H Today's glucose was 168, 159, 155, 122.Received 2 units for the 159, and 2 units for the 155. No insulin for the 122. Plan: No change in sliding scale dosing at this time (6) Osteoarthritis of left knee: Impression: Patient continues to participate in PT as tolerated. He is quite motivated. Patient will go to his previous PT rehab facility upon discharge. Will continue PT. PT/OT has been ordered. Qualifiers: Osteoarthritis type: primary Qualified Code(s): M17.12 - Unilateral primary osteoarthritis, left knee (7) Cardiac pacemaker: Impression: This has been in place for about one year. he sees Dr Osborne. no problems with this. (8) Hernia: Impression: See above, patient s/p surgery day 7. (9) Circumcision complication: Impression: Circumcision done by surgery at admission Due to retraction of foreskin. Currently patient has a Brady, which had to be removed within a months by urology. Patient need to follow-up with urology within a month.
--- NOTE | 2024-08-17 12:32 | PROVIDER PROGRESS NOTE ---
Subjective General Admit Date: 08/08/24 Procedure Date: 08/10/24 Post Op Days: 7 Procedure Performed: Exploratory laparotomy with extensive lysis of adhesions (CPT 59132), circu Wound Assessment Wound/Incisions: positive Dressing dry and intact Drain Type: Two 19 Fr Olvin drains one anterior to the mesh and one posterior to the me Drain Output Description: Serosanguinous decreasing Review of Systems Constitutional Reports: Fatigue and Weakness; Denies: Fever, Chills or Malaise Eyes Denies: Pain or Irritation Ears, nose, mouth, and throat Denies: Ear pain, Ear discharge or Throat swelling Cardiovascular Reports: shortness of breath with exertion; Denies: chest pain or palpitations Respiratory Reports: Shortness of breath; Denies: Wheezing Gastrointestinal Denies: Abdominal pain, Nausea or Vomiting Musculoskeletal Reports: Joint pain and Muscle weakness Neurological Reports: General weakness; Denies: Headache Endocrine Reports: Fatigue Allergic/Immunologic Denies: Hives, Throat swelling, Tongue swelling, Facial swelling, Wheezing, Itchy eyes or Food intolerance Exam Exam Vital Signs Temperature 36.7 C 08/17/24 09:00 Pulse Rate 68 08/17/24 09:00 Respiratory Rate 20 08/17/24 09:00 Blood Pressure 132/56 H 08/17/24 09:00 O2 Saturation 95 08/17/24 09:00 If not protocol: Oxygen Flow, liters/minute 2.5 08/17/24 09:00 Constitutional normal general appearance and no apparent distress HENMT normocephalic, hearing grossly normal bilaterally and external ears normal Eyes conjunctivae normal and no scleral icterus Neck/C-Spine trachea midline Respiratory breath sounds equal bilaterally, normal respiratory effort (slightly decreased), clear to auscultation bilaterally and no wheezes Cardiovascular normal heart rate noted Gastrointestinal normoactive bowel sounds Abdominal binder in place. Silver impregnated dressing in place. Drain output is serosanguinous and markedly decreased. Genitourinary Incision well approximated and healing without infection. Extremities no tenderness Neurology no focal motor deficit noted, no sensory deficits noted, gait normal (Not evaluated.) and speech normal Psychiatry mental status grossly normal, oriented x3, thought process normal, cooperative, affect normal and memory normal Skin skin color normal and no rash ABX Reporting Has patient been on IV antibiotics over the past 48 hours?: Yes Impression/Plan Problem List (1) SBO (small bowel obstruction): Plan: D7 s/p exploratory laparotomy with extensive lysis of adhesions, omentectomy, small bowel resection, circumcision, mesh closure of 2 of the largest hernias, drain placement posterior and anterior to the mesh 1) FEN General diet and patient does not appear to be hypovolvemic or hypervolemic. 2) ID Patient is at risk for infection as he had a small bowel resection with spillage of succus entericus and placement of non-biologic mesh. Patient is to be maintained on Zosyn 3.375 g every 6 hours x [address] Drainage output is serosanguineous and markedly decreased. I did not repeat his CBC today but there is no evidence of infection currently. Again this patient is at significant risk for intra-abdominal infection as well as infection of the mesh. Let me be clear that should the mesh become infected the patient would need to be transferred to a higher level of care to have the mesh removed and a biologic mesh implanted. We should not compromise his antibiotic coverage. No sepsis. D7/10 of Zosyn. I will remove his dressing tomorrow and redress it. Will check his diarrhea for C diff. 3) Hernia No sense in repeating what has already been stated in previous notes. However I again explained to the patient that he should wear his abdominal binder faithfully every single day for the rest of his life. I reiterated this today again with the patient. 4) Circumcision Brady catheter in place. Still dealing with fluid and mobility issues. No current wound issues. Remove Brady tomorrow. 5) Activity PT intervention is the #1 priority now. 6) Disposition Plan is discharge early next week to rehab facility. Patient should complete antibiotics and have drains removed prior to discharge. (2) Leukocytosis: Qualifiers: Leukocytosis type: unspecified Qualified Code(s): D72.829 - Elevated white blood cell count, unspecified (3) Hypotension: (4) Acute kidney injury: (5) Hyperglycemia: (6) Osteoarthritis of left knee: Qualifiers: Osteoarthritis type: primary Qualified Code(s): M17.12 - Unilateral primary osteoarthritis, left knee (7) Cardiac pacemaker: (8) Hernia: (9) Circumcision complication: Plan pt with - - sbo abd pain + nausea and constipation for nearly a month h/o hernia, likely contributory gen surg on case, NGT placement ordered for decompressive relief - hernia unable to be reduced in the ER no ischemia noted on imaging, lactic acid wnl likely contributory to above - nereyda exacerbated d/t above --> decreased po intake, pre-renal azotemia ivf started, check renal sono f/u labs, cultures, replete electrolytes further orders per clinical course and surgical recommendations
[2024-08-18 05:34] LABS: BASOPHILS % (AUTO) 0.3 %; EOSINOPHILS # (AUTO) 0.2 10^3/uL (0.0-0.7); EOSINOPHILS % (AUTO) 1.8 %; HCT - HEMATOCRIT 27.4 % (42.0-52.0); HGB - HEMOGLOBIN 8.7 g/dL (14.0-18.0); LYMPHOCYTES # (AUTO) 1.4 10^3/uL (1.5-3.5); LYMPHOCYTES % (AUTO) 11.1 %; MEAN CORPUSCULAR HEMOGLOBIN 32.5 pg (27.0-31.0); MEAN CORPUSCULAR HGB CONC 31.8 g/dL (32.0-36.0); MEAN CORPUSCULAR VOLUME 102.2 fL (80.0-94.0); MEAN PLATELET VOLUME 10.7 fL (7.4-11.4); MONOCYTES # (AUTO) 1.3 10^3/uL (0.0-1.0); MONOCYTES % (AUTO) 10.4 %; NEUTROPHILS # (AUTO) 9.5 10^3/uL (1.5-6.6); NEUTROPHILS % (AUTO) 74.4 %; PLT - PLATELET COUNT 347 10^3/uL (130-450); RED BLOOD COUNT 2.68 10^6/uL (4.70-6.10); RED CELL DISTRIBUTION WIDTH 14.4 % (12.0-15.0); WHITE BLOOD COUNT 12.7 x10^3/uL (4.8-10.8)
[2024-08-18 05:43] LABS: CALCIUM 8.6 mg/dL (8.5-10.3); CREATININE 1.1 mg/dL (0.6-1.3)
--- NOTE | 2024-08-18 11:37 | PROVIDER PROGRESS NOTE ---
Subjective Prog Note Date Prog Note Date: 08/18/24 Prog Note Time: 11:28 Subjective Pt reports feeling: Improved Subjective: 08/13/2024: no overnight events, denies bowel movement or passing gas. No respiratory complaints. Feels that he could sit on edge of bed. 08/14/2024: Patient reports several bowel movements overnight, he is now off dopamine. Feels that he is progressing quite well. No respiratory complaints. 08/15/2024: Patient feels well, had a bowel movement this morning at 7 AM. Patient tolerating clear liquid diet. No respiratory complaints. 08/16/2024: Patient doing well. Participating in physical therapy. Patient has no complaints. 08/17/2024: Patient complains of diarrhea overnight. Otherwise he is doing well. 08/18/2024: Patient states that she has not slept well overnight. Patient had diarrhea x 6 yesterday on overnight. Patient said that has resolved. Patient denies pain or respiratory issues. Current Medications Current Medications Current Medications: Current Medications Generic Name Dose Route Start Last Admin Trade Name Freq PRN Reason Stop Dose Admin Allopurinol 100 mg 08/17/24 09:00 08/18/24 08:23 Allopurinol 100 Mg Tablet PO 100 mg DAILY INDU Administration Amitriptyline HCl 25 mg 08/16/24 21:00 08/17/24 21:07 Amitriptyline 25 Mg Tablet PO 25 mg HS INDU Administration Amlodipine Besylate 2.5 mg 08/17/24 09:00 08/18/24 08:23 Amlodipine 5 Mg Tablet PO 2.5 mg DAILY INDU Administration Ascorbic Acid 1,000 mg 08/17/24 09:00 08/18/24 08:23 Ascorbic Acid 500 Mg Tablet PO 1,000 mg DAILY INDU Administration Aspirin 81 mg 08/17/24 09:00 08/18/24 08:23 Aspirin Ec 81 Mg Tablet PO 81 mg DAILY INDU Administration Cholecalciferol 50 mcg 08/17/24 09:00 08/18/24 08:22 Cholecalciferol 25 Mcg Tablet PO 50 mcg DAILY INDU Administration Hydromorphone HCl 0.5 mg 08/10/24 20:07 08/16/24 13:45 Hydromorphone 0.5 Mg/0.5 Ml Syringe IVP 0.5 mg Q2H PRN Administration Severe Pain (Level 7-10) Piperacillin Sod/Tazobactam 100 mls @ 25 mls/hr 08/10/24 22:00 08/18/24 10:39 Sod 3.375 gm/ Sodium Chloride IV Infused Q8HR INDU Infusion Melatonin 3 mg 08/16/24 21:00 08/17/24 21:07 Melatonin 3 Mg Tablet PO 3 mg QPM INDU Administration Multivitamins/Minerals 1 tab 08/16/24 09:00 08/18/24 08:23 Multivitamin W/Minerals Tablet PO 1 tab DAILYWM INDU Administration [id number] Ethyl Esters 1 gm 08/17/24 09:00 08/18/24 08:22 [place]-3 Acid Ethyl Esters 1 Gm Capsule PO 1 gm DAILY INDU Administration Ondansetron HCl 4 mg 08/10/24 20:07 Ondansetron 4 Mg/2 Ml Vial IVP Q6H PRN Nausea / Vomiting Pantoprazole Sodium 40 mg 08/13/24 12:00 08/18/24 06:29 Pantoprazole 40 Mg Tablet PO 40 mg QDAC INDU Administration Capsaicin 42.5 Gm 1 each 08/16/24 14:12 Cream TOP PRN PRN Analgesia Sodium Chloride 10 ml 08/11/24 01:00 08/18/24 10:39 Sodium Chloride Flush 0.9% 10 Ml Syringe IVP 10 ml 0100,0900,1700 INDU Administration Sodium Chloride 10 ml 08/10/24 20:07 08/17/24 00:35 Sodium Chloride Flush 0.9% 10 Ml Syringe IVP 10 ml PRN PRN Administration NEEDED PER PROVIDER ORDERS Throat Lozenges 1 lozenge 08/12/24 00:38 08/12/24 21:46 Benzocaine/Menthol Lozenge MM 1 lozenge Q2HR PRN Administration Throat pain Objective Vital Signs/Intake & Output Reviewed Vital Signs: Yes Vital Signs: Vital Signs x48h Temp Pulse Resp BP Pulse Ox O2 Flow Rate 08/18/24 08:28 36.6 C 71 20 134/56 H 94 2 08/18/24 04:33 36.6 C 69 24 128/56 L 97 2 Intake & Output: Intake & Output 08/16/24 08/17/24 08/18/24 08/19/24 05:59 05:59 05:59 05:59 Intake Total 2758 / 2758 2126 / 1080 2006 100 / 100 Output Total 1164 / 1164 1790 / 1790 719 / 719 272 / 272 Balance 1594 / 1594 -710 / -710 1288 / 1288 -172 / -172 Weight (kg) 146 kg 149 kg 152 kg 153 kg Objective General Appearance: positive No acute distress and Alert Eyes Bilateral: positive Normal inspection Neck: positive No JVD and Trachea midline Respiratory: positive No respiratory distress Cardiovascular: positive Regular rate & rhythm, No murmur and No gallop Abdomen: positive Other (s/p abd hernia surgery, day 4, abdominal binder) Extremities: positive Non-tender and Nml appearance (R knee pain) Neurologic/Psychiatric: positive Oriented x3 Lab Results 08/18/24 04:50 08/18/24 04:50 Other Labs: Lab Results x24hrs 08/18/24 08/17/24 Range/Units 04:50 13:55 WBC 12.7 H (4.8-10.8) x10^3/uL RBC 2.68 L (4.70-6.10) 10^6/uL Hgb 8.7 L (14.0-18.0) g/dL Hct 27.4 L (42.0-52.0) % MCV 102.2 H (80.0-94.0) fL MCH 32.5 H (27.0-31.0) pg MCHC 31.8 L (32.0-36.0) g/dL RDW 14.4 (12.0-15.0) % Plt Count 347 (130-450) 10^3/uL MPV 10.7 (7.4-11.4) fL Neut # (Auto) 9.5 H (1.5-6.6) 10^3/uL Lymph # (Auto) 1.4 L (1.5-3.5) 10^3/uL [place] # (Auto) 1.3 H (0.0-1.0) 10^3/uL Eos # (Auto) 0.2 (0.0-0.7) 10^3/uL Baso # (Auto) 0.0 (0.0-0.1) 10^3/uL Absolute Nucleated RBC 0.00 x10^3/uL Nucleated RBC % 0.0 /100WBC Sodium 140 (135-145) mmol/L Potassium 4.0 (3.5-4.5) mmol/L Chloride 101 (101-111) mmol/L Carbon Dioxide 36 H (21-32) mmol/L Anion Gap 3.0 L (6-13) BUN 21 H (6-20) mg/dL Creatinine 1.1 (0.6-1.3) mg/dL Estimated GFR (MDRD) 64 L (>89) Glucose 135 H (74-104) mg/dL Calcium 8.6 (8.5-10.3) mg/dL Stl C. diff Tox B Gene NEGATIVE (NEGATIVE) Assessment/Plan Problem List (1) SBO (small bowel obstruction): Impression: Postoperative day #8 Continue Zosyn today 07/09 Per surgery Patient tolerating oral diet managed by surgery. Patient still has abdominal binder which is dry and clean. This is managed by surgery. Patient had several episodes of diarrhea overnight. This has not resolved. Patient also had a slight bump with leukocytosis to 12.2. Most likely secondary to hemoconcentration. He is on broad-spectrum antibiotics, Zosyn 07/09, Afebrile. Continue to monitor. Encourage fluid intake On DVT prophylaxis. (2) Leukocytosis: Impression: Patient developed slight leukocytosis overnight. Patient remains afebrile. Most likely this is due to hemoconcentration. Patient had several loose stools overnight and had poor oral intake. Patient urine output Decreased to less than 30 mL/h. At this time continue current antibiotic regimen. Zosyn 07/09. Encourage Laboratory Tests 08/08/24 08/08/24 08/09/24 13:00 19:07 06:04 WBC 16.3 H 13.7 H Lactic Acid 1.0 0.7 Qualifiers: Leukocytosis type: unspecified Qualified Code(s): D72.829 - Elevated white blood cell count, unspecified (3) Hypotension: Impression: Resolved Patient has been on dopamine now off since 08/13/2024., Continue monitor For hypotension (4) Acute kidney injury: Impression: 2 Laboratory Tests Resolved, Creatinine back to baseline Continue IV fluids as needed, avoid nephrotoxic drugs.B (5) Hyperglycemia: Impression: Of little clinical significance in this 83-year-old male. A1c is acceptable. However, a goal of glucose less than 130 on a regular basis is what we look for in a patient who has been operated on. I will start him on sliding scale insulin to make sure I maintain good control. Laboratory Tests 08/08/24 Hemoglobin A1c % 6.1 H Today's glucose was 168, 159, 155, 122.Received 2 units for the 159, and 2 units for the 155. No insulin for the 122. Plan: No change in sliding scale dosing at this time (6) Osteoarthritis of left knee: Impression: Patient continues to participate in PT as tolerated. He is quite motivated. Patient will go to his previous PT rehab facility upon discharge. Will continue PT. PT/OT has been ordered. Qualifiers: Osteoarthritis type: primary Qualified Code(s): M17.12 - Unilateral primary osteoarthritis, left knee (7) Cardiac pacemaker: Impression: This has been in place for about one year. he sees Dr Osborne. no problems with this. (8) Hernia: Impression: See above, patient s/p surgery day 7. (9) Circumcision complication: Impression: Circumcision done by surgery at admission Due to retraction of foreskin. Currently patient has a Brady, which had to be removed within a months by urology. Patient need to follow-up with urology within a month.
--- NOTE | 2024-08-18 14:10 | PROVIDER PROGRESS NOTE ---
Subjective General Admit Date: 08/08/24 Procedure Date: 08/10/24 Post Op Days: 8 Procedure Performed: Exploratory laparotomy with extensive lysis of adhesions (CPT 26707), circu Other Other Information/Narrative: appears well. tolerating diet. diarrhea yesterday. no diarrhea today. Wound Assessment Wound/Incisions: positive Dressing dry and intact Drain Type: Two 19 Fr Olvin drains one anterior to the mesh and one posterior to the me Drain Output Description: Serosanguinous decreasing Exam Exam Vital Signs Temperature 36.7 C 08/18/24 12:41 Pulse Rate 81 08/18/24 12:41 Respiratory Rate 20 08/18/24 12:41 Blood Pressure 151/65 H 08/18/24 12:41 O2 Saturation 96 08/18/24 12:41 If not protocol: Oxygen Flow, liters/minute 2 08/18/24 12:41 Constitutional normal general appearance and no apparent distress HENMT normocephalic and head/scalp atraumatic Eyes PERRL, EOMs intact bilaterally and no scleral icterus Respiratory normal respiratory effort Gastrointestinal obese. dressing c/d/i. scant serous drainage from the incision. jps scant serosanguinous. no erythema Neurology speech normal and GCS normal Psychiatry oriented x3, cooperative, affect normal and memory normal Impression/Plan Problem List (1) SBO (small bowel obstruction): Plan: tolerating diet. diarrhea resolved. he had poor mobility prior to surgery. he is not able to ambulate at this time. d/c planning for rehab/ snf (2) Leukocytosis: Qualifiers: Leukocytosis type: unspecified Qualified Code(s): D72.829 - Elevated white blood cell count, unspecified (3) Hypotension: (4) Acute kidney injury: (5) Hyperglycemia: (6) Osteoarthritis of left knee: Qualifiers: Osteoarthritis type: primary Qualified Code(s): M17.12 - Unilateral primary osteoarthritis, left knee (7) Cardiac pacemaker: (8) Hernia: (9) Circumcision complication: Plan pt with - - sbo abd pain + nausea and constipation for nearly a month h/o hernia, likely contributory gen surg on case, NGT placement ordered for decompressive relief - hernia unable to be reduced in the ER no ischemia noted on imaging, lactic acid wnl likely contributory to above - nereyda exacerbated d/t above --> decreased po intake, pre-renal azotemia ivf started, check renal sono f/u labs, cultures, replete electrolytes further orders per clinical course and surgical recommendations
--- NOTE | 2024-08-18 16:25 | PROVIDER PROGRESS NOTE ---
Subjective General Admit Date: 08/08/24 Procedure Date: 08/10/24 Post Op Days: 9 Procedure Performed: Exploratory laparotomy with extensive lysis of adhesions (CPT 11054), circu Wound Assessment Wound/Incisions: positive Dressing dry and intact and Other (The circumcision wound is healing well but moist - want this dry.) Drain Type: Two 19 Fr Olvin drains one anterior to the mesh and one posterior to the me Drain Output Description: Serosanguinous essentially zero. Review of Systems Constitutional Reports: Fatigue and Weakness; Denies: Fever, Chills or Malaise Eyes Denies: Pain or Irritation Ears, nose, mouth, and throat Denies: Ear pain, Ear discharge or Throat swelling Cardiovascular Reports: shortness of breath with exertion; Denies: chest pain or palpitations Respiratory Reports: Shortness of breath; Denies: Wheezing Gastrointestinal Denies: Abdominal pain, Nausea or Vomiting Musculoskeletal Reports: Joint pain and Muscle weakness Neurological Reports: General weakness; Denies: Headache Endocrine Reports: Fatigue Allergic/Immunologic Denies: Hives, Throat swelling, Tongue swelling, Facial swelling, Wheezing, Itchy eyes or Food intolerance Exam Exam Vital Signs Temperature 36.7 C 08/19/24 09:00 Pulse Rate 70 08/19/24 09:00 Respiratory Rate 16 08/19/24 09:00 Blood Pressure 122/57 L 08/19/24 09:00 O2 Saturation 95 08/19/24 09:00 If not protocol: Oxygen Flow, liters/minute 2 08/19/24 09:50 Constitutional normal general appearance and no apparent distress HENMT normocephalic, hearing grossly normal bilaterally and external ears normal Eyes conjunctivae normal and no scleral icterus Neck/C-Spine trachea midline Respiratory breath sounds equal bilaterally, normal respiratory effort (slightly decreased), clear to auscultation bilaterally and no wheezes Cardiovascular normal heart rate noted Gastrointestinal normoactive bowel sounds Abdominal binder in place. Silver impregnated dressing in place. I removed the drains and he tolerated this well. Genitourinary Incision well approximated and healing without infection. Extremities no tenderness Neurology no focal motor deficit noted, no sensory deficits noted, gait normal (Not evaluated.) and speech normal Psychiatry mental status grossly normal, oriented x3, thought process normal, cooperative, affect normal and memory normal Skin skin color normal and no rash ABX Reporting Has patient been on IV antibiotics over the past 48 hours?: Yes Impression/Plan Problem List (1) SBO (small bowel obstruction): Plan: D9 s/p exploratory laparotomy with extensive lysis of adhesions, omentectomy, small bowel resection, circumcision, mesh closure of 2 of the largest hernias, drain placement posterior and anterior to the mesh 1) FEN General diet and patient does not appear to be hypovolvemic or hypervolemic. 2) ID Patient is at risk for infection as he had a small bowel resection with spillage of succus entericus and placement of non-biologic mesh. Patient is to be maintained on Zosyn 3.375 g every 6 hours x 10 days. Drains out. Slight increase in WBC but this may be reactive and not infection. Again this patient is at significant risk for intra-abdominal infection as well as infection of the mesh. Let me be clear that should the mesh become infected the patient would need to be transferred to a higher level of care to have the mesh removed and a biologic mesh implanted. We should not compromise his antibiotic coverage. No sepsis. D9/10 of Zosyn. I will remove his dressing tomorrow and redress it. Diarrhea was negative for C diff. 3) Hernia No sense in repeating what has already been stated in previous notes. However I again explained to the patient that he should wear his abdominal binder faithfully every single day for the rest of his life. I reiterated this today again with the patient. 4) Circumcision Brady catheter in place. Area is moist and every effort should be made to keep area clean and DRY. 5) Activity PT intervention is the #1 priority now. 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 6) Disposition Plan is discharge to rehab facility. Drains are out. Brady still in place but will pull prior to discharge. (2) Leukocytosis: Qualifiers: Leukocytosis type: unspecified Qualified Code(s): D72.829 - Elevated white blood cell count, unspecified (3) Hypotension: (4) Acute kidney injury: (5) Hyperglycemia: (6) Osteoarthritis of left knee: Qualifiers: Osteoarthritis type: primary Qualified Code(s): M17.12 - Unilateral primary osteoarthritis, left knee (7) Cardiac pacemaker: (8) Hernia: (9) Circumcision complication:
[2024-08-19 05:46] LABS: BASOPHILS % (AUTO) 0.3 %; EOSINOPHILS # (AUTO) 0.2 10^3/uL (0.0-0.7); EOSINOPHILS % (AUTO) 1.7 %; HCT - HEMATOCRIT 26.7 % (42.0-52.0); LYMPHOCYTES # (AUTO) 1.1 10^3/uL (1.5-3.5); LYMPHOCYTES % (AUTO) 8.8 %; MEAN CORPUSCULAR HEMOGLOBIN 30.9 pg (27.0-31.0); MEAN CORPUSCULAR VOLUME 103.1 fL (80.0-94.0); MEAN PLATELET VOLUME 10.7 fL (7.4-11.4); MONOCYTES # (AUTO) 1.1 10^3/uL (0.0-1.0); MONOCYTES % (AUTO) 9.2 %; NEUTROPHILS # (AUTO) 9.8 10^3/uL (1.5-6.6); NEUTROPHILS % (AUTO) 78.5 %; PLT - PLATELET COUNT 365 10^3/uL (130-450); RED BLOOD COUNT 2.59 10^6/uL (4.70-6.10); RED CELL DISTRIBUTION WIDTH 14.4 % (12.0-15.0); WHITE BLOOD COUNT 12.4 x10^3/uL (4.8-10.8)
[2024-08-19 06:07] LABS: CALCIUM 8.4 mg/dL (8.5-10.3); POTASSIUM 3.9 mmol/L (3.5-4.5)
[2024-08-19] MEDS ORDERED: LORazepam 0.5 MG TABLET PO PRN (07:52)
[2024-08-19] MEDS ORDERED: LOPERAMIDE 2 MG CAPSULE PO PRN (10:57)
--- NOTE | 2024-08-19 10:57 | PROVIDER PROGRESS NOTE ---
Subjective Prog Note Date Prog Note Date: 08/19/24 Prog Note Time: 10:49 Subjective Pt reports feeling: Improved Subjective: pt with h/o constipation presents with nausea and vomiting along with decreased PO intake over the past week or so. states he has been having trouble over the last month with bm with last bm about a week ago, which was just liquid. denies h/o sbo but notes having a hernia which he feels may be contributing to this. no fevers, chills, chest pain, sob. no abd trauma. no falls. no dysuria or hematuria. Patient underwent a complicatedExploratory Laparotomy with extensive lysis of adhesions, small bowel resection, omentectomy, and placement of mesh and drains(Not Applicable) On 08/10/2024 08/13/2024: no overnight events, denies bowel movement or passing gas. No respiratory complaints. Feels that he could sit on edge of bed. 08/14/2024: Patient reports several bowel movements overnight, he is now off dopamine. Feels that he is progressing quite well. No respiratory complaints. 08/15/2024: Patient feels well, had a bowel movement this morning at 7 AM. Patient tolerating clear liquid diet. No respiratory complaints. 08/16/2024: Patient doing well. Participating in physical therapy. Patient has no complaints. 08/17/2024: Patient complains of diarrhea overnight. Otherwise he is doing well. 08/18/2024: Patient states that she has not slept well overnight. Patient had diarrhea x 6 yesterday on overnight. Patient said that has resolved. Patient denies pain or respiratory issues. 08/19/2024: Patient had an episode of anxiety overnight. Patient was given Dilaudid. Patient currently states that he Has new onset of diarrhea.Overall patient states he is feeling well Current Medications Current Medications Current Medications: Current Medications Generic Name Dose Route Start Last Admin Trade Name Freq PRN Reason Stop Dose Admin Allopurinol 100 mg 08/17/24 09:00 08/19/24 08:00 Allopurinol 100 Mg Tablet PO 100 mg DAILY INDU Administration Amitriptyline HCl 25 mg 08/16/24 21:00 08/18/24 21:26 Amitriptyline 25 Mg Tablet PO 25 mg HS INDU Administration Amlodipine Besylate 2.5 mg 08/17/24 09:00 08/19/24 07:59 Amlodipine 5 Mg Tablet PO 2.5 mg DAILY INDU Administration Ascorbic Acid 1,000 mg 08/17/24 09:00 08/19/24 08:00 Ascorbic Acid 500 Mg Tablet PO 1,000 mg DAILY INDU Administration Aspirin 81 mg 08/17/24 09:00 08/19/24 08:00 Aspirin Ec 81 Mg Tablet PO 81 mg DAILY INDU Administration Cholecalciferol 50 mcg 08/17/24 09:00 08/19/24 08:00 Cholecalciferol 25 Mcg Tablet PO 50 mcg DAILY INDU Administration Hydromorphone HCl 0.5 mg 08/10/24 20:07 08/19/24 03:34 Hydromorphone 0.5 Mg/0.5 Ml Syringe IVP 0.5 mg Q2H PRN Administration Severe Pain (Level 7-10) Piperacillin Sod/Tazobactam 100 mls @ 25 mls/hr 08/10/24 22:00 08/19/24 07:24 Sod 3.375 gm/ Sodium Chloride IV 25 mls/hr Q8HR INDU Administration Lorazepam 0.5 mg 08/19/24 07:52 Lorazepam 0.5 Mg Tablet PO Q6H PRN Anxiety Melatonin 3 mg 08/16/24 21:00 08/18/24 21:26 Melatonin 3 Mg Tablet PO 3 mg QPM INDU Administration Multivitamins/Minerals 1 tab 08/16/24 09:00 08/19/24 07:57 Multivitamin W/Minerals Tablet PO 1 tab DAILYWM INDU Administration Qsyns-4-Osmj Ethyl Esters 1 gm 08/17/24 09:00 08/19/24 07:58 [place]-3 Acid Ethyl Esters 1 Gm Capsule PO 1 gm DAILY INDU Administration Ondansetron HCl 4 mg 08/10/24 20:07 Ondansetron 4 Mg/2 Ml Vial IVP Q6H PRN Nausea / Vomiting Pantoprazole Sodium 40 mg 08/13/24 12:00 08/19/24 07:24 Pantoprazole 40 Mg Tablet PO 40 mg QDAC INDU Administration Capsaicin 42.5 Gm 1 each 08/16/24 14:12 Cream TOP PRN PRN Analgesia Sodium Chloride 10 ml 08/11/24 01:00 08/19/24 08:00 Sodium Chloride Flush 0.9% 10 Ml Syringe IVP 10 ml 0100,0900,1700 INDU Administration Sodium Chloride 10 ml 08/10/24 20:07 08/18/24 13:46 Sodium Chloride Flush 0.9% 10 Ml Syringe IVP 10 ml PRN PRN Administration NEEDED PER PROVIDER ORDERS Throat Lozenges 1 lozenge 08/12/24 00:38 08/12/24 21:46 Benzocaine/Menthol Lozenge MM 1 lozenge Q2HR PRN Administration Throat pain Objective Vital Signs/Intake & Output Reviewed Vital Signs: Yes Vital Signs: Vital Signs x48h Temp Pulse Resp BP Pulse Ox O2 Flow Rate 08/19/24 09:00 36.7 C 70 16 122/57 L 95 2 08/19/24 04:35 36.6 C 72 32 H 131/53 H 96 2 Intake & Output: Intake & Output 08/17/24 08/18/24 08/19/24 08/20/24 05:59 05:59 05:59 05:59 Intake Total 1080 / 1080 2006 / 2006 1520 / 1520 360 / 360 Output Total 1790 / 1790 719 / 719 1452 / 1452 Balance -710 / -710 1288 / 1288 68 / 68 360 / 360 Weight (kg) 149 kg 152 kg 147 kg Objective General Appearance: positive No acute distress and Alert Eyes Bilateral: positive Normal inspection Neck: positive No JVD and Trachea midline Respiratory: positive No respiratory distress Cardiovascular: positive Regular rate & rhythm, No murmur and No gallop Abdomen: positive Other (s/p abd hernia surgery, day 4, abdominal binder) Extremities: positive Non-tender and Nml appearance (R knee pain) Neurologic/Psychiatric: positive Oriented x3 Lab Results 08/19/24 05:26 08/19/24 05:26 Other Labs: Lab Results x24hrs 08/19/24 Range/Units 05:26 WBC 12.4 H (4.8-10.8) x10^3/uL RBC 2.59 L (4.70-6.10) 10^6/uL Hgb 8.0 L (14.0-18.0) g/dL Hct 26.7 L (42.0-52.0) % MCV 103.1 H (80.0-94.0) fL MCH 30.9 (27.0-31.0) pg MCHC 30.0 L (32.0-36.0) g/dL RDW 14.4 (12.0-15.0) % Plt Count 365 (130-450) 10^3/uL MPV 10.7 (7.4-11.4) fL Neut # (Auto) 9.8 H (1.5-6.6) 10^3/uL Lymph # (Auto) 1.1 L (1.5-3.5) 10^3/uL [place]ster # (Auto) 1.1 H (0.0-1.0) 10^3/uL Eos # (Auto) 0.2 (0.0-0.7) 10^3/uL Baso # (Auto) 0.0 (0.0-0.1) 10^3/uL Absolute Nucleated RBC 0.00 x10^3/uL Nucleated RBC % 0.0 /100WBC Sodium 139 (135-145) mmol/L Potassium 3.9 (3.5-4.5) mmol/L Chloride 101 (101-111) mmol/L Carbon Dioxide 37 H (21-32) mmol/L Anion Gap 1.0 L (6-13) BUN 18 (6-20) mg/dL Creatinine 1.0 (0.6-1.3) mg/dL Estimated GFR (MDRD) 71 L (>89) Glucose 124 H (74-104) mg/dL Calcium 8.4 L (8.5-10.3) mg/dL Assessment/Plan Problem List (1) SBO (small bowel obstruction): Impression: Postoperative day #9 Continue Zosyn today 08/08 Per surgery Patient completed his antibiotic regimen Patient tolerating oral diet managed by surgery. Patient still has abdominal binder which is dry and clean. This is managed by surgery. Patient had several episodes of diarrhea overnight Again. Start patient on Imodium This has not resolved. Patient WBCs have been stable at Around 12.4.. Most likely secondary to hemoconcentration. He is on broad-spectrum antibiotics, Zosyn 10, Afebrile. Continue to monitor. Encourage fluid intake On DVT prophylaxis. (2) Leukocytosis: Impression: Patient Leukocytosis has slightly decreased overnight to 12.4 Patient remains afebrile. Most likely this is due to hemoconcentration. Patient had several loose stools overnight and had poor oral intake. Patient urine output Decreased to less than 30 mL/h. Continue to monitor urine output and fluid intake. Encourage fluid intake At this time continue current antibiotic regimen. Zosyn 08/08. Laboratory Tests 08/08/24 08/08/24 08/09/24 13:00 19:07 06:04 WBC 16.3 H 13.7 H Lactic Acid 1.0 0.7 Qualifiers: Leukocytosis type: unspecified Qualified Code(s): D72.829 - Elevated white blood cell count, unspecified (3) Hypotension: Impression: Resolved Patient has been on dopamine now off since 08/13/2024., Continue monitor For hypotension (4) Acute kidney injury: Impression: 2 Laboratory Tests Resolved, Creatinine back to baseline Continue IV fluids as needed, avoid nephrotoxic drugs.B (5) Hyperglycemia: Impression: Of little clinical significance in this 83-year-old male. A1c is acceptable. However, a goal of glucose less than 130 on a regular basis is what we look for in a patient who has been operated on. I will start him on sliding scale insulin to make sure I maintain good control. Laboratory Tests 08/08/24 Hemoglobin A1c % 6.1 H Today's glucose was 168, 159, 155, 122.Received 2 units for the 159, and 2 units for the 155. No insulin for the 122. Plan: No change in sliding scale dosing at this time (6) Osteoarthritis of left knee: Impression: Patient continues to participate in PT as tolerated. He is quite motivated. Patient will go to his previous PT rehab facility upon discharge. Will continue PT. PT/OT has been ordered. Qualifiers: Osteoarthritis type: primary Qualified Code(s): M17.12 - Unilateral primary osteoarthritis, left knee (7) Cardiac pacemaker: Impression: This has been in place for about one year. he sees Dr Osborne. no problems with this. (8) Hernia: Impression: See above, patient s/p surgery day 7. (9) Circumcision complication: Impression: Circumcision done by surgery at admission Due to retraction of foreskin. Currently patient has a Brady, which has to be removed within a months by urology. Patient need to follow-up with urology within a month.
--- NOTE | 2024-08-19 13:43 | PROVIDER PROGRESS NOTE ---
Subjective General Admit Date: 08/08/24 Procedure Date: 08/10/24 Post Op Days: 9 Procedure Performed: Exploratory laparotomy with extensive lysis of adhesions (CPT 93369), circu Wound Assessment Wound/Incisions: positive Dressing dry and intact and Other (The circumcision wound is healing well but moist - want this dry.) Drain Type: Two 19 Fr Olvin drains one anterior to the mesh and one posterior to the me Drain Output Description: Serosanguinous essentially zero. Review of Systems Constitutional Reports: Fatigue and Weakness; Denies: Fever, Chills or Malaise Eyes Denies: Pain or Irritation Ears, nose, mouth, and throat Denies: Ear pain, Ear discharge or Throat swelling Cardiovascular Reports: shortness of breath with exertion; Denies: chest pain or palpitations Respiratory Reports: Shortness of breath; Denies: Wheezing Gastrointestinal Denies: Abdominal pain, Nausea or Vomiting Musculoskeletal Reports: Joint pain and Muscle weakness Neurological Reports: General weakness; Denies: Headache Endocrine Reports: Fatigue Allergic/Immunologic Denies: Hives, Throat swelling, Tongue swelling, Facial swelling, Wheezing, Itchy eyes or Food intolerance Exam Constitutional normal general appearance and no apparent distress HENMT normocephalic, hearing grossly normal bilaterally and external ears normal Eyes conjunctivae normal and no scleral icterus Neck/C-Spine trachea midline Respiratory breath sounds equal bilaterally, normal respiratory effort (slightly decreased), clear to auscultation bilaterally and no wheezes Cardiovascular normal heart rate noted Gastrointestinal normoactive bowel sounds Abdominal binder in place. Silver impregnated dressing in place. I removed the drains and he tolerated this well. Genitourinary Incision well approximated and healing without infection. Extremities no tenderness Neurology no focal motor deficit noted, no sensory deficits noted, gait normal (Not evaluated.) and speech normal Psychiatry mental status grossly normal, oriented x3, thought process normal, cooperative, affect normal and memory normal Skin skin color normal and no rash ABX Reporting Has patient been on IV antibiotics over the past 48 hours?: Yes Impression/Plan Problem List (1) SBO (small bowel obstruction): Plan: D9 s/p exploratory laparotomy with extensive lysis of adhesions, omentectomy, small bowel resection, circumcision, mesh closure of 2 of the largest hernias, drain placement posterior and anterior to the mesh 1) FEN General diet and patient does not appear to be hypovolvemic or hypervolemic. 2) ID Patient is at risk for infection as he had a small bowel resection with spillage of succus entericus and placement of non-biologic mesh. Patient is to be maintained on Zosyn 3.375 g every 6 hours x 10 days. Drains out. Slight increase in WBC but this may be reactive and not infection. Again this patient is at significant risk for intra-abdominal infection as well as infection of the mesh. Let me be clear that should the mesh become infected the patient would need to be transferred to a higher level of care to have the mesh removed and a biologic mesh implanted. We should not compromise his antibiotic coverage. No sepsis. D9/10 of Zosyn. I will remove his dressing tomorrow and redress it. Diarrhea was negative for C diff. 3) Hernia No sense in repeating what has already been stated in previous notes. However I again explained to the patient that he should wear his abdominal binder faithfully every single day for the rest of his life. I reiterated this today again with the patient. 4) Circumcision Brady catheter in place. Area is moist and every effort should be made to keep area clean and DRY. 5) Activity PT intervention is the #1 priority now. 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 6) Disposition Plan is discharge to rehab facility. Drains are out. Brady still in place but will pull prior to discharge. (2) Leukocytosis: Qualifiers: Leukocytosis type: unspecified Qualified Code(s): D72.829 - Elevated white blood cell count, unspecified (3) Hypotension: (4) Acute kidney injury: (5) Hyperglycemia: (6) Osteoarthritis of left knee: Qualifiers: Osteoarthritis type: primary Qualified Code(s): M17.12 - Unilateral primary osteoarthritis, left knee (7) Cardiac pacemaker: (8) Hernia: (9) Circumcision complication:
[2024-08-20 05:45] LABS: BASOPHILS % (AUTO) 0.3 %; EOSINOPHILS # (AUTO) 0.2 10^3/uL (0.0-0.7); EOSINOPHILS % (AUTO) 1.5 %; HGB - HEMOGLOBIN 7.9 g/dL (14.0-18.0); LYMPHOCYTES # (AUTO) 1.1 10^3/uL (1.5-3.5); LYMPHOCYTES % (AUTO) 9.7 %; MEAN CORPUSCULAR HEMOGLOBIN 31.3 pg (27.0-31.0); MEAN CORPUSCULAR HGB CONC 30.4 g/dL (32.0-36.0); MEAN CORPUSCULAR VOLUME 103.2 fL (80.0-94.0); MEAN PLATELET VOLUME 10.6 fL (7.4-11.4); MONOCYTES # (AUTO) 1.1 10^3/uL (0.0-1.0); NEUTROPHILS # (AUTO) 8.5 10^3/uL (1.5-6.6); NEUTROPHILS % (AUTO) 77.5 %; PLT - PLATELET COUNT 396 10^3/uL (130-450); RED BLOOD COUNT 2.52 10^6/uL (4.70-6.10); RED CELL DISTRIBUTION WIDTH 14.4 % (12.0-15.0)
[2024-08-20 06:04] LABS: MAGNESIUM 1.6 mg/dL (1.7-2.3); PHOSPHORUS 2.7 mg/dL (2.5-5.0)
[2024-08-20 06:08] LABS: ALBUMIN 2.6 g/dL (3.2-5.5); BILIRUBIN,TOTAL 0.3 mg/dL (0.2-1.0); CALCIUM 8.6 mg/dL (8.5-10.3); POTASSIUM 3.7 mmol/L (3.5-4.5); TOTAL PROTEIN 5.2 g/dL (6.4-8.9)
--- NOTE | 2024-08-20 10:18 | Discharge Summary ---
Discharge Summary Admit Date: 08/08/24 Discharge Date: 08/20/24 Discharging Provider: Ct Primary Care Provider: Kristen Gonzales PA-C Code Status: Attempt Resuscitation Discharge Facility [facility]: [facility] DIAGNOSES Discharge Diagnoses with Status of Each Condition: (1) SBO (small bowel obstruction): Resolved with surgery. Patient is still at risk as he had multiple abdominal wall hernias that could not be addressed surgically. The two largest were closed with non-biologic mesh (2) Leukocytosis: Still slightly elevated and patient completed a 10 day course of Zosyn. Patient remains at risk of infection due to bowel compromise and placement of non- biologic mesh at time of operation. (3) Hypotension: Resolved. (4) Acute kidney injury: Due to hypotension resolved. (5) Hyperglycemia: Laboratory Tests 08/08/24 Hemoglobin A1c % 6.1 H (6) Osteoarthritis of left knee: Chronic - the same. Impairs mobility. (7) Cardiac pacemaker: Not a problem. (8) Hernia: See #1. Patient continues to have hernias and is at high risk for recurrence. Should he represent with recurrence HE SHOULD NOT BE ADMITTED TO ANY CRITICAL ACCESS HOSPITAL THEY DO NOT HAVE THE RESOURCES TO TAKE CARE OF THE SURGICAL ISSUES. (9) Phimosis Resolved with circumcision done at time of surgery. Brady out. Follow up with operating surgeon (Ct). (10) Morbid obesity Class 3 HPI History of Present Illness: Patient states he began having abdominal pain yesterday morning and has had nausea without vomiting since yesterday evening. His last BM was 5 days ago and he struggles with chronic constipation. He had a sigmoid colon resection in the past and has a hernia at his prior colostomy site. The hernia is always there, per the patient and is sometimes softer than others. It is not painful to him now and he states it feels "about medium" as far as how hard or soft it is at this time. He denies fevers or chills. On further discussion with the patient and his , they report he was recently discharged from rehab where he was staying for strengthening after having trouble ambulating due to arthritis in his knee. He had some loose stools for several days about 10 days ago and got a total of three doses of immodium over a couple of days. He has been constipated since that time. He also reports prior workup for possible hernia repair at . CONSULTS | PROCEDURES Consultations: General Surgery, Hospitalist-Internal medicine Procedures: 08/08 CT abd/pelvis 08/09 US abdomen 08/10 CT abd/pelvis 08/10 CXR 08/10 Exploratory laparotomy with extensive lysis of adhesions (CPT 91904), circumcision (due to phomosis preventing placement of Brady catheter) (CPT 46275-67), small bowel resection (CPT 42084-17), partial omentectomy (CPT 53655- 59), placement of Ventralex ST mesh (99629-33 and 27735-04), placement of Olvin drains anterior and posterior to mesh - extensive case requiring over 5-1/2 hours CPT modifier 22 HOSPITAL COURSE Hospital Course: Patient has a long standing history of multiple abdominal wall hernias and had been evaluated at where surgery to repair these hernias was declined. Unfortunately presented with incarcerated small bowel that did not respond to conservative measures and surgery could not be avoided. Taken to the operating room on 08/10 where the aforementioned procedure was completed. Due to phimosis a Brady catheter could not be placed at the time of surgery and a circumcision was performed. The patient was maintained on antibiotics for 10 days due to spillage of bowel contents, compromised bowel and the unavailability of biologic mesh (the risk of mesh infection is high in this instance). The patient did well postoperatively but he is still hindered by his lack of mobility. He is being discharged on a general diet, without drains, without Brady, with a Silver impregnated wound dressing that can and should stay on every 3 days for 2 weeks. ALLERGIES Allergies Allergy/AdvReac Type Severity Reaction Status Date / Time Fehradd-CSY-UhS Reductase AdvReac Cramps Verified 08/08/24 12:48 Inhibitor MEDICATIONS Ambulatory Orders Medication Instructions Recorded Confirmed hydrochlorothiazide 25 mg tablet 12.5 mg PO DAILY 05/18/17 08/08/24 capsaicin 0.1 % topical cream 1 applic topical PRN PRN Analgesia 06/23/24 08/08/24 duloxetine 30 mg capsule,delayed 30 mg PO DAILY 06/23/24 08/08/24 release losartan 50 mg tablet 25 mg PO BID 06/23/24 08/08/24 allopurinol 100 mg tablet 100 mg PO DAILY 07/01/24 08/08/24 tolterodine 4 mg capsule,extended 4 mg PO DAILY 07/01/24 08/08/24 release 24 hr polyethylene glycol 3350 17 gram 17 g PO DAILY PRN Constipation 07/02/24 08/08/24 oral powder packet amitriptyline 25 mg tablet 25 mg PO HS #20 tabs 07/04/24 08/08/24 amlodipine 2.5 mg tablet 2.5 mg PO DAILY 08/09/24 08/09/24 ascorbic acid (vitamin C) 1,000 mg 1 g PO DAILY 08/09/24 08/09/24 tablet aspirin 81 mg tablet,delayed 81 mg PO DAILY 08/09/24 08/09/24 release (Ecotrin Low Strength) cholecalciferol (vitamin D3) 50 50 mcg PO DAILY 08/09/24 08/09/24 mcg (2,000 unit) capsule docusate sodium 250 mg capsule 250 mg PO BID 08/09/24 08/09/24 omega-3 fatty acids 1,000 mg 1,000 mg PO DAILY 08/09/24 08/09/24 capsule psyllium 1 packet PO DAILY 08/09/24 08/09/24 therapeutic multivitamin 1 tab PO DAILY 08/09/24 08/09/24 miscellaneous medical supply 1 ea miscellaneous ONCE #1 ea 08/20/24 PHYSICAL EXAM AT DISCHARGE General Appearance: positive No acute distress, Alert and Other (Patient is morbidly obese - class 3) Eyes Bilateral: positive No lid inflammation, Conjunctivae nml and No scleral icterus ENT: positive No signs of dehydration Neck: positive Trachea midline Respiratory: positive Chest non-tender, No respiratory distress and Breath sounds nml Cardiovascular: positive Regular rate & rhythm and No murmur Abdomen: positive Non-tender and Other (Midline wound dressed with silver impregnated dressing.) Skin: positive Color nml, No rash, Warm and Dry Extremities: positive Non-tender Neurologic/Psychiatric: positive Oriented x3, Motor nml, Sensation nml, Mood/affect nml and Other (Mobility impaired - 2 person max assist from supine to sitting to standing.) LABS 08/20/24 05:13 08/20/24 05:13 FOLLOW UP Follow Up: Ct in 2 weeks TIME SPENT Time Spent in Discharge (Minutes): 75 Discharge Plan Discharge Patient Disposition: [facility] DC/Xfer Condition: Fair Medically Cleared Date:: 08/20/24 Prescriptions: Continued hydrochlorothiazide 25 MG tablet 12.5 mg PO DAILY losartan 50 MG tablet 25 mg PO BID duloxetine 30 MG capsule,delayed release(DR/EC) 30 mg PO DAILY capsaicin 42.5 GM cream 1 applic topical PRN PRN (Reason: Analgesia) tolterodine 4 MG capsule,extended release 24hr 4 mg PO DAILY allopurinol 100 MG tablet 100 mg PO DAILY Patient Comments: Take 1 tablet (100 mg) by mouth daily for gout prevention polyethylene glycol 3350 17 GM powder in packet 17 g PO DAILY PRN (Reason: Constipation) amitriptyline 25 MG tablet 25 mg PO HS Qty: 20 0RF ascorbic acid (vitamin C) 1,000 mg tablet 1 g PO DAILY aspirin [Ecotrin Low Strength] 81 mg tablet,delayed release (DR/EC) 81 mg PO DAILY omega-3 fatty acids 1,000 mg capsule 1,000 mg PO DAILY therapeutic multivitamin Tablet 1 tab PO DAILY psyllium Packet 1 packet PO DAILY Rx Instructions: mix into at least 8 oz of water or juice before administering cholecalciferol (vitamin D3) 50 mcg (2,000 unit) capsule 50 mcg PO DAILY docusate sodium 250 mg capsule 250 mg PO BID amlodipine 2.5 mg tablet 2.5 mg PO DAILY No Action miscellaneous medical supply Misc 1 ea miscellaneous ONCE Qty: 1 0RF Rx Instructions: 1 power lift chair recliner for bilateral OA knees Activity Restrictions/Additional Instructions: No lifting > 15 pounds for 6 weeks. Wear abdominal binder at all times while up. Diet: Regular Health Concerns: Admitted for incarcerated incisional hernia - patient still has incisional hernias that could not be addressed surgically. At risk for recurrence. Care Plan Goals: [facility] for rehabilitation and increased strength. Assessment: Alert and oriented able and willing to cooperate. Plan of Treatment: Silver impregnated dressing to be changed every 3 days. Patient to see me for staple removal in 2 weeks (September 03). Patient should ignore the printed patient instructions as they do not apply. Print Language: Lithuanian Patient Instructions: Hernia Surg Patch Repair Stand Alone Forms: SNF Discharge Follow-up Care: Kristen Gonzales PA-C [Primary Care Provider] - Agus Fofana MD [Provider Admit Priv/Credential] -
[2024-08-20 10:58] VITALS: O2SAT 94
--- NOTE | 2024-08-20 12:46 | PROVIDER PROGRESS NOTE ---
Subjective Prog Note Date Prog Note Date: 08/19/24 Prog Note Time: 10:49 Subjective Pt reports feeling: Improved Subjective: Patient underwent a complicated exploratory laparotomy with extensive lysis of adhesions, small bowel resection, omentectomy, and placement of mesh and drains on 08/10/2024. Doing well; today is his last day of Zosyn. Overall, he is feeling well. He denies any shortness of breath, chest pain, abdominal pain. He is disappointed in the lack of physical therapy services. Current Medications Current Medications Current Medications: Current Medications Generic Name Dose Route Start Last Admin Trade Name Freq PRN Reason Stop Dose Admin Allopurinol 100 mg 08/17/24 09:00 08/20/24 09:14 Allopurinol 100 Mg Tablet PO 100 mg DAILY INDU Administration Amitriptyline HCl 25 mg 08/16/24 21:00 08/19/24 22:06 Amitriptyline 25 Mg Tablet PO 25 mg HS INDU Administration Amlodipine Besylate 2.5 mg 08/17/24 09:00 08/20/24 09:14 Amlodipine 5 Mg Tablet PO 2.5 mg DAILY INDU Administration Ascorbic Acid 1,000 mg 08/17/24 09:00 08/20/24 09:15 Ascorbic Acid 500 Mg Tablet PO 1,000 mg DAILY INDU Administration Aspirin 81 mg 08/17/24 09:00 08/20/24 09:14 Aspirin Ec 81 Mg Tablet PO 81 mg DAILY INDU Administration Cholecalciferol 50 mcg 08/17/24 09:00 08/20/24 09:16 Cholecalciferol 25 Mcg Tablet PO 50 mcg DAILY INDU Administration Hydromorphone HCl 0.5 mg 08/10/24 20:07 08/19/24 03:34 Hydromorphone 0.5 Mg/0.5 Ml Syringe IVP 0.5 mg Q2H PRN Administration Severe Pain (Level 7-10) Piperacillin Sod/Tazobactam 100 mls @ 25 mls/hr 08/10/24 22:00 08/20/24 10:20 Sod 3.375 gm/ Sodium Chloride IV Infused Q8HR INDU Infusion Loperamide HCl 2 mg 08/19/24 10:57 Loperamide 2 Mg Capsule PO QID PRN Diarrhea Lorazepam 0.5 mg 08/19/24 07:52 Lorazepam 0.5 Mg Tablet PO Q6H PRN Anxiety Melatonin 3 mg 08/16/24 21:00 08/19/24 22:06 Melatonin 3 Mg Tablet PO 3 mg QPM INDU Administration Multivitamins/Minerals 1 tab 08/16/24 09:00 08/20/24 09:14 Multivitamin W/Minerals Tablet PO 1 tab DAILYWM INDU Administration [id number] Ethyl Esters 1 gm 08/17/24 09:00 08/20/24 09:16 [place]-3 Acid Ethyl Esters 1 Gm Capsule PO 1 gm DAILY INDU Administration Ondansetron HCl 4 mg 08/10/24 20:07 Ondansetron 4 Mg/2 Ml Vial IVP Q6H PRN Nausea / Vomiting Pantoprazole Sodium 40 mg 08/13/24 12:00 08/20/24 06:08 Pantoprazole 40 Mg Tablet PO 40 mg QDAC INDU Administration Capsaicin 42.5 Gm 1 each 08/16/24 14:12 Cream TOP PRN PRN Analgesia Sodium Chloride 10 ml 08/11/24 01:00 08/20/24 09:17 Sodium Chloride Flush 0.9% 10 Ml Syringe IVP 10 ml 0100,0900,1700 INDU Administration Sodium Chloride 10 ml 08/10/24 20:07 08/18/24 13:46 Sodium Chloride Flush 0.9% 10 Ml Syringe IVP 10 ml PRN PRN Administration NEEDED PER PROVIDER ORDERS Throat Lozenges 1 lozenge 08/12/24 00:38 08/12/24 21:46 Benzocaine/Menthol Lozenge MM 1 lozenge Q2HR PRN Administration Throat pain Objective Vital Signs/Intake & Output Reviewed Vital Signs: Yes Vital Signs: Vital Signs x48h Temp Pulse Resp BP Pulse Ox O2 Flow Rate 08/20/24 10:00 97.7 F 69 16 130/57 L 94 1 Intake & Output: Intake & Output 08/18/24 08/19/24 08/20/24 08/21/24 05:59 05:59 05:59 05:59 Intake Total 2006 1520 / 1520 1860 / 1860 460 / 460 Output Total 719 / 719 1452 / 1452 1400 / 1400 175 / 175 Balance 1288 / 1288 68 / 68 460 / 460 285 / 285 Weight (kg) 152 kg 147 kg 148 kg Objective General Appearance: positive No acute distress and Alert Eyes Bilateral: positive Normal inspection Neck: positive No JVD and Trachea midline Respiratory: positive No respiratory distress Cardiovascular: positive Regular rate & rhythm, No murmur and No gallop Abdomen: positive Other (s/p abd hernia surgery, abdominal binder in place, not removed) Extremities: positive Non-tender and Nml appearance (R knee pain) Neurologic/Psychiatric: positive Oriented x3 Lab Results 08/20/24 05:13 08/20/24 05:13 Other Labs: Lab Results x24hrs 08/20/24 Range/Units 05:13 WBC 11.0 H (4.8-10.8) x10^3/uL RBC 2.52 L (4.70-6.10) 10^6/uL Hgb 7.9 L (14.0-18.0) g/dL Hct 26.0 L (42.0-52.0) % MCV 103.2 H (80.0-94.0) fL MCH 31.3 H (27.0-31.0) pg MCHC 30.4 L (32.0-36.0) g/dL RDW 14.4 (12.0-15.0) % Plt Count 396 (130-450) 10^3/uL MPV 10.6 (7.4-11.4) fL Neut # (Auto) 8.5 H (1.5-6.6) 10^3/uL Lymph # (Auto) 1.1 L (1.5-3.5) 10^3/uL Burnett # (Auto) 1.1 H (0.0-1.0) 10^3/uL Eos # (Auto) 0.2 (0.0-0.7) 10^3/uL Baso # (Auto) 0.0 (0.0-0.1) 10^3/uL Absolute Nucleated RBC 0.00 x10^3/uL Nucleated RBC % 0.0 /100WBC Sodium 140 (135-145) mmol/L Potassium 3.7 (3.5-4.5) mmol/L Chloride 101 (101-111) mmol/L Carbon Dioxide 37 H (21-32) mmol/L Anion Gap 2.0 L (6-13) BUN 17 (6-20) mg/dL Creatinine 1.0 (0.6-1.3) mg/dL Estimated GFR (MDRD) 71 L (>89) Glucose 117 H (74-104) mg/dL Calcium 8.6 (8.5-10.3) mg/dL Phosphorus 2.7 (2.5-5.0) mg/dL Magnesium 1.6 L (1.7-2.3) mg/dL Total Bilirubin 0.3 (0.2-1.0) mg/dL AST 17 (10-42) IU/L ALT 21 (10-60) IU/L Alkaline Phosphatase 91 (42-121) IU/L Total Protein 5.2 L (6.4-8.9) g/dL Albumin 2.6 L (3.2-5.5) g/dL Globulin 2.6 (2.1-4.2) g/dL Albumin/Globulin Ratio 1.0 (1.0-2.2) Prealbumin 13 L (17-34) mg/dL Triglycerides 102 mg/dL Assessment/Plan Problem List (1) SBO (small bowel obstruction): Impression: Patient had a ex lap, and had some lysis of adhesions, and had drains placed. Being managed by surgery; plan for discharge today to rehab facility. (2) Leukocytosis: Impression: Patient with leukocytosis; today's last day of Zosyn. Stable. Likely reactive to surgery. Laboratory Tests 08/17/24 08/18/24 08/19/24 06:12 04:50 05:26 WBC 8.6 12.7 H 12.4 H 08/20/24 05:13 WBC 11.0 H Qualifiers: Leukocytosis type: unspecified Qualified Code(s): D72.829 - Elevated white blood cell count, unspecified (3) Hypotension: Impression: Required dopamine; now off. (4) Acute kidney injury: Impression: 2 Resolved, creatinine back to baseline. (5) Hyperglycemia: Impression: A1c is at 6.1%. Continue low dose sliding scale while in pateint. (6) Osteoarthritis of left knee: Impression: Plan for discharge to rehab facility for further rehab. Qualifiers: Osteoarthritis type: primary Qualified Code(s): M17.12 - Unilateral primary osteoarthritis, left knee (7) Cardiac pacemaker: Impression: This has been in place for about one year. President And Ceo is Dr. Osborne. (8) Hernia: Impression: See operative course above; surgery following. (9) Circumcision complication: Impression: Circumcision done by surgery at admission due to retraction of foreskin. Currently patient has a Brady; close follow up with Urology outpatient. Qualifiers: Encounter type: subsequent encounter Qualified Code(s): T81.9XXD - Unspecified complication of procedure, subsequent encounter
== END 2024-08-20 13:24 | DRG 330 ==
LOC: ED 12:20 → MS2 22:11 → ICU 08-10 19:50 → MS2 08-15 12:13
PROVIDERS: ADMIT Student in an Organized Health Care Education/Training Program; ATTEND Student in an Organized Health Care Education/Training Program
DX: R19.7 Diarrhea, unspecified; R73.9 Hyperglycemia, unspecified; N47.1 Phimosis; F41.9 Anxiety disorder, unspecified; Z87.891 Personal history of nicotine dependence; Z79.82 Long term (current) use of aspirin; E66.01 Morbid (severe) obesity due to excess calories; D64.9 Anemia, unspecified; N17.9 Acute kidney failure, unspecified; Z68.41 Body mass index [BMI] 40.0-44.9, adult; M10.9 Gout, unspecified; M17.12 Unilateral primary osteoarthritis, left knee; K42.9 Umbilical hernia without obstruction or gangrene; Z90.49 Acquired absence of other specified parts of digestive tract; I95.9 Hypotension, unspecified; D72.829 Elevated white blood cell count, unspecified; Z79.899 Other long term (current) drug therapy; Z95.0 Presence of cardiac pacemaker; K40.30 Unilateral inguinal hernia, with obstruction, without gangrene, not specified as recurrent; K40.40 Unilateral inguinal hernia, with gangrene, not specified as recurrent; F32.A Depression, unspecified; K59.09 Other constipation; I10 Essential (primary) hypertension; I45.9 Conduction disorder, unspecified